=== PATIENT | female | born 1955 | race Caucasian/White ===

== ENCOUNTER 2021-03-02 18:41 | Observation (INO) | payer OTHER, BC ==
--- OUTSIDE RECORDS SUMMARY | 2021-03-02 18:43 | XMS REPORT | Continuity of Care Document ---
:1955 Author Organization [facility] t Address [address] [place] [address] Care Team Providers Name Role Phone Tim COREAS, A Primary Care Physician Mariel Allison MD Attending Clinician Juan WELLS Attending Clinician Unavailable Tim COREAS, A Attending Clinician Prakash COREAS Attending Clinician Payers Payer Name Policy Type Policy Effective Date Expiration Date Sour ce Number MEDICAREMEDICARE PART [id number] 1998 josé luis De La Garza AND 00:00:00 [facility] ZolyomsrTO64 1997[place] [place] [id number] 2017 [place] PPO/FEDERAL EMPL M 00:00:00 Methodis t [id number] 16-PresentPPO Problems Condition Condition Condition Status Onset Resolution Last Treating Co mments Source Name Details Category Date Date Treatment Clinician Date SOB SOB Disease Active Last [facility] (shortness (shortness 6-29 Assessmen Methodi of breath) of breath) 00:00: t & Plan: st 00 Formattin g of this note might be different from the original. Etiology not entirely clear. Element of underlyin g asthma may play a role. Will obtain PFT's to assess underlyin g physiolog y. Will initiate LABA/ICS. She has prn MELBA. 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 Will obtain CXR. She also has CHF, and likely her PR worsened her CHF. Her NT-proBNP was mildly elevated. Would continue diuretics . Will give samples of Breo if available . Heart Heart Disease Active Last [facility] attack attack 01-13 Assessmen Methodi 00:00: t & Plan: st 00 Formattin g of this note might be different from the original. S/P PR last December. Sleep Sleep Disease Active Last [facility] apnea, apnea, Assessmen Methodi obstructiv obstructiv t & Plan: st e e Formattin g of this note might be different from the original. She definitel y has AMISHA, and has significa nt symptoms. Will obtain PSG and, if indicated , titration study. She has benefitte d from CPAP in the past. CHF CHF Disease Active Last [facility] (congestiv (congestiv Assessmen Methodi e heart e heart t & Plan: st failure) failure) Formattin g of this note might be different from the original. Likely ischemic. Needs echocardi ogram. Will refer to Cardiolog y. Diabetes Diabetes Disease [facility] mellitus Assessmen Met hodi t & Plan: st Formattin g of this note might be different from the original. She sees Dr. Dumont . Has not been tracking her glucose. Encourage d to do so. History of History of Disease Active Last [facility] COVID-19 COVID-19 Assessmen Met hodi t & Plan: st Formattin g of this note might be different from the original. 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 Mild Mild Disease Active Last [facility] intermitte intermitte Assessmen Methodi nt asthma nt asthma t & Plan: s t without without Formattin complicati complicati g of this on on note might be different from the original. Definitel y has asthma. Will initiate LABA/ICS and assess response. She has as rescue inhaler. Allergies, Adverse Reactions, Alerts This patient has no known allergies or adverse reactions. Family History Family Member Diagnosis Comments Start Date Stop Date Source Natural father Leukemia [facility] Natural father COPD [facility] Natural father Diabetes [facility] Natural mother COPD [facility] Natural mother Heart disease [facility] Social History Social Habit Start Date Stop Date Quantity Comments Source Exposure to Not sure Reynaldo Metho dist SARS-CoV-2 (event) Tobacco use and 2021-02-10 2021-02-10 Never used Reynaldo Meyer ethodist exposure 00:00:00 00:00:00 Alcohol intake 2021-02-10 2021-02-10 Ex-drinker Reynaldo Delgadillo thodist 00:00:00 00:00:00 (finding) Alcohol Comment 2021-02-10 2021-02-10 once a year [facility] 00:00:00 00:00:00 [birth year] Reynaldo cadenaodist 00:00:00 00:00:00 Smoking Status Start Date Stop Date Source Never smoker Reynaldo Aguilaris gualberto Medications Ordered Filled Start Stop Current Ordering Indication Dosage Frequency Signature Comments Components Source Medication Medication Date Date Medication? Clinician (SIG) Name Name b complex Yes Take by [place] vitamins 02-10 mouth. Methodi tablet 13:46: st 50 promethazin Yes 25mg Take 25 mg Jacobs e 02-10 by mouth. Methodi (PHENERGAN) 13:46: st 25 MG 50 tablet ZINC ORAL Yes Take by [place] 02-10 mouth. Methodi 13:46: st 50 fluticasone Yes Mild QD Inhale 1 [place] furoate-sayra 02-10 intermitten inhalation Methodi anteroL 00:00: t asthma s once st (Breo 00 without daily. Ellipta) complicatio 200-25 n mcg/dose blister with device powder for inhalation amitriptyli Yes 50mg Take 50 mg Jacobs ne (ELAVIL) 02-02 by mouth. Met hodi 50 MG 00:00: st tablet 00 atorvastati Yes 20mg Take 20 mg Jacobs n (LIPITOR) 02-02 by mouth. Met hodi 20 mg 00:00: st tablet 00 furosemide Yes 40mg Take 40 mg [place] (LASIX) 40 02-02 by mouth. Meth lisa mg tablet 00:00: st 00 glimepiride Yes 4mg Take 4 mg [place] (AMARYL) 4 - by mouth. Meth lisa MG tablet 00:00: st 00 insulin Yes 50U Inject 50 [place] GLARGINE 6-21 Units Methodi (Toujeo 00:00: under the st SoloStar 00 skin. U-300 Insulin) 300 unit/mL (1.5 mL) insulin pen subcutaneou s pen ipratropium Yes 2{spray 2 sprays Jacobs (ATROVENT) 6-21 } into each Meth lisa 21 mcg 00:00: nostril. st (0.03 %) 00 nasal spray ipratropium Yes 1{puff} Inhale 1 Jacobs -albuteroL 6-21 puff. Methodi (Combivent 00:00: st Respimat) 00 20-100 mcg/actuati on mist inhaler levothyroxi Yes 75ug Take 75 Arnulfo ston ne 6-21 mcg by Methodi (SYNTHROID) 00:00: mouth. st 75 mcg 00 tablet montelukast Yes 10mg Take 10 mg Jacobs (SINGULAIR) 6-21 by mouth. Met hodi 10 mg 00:00: st tablet 00 omeprazole Yes 40mg Take 40 mg [place] (PriLOSEC) 6-21 by mouth. Meth lisa 40 MG 00:00: st capsule 00 losartan Yes 100mg Take 100 [place] (COZAAR) 50 4-12 mg by Methodi MG tablet 00:00: mouth. st 00 metoprolol Yes 100mg Take 100 [place] tartrate 4-12 mg by Methodi (LOPRESSOR) 00:00: mouth. st 100 mg 00 tablet doxazosin Yes 1mg Take 1 mg Arnulfo ston (CARDURA) 1 3-22 by mouth. Met hodi MG tablet 00:00: st 00 insulin Yes Check Jacobs ASPART 7-07 sugarsAC&o Methodi (NovoLOG) 00:00: rifnot st 100 unit/mL 00 feeling injection well.Ifove r 300,&>2hrs since eating,nawaf [id number],4 01-450 [id number] s,451-500 take 20units&ca ll [facility] Immunizations Ordered Immunization Filled Immunization Date Status Commen ts Source Name Name FLUZONE HIGH-DOSE PF 2019-11-10 Completed [place] 00:00:00 Christian Pneumococcal 2017-02-03 Completed [place] Polysaccharide 00:00:00 Christian Td, Unspecified 2017-01-30 Completed [facility] 00:00:00 [facility] Vital Signs Vital Name Observation Time Observation Value Comments Source Systolic blood 2021-02-10 13:44:00 122 mm[Hg] [place] [facility] pressure Diastolic blood 2021-02-10 13:44:00 76 mm[Hg] [place] [facility] pressure Heart rate 2021-02-10 13:44:00 92 /min [facility] Body temperature 2021-02-10 13:44:00 36.67 Kiara [place] [facility] Respiratory rate 2021-02-10 13:44:00 18 /min [place] [facility] Body height 2021-02-10 13:44:00 160 cm [facility] Body weight 2021-02-10 13:44:00 122.018 kg [facility] BMI 2021-02-10 13:44:00 47.65 kg/m2 [facility] Oxygen saturation in 2021-02-10 13:44:00 95 /min [facility] Arterial blood by Pulse oximetry Procedures This patient has no known procedures. Plan of Care Planned Activity Planned Date Details Comments Source Future Scheduled 2022-02-03 65+ PNEUMOCOCCAL [facility] Test 00:00:00 VACCINE (2 of 2) [code = 65+ PNEUMOCOCCAL VACCINE (2 of 2)] Future Scheduled 2021-03-15 INFLUENZA VACCINE [place] [facility] Test 00:00:00 [code = INFLUENZA VACCINE] Future Scheduled 2003 BREAST CANCER [facility] thodist Test 00:00:00 SCREENING [code = BREAST CANCER SCREENING] Future Scheduled 2003 COLONOSCOPY SCREENING [place] [facility] Test 00:00:00 [code = COLONOSCOPY SCREENING] Future Scheduled 2003 SHINGLES VACCINES (#1) [place] [facility] Test 00:00:00 [code = SHINGLES VACCINES (#1)] Future Scheduled 1971 Hepatitis C screening [place] [facility] Test 00:00:00 (procedure) [code = 405091035] Future Scheduled 1963 DIABETES: RETINAL EYE [place] [facility] Test 00:00:00 EXAM [code = DIABETES: RETINAL EYE EXAM] Future Scheduled 1963 DIABETIC FOOT EXAM [place] [facility] Test 00:00:00 [code = DIABETIC FOOT EXAM] Future Scheduled 1963 URINE MICROALBUMIN [place] [facility] Test 00:00:00 [code = URINE MICROALBUMIN] Encounters Start End Encounter Admission Attending Care Care Encounter Source Date/Time Date/Time Type Type Clinicians Facility Department ID 2021-02-11 2021-02-11 Outpatient [facility] [id number] [place] 00:00:00 00:00:[address] 2021-02-10 2021-02-10 Outpatient JOJO, [facility] [id number] [place] 00:00:00 00:00:00 [address] [facility] 2021-02-09 2021-02-09 Patient JODY Dumont [id number] 00:00:00 00:00:00 Secure Msg Kelli Granger [id number] Chancellor [id number] Professio [id number] [address] 2021-02-09 2021-02-09 Telephone Tim RUST [id number] 00:00:00 00:00:00 Kelli Granger [id number] Chancellor [id number] Professio [phone] [address] 2021-02-07 2021-02-07 Telephone JODY Randall [id number] 00:00:00 00:00:00 [facility] [id number] Specialty [id number] Care - [phone] [place] [address] Results This patient has no known results.
--- NOTE | 2021-03-02 21:23 | ER ---
Nurse's Notes [facility] Name: Diane Byrnes Age: 65 yrs Sex: Female : 1955 Arrival Date: 03/02/2021 Time: 18:45 Bed 23 Private MD: Diagnosis: Dyspnea;Systolic (congestive) heart failure;Weakness-right leg;Obesity, unspecified Presentation: 03/02 19:01 Chief complaint: Patient states: Started having SOB with exertion on Tuesday evening. ca1 Denies cough more than usual. Chest pain/tightness and pressure on neck started with the SOB. And on Tuesday, the R leg would drag and when I was walking to the bathroom it would just kind of curl up or contract and when I give it a rest it will be fine. Coronavirus screen: Client denies travel out of the [place] in the last 14 days. shortness of breath, Client presents with at least one sign or symptom that may indicate coronavirus-19. Standard/surgical mask placed on the client. Provider contacted for isolation considerations. Ebola Screen: Patient negative for fever greater than or equal to 101.5 degrees Fahrenheit, and additional compatible Ebola Virus Disease symptoms Patient denies exposure to infectious person. Patient denies travel to an Ebola-affected area in the 21 days before illness onset. No symptoms or risks identified at this time. Initial Sepsis Screen: Does the patient meet any 2 criteria? No. Patient's initial sepsis screen is negative. Does the patient have a suspected source of infection? No. Patient's initial sepsis screen is negative. Risk Assessment: Do you want to hurt yourself or someone else? Patient reports no desire to harm self or others. Onset of symptoms was March 02, 2021. 19:01 Acuity: RHODA 3 ca1 19:01 Method Of Arrival: Wheelchair ca1 Historical: - Allergies: 19:06 No Known Allergies; ca1 - PMHx: 19:06 Hypertensive disorder; Diabetes mellitus; Sleep apnea; Congestive heart failure; ca1 Hypothyroidism; Asthma; - Immunization history:: Client reports receiving the 2nd dose of the Covid vaccine, Client reports receiving the 1st dose of the Covid vaccine, Pneumococcal vaccine is up to date, Flu vaccine is up to date. - Social history:: Smoking status: Patient denies any tobacco usage or history of. - Family history:: not pertinent. Screenin:25 Abuse screen: Denies threats or abuse. Denies injuries from another. Nutritional ad5 screening: No deficits noted. Tuberculosis screening: No symptoms or risk factors identified. Fall Risk No fall in past 12 months (0 pts). Secondary diagnosis (15 points) IV access (20 points). Ambulatory Aid- None/Bed Rest/Nurse Assist (0 pts). Gait- Normal/Bed Rest/Wheelchair (0 pts) Mental Status- Oriented to own ability (0 pts). Total Harmon Fall Scale indicates Low Risk Score (25-44 pts). Fall prevention measures have been instituted. Side Rails Up X 2 Family Present and informed to notify staff if they need to leave bedside As available Patient and Family Educated on Fall Prevention Program and strategies. Assessment: 21:22 General: Appears in no apparent distress. Behavior is calm, cooperative, appropriate ad5 for age. Pain: Denies pain. Neuro: Level of Consciousness is awake, alert, obeys commands, Oriented to person, place, time, situation, Appropriate for age Script Artist are equal bilaterally Moves all extremities. Gait is steady, Speech is normal, Facial symmetry appears normal, Pupils are PERRLA, Intact. Cardiovascular: Heart tones present Capillary refill < 3 seconds Patient's skin is warm and dry. Pulses are all present. Rhythm is regular. Respiratory: Reports shortness of breath cough that is at baseline at this time d/t hx of CHF; reports worsening SOB this past Sat-Sun with exertion Airway is patent Respiratory effort is even, unlabored, Respiratory pattern is regular, symmetrical, Breath sounds are clear bilaterally. GI: No deficits noted. No signs and/or symptoms were reported involving the gastrointestinal system. : No deficits noted. No signs and/or symptoms were reported regarding the genitourinary system. Derm: Skin is intact, Skin is pink, warm \\T\\ dry. Musculoskeletal: Reports weakness in RLE denies injury; states difficulty with mvmt to affected extremity Sat-Sun this past week; sent by PCP for "MRI". 21:44 Reassessment: Patient appears in no apparent distress at this time. No changes from ad5 previously documented assessment. Patient and/or family updated on plan of care and expected duration. Pain level reassessed. 22:30 Reassessment: Pt assisted to [facility], ambulates independently with steady gait. Urine ad5 output of 380cc noted, clear/yellow. Pt moved into hospital bed, placed in room 23 for continued monitoring. Pt denies other needs or c/o at this time. VS remain stable. NAD noted, will continue to monitor. Patient denies pain at this time. Vital Signs: 19:01 BP 133 / 81; Pulse 88; Resp 20; Temp 98.4(O); Pulse Ox 96% on R/A; Weight 122.47 kg ca1 (R); Height 5 ft. 3 in. (160.02 cm) (R); 19:01 Pain 5/10; ca1 21:26 BP 159 / 84; Pulse 81; Resp 20 S; Pulse Ox 95% ; ad5 19:01 Body Mass Index 47.83 (122.47 kg, 160.02 cm) ca1 Isa Coma Score: 21:22 Eye Response: spontaneous(4). Verbal Response: oriented(5). Motor Response: obeys ad5 commands(6). Total: 15. NIH Stroke Scale Scores: 21:09 NIHSS Score: 1 carmen 21:22 NIHSS Score: 1 ad5 ED Course: 18:45 Patient arrived in ED. mr 19:05 Triage completed. ca1 19:06 Arm band placed on right wrist. ca1 20:37 Ahsan Urrutia is Primary Nurse. ad5 20:40 Patient placed in an exam room, on a stretcher, on alarm security or surveillance monitor, on pulse oximetry. ca1 20:48 Leon Nguyen MD is Attending Physician. carmen 21:18 XRAY Chest (1 view) In Process Unspecified. EDMS 21:20 Jose Elias Gomez is Hospitalizing Provider. carmen 21:22 Patient has correct armband on for positive identification. Placed in gown. Bed in low ad5 position. Call light in reach. Side rails up X2. Adult w/ patient. child monitor on. Pulse ox on. NIBP on. Door closed. Noise minimized. Head of bed elevated. 21:25 River Aguirre DO is Hospitalizing Provider. carmen 21:26 No provider procedures requiring assistance completed. Initial lab(s) drawn, by me, ad5 sent to lab. Inserted saline lock: 20 gauge in right forearm, using aseptic technique. Blood collected. 21:56 CT Head Brain wo Cont In Process Unspecified. EDMS 07 00:57 Patient admitted, IV remains in place. ad5 12:46 Urine Culture Sent. 5 Administered Medications: 07/19 21:42 Drug: foLIC Acid 1 mg Route: IVPB; Site: right forearm; ad5 22:36 Follow up: IV Status: Completed infusion ad5 21:43 Drug: Aspirin Chewable Tablet 81 mg Route: PO; ad5 22:45 Follow up: Response: No adverse reaction ad5 22:48 Drug: Lasix (furosemide) 60 mg Route: IVP; Site: right forearm; ad5 03/03 00:56 Follow up: Response: No adverse reaction ad5 03/02 22:50 Drug: Potassium Effervescent Tablet 50 mEq Route: PO; ad5 03/03 00:56 Follow up: Response: No adverse reaction ad5 00:58 Not Given (Patient Refused): NS 0.9% 1000 ml IV at 75 ml/hr continuous ad5 Outcome: 03/02 21:22 Decision to Hospitalize by Provider. carmen 03/03 00:57 Admitted to ER Hold. [facility] ad5 Condition: stable Instructed on the need for admit, Demonstrated understanding of instructions. 16:12 Patient left the ED. aa5 NIH Stroke Scale - NIH Stroke Score Date: 03/02/2021 Time: 21:09 Total Score = 1 1a. Level of Consciousness (LOC) - 0(Alert) 1b. Level of Consciousness (LOC) (Month \\T\\ Age) - 0(Both) 1c. LOC Commands (Open \\T\\ Closes Eyes/Senior Data Modeler) - 0(Both) 2. Best Gaze (Lateral Gaze Paresis) - 0(Normal) 3. Visual Field Loss - 0(No visual loss) 4. Facial Palsy - 0(Normal) 5a. Left Arm: Motor (10-second hold) - 0(No drift) 5b. Right Arm: Motor (10-second hold) - 0(No drift) 6a. Left Leg: Motor (5-second hold - always test supine) - 0(No drift) 6b. Right Leg: Motor (5-second hold - always test supine) - 1(Drift) 7. Limb Ataxia (finger/nose \\T\\ heel/salas - test with eyes open) - 0(Absent) 8. Sensory Loss (pinprick arms/legs/face) - 0(Normal) 9. Best Language: Aphasia (description/naming/reading) - 0(No aphasia) 10. Dysarthria (speech clarity - read or repeat words) - 0(Normal) 11. Extinction and Inattention (visual/tactile/auditory/spatial/personal) - 0(No abnormality) Initials: carmen NIH Stroke Scale - NIH Stroke Score Date: 03/02/2021 Time: 21:22 Total Score = 1 1a. Level of Consciousness (LOC) - 0(Alert) 1b. Level of Consciousness (LOC) (Month \\T\\ Age) - 0(Both) 1c. LOC Commands (Open \\T\\ Closes Eyes/Senior Data Modeler) - 0(Both) 2. Best Gaze (Lateral Gaze Paresis) - 0(Normal) 3. Visual Field Loss - 0(No visual loss) 4. Facial Palsy - 0(Normal) 5a. Left Arm: Motor (10-second hold) - 0(No drift) 5b. Right Arm: Motor (10-second hold) - 0(No drift) 6a. Left Leg: Motor (5-second hold - always test supine) - 0(No drift) 6b. Right Leg: Motor (5-second hold - always test supine) - 1(Drift) 7. Limb Ataxia (finger/nose \\T\\ heel/salas - test with eyes open) - 0(Absent) 8. Sensory Loss (pinprick arms/legs/face) - 0(Normal) 9. Best Language: Aphasia (description/naming/reading) - 0(No aphasia) 10. Dysarthria (speech clarity - read or repeat words) - 0(Normal) 11. Extinction and Inattention (visual/tactile/auditory/spatial/personal) - 0(No abnormality) Initials: ad5 Signatures: Dispatcher [employer] EDLeon Rai MD MD cha Rivera, Aimee sidhu McphersonMelva cueva RN RN aa5 Evita Charles Cheryl, RN RN ca1 Davidson, Andrea ad5 Corrections: (The following items were deleted from the chart) 03/02 21:25 21:22 Respiratory: Reports shortness of breath cough that is at baseline at ad5 this time d/t hx of CHF; reports worsening SOB this past Sat-Sun with exertion Airway is patent Respiratory effort is even, unlabored, Respiratory pattern is regular, symmetrical, ad5
--- NOTE | 2021-03-02 21:23 | EDPHYS ---
Physician Documentation [facility] Name: Diane Byrnes Age: 65 yrs Sex: Female : 1955 Arrival Date: 03/02/2021 Time: 18:45 Bed 23 Private MD: ED Physician Leon Nguyen HPI: 03/02 21:09 This 65 yrs old Female presents to ER via Wheelchair with complaints of carmen Breathing Difficulty. 21:09 The patient has shortness of breath at rest, with light activity. Onset: The carmen symptoms/episode began/occurred 3 day(s) ago. 21:09 Duration: The symptoms are continuous, and are unchanged since they started. The carmen patient's shortness of breath is aggravated by light activity, supine position, walking. The patient presents to the emergency department with weakness of the right lower extremity, that is moderate. Context: occurred at an unknown location. Associated signs and symptoms: Pertinent positives: weakness. Severity of symptoms: At their worst the symptoms were moderate in the emergency department the symptoms are unchanged. Associated signs and symptoms: The patient has no apparent associated signs or symptoms. Historical: - Allergies: 19:06 No Known Allergies; ca1 - PMHx: 19:06 Hypertensive disorder; Diabetes mellitus; Sleep apnea; Congestive heart failure; ca1 Hypothyroidism; Asthma; - Immunization history:: Client reports receiving the 2nd dose of the Covid vaccine, Client reports receiving the 1st dose of the Covid vaccine, Pneumococcal vaccine is up to date, Flu vaccine is up to date. - Social history:: Smoking status: Patient denies any tobacco usage or history of. - Family history:: not pertinent. ROS: 21:09 Constitutional: Negative for fever, chills, and weight loss, Eyes: Negative for injury, carmen pain, redness, and discharge, ENT: Negative for injury, pain, and discharge, Neck: Negative for injury, pain, and swelling, Cardiovascular: Negative for chest pain, palpitations, and edema, Abdomen/GI: Negative for abdominal pain, nausea, vomiting, diarrhea, and constipation, Back: Negative for injury and pain, : Negative for injury, bleeding, discharge, and swelling, Skin: Negative for injury, rash, and discoloration, Psych: Negative for depression, anxiety, suicide ideation, homicidal ideation, and hallucinations, Allergy/Immunology: Negative for hives, rash, and allergies, Endocrine: Negative for neck swelling, polydipsia, polyuria, polyphagia, and marked weight changes, Hematologic/Lymphatic: Negative for swollen nodes, abnormal bleeding, and unusual bruising. 21:09 Respiratory: Positive for cough, shortness of breath, on exertion. 21:09 MS/extremity: Positive for decreased range of motion, of the right leg. Exam: 21:09 Constitutional: This is a well developed, well nourished patient who is awake, alert, carmen and in no acute distress. Head/Face: Normocephalic, atraumatic. Eyes: Pupils equal round and reactive to light, extra-ocular motions intact. Lids and lashes normal. Conjunctiva and sclera are non-icteric and not injected. Cornea within normal limits. Periorbital areas with no swelling, redness, or edema. ENT: Nares patent. No nasal discharge, no septal abnormalities noted. Tympanic membranes are normal and external auditory canals are clear. Oropharynx with no redness, swelling, or masses, exudates, or evidence of obstruction, uvula midline. Mucous membranes moist. Neck: Trachea midline, no thyromegaly or masses palpated, and no cervical lymphadenopathy. Supple, full range of motion without nuchal rigidity, or vertebral point tenderness. No Meningismus. Chest/axilla: Normal chest wall appearance and motion. Nontender with no deformity. No lesions are appreciated. Cardiovascular: Regular rate and rhythm with a normal S1 and S2. No gallops, murmurs, or rubs. Normal PMI, no JVD. No pulse deficits. Respiratory: Lungs have equal breath sounds bilaterally, clear to auscultation and percussion. No rales, rhonchi or wheezes noted. No increased work of breathing, no retractions or nasal flaring. Abdomen/GI: Soft, non-tender, with normal bowel sounds. No distension or tympany. No guarding or rebound. No evidence of tenderness throughout. Back: No spinal tenderness. No costovertebral tenderness. Full range of motion. Female : Normal external genitalia. Skin: Warm, dry with normal turgor. Normal color with no rashes, no lesions, and no evidence of cellulitis. Neuro: Awake and alert, GCS 15, oriented to person, place, time, and situation. Cranial nerves II-XII grossly intact. Motor strength 5/5 in all extremities. Sensory grossly intact. Cerebellar exam normal. Normal gait. Psych: Awake, alert, with orientation to person, place and time. Behavior, mood, and affect are within normal limits. 21:09 Musculoskeletal/extremity: ROM: full active range of motion, full passive range of motion, Circulation is intact in all extremities. Sensation intact. Compartment Syndrome exam of affected extremity: is normal. Weight bearing: able to fully bear weight, DVT Exam: no pain, no tenderness, negative Homans' sign noted on exam, no appreciated bluish discoloration, no erythema, no increased warmth, swelling. 21:09 Neuro: Orientation: is normal, appropriate for stated age, no acute changes, Mentation: is normal, appropriate for stated age, no acute changes, Memory: is normal, appropriate for stated age, no acute changes, Cranial nerves: grossly normal, is grossly normal based on the patient's age, no acute changes, Cerebellar function: is grossly normal, is grossly normal based on the patient's age, no acute changes, Motor: moves all fours, strength is 4/5 in the right leg, Sensation: is normal, no obvious gross deficits, appropriate no acute changes, Gait: not tested. seizure activity, is not displayed by the patient. 21:13 ECG was reviewed by the Attending Physician. carmen Vital Signs: 19:01 BP 133 / 81; Pulse 88; Resp 20; Temp 98.4(O); Pulse Ox 96% on R/A; Weight 122.47 kg ca1 (R); Height 5 ft. 3 in. (160.02 cm) (R); 19:01 Pain 5/10; ca1 21:26 BP 159 / 84; Pulse 81; Resp 20 S; Pulse Ox 95% ; ad5 19:01 Body Mass Index 47.83 (122.47 kg, 160.02 cm) ca1 NIH Stroke Scale Scores: 21:09 NIHSS Score: 1 carmen 21:22 NIHSS Score: 1 ad5 [place] Coma Score: 21:22 Eye Response: spontaneous(4). Verbal Response: oriented(5). Motor Response: obeys ad5 commands(6). Total: 15. MDM: 20:48 Patient medically screened. carmen 21:12 Differential diagnosis: CHF exacerbation, pulmonary edema. Antibiotic administration: carmen Not indicated. The patient's Wells Deep Vein Thrombosis Score was calculated as follows: Total Score: 0-2 Pts- Low Risk. The patient's pulmonary embolism risk score was calculated as follows: Total Score: 0-2 points. This patient was found to be at low risk for a pulmonary embolism by using the Well's assessment criteria. Immunization status: Pneumococcal vaccine: Influenza vaccine: Data reviewed: vital signs, nurses notes, lab test result(s), EKG, radiologic studies, CT scan, plain films. Data interpreted: court recording monitor: rate is 88 beats/min, rhythm is regular, Pulse oximetry: on room air is 96 %. Test interpretation: by ED physician or midlevel provider: ECG, plain radiologic studies. Counseling: I had a detailed discussion with the patient and/or guardian regarding: the historical points, exam findings, and any diagnostic results supporting the discharge/admit diagnosis, lab results, radiology results, the need for further work-up and treatment in the hospital. 03/02 21:09 Order name: Basic Metabolic Panel; Complete Time: 22:25 [facility] 03/02 21:09 Order name: CBC with Diff; Complete Time: 22:16 [facility] 03/02 21:09 Order name: LFT's; Complete Time: 22:25 [facility] 03/02 21:09 Order name: Magnesium; Complete Time: 22:25 [facility] 03/02 21:09 Order name: NT PRO-BNP; Complete Time: 22:25 [facility] 03/02 21:09 Order name: PT-INR; Complete Time: 21:55 [facility] 03/02 21:09 Order name: Troponin (emerg Dept Use Only); Complete Time: 22:25 [facility] 03/02 21:09 Order name: Lipase; Complete Time: 22:25 [facility] 03/02 21:09 Order name: Sed Rate; Complete Time: 22:16 [facility] 03/02 21:09 Order name: CRP; Complete Time: 22:25 [facility] 03/02 21:09 Order name: Urine Culture [facility] 03/03 00:21 Order name: SARS-COV-2 RT PCR [facility] 03/03 05:17 Order name: CBC with Automated Diff [facility] 03/02 21:09 Order name: XRAY Chest (1 view); Complete Time: 21:55 [facility] 03/02 21:19 Order name: CT Head Brain wo Cont; Complete Time: 22:25 [facility] 03/02 22:47 Order name: US Extremity Venous W Compression Robin [facility] 03/03 05:38 Order name: Hemoglobin A1c [facility] 03/03 06:02 Order name: Comprehensive Metabolic Panel [facility] 03/03 06:02 Order name: Lipid Profile [facility] 03/03 06:02 Order name: T4 Free [facility] 03/03 06:02 Order name: Magnesium [facility] 03/03 06:02 Order name: Thyroid Stimulating Hormone [facility] 03/03 07:49 Order name: Glucose, Ancillary Testing [facility] 03/03 08:36 Order name: US [facility] 03/03 09:42 Order name: MRI [facility] 03/03 09:54 Order name: MRI [facility] 03/03 11:53 Order name: Glucose, Ancillary Testing [facility] 03/03 12:35 Order name: Urine Dipstick-Ancillary [facility] 03/03 15:13 Order name: Potassium [facility] 03/02 18:59 Order name: EKG; Complete Time: 18:59 [facility] 03/02 18:59 Order name: EKG - Nurse/Tech; Complete Time: 18:59 [facility] 03/02 21:09 Order name: Cardiac monitoring; Complete Time: 21:21 [facility] 03/02 21:09 Order name: IV Saline Lock; Complete Time: 21:22 [facility] 03/02 21:09 Order name: Labs collected and sent; Complete Time: 21:22 [facility] 03/02 21:09 Order name: O2 Sat Monitoring; Complete Time: 21:22 [facility] 03/02 21:09 Order name: Urine Dipstick-Ancillary (obtain specimen); Complete Time: 12:36 [facility] 03/03 09:56 Order name: [facility] 03/03 10:11 Order name: [facility] EC:13 Rate is 84 beats/min. Rhythm is regular. QRS Marshall is Normal. CO interval is normal. QRS carmen interval is normal. QT interval is normal. No Q waves. T waves are Normal. No ST changes noted. Clinical impression: NSR w/ Non-specific ST/T Changes and No evidence of ischemia. Interpreted by me. Reviewed by me. Administered Medications: 21:42 Drug: foLIC Acid 1 mg Route: IVPB; Site: right forearm; ad5 22:36 Follow up: IV Status: Completed infusion ad5 21:43 Drug: Aspirin Chewable Tablet 81 mg Route: PO; ad5 22:45 Follow up: Response: No adverse reaction ad5 22:48 Drug: Lasix (furosemide) 60 mg Route: IVP; Site: right forearm; ad5 03/03 00:56 Follow up: Response: No adverse reaction ad5 03/02 22:50 Drug: Potassium Effervescent Tablet 50 mEq Route: PO; ad5 03/03 00:56 Follow up: Response: No adverse reaction ad5 00:58 Not Given (Patient Refused): NS 0.9% 1000 ml IV at 75 ml/hr continuous ad5 Disposition Summary: 03/02/21 21:22 Hospitalization Ordered Hospitalization Status: Observation carmen Condition: Fair carmen Problem: new carmen Symptoms: have improved carmen Bed/Room Type: Standard carmen Provider: River Aguirre(03/02/21 21:26) carmen Location: [facility] ER HOLD(03/02/21 21:40) mw Room Assignment: ERHOLD-(03/02/21 21:40) mw Diagnosis - Dyspnea carmen - Systolic (congestive) heart failure carmen - Weakness - right leg carmen - Obesity, unspecified carmen Forms: - Medication Reconciliation Form carmen - SBAR form carmen NIH Stroke Scale - NIH Stroke Score Date: 03/02/2021 Time: 21:09 Total Score = 1 1a. Level of Consciousness (LOC) - 0(Alert) 1b. Level of Consciousness (LOC) (Month \T\ Age) - 0(Both) 1c. LOC Commands (Open \T\ Closes Eyes/Optical Design Engineer) - 0(Both) 2. Best Gaze (Lateral Gaze Paresis) - 0(Normal) 3. Visual Field Loss - 0(No visual loss) 4. Facial Palsy - 0(Normal) 5a. Left Arm: Motor (10-second hold) - 0(No drift) 5b. Right Arm: Motor (10-second hold) - 0(No drift) 6a. Left Leg: Motor (5-second hold - always test supine) - 0(No drift) 6b. Right Leg: Motor (5-second hold - always test supine) - 1(Drift) 7. Limb Ataxia (finger/nose \T\ heel/salas - test with eyes open) - 0(Absent) 8. Sensory Loss (pinprick arms/legs/face) - 0(Normal) 9. Best Language: Aphasia (description/naming/reading) - 0(No aphasia) 10. Dysarthria (speech clarity - read or repeat words) - 0(Normal) 11. Extinction and Inattention (visual/tactile/auditory/spatial/personal) - 0(No abnormality) Initials: carmen NIH Stroke Scale - NIH Stroke Score Date: 03/02/2021 Time: : Total Score = 1 1a. Level of Consciousness (LOC) - 0(Alert) 1b. Level of Consciousness (LOC) (Month \T\ Age) - 0(Both) 1c. LOC Commands (Open \T\ Closes Eyes/Optical Design Engineer) - 0(Both) 2. Best Gaze (Lateral Gaze Paresis) - 0(Normal) 3. Visual Field Loss - 0(No visual loss) 4. Facial Palsy - 0(Normal) 5a. Left Arm: Motor (10-second hold) - 0(No drift) 5b. Right Arm: Motor (10-second hold) - 0(No drift) 6a. Left Leg: Motor (5-second hold - always test supine) - 0(No drift) 6b. Right Leg: Motor (5-second hold - always test supine) - 1(Drift) 7. Limb Ataxia (finger/nose \T\ heel/salas - test with eyes open) - 0(Absent) 8. Sensory Loss (pinprick arms/legs/face) - 0(Normal) 9. Best Language: Aphasia (description/naming/reading) - 0(No aphasia) 10. Dysarthria (speech clarity - read or repeat words) - 0(Normal) 11. Extinction and Inattention (visual/tactile/auditory/spatial/personal) - 0(No abnormality) Initials: ad5 Signatures: Dispatcher [employer] EDCassie Anglin RN RN mw Anderson, Corey, MD MD cha Attema, Lee, PRIMARY MILL ROLLER-C PRIMARY MILL ROLLER-Cla1 Jolynn Cheng RN RN ca1 Davidson, Andrea ad5 Corrections: (The following items were deleted from the chart) 03/02 21:26 21:22 Jose Elias Gomez cha [facility] :40 21:22 Telemetry/MedSurg (observation) carmen :40 21:22 carmen mcmahan
--- NOTE | 2021-03-02 21:36 | RAD REPORT ---
EXAM DESCRIPTION: RAD - Chest Single View - 03/02/2021 9:19 pm CLINICAL HISTORY: COUGH Chest pain. COMPARISON: No comparisons FINDINGS: Portable technique limits examination quality. Mild interstitial pulmonary edema suspected. The heart is mildly enlarged size. No displaced fracture s. IMPRESSION: Mild CHF versus volume overload.
[2021-03-02 21:38] LABS: Absolute Lymphocytes (CBC) 1.9 K/uL (0.7-4.9); Basophils % 1.3 % (0-1.3); Hematocrit 35.8 % (36.0-45.0); Lymphocytes % 16.4 % (15.3-44.8); MPV 7.8 fL (7.6-11.3); RBC Red Blood Cell Count 3.71 M/uL (3.86-4.86)
[2021-03-02 21:39] LABS: Protime INR 1.15
[2021-03-02] MEDS ORDERED: ASPIRIN 81 MG CHEWABLE TABLET ONE (21:57)
[2021-03-02] MEDS ORDERED: NA CHLORIDE 0.9% 1,000 ML ONE (21:57)
[2021-03-02] MEDS ORDERED: FOLIC ACID 5 MG/ML VIAL ONE (21:58)
[2021-03-02] MEDS ORDERED: NA CHLORIDE 0.9% 50 ML ONE (21:58)
--- NOTE | 2021-03-02 22:17 | RAD REPORT ---
EXAM DESCRIPTION: CT - Head Brain Wo Cont - 03/02/2021 9:56 pm CLINICAL HISTORY: DIZZINESS Headache, drowsiness COMPARISON: No comparisons TECHNIQUE: All CT scans are performed using dose optimization technique as appropriate and may inclu de automated exposure control or mA/KV adjustment according to patient size. FINDINGS: No intracranial hemorrhage, hydrocephalus or extra-axial fluid collection.No areas of brai n edema or evidence of midline shift. The paranasal sinuses and mastoids are clear. The calvarium is intact. IMPRESSION: No acute intracranial abnormality.
[2021-03-02 22:18] LABS: ALT/SGPT 31 U/L (12-78); AST/SGOT 39 U/L (15-37); Albumin 2.9 g/dL (3.4-5.0); Alkaline Phosphatase 79 U/L (45-117); BUN Blood Urea Nitrogen 8 mg/dL (7-18); Bicarbonate 28 mmol/L (21-32); Bilirubin Direct 0.2 mg/dL (0-0.2); Bilirubin Total 0.9 mg/dL (0.2-1.0); Glucose Level 158 mg/dL (74-106); Lipase 31 U/L (73-393); NT PRO-BNP 329 pg/mL (<125); Potassium 3.3 mmol/L (3.5-5.1); Protein, Total 7.5 g/dL (6.4-8.2); Sodium Level 139 mmol/L (136-145); Troponin (Emerg Dept Use Only) < 0.02 ng/mL (0.0-0.045)
--- NOTE | 2021-03-02 23:06 | P.HP ---
Certification for Inpatient Patient admitted to: Observation With expected LOS: <2 Midnights Patient will require the following post-hospital care: None Practitioner: I am a practitioner with admitting privileges, knowledge of patient current condition, hospital course, and medical plan of care. Services: Services provided to patient in accordance with Admission requirements found in Title 42 Section 412.3 of the Code of Federal Regulations Patient History Date of Service: 03/02/21 Primary Care Provider: [place] SAM[facility] Dumont Reason for admission: CHF exacerbation, right lower extremity weakness History of Present Illness: 65-year-old female with history of diabetes mellitus type 2, hypertension, hyperlipidemia, hypothyroidism, chronic diastolic congestive heart failure, asthma/COPD presents emergency department for right lower extremity weakness and shortness of breath with exertion. Patient reports symptoms started on Tuesday. Patient reports that she walks she feels like she has to drag her right leg along. Patient evaluated in the emergency department, CT head unremarkable lab significant for white blood cell count 11.8 potassium 3.3, glucose 158 BNP 329. Patient previously had COVID last year. Was discharged on home O2 4 liters/minute but not currently using on a daily basis. ED provider wishes to admit under observation for CHF exacerbation/right lower extremity weakness. On exam patient with mild drift of the right lower extremity otherwise neurological intact. 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 moist/pink Neck: Supple, 2+ carotid pulse no bruit, No LAD Respiratory: Clear to auscultation bilaterally, Normal air movement Cardiovascular: Regular rate/rhythm, Normal S1 S2, Edema (2+ pitting edema bilat eral lower extremity) Capillary refill: <2 Seconds Gastrointestinal: Normal bowel sounds, No tenderness Musculoskeletal: Swelling Integumentary: No rashes Neurological: Normal speech, Normal tone, Sensation intact, Normal affect, Abnormal strength (4/5 strength right lower extremity otherwise 5/5) - Studies Laboratory Data (last 24 hrs) 03/02/21 21:20: PT 13.2 H, INR 1.15 03/02/21 21:20: WBC 11.80 H, Hgb 12.1, Hct 35.8 L, Plt Count 258 03/02/21 21:20: Sodium 139, Potassium 3.3 L, BUN 8, Creatinine 0.72, Glucose 158 H, Magnesium 2.0, Total Bilirubin 0.9, AST 39 H, ALT 31, Alkaline Phosphatase 79, Lipase 31 L Assessment and Plan - Plan Assessment Dyspnea secondary to acute on chronic diastolic congestive heart failure Right lower extremity weakness Diabetes mellitus type 2 Hypertension Hyperlipidemia Hypothyroidism COPD/asthma Plan Dyspnea secondary to acute on chronic diastolic congestive heart failure: Monitor on telemetry, continue medications, 1500 cc per day fluid restriction, daily weights. Increase Lasix from 40 mg p.o. b.i.d. to 60 mg IV b.i.d. monitor intake/output. DVT prophylaxis Lovenox 40 mg subcutaneous once daily. Right lower extremity weakness: Patient with some edema noted to bilateral lower extremities, ultrasound lower extremities pending, MRI stroke protocol ordered to rule out ischemic CVA. Will have patient work with physical therapy to evaluate ambulation as well. Echo/carotid ultrasound ordered. Diabetes mellitus type 2: A.c. HS Accu-Cheks, sliding scale insulin therapy. A1c with morning labs. Hypertension: Obtain and continue home meds Hyperlipidemia: Obtain and continue medications, continue with atorvastatin 40 mg po daily at this time. Hypothyroidism: Continue medications COPD/asthma: Continue medications, stable this time. No wheezing noted. Discharge Plan: Home Plan to discharge in: 24 Hours - Advance Directives Does patient have a Living Will: No Does patient have a Durable POA for Healthcare: No - Code Status/Comfort Care Code Status Assessed: Yes (Full code) Critical Care: No Time Spent Managing Pts Care (In Minutes): 55
[2021-03-02] MEDS ORDERED: FUROSEMIDE 100 MG/10 ML VIAL IV ONE (23:09)
[2021-03-02] MEDS ORDERED: POTASSIUM 25 MEQ EFFERV TAB ONE (23:09)
[2021-03-03] MEDS ORDERED: ONDANSETRON 4 MG/2 ML VIAL IV PRN (01:03)
[2021-03-03] MEDS ORDERED: ACETAMINOPHEN 500 MG TAB PO PRN (01:03)
[2021-03-03 01:47] VITALS: BMI 47.8
[2021-03-03] MEDS ORDERED: PROMETHAZINE 25 MG TABLET PO PRN (01:47)
[2021-03-03] MEDS ORDERED: GLUCAGON 1 MG/VIAL IM PRN (01:49)
[2021-03-03] MEDS ORDERED: D50W 25 GM/50 ML SYRINGE IV PRN (01:49)
[2021-03-03] MEDS ORDERED: ACETAMINOPHEN 500 MG TAB ONE (03:01)
[2021-03-03 05:14] LABS: Absolute Lymphocytes (CBC) 2.1 K/uL (0.7-4.9); Basophils % 0.9 % (0-1.3); Lymphocytes % 17.8 % (15.3-44.8); MPV 7.9 fL (7.6-11.3); RBC Red Blood Cell Count 3.37 M/uL (3.86-4.86)
[2021-03-03 05:34] LABS: ALT/SGPT 30 U/L (12-78); AST/SGOT 38 U/L (15-37); Albumin 2.8 g/dL (3.4-5.0); Alkaline Phosphatase 73 U/L (45-117); BUN Blood Urea Nitrogen 8 mg/dL (7-18); Bicarbonate 34 mmol/L (21-32); Glucose Level 88 mg/dL (74-106); HDL Cholesterol 32 mg/dL (40-60); LDL Cholesterol, Calculated 63 (<130); Potassium 3.1 mmol/L (3.5-5.1); Protein, Total 6.9 g/dL (6.4-8.2); Sodium Level 141 mmol/L (136-145)
[2021-03-03] MEDS ORDERED: LEVOTHYROXINE SOD 0.075 MG TAB PO SCH (06:00)
--- NOTE | 2021-03-03 06:20 | P.DS ---
Admission Date: 03/02/21 Discharge Date: 03/03/21 Primary Care Provider: DC SAMSON Dumont Disposition: ROUTINE DISCHARGE Discharge Condition: GOOD Reason for Admission: CHF exacerbation, right lower extremity weakness Consultations: Neurology-Dr. Hernandez Procedures: CT head: COMPARISON: No comparisons TECHNIQUE: All CT scans are performed using dose optimization technique as appropriate and may include automated exposure control or mA/KV adjustment according to patient size. FINDINGS: No intracranial hemorrhage, hydrocephalus or extra-axial fluid collection.No areas of brain edema or evidence of midline shift. The paranasal sinuses and mastoids are clear. The calvarium is intact. IMPRESSION: No acute intracranial abnormality. MRI head: COMPARISON: MRA Head Wo Cont dated 03/03/2021 TECHNIQUE: Multi-sequence, multiplanar MR imaging of the brain was performed with contrast. FINDINGS: No intracranial hemorrhage, hydrocephalus, or extra-axial fluid collection. No edema or shift of midline structures. No intracranial mass. DWI is negative for acute CVA. The midline structures are normally formed. Mastoid air cells and paranasal sinuses are clear. Post-contrast images show no abnormal enhancement to suggest tumor or infection. IMPRESSION: No acute or concerning intracranial abnormalities. No pathologic post-contrast enhancement suspected. MRA head: COMPARISON: Head Brain Wo Cont dated 03/02/2021 FINDINGS: 3D noncontrast [id number] MR angiography of the [place] was performed. No aneurysm, flow-limiting stenosis or vascular malformation is seen. Forward flow seen in codominant vertebral arteries. The visualized dural venous sinuses appear patent. IMPRESSION: No significant flow abnormality of the [place] is identified. MRA neck: COMPARISON: Carotid Artery Bilateral dated 03/03/2021 FINDINGS: Contrast enhance 2D [id number] MR angiography of the neck vessels was performed. A left aortic arch is noted with a normal great vessel origin pattern. Both common carotid arteries and subclavian arteries are patent. Mild narrowing of the right carotid bulb is noted estimated at 50% or less using NASCET criteria. No significant left-sided carotid narrowing. Antegrade flow is seen in both codominant vertebral arteries. IMPRESSION: Mild narrowing of the right carotid bulb estimated at less than 50%. ECHO: MEASUREMENTS (cm) DIASTOLIC (NORMALS) SYSTOLIC (NORMALS) IVSd 1.2 (0.6-1.2) LA Diam 3.6 (1.9-4.0) LVEF 60% LVIDd 3.2 (3.5-5.7) LVIDs 2.2 (2.0-3.5) %FS 31% LVPWd 1.4 (0.6-1.2) Ao Diam 2.4 (2.0-3.7) 2 DIMENSIONAL ASSESSMENT: RIGHT ATRIUM: NORMAL LEFT ATRIUM: NORMAL RIGHT VENTRICLE: NORMAL LEFT VENTRICLE: NORMAL TRICUSPID VALVE: NORMAL MITRAL VALVE: NORMAL PULMONIC VALVE: NORMAL AORTIC VALVE: NORMAL PERICARDIAL EFFUSION: NONE AORTIC ROOT: NORMAL LEFT VENTRICULAR WALL MOTION: NORMAL. DOPPLER/COLOR FLOW: NORMAL. COMMENTS: NORMAL 2D ECHO WITH DOPPLER. NO VEGETATION. NO THROMBUS. Carotid Doppler: COMPARISON: MRA Neck W/Wo Cont dated 03/03/2021 TECHNIQUE: Real-time sonographic evaluation of both carotid systems was performed. Doppler interrogation was performed with waveform tracing bilate rally. FINDINGS: Normal high resistance waveforms are noted in both external carotid arteries. The common carotid arteries and internal carotid arteries show normal low resistance waveforms. Mild soft plaque is present in both carotid bulbs, greater on the right. Peak systolic and end diastolic velocity values and the ICA/CCA ratios are in the non-hemodynamically significant range. Antegrade flow seen in both vertebral arteries. IMPRESSION: Mild soft plaquing in both carotid bulbs. No evidence of a hemodynamically significant stenosis. Medical problem list: Dyspnea secondary to acute on chronic diastolic congestive heart failure Right lower extremity weakness Carotid arterial disease Diabetes mellitus type 2 insulin-dependent Hypertension Hyperlipidemia Hypothyroidism COPD GERD Obesity, BMI 47.8 Brief History of Present Illness: 65-year-old female with history of diabetes mellitus type 2, hypertension, hyperlipidemia, hypothyroidism, chronic diastolic congestive heart failure, asthma/COPD presents emergency department for right lower extremity weakness and shortness of breath with exertion. Patient reports symptoms started on Tuesday. Patient reports that she walks she feels like she has to drag her right leg along. Patient evaluated in the emergency department, CT head unremarkable lab significant for white blood cell count 11.8 potassium 3.3, glucose 158 BNP 329. Was admitted for further evaluation and treatment. Hospital Course: Patient presented with shortness of breath secondary to acute on chronic diastolic CHF. Patient was admitted for further evaluation and treatment. Echocardiogram shows normal ejection fraction. Patient received IV Lasix with improvement. Patient has done well. At discharge patient will continue with the 1500 cc/day fluid restriction and low-salt diet. Recommend to monitor her weight daily. If her weight increases by more than 5 pounds further adjustment in medication may be required. At discharge will recommend to increase Lasix to 80 mg 1 pill twice daily. Patient may continue with his current regimen. If her shortness of breath and edema improve then this can be decreased to 40 mg 1 pill twice daily. Further adjustment in medication can be done by her PCP or cardiology. Patient uses home oxygen. Maintain sats above 93%. Recommend to follow-up with her PCP within 1 week to follow-up his hospitalization and to further manage her medication. Patient also reported some right lower extremity weakness. This improved with treatment. MRI stroke protocol was performed. No evidence of stroke noted. Patient worked with physical therapy. Echocardiogram unremarkable. Carotid Doppler showed mild narrowing to the carotid bulb. This can be monitored as an outpatient. Recommend to continue with aspirin 81 mg daily. Recommend follow- up carotid ultrasound in 6-12 months to monitor progress. Patient may need to see cardiology as an outpatient to further monitor. Patient with diabetes mellitus type 2. This appears stable. At discharge patient will continue with her current regimen of Toujeo 50 units subcu twice daily, Januvia 100 mg daily, and Amaryl 4 mg 1 pill twice daily. Recommend to maintain blood sugar less than 140 fasting and less than 200 after meals. Recommend to recheck A1c every 3 months to monitor progress. Recommend follow- up with your PCP to further monitor and adjust medication. Patient with hypertension. This appears stable. At discharge she will continue with Cardura 1 mg daily, losartan 100 mg daily, metoprolol 100 mg 1 pill twice daily. Recommend to maintain blood pressure less than 130/80. Further adjustment can be done by her PCP. Patient with hyperlipidemia. LDL within normal range. At discharge she will continue with Lipitor 20 mg daily. Patient with COPD. At discharge she will continue with her medications of Breo 1 puff daily and Combivent as needed for shortness of breath. Patient also takes Singulair 10 mg daily. Patient with GERD. At discharge she will continue with Prilosec 40 mg 1 pill twice daily. Patient with hypothyroidism. At discharge she will continue with Synthroid 75 mcg daily. Patient will continue with her other medications including Elavil 50 mg at bedtime and multivitamins as directed. Vital Signs/Physical Exam: Temp Pulse Resp BP Pulse Ox 88 18 157/65 H 100 03/03/21 04:00 03/03/21 04:00 03/03/21 04:00 03/03/21 04:00 General: Alert, In no apparent distress, Oriented x3, Cooperative HEENT: Atraumatic Neck: Supple Respiratory: Clear to auscultation bilaterally, Normal air movement Cardiovascular: Normal pulses, Regular rate/rhythm Gastrointestinal: Normal bowel sounds, No tenderness, No masses, No rebound, No guarding Musculoskeletal: No erythema, No tenderness, No warmth Integumentary: Other (Minimal nonpitting edema to the lower extremities) Neurological: Normal speech, Normal strength at 5/5 x4 extr, Normal tone, Normal affect Laboratory Data at Discharge: WBC 11.90 K/uL (4.3-10.9) H 03/03/21 04:50 Hgb 11.2 g/dL (12.0-15.0) L 03/03/21 04:50 Hct 32.0 % (36.0-45.0) L 03/03/21 04:50 Plt Count 264 K/uL (152-406) 03/03/21 04:50 PT 13.2 SECONDS (9.5-12.5) H 03/02/21 21:20 INR 1.15 03/02/21 21:20 Sodium 141 mmol/L (136-145) 03/03/21 04:50 Potassium 3.1 mmol/L (3.5-5.1) L 03/03/21 04:50 BUN 8 mg/dL (7-18) 03/03/21 04:50 Creatinine 0.59 mg/dL (0.55-1.3) 03/03/21 04:50 Glucose 88 mg/dL (74-106) 03/03/21 04:50 Magnesium 2.0 mg/dL (1.8-2.4) 03/03/21 04:50 Total Bilirubin 1.0 mg/dL (0.2-1.0) 03/03/21 04:50 AST 38 U/L (15-37) H 03/03/21 04:50 ALT 30 U/L (12-78) 03/03/21 04:50 Alkaline Phosphatase 73 U/L (45-117) 03/03/21 04:50 Triglycerides 120 mg/dL (<150) 03/03/21 04:50 Cholesterol 119 mg/dL (<200) 03/03/21 04:50 HDL Cholesterol 32 mg/dL (40-60) L 03/03/21 04:50 Cholesterol/HDL Ratio 3.72 03/03/21 04:50 Lipase 31 U/L (73-393) L 03/02/21 21:20 Home Medications: Amitriptyline [Elavil*] 50 mg PO BEDTIME 03/03/21 Aspirin [Aspirin EC 81 MG] 81 mg PO DAILY #90 tablet. 03/03/21 Atorvastatin Calcium 20 mg PO BEDTIME 03/03/21 Doxazosin [Cardura*] 1 mg PO DAILY 03/03/21 Fluticasone/Vilanterol [Breo Ellipta 200-25 Mcg INH] 1 dose .ROUTE DAILY 03/03/21 Furosemide 80 mg PO BID #120 03/03/21 Glimepiride 4 mg PO BIDWM 03/03/21 Insulin Glargine,Hum.rec.anlog [Toujaleel Solostkaci] 50 unit SQ BID 03/03/21 Ipratropium [Atrovent 0.03% (21MCG)/[place] Nasal*] 60 sprays NS TID 03/03/21 Ipratropium/Albuterol Sulfate [Combivent Respimat 20-100 Mcg] 1 puff IH QID 03/03/21 Ipratropium/Albuterol Sulfate [Iprat-Albut 0.5-3(2.5) mg/3 ml] 3 ml IH QID 03/03/21 Levothyroxine [Synthroid*] 75 mcg PO [id number] 03/03/21 Losartan Potassium 100 mg PO DAILY 03/03/21 Metoprolol Tartrate 100 mg PO BID 03/03/21 Montelukast [Singulair*] 10 mg PO DAILY 03/03/21 Omeprazole [Prilosec] 40 mg PO BID 03/03/21 Promethazine HCl 25 mg PO BID PRN 03/03/21 Sitagliptin Phosphate [Januvia*] 100 mg PO DAILY 03/03/21 Vitamin B Complex [B Complex] 1 each PO DAILY 03/03/21 Zinc 1 tab PO DAILY 03/03/21 New Medications: Aspirin [Aspirin EC 81 MG] 81 mg PO DAILY #90 tablet. Furosemide 80 mg PO BID #120 Physician Discharge Instructions: Patient presented with shortness of breath secondary to acute on chronic diastolic CHF. Patient was admitted for further evaluation and treatment. Echocardiogram shows normal ejection fraction. Patient received IV Lasix with improvement. Patient has done well. At discharge patient will continue with the 1500 cc/day fluid restriction and low-salt diet. Recommend to monitor her weight daily. If her weight increases by more than 5 pounds further adjustment in medication may be required. At discharge will recommend to increase Lasix to 80 mg 1 pill twice daily. Patient may continue with his current regimen. If her shortness of breath and edema improve then this can be decreased to 40 mg 1 pill twice daily. Further adjustment in medication can be done by her PCP or cardiology. Patient uses home oxygen. Maintain sats above 93%. Recommend to follow-up with her PCP within 1 week to follow-up his hospitalization and to further manage her medication. Patient also reported some right lower extremity weakness. This improved with treatment. MRI stroke protocol was performed. No evidence of stroke noted. Patient worked with physical therapy. Echocardiogram unremarkable. Carotid Doppler showed mild narrowing to the carotid bulb. This can be monitored as an outpatient. Recommend to continue with aspirin 81 mg daily. Recommend follow- up carotid ultrasound in 6-12 months to monitor progress. Patient may need to see cardiology as an outpatient to further monitor. Patient with diabetes mellitus type 2. This appears stable. At discharge patient will continue with her current regimen of Toujeo 50 units subcu twice daily, Januvia 100 mg daily, and Amaryl 4 mg 1 pill twice daily. Recommend to maintain blood sugar less than 140 fasting and less than 200 after meals. Recommend to recheck A1c every 3 months to monitor progress. Recommend follow- up with your PCP to further monitor and adjust medication. Patient with hypertension. This appears stable. At discharge she will continue with Cardura 1 mg daily, losartan 100 mg daily, metoprolol 100 mg 1 pill twice daily. Recommend to maintain blood pressure less than 130/80. Further adjustment can be done by her PCP. Patient with hyperlipidemia. LDL within normal range. At discharge she will continue with Lipitor 20 mg daily. Patient with COPD. At discharge she will continue with her medications of Breo 1 puff daily and Combivent as needed for shortness of breath. Patient also takes Singulair 10 mg daily. Patient with GERD. At discharge she will continue with Prilosec 40 mg 1 pill twice daily. Patient with hypothyroidism. At discharge she will continue with Synthroid 75 mcg daily. Patient will continue with her other medications including Elavil 50 mg at bedtime and multivitamins as directed. Diet: ADA Activity: Fall precautions Followup: AB BERGER [Primary Care Provider] - Time spent managing pt's care (in minutes): 55
[2021-03-03] MEDS: INSULIN -REGULAR HUMAN 50 UNIT/0.5 ML ML SQ SCH ×2 (07:30→12:00)
[2021-03-03] MEDS ORDERED: PANTOPRAZOLE 40MG TABLET PO SCH (07:30)
[2021-03-03] MEDS ORDERED: LORazepam 2 MG/ML VIAL IV PRN (07:40)
[2021-03-03] MEDS ORDERED: GLIMEPIRIDE 2 MG TABLET PO SCH (08:00)
[2021-03-03] MEDS ORDERED: LORazepam 2 MG/ML VIAL ONE (08:13)
--- NOTE | 2021-03-03 08:35 | RAD REPORT ---
EXAM DESCRIPTION: US - Extrem Venous W Compress Robin - 03/02/2021 11:16 pm CLINICAL HISTORY: Pain;Swelling Bilateral leg edema and swelling. COMPARISON: No comparisons TECHNIQUE: Real-time sonographic interrogation of the left and right lower extremity deep venous sys tems was performed. FINDINGS: Normal compressibility, flow augmentation, phasic flow and spontaneous flow is identified in both the left and right lower extremity deep venous systems. IMPRESSION: No sonographic evidence of left or right lower extremity deep venous thrombosis.
[2021-03-03] MEDS ORDERED: POTASSIUM CL SA 10 MEQ TAB PO ONE ×2 (09:00→10:41)
[2021-03-03] MEDS ORDERED: SITAGLIPTIN PHOS 100 MG TAB PO SCH ×2 (09:00)
[2021-03-03] MEDS ORDERED: FUROSEMIDE 40 MG/4 ML VIAL IV SCH (09:00)
[2021-03-03] MEDS ORDERED: ASPIRIN EC 81 MG TAB PO SCH (09:00)
[2021-03-03] MEDS ORDERED: ENOXAPARIN 40 MG/0.4 ML SQ SCH (09:00)
[2021-03-03] MEDS ORDERED: VITAMIN B COMPLEX 1 CAP PO SCH (09:00)
[2021-03-03] MEDS ORDERED: METOPROLOL TAR 50 MG TAB PO SCH (09:00)
[2021-03-03] MEDS ORDERED: DOXAZOSIN 2 MG TAB PO SCH (09:00)
[2021-03-03] MEDS ORDERED: FOLIC ACID 1 MG TABLET PO SCH (09:00)
[2021-03-03] MEDS ORDERED: LOSARTAN POTASSIUM 50 MG TABLET PO SCH (09:00)
[2021-03-03] MEDS ORDERED: ZINC SULFATE 220 MG CAP PO SCH (09:00)
[2021-03-03] MEDS ORDERED: INSULIN GLARGINE 100 UNITS/ML SQ SCH (09:00)
[2021-03-03] MEDS ORDERED: DOXAZOSIN 1 MG TAB PO SCH (09:00)
[2021-03-03] MEDS ORDERED: ASPIRIN EC 81 MG TAB PO ONE (09:20)
[2021-03-03] MEDS ORDERED: FOLIC ACID 1 MG TABLET ONE ×2 (09:20→10:41)
[2021-03-03] MEDS ORDERED: FUROSEMIDE 40 MG/4 ML VIAL ONE (09:20)
[2021-03-03] MEDS ORDERED: PANTOPRAZOLE 40MG TABLET PO ONE ×2 (09:20→10:42)
[2021-03-03] MEDS ORDERED: INSULIN GLARGINE 100 UNITS/ML SQ ONE (09:24)
[2021-03-03] MEDS ORDERED: METOPROLOL TAR 50 MG TAB ONE (09:24)
[2021-03-03] MEDS ORDERED: ZINC SULFATE 220 MG CAP ONE (09:24)
[2021-03-03] MEDS ORDERED: ENOXAPARIN 40 MG/0.4 ML SQ ONE (09:25)
--- NOTE | 2021-03-03 09:42 | RAD REPORT ---
EXAM DESCRIPTION: MRI - Brain W/Wo Cont - 03/03/2021 9:02 am CLINICAL HISTORY: RLE WEAKNESS Headache, drowsiness, weakness COMPARISON: MRA Head Wo Cont dated 03/03/2021 TECHNIQUE: Multi-sequence, multiplanar MR imaging of the brain was performed with contrast. FINDINGS: No intracranial hemorrhage, hydrocephalus, or extra-axial fluid collection. No edema or sh ift of midline structures. No intracranial mass. DWI is negative for acute CVA. The midline structures are normally formed. Mastoid air cells and paranasal sinuses are clear. Post-contrast images show no abnormal enhancement to suggest tumor or infection. IMPRESSION: No acute or concerning intracranial abnormalities. No pathologic post-contrast enhancement suspected.
--- NOTE | 2021-03-03 09:53 | RAD REPORT ---
EXAM DESCRIPTION: MRI - MRA Head Wo Cont - 03/03/2021 9:02 am CLINICAL HISTORY: RLE weakness CVA symptomology COMPARISON: Head Brain Wo Cont dated 03/02/2021 FINDINGS: 3D noncontrast [id number] MR angiography of the [place] was performed. No aneurysm, flow-limiting stenosis or vascular malformation is seen. Forward flow seen in codominant vertebral arteries. The visualized dural venous sinuses appear patent. IMPRESSION: No significant flow abnormality of the [place] is identified.
--- NOTE | 2021-03-03 09:55 | RAD REPORT ---
EXAM DESCRIPTION: MRI - MRA Neck W/Wo Cont - 03/03/2021 9:02 am CLINICAL HISTORY: RLE WEAKNESS CVA symptomology COMPARISON: Carotid Artery Bilateral dated 03/03/2021 FINDINGS: Contrast enhance 2D [id number] MR angiography of the neck vessels was performed. A left aortic arch is noted with a normal great vessel origin pattern. Both common carotid arteries and subclavian arteries are patent. Mild narrowing of the right carotid bulb is noted estimated at 50% or less using NASCET criteria. No significant left-sided carotid narrowing. Antegrade flow is seen in both codominant vertebral arterie s. IMPRESSION: Mild narrowing of the right carotid bulb estimated at less than 50%.
--- NOTE | 2021-03-03 10:11 | RAD REPORT ---
EXAM DESCRIPTION: US - CP - 03/03/2021 9:15 am CLINICAL HISTORY: RLE weakness Headache, drowsiness. COMPARISON: MRA Neck W/Wo Cont dated 03/03/2021 TECHNIQUE: Real-time sonographic evaluation of both carotid systems was performed. Doppler interroga tion was performed with waveform tracing bilaterally. FINDINGS: Normal high resistance waveforms are noted in both external carotid arteries. The common c arotid arteries and internal carotid arteries show normal low resistance waveforms. Mild soft plaque is present in both carotid bulbs, greater on the right. Peak systolic and end diasto lic velocity values and the ICA/CCA ratios are in the non-hemodynamically significant range. Antegrade flow seen in both vertebral arteries. IMPRESSION: Mild soft plaquing in both carotid bulbs. No evidence of a hemodynamically significant stenosis.
[2021-03-03] MEDS ORDERED: VITAMIN B COMPLEX 1 CAP ONE (10:43)
--- NOTE | 2021-03-03 11:47 | EKG ---
Test Date: 2021-03-02 Test Time: 19:00:05 Manager Marketing: TREVER MEASUREMENT RESULTS: Intervals: Rate: 84 RI: 148 QRSD: 76 QT: 400 QTc: 472 [place]: P: 80 RI: 148 QRS: 109 T: 18 INTERPRETIVE STATEMENTS: Normal sinus rhythm Rightward axis Low voltage QRS Cannot rule out Anterior infarct, age undetermined Abnormal ECG No previous ECG available for comparison Electronically Signed On 03-03-21 11:46:09 CDT by Aaron Kelly
[2021-03-03 12:35] LABS: Urine Blood Negative (Negative); Urine Glucose Negative (Negative); Urine Protein Negative (Negative); Urine Specific Gravity 1.015 (1.005-1.030)
[2021-03-03] MEDS ORDERED: INSULIN -REGULAR HUMAN 50 UNIT/0.5 ML ML ONE (12:43)
--- NOTE | 2021-03-03 13:20 | ECHO ---
HEIGHT: 5 ft 3 in WEIGHT: 270 lb 0 oz DATE OF STUDY: 03/03/[address]: Haim Rasheed NP 2-DIMENSIONAL: YES M.MODE: YES DOPPLER: YES COLOR FLOW: YES TDS: NO PORTABLE: NO DEFINITY: NO BUBBLE STUDY: NO DIAGNOSIS: RIGHT LOWER EXTREMITY WEAKNESS CARDIAC HISTORY: CATHERIZATION: NO SURGERY: NO PROSTHETIC VALVE: NO PACEMAKER: NO MEASUREMENTS (cm) DIASTOLIC (NORMALS) SYSTOLIC (NORMALS) IVSd 1.2 (0.6-1.2) LA Diam 3.6 (1.9-4.0) LVEF 60% LVIDd 3.2 (3.5-5.7) LVIDs 2.2 (2.0-3.5) %FS 31% LVPWd 1.4 (0.6-1.2) Ao Diam 2.4 (2.0-3.7) 2 DIMENSIONAL ASSESSMENT: RIGHT ATRIUM: NORMAL LEFT ATRIUM: NORMAL RIGHT VENTRICLE: NORMAL LEFT VENTRICLE: NORMAL TRICUSPID VALVE: NORMAL MITRAL VALVE: NORMAL PULMONIC VALVE: NORMAL AORTIC VALVE: NORMAL PERICARDIAL EFFUSION: NONE AORTIC ROOT: NORMAL LEFT VENTRICULAR WALL MOTION: NORMAL. DOPPLER/COLOR FLOW: NORMAL. COMMENTS: NORMAL 2D ECHO WITH DOPPLER. NO VEGETATION. NO THROMBUS. TECHNOLOGIST: RAFAEL HOFF
[2021-03-03 13:31] VITALS: BP 149/79
[2021-03-03 17:25] VITALS: O2SAT 95
[2021-03-03 17:44] VITALS: TEMP 98.4
[2021-03-03] MEDS ORDERED: MONTELUKAST 10 MG TAB PO SCH (21:00)
[2021-03-03] MEDS ORDERED: ATORVASTATIN 20 MG TAB PO SCH (21:00)
[2021-03-03] MEDS ORDERED: ATORVASTATIN 40 MG TAB PO SCH (21:00)
[2021-03-03] MEDS ORDERED: AMITRIPTYLINE 50 MG TAB PO SCH (21:00)
== END 2021-03-03 15:20 | disposition home or self-care (01) ==
LOC: ER 18:41 → ERHOLD 22:54
PROVIDERS: ADMIT Family Medicine; ATTEND Family Medicine
DX: I11.0 Hypertensive heart disease with heart failure (principal); I50.33 Acute on chronic diastolic (congestive) heart failure; R53.1 Weakness; I67.9 Cerebrovascular disease, unspecified; E11.9 Type 2 diabetes mellitus without complications; E78.5 Hyperlipidemia, unspecified; J44.9 Chronic obstructive pulmonary disease, unspecified; K21.9 Gastro-esophageal reflux disease without esophagitis; E03.9 Hypothyroidism, unspecified; G47.33 Obstructive sleep apnea (adult) (pediatric); E66.9 Obesity, unspecified; Z68.42 Body mass index [BMI] 45.0-49.9, adult; Z99.81 Dependence on supplemental oxygen; Z86.16 Personal history of COVID-19; Z20.822 Contact with and (suspected) exposure to COVID-19
CPT/HCPCS: 93005; 93306; 87088; 85025 ×2; 87086; 80048; 36415; 83735 ×2; 84132; 85610; 80061; 82947 ×2; 80076; 85652; 84443; 81003; 83036; 84484; 84439; 83690; 80053; 83880; 86140; 70450; 71045; 93880; 93970; 70553; 70544; 70549; 97161; U0003; A9577; J1940; J1650; J7030; 96365; 96375; 99285; G0378; J1815

== ENCOUNTER 2023-03-16 01:28 | Inpatient (IN) | payer BC, MEDICARE, OTHER ==
--- OUTSIDE RECORDS SUMMARY | 2023-03-16 01:35 | XMS REPORT | Continuity of Care Document ---
:1955 Author Organization [facility] t Address [address] [facility] [place] [address] Care Team Providers Name Role Phone Kelli Dumont MD Primary Care Physician [phone] Kelli Dumont MD Attending Clinician [phone] Kvng Hanna MD Attending Clinician Nena Triplett MA Attending Clinician Unavailable Lobo Allen MD Attending Clinician Genesis Holt MD Attending Clinician SOREN WEBB Attending Clinician Unavailable MARY JANE HEARD Attending Clinician Unavailable KELLI DUMONT Attending Clinician Unavailable DESEAN TRIPLETT Attending Clinician Unavailable JARON ALVARENGA Attending Clinician Unavailable JARON ALVARENGA Attending Clinician Unavailable Vaccine, [facility] Attending Clinician Unavailable 2, [facility] Attending Clinician Unavailable SHELLEY BRANTLEY Attending Clinician Unavailable SHELLEY BRANTLEY Attending Clinician Unavailable Desean Palacio Attending Clinician Doctor Unassigned, Metter Attending Clinician Unavailable Kristy Brown RN Attending Clinician Unavailable CYNTHIA WERNER Attending Clinician Unavailable Cy Martinez DO Attending Clinician Cynthia Werner MD Attending Clinician BRIAN GILL Attending Clinician Unavailable SELVIN MERCADO Attending Clinician Unavailable Nurse, [facility] Pob Immunization Attending Clinician Unavailable Selvin Mercado DO Attending Clinician GATO LAURENT Attending Clinician Unavailable Gato Laurent MD Attending Clinician MARJORIE SARABIA Attending Clinician Unavailable MARJORIE SARABIA Attending Clinician Unavailable 1, [facility] Sleep Lab Bed Attending Clinician Unavailable Marjorie Sarabia MD Attending Clinician MD LOBO ALLEN Attending Clinician Unavailable DIXIE PASTRANA Attending Clinician Unavailable Geneva Randall MD Attending Clinician Tristian Beach RN Attending Clinician Unavailable Oliverio [facility], Larisa Santo Attending Clinician Pob, [facility] Main Attending Clinician Unavailable MAGED ENCARNACION Attending Clinician Unavailable Kori Delgado Attending Clinician Unavailable ABEILNO RAMSEY Attending Clinician Unavailable JOESPH RODRÍGUEZ Attending Clinician Unavailable JOESPH RODRÍGUEZ Attending Clinician Unavailable HUGH BECK Attending Clinician Unavailable GENESIS HOLT Attending Clinician Unavailable Joesph Rodríguez DO Attending Clinician Fatmata Phillips RN Attending Clinician Unavailable Brennon WAY, Nikki Stout Attending Clinician Estefanía Reynolds MD Attending Clinician ESTEFANÍA REYNOLDS Attending Clinician Unavailable Jazz Espino MD Attending Clinician JAZZ ESPINO Attending Clinician Unavailable Gina Grewal RN Attending Clinician SUNIL JHAVERI Attending Clinician Unavailable Samantha Mckeon Attending Clinician Sunil Jhaveri MD Attending Clinician Pob1, [facility] Attending Clinician Unavailable Barb Marley Attending Clinician BARB WARREN Attending Clinician Unavailable Kellie Angelo RN Attending Clinician Unavailable KELLI DUMONT Admitting Clinician Unavailable CYNTHIA WERNER Admitting Clinician Unavailable Cynthia Werner MD Admitting Clinician GATO LAURENT Admitting Clinician Unavailable LOBO ALLEN Admitting Clinician Unavailable MD LOBO ALLEN Admitting Clinician Unavailable Estefanía Reynolds MD Admitting Clinician ESTEFANÍA REYNOLDS Admitting Clinician Unavailable SUNIL JHAVERI Admitting Clinician Unavailable Sunil Jhaveri MD Admitting Clinician Payers Payer Name Policy Type Policy Number Effective Date Expiration Date Rafael garcia MEDICARE PART B [id number] [place] * MEDIC[place] PART A [id number] 1998 \\T\\ B 00:00:00 [place] [id number] 2014 EMPLOYEE PLAN 00:00:00 Problems Condition Condition Condition Status Onset Resolution Last Treating Co mments Source Name Details Category Date Date Treatment Clinician Date Weakness Weakness Disease Active Unive rs 6-09 ity of 00:00: [place] [facility] Pulmonary Pulmonary Disease Active Uni vers hypertensi hypertensi 6-09 it y of on on 00:00: [place] [facility] Chest Chest Disease Active Univers pain, pain, 6-08 ity of unspecifie [place]spec[place] 00 [facility] [place] Chronic Chronic Disease Active 2020-08 Univers heart heart 0-16 ity of failure failure 00:00: [place] with with 00 Medical preserved preserved Bran ch ejection ejection fraction fraction Blister of Blister of Disease Active 2020-08 U nivers toe of toe of 0-16 ity of left foot left foot 00:[place] without 00 [place] infection, infection, Br anch subsequent subsequent encounter encounter Post-nasal Post-nasal Disease Active 2020-08 U nivers drip drip 0-16 ity of 00:00: [place] 00 Medical Branch Right leg Right leg Disease Active Uni vers weakness weakness 8-05 ity of 00:00: [place] 00 Medical Branch Right leg Right leg Disease Active Uni vers weakness weakness 8-05 ity of 00:00: [place] 00 Medical Branch Hypoalbumi Hypoalbumi Disease Active U nivers nemia nemia 8-05 ity of 00:00: [place] 00 Medical Branch Fluid Fluid Disease Active Univers retention retention 8-05 ity of 00:00: Medical Branch 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 Etiology not entirely clear. Element of underlyin g asthma may play a role. Will obtain PFT's to assess underlyin g physiolog y. Will initiate LABA/ICS. She has prn MELBA. 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 Will obtain CXR. She also has CHF, and likely her UT worsened her CHF. Her NT-proBNP was mildly elevated. Would continue diuretics . Will give samples of Breo if available . Morbid Morbid Disease Active Univers obesity obesity 6-02 ity of 00:00: [place] [facility] Heart Heart Disease Active Last [facility] attack attack 6-[address] 00:00: t & Plan: Hospita Formattin l g of this note might be different from the original. S/P UT last December. Dyspnea Dyspnea Disease Active Univers 3-25 ity of 00:00: Medical Branch Essential Essential Disease Active 2017-08 Uni vers hypertensi hypertensi 0-24 it y of on on 00:00: Medical Branch Postmenopa Postmenopa Disease Active U nivers usal usal 5-21 ity of bleeding bleeding 00:00: [place] [facility] Asthma Asthma Disease Active 2005-08 Overview: Univer s 2-14 Formattin ity of 00:00: g of this [place] note Medical might be Branch different from the original. ICD10 Diagnosis Term [employer] Esophageal Esophageal Disease Active 2005-08 U nivers reflux reflux 2-14 ity of 00:00: Medical Branch Hypothyroi Hypothyroi Disease Active 2005-08 Overview : Univers dism dism 2-14 Formattin ity of 00:00: g of this [place] note Medical might be Branch different from the original. ICD10 Diagnosis Term [employer] Depressive Depressive Disease Active 2005-08 Overview : Univers disorder disorder 2-14 Formattin ity of 00:00: g of this [place] 00 note Medical might be Branch different from the original. ICD10 Diagnosis Term [employer] Se[employer] Utility Type 2 Type 2 Disease Active 2005-08 Overview: Univer s diabetes diabetes 2-14 Formattin ity of mellitus mellitus 00:00: g of this [place] as without without 00 note Medical complicati complicati might be Branch on, on, different without without from the long-term long-term original. current current ICD10 use of use of Diagnosis insulin insulin Term [employer] Sleep Sleep Disease Active Last [facility] apnea, apnea, Assessmen st obstructiv obstructiv t & Plan: Hospita e e Formattin l g of this note might be different from the original. She jadiel whitley has AMISHA, and has significa nt symptoms. Will obtain PSG and, if indicated , titration study. She has benefitte d from CPAP in the past. CHF CHF Disease Active Last [facility] (congestiv (congestiv Assessmen st e heart e heart t & Plan: Hospi ta failure) failure) Formattin l g of this note might be different from the original. Likely ischemic. Needs echocardi ogram. Will refer to Cardiolog y. Diabetes Diabetes Disease Active Last Metho di mellitus mellitus Assessmen st t & Plan: Hospita Formattin l g of this note might be different from the original. She sees Dr. Dumont . Has not been tracking her glucose. Encourage d to do so. History of History of Disease Active Last M ethodi COVID-19 COVID-[address] t & Plan: Hospita Formattin l g of this note might be different from the original. 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 Mild Mild Disease Active Last [facility] intermitte intermitte Assessmen st nt asthma nt asthma t & Plan: H ospita without without Formattin l complicati complicati g of this on on note might be different from the original. Jadiel whitley has asthma. Will initiate LABA/ICS and assess response. She has as rescue inhaler. Allergies, Adverse Reactions, Alerts Allergy Allergy Status Severity Reaction(s) Onset Inactive Treating Comm ents Source Name Type Date Date Clinician Duloxeti Propensi Active Other - See [place] U nivers ne ty to comments 04-17 total ity of adverse 00:00: body [place] reaction 00 shocks Medical s Branch DULOXETI DRUG Active Other-Cmnt Univ ers NE INGREDI 04-17 ity of 00:00: [place] 00 Medical Branch Nifedipi Propensi Active Other - See Severe U nivers ne ty to comments 02-03 leg ity of adverse 00:00: swelling [place] reaction Medical s Branch NIFEDIPI DRUG Active Other-Cmnt Univ ers NE INGREDI 02-03 ity of 00:00: [place] 00 Medical Branch Risperid Propensi Active Swelling Univ ers one ty to 04-27 ity of adverse 00:00: [place] reaction Medical s Branch RISPERID DRUG Active Swelling Univer s ONE INGREDI 04-27 ity of 00:00: [place] 00 Medical Branch Family History Family Member Diagnosis Comments Start Date Stop Date Source Natural father Leukemia [facility] Natural father COPD [facility] Natural father Diabetes [facility] Natural mother COPD [facility] Natural mother Heart disease [facility] Social History Social Habit Start Date Stop Date Quantity Comments Source History SDWA [facility] o f Alcohol Frequency [place] [facility] History [facility] University o f Alcohol Std Drinks [place] [facility] History [facility] o f Alcohol Binge [place] [facility] Gender identity [facility] Sexual orientation [facility] Tobacco use and 2022-03-01 2022-03-01 Smokeless Universit y of exposure 00:00:00 00:00:00 tobacco non-user [facility] dical Branch Exposure to 2022-02-12 2022-02-22 Not sure University of SARS-CoV-2 (event) 00:00:00 13:01:00 [place] [facility] Alcohol intake 2021-09-14 2021-09-14 Ex-drinker [facility] 00:[facility] 00:00:00 (finding) Hospital History of Social 2021-09-14 2021-09-[address] function 00:00:00 00:00:00 Hospital Alcohol Comment 2021-02-10 2021-02-10 once a year Methodis t 00:00:00 00:00:00 Hospital Education 2019-11-07 2019-11-07 16 University of 00:00:00 00:00:00 [place] [facility] History [facility] 2019-11-07 2019-11-07 5 University o f Financial 00:00:00 00:00:00 [place] [facility] History [facility] Food 2019-11-07 2019-11-07 1 Univers ity of Worry 00:00:00 00:00:00 [place] [facility] History [facility] Food 2019-11-07 2019-11-07 1 Univers ity of Scarcity 00:00:00 00:00:00 [place] [facility] History [facility] 2019-11-07 2019-11-07 2 University o f Transport Med 00:00:00 00:00:00 [place] [facility] History [facility] 2019-11-07 2019-11-07 2 University o f Transport Non-Med 00:00:00 00:00:00 [facility] Sex Ass[birth year] At [birth year] [facility] 00:[facility] Smoking Status Start Date Stop Date Source Never smoked tobacco [facility] Medications Ordered Filled Start Stop Current Ordering Indication Dosage Frequency Signature Comments Components Source Medication Medication Date Date Medication? Clinician (SIG) Name Name LOSARTAN 50 Yes [id number] TAKE 2 Univers mg tablet 6-22 TABLETS ity of 00:00: DAILY [place] [facility] LOSARTAN 48 Yes [id number] TAKE 2 Univers mg tablet 6-22 TABLETS ity of 00:00: DAILY [address] spironolact Yes [id number] TAKE ONE Methodi one 4-[address] (ALDACTONE) 00:00: MOUTH Hospi ta 50 MG 00 DAILY l tablet furosemide Yes [id number] TAKE ONE Methodi (LASIX) 80 2-[address] mg tablet 00:00: MOUTH Hospita 00 TWICE A l DAY sildenafil, Yes TAKE ONE Me thodi for 2-[address] pulmonary 00:00: MOUTH Hospita hypertensio 00 THREE l n, TIMES A (REVATIO) DAY 20 mg tablet sildenafil, No 20mg [id number] Take 1 Methodi for 09-14 05-02 [id number] tablet (20 st pulmonary 00:00: 04:59 3D mg total) Ho spita hypertensio 00 :00 by mouth 3 l n, (three) (REVATIO) times a 20 mg day for 90 tablet days. ipratropium 2021-08 Yes [id number] 2{spray Use 2 Univers 21 mcg 2-28 } Sprays in ity of (0.03 %) 00:00: each [place] nasal spray 00 nostril in Me dical the Branch morning and 2 Sprays at noon and 2 Sprays in the evening. ipratropium 2021-08 Yes [id number] 2{spray Use 2 Univers 21 mcg 2-28 } Sprays in ity of (0.03 %) 00:00: each [place] nasal spray 00 nostril in Me dical the Branch morning and 2 Sprays at noon and 2 Sprays in the evening. ipratropium 2021-08 Yes [id number] 2{spray Use 2 Univers 21 mcg 2-28 } Sprays in ity of (0.03 %) 00:00: each [place] nasal spray 00 nostril in Me dical the Branch morning and 2 Sprays at noon and 2 Sprays in the evening. ipratropium 2021-08 Yes [id number] 2{spray Use 2 Univers 21 mcg 2-28 } Sprays in ity of (0.03 %) 00:00: each [place] nasal spray 00 nostril in Me dical the Branch morning and 2 Sprays at noon and 2 Sprays in the evening. ipratropium 2021-08 Yes [id number] 2{spray Use 2 Univers 21 mcg 2-28 } Sprays in ity of (0.03 %) 00:00: each [place] nasal spray 00 nostril in Me dical the Branch morning and 2 Sprays at noon and 2 Sprays in the evening. IPRATROPIUM 2021-08 Yes [id number] USE 2 U nivers 21 mcg 2-20 SPRAYS IN ity of (0.03 %) 00:00: EACH [place] nasal spray 00 NOSTRIL Medic al THREE Branch TIMES A DAY IPRATROPIUM 2021-08 [id number] USE 2 Univers 21 mcg 2-20 12-28 SPRAYS IN ity of (0.03 %) 00:00: 00:00 EACH [place] nasal spray 00 :00 NOSTRIL Medic al THREE Branch TIMES A DAY fluticasone 2021-08 Yes [id number] USE 1 Methodi furoate-sayra 2-[address] anteroL 00:00: DAILY Hospita (Breo 00 l Ellipta) 200-25 mcg/dose blister with device powder for inhalation glimepiride 2021-08 Yes [id number] 4mg Take 1 Univers 4 mg tablet 1-11 tablet by ity of 00:00: mouth in [place] 00 the Medical morning Branch and 1 tablet in the evening. glimepiride 2021-08 Yes [id number] 4mg Take 1 Univers 4 mg tablet 1-11 tablet by ity of 00:00: mouth in [place] 00 the Medical morning Branch and 1 tablet in the evening. glimepiride 2021-08 Yes [id number] 4mg Take 1 Univers 4 mg tablet 1-11 tablet by ity of 00:00: mouth in [place] 00 the Medical morning Branch and 1 tablet in the evening. glimepiride 2021-08 Yes [id number] 4mg Take 1 Univers 4 mg tablet 1-11 tablet by ity of 00:00: mouth in [place] 00 the Medical morning Branch and 1 tablet in the evening. glimepiride 2021-08 Yes [id number] 4mg Take 1 Univers 4 mg tablet 1-11 tablet by ity of 00:00: mouth in [place] 00 the Medical morning Branch and 1 tablet in the evening. glimepiride 2021-08 Yes [id number] 4mg Take 1 Univers 4 mg tablet 1-11 tablet by ity of 00:00: mouth in [place] 00 the Medical morning Branch and 1 tablet in the evening. glimepiride 2021-08 Yes [id number] 4mg Take 1 Univers 4 mg tablet 1-11 tablet by ity of 00:00: mouth in [place] 00 the Medical morning Branch and 1 tablet in the evening. metoprolol 2021-08 Yes [id number] 100mg Take 1 Univers tartrate 0-19 tablet by ity of 100 mg 00:00: mouth in [place] tablet 00 the Medical morning Branch and 1 tablet in the evening. metoprolol 2021-08 Yes [id number] 100mg Take 1 Univers tartrate 0-19 tablet by ity of 100 mg 00:00: mouth in [place] tablet 00 the Medical morning Branch and 1 tablet in the evening. metoprolol 2021-08 Yes [id number] 100mg Take 1 Univers tartrate 0-19 tablet by ity of 100 mg 00:00: mouth in [place] tablet 00 the Medical morning Branch and 1 tablet in the evening. metoprolol 2021-08 Yes [id number] 100mg Take 1 Univers tartrate 0-19 tablet by ity of 100 mg 00:00: mouth in [place] tablet 00 the Medical morning Branch and 1 tablet in the evening. metoprolol 2021-08 Yes [id number] 100mg Take 1 Univers tartrate 0-19 tablet by ity of 100 mg 00:00: mouth in [place] tablet 00 the Medical morning Branch and 1 tablet in the evening. metoprolol 2021-08 Yes [id number] 100mg Take 1 Univers tartrate 0-19 tablet by ity of 100 mg 00:00: mouth in [place] tablet 00 the Medical morning Branch and 1 tablet in the evening. metoprolol 2021-08 Yes [id number] 100mg Take 1 Univers tartrate 0-19 tablet by ity of 100 mg 00:00: mouth in [place] tablet 00 the Medical morning Branch and 1 tablet in the evening. metoprolol 2021-08 Yes [id number] 100mg Take 1 Univers tartrate 0-19 tablet by ity of 100 mg 00:00: mouth in [place] tablet 00 the Medical morning Branch and 1 tablet in the evening. metoprolol 2021-08 Yes [id number] 100mg Take 1 Univers tartrate 0-19 tablet by ity of 100 mg 00:00: mouth in [place] tablet 00 the Medical morning Branch and 1 tablet in the evening. aspirin 81 2021-08 Yes [id number] 81mg Take 1 Univers mg EC 0-12 02 tablet by ity of tablet 00:00: mouth in [place] 00 the Medical morning. Branch aspirin 81 2021-08 Yes [id number] 81mg Take 1 Univers mg EC 0-12 02 tablet by ity of tablet 00:00: mouth in [place] 00 the Medical morning. Branch aspirin 81 2021-08 Yes [id number] 81mg Take 1 Univers mg EC 0-12 02 tablet by ity of tablet 00:00: mouth in [place] 00 the Medical morning. Branch aspirin 81 2021-08 Yes [id number] 81mg Take 1 Univers mg EC 0-12 02 tablet by ity of tablet 00:00: mouth in [place] 00 the Medical morning. Branch aspirin 81 2021-08 Yes [id number] 81mg Take 1 Univers mg EC 0-12 02 tablet by ity of tablet 00:00: mouth in [place] the Medical morning. Branch aspirin 81 2021-08 Yes [id number] 81mg Take 1 Univers mg EC 0-12 02 tablet by ity of tablet 00:00: mouth in [place] the Medical morning. Branch aspirin 81 2021-08 Yes [id number] 81mg Take 1 Univers mg EC 0-12 02 tablet by ity of tablet 00:00: mouth in [place] the Medical morning. Branch aspirin 81 2021-08 Yes [id number] 81mg Take 1 Univers mg EC 0-12 02 tablet by ity of tablet 00:00: mouth in [place] the Medical morning. Branch aspirin 81 2021-08 Yes [id number] 81mg Take 1 Univers mg EC 0-12 02 tablet by ity of tablet 00:00: mouth in [place] the Medical morning. Branch aspirin 81 2021-08 Yes [id number] 81mg Take 1 Univers mg EC 0-12 02 tablet by ity of tablet 00:00: mouth in [place] the morning. Branch ipratropium 2021-08 Yes [id number] 2{spray Use 2 Univers 21 mcg 0-11 } Sprays in ity of (0.03 %) 00:00: each [place] nasal spray 00 nostril in [facility] morning and 2 Sprays at noon and 2 Sprays in the evening. ipratropium 2021-08 Yes [id number] 2{spray Use 2 Univers 21 mcg 0-11 } Sprays in ity of (0.03 %) 00:00: each [place] nasal spray 00 nostril in [facility] morning and 2 Sprays at noon and 2 Sprays in the evening. ipratropium 2021-08 Yes [id number] 2{spray Use 2 Univers 21 mcg 0-11 } Sprays in ity of (0.03 %) 00:00: each [place] nasal spray 00 nostril in [facility] morning and 2 Sprays at noon and 2 Sprays in the evening. ipratropium 2021-08 Yes [id number] 2{spray Use 2 Univers 21 mcg 0-11 } Sprays in ity of (0.03 %) 00:00: each [place] nasal spray 00 nostril in [facility] the Branch morning and 2 Sprays at noon and 2 Sprays in the evening. ipratropium 2021-08 Yes [id number] 2{spray Use 2 Univers 21 mcg 0-11 } Sprays in ity of (0.03 %) 00:00: each [place] nasal spray 00 nostril in Me dical the Branch morning and 2 Sprays at noon and 2 Sprays in the evening. ipratropium 2021-08- No [id number] 2{spray Use 2 Univers 21 mcg 0-11 12-20 } Sprays in ity of (0.03 %) 00:00: 00:00 each [place] nasal spray 00 :00 nostril in Wi dical the Branch morning and 2 Sprays at noon and 2 Sprays in the evening. acetaminoph Yes [id number] 1{tbl} Take 1 Un krishna en-codeine 7-18 tablet by ity of (TYLENOL-CO 00:00: mouth [place] DEINE #3) 00 every 6 Medical 300-30 mg (six) Branch tablet hours as needed for Pain (scale 7-10). Indication s: chronic pain acetaminoph Yes [id number] 1{tbl} Take 1 Un krishna en-codeine 7-18 tablet by ity of (TYLENOL-CO 00:00: mouth [place] DEINE #3) 00 every 6 Medical 300-30 mg (six) Branch tablet hours as needed for Pain (scale 7-10). Indication s: chronic pain acetaminoph 2021-0 Yes [id number] 1{tbl} Take 1 Un krishna en-codeine 7-18 tablet by ity of (TYLENOL-CO 00:00: mouth [place] DEINE #3) 00 every 6 Medical 300-30 mg (six) Branch tablet hours as needed for Pain (scale 7-10). Indication s: chronic pain acetaminoph 2021-0 Yes [id number] 1{tbl} Take 1 Un krishna en-codeine 7-18 tablet by ity of (TYLENOL-CO 00:00: mouth [place] DEINE #3) 00 every 6 Medical 300-30 mg (six) Branch tablet hours as needed for Pain (scale 7-10). Indication s: chronic pain acetaminoph 2021-0 Yes [id number] 1{tbl} Take 1 Un krishna en-codeine 7-18 tablet by ity of (TYLENOL-CO 00:00: mouth [place] DEINE #3) 00 every 6 Medical 300-30 mg (six) Branch tablet hours as needed for Pain (scale 7-10). Indication s: chronic pain acetaminoph 2022-0 Yes [id number] 1{tbl} Take 1 Un krishna en-codeine 7-18 tablet by ity of (TYLENOL-CO 00:00: mouth [place] DEINE #3) 00 every 6 Medical 300-30 mg (six) Branch tablet hours as needed for Pain (scale 7-10). Indication s: chronic pain acetaminoph 2022-0 Yes [id number] 1{tbl} Take 1 Un krishna en-codeine 7-18 tablet by ity of (TYLENOL-CO 00:00: mouth [place] DEINE #3) 00 every 6 Medical 300-30 mg (six) Branch tablet hours as needed for Pain (scale 7-10). Indication s: chronic pain acetaminoph 2022-0 Yes 2745 1{tbl} Take 1 Un krishna en-codeine 7-18 tablet by ity of (TYLENOL-CO 00:00: mouth [place] DEINE #3) 00 every 6 Medical 300-30 mg (six) Branch tablet hours as needed for Pain (scale 7-10). Indication s: chronic pain acetaminoph 2022-0 Yes 2745 1{tbl} Take 1 Un krishna en-codeine 7-18 tablet by ity of (TYLENOL-CO 00:00: mouth [place] DEINE #3) 00 every 6 Medical 300-30 mg (six) Branch tablet hours as needed for Pain (scale 7-10). Indication s: chronic pain acetaminoph 2022-0 Yes 2745 1{tbl} Take 1 Un krishna en-codeine 7-18 tablet by ity of (TYLENOL-CO 00:00: mouth [place] DEINE #3) 00 every 6 Medical 300-30 mg (six) Branch tablet hours as needed for Pain (scale 7-10). Indication s: chronic pain acetaminoph 2022-0 Yes [id number] 1{tbl} Take 1 Un krishna en-codeine 7-18 tablet by ity of (TYLENOL-CO 00:00: mouth [place] DEINE #3) 00 every 6 Medical 300-30 mg (six) Branch tablet hours as needed for Pain (scale 7-10). Indication s: chronic pain acetaminoph 2022-0 Yes 2745 1{tbl} Take 1 Un krishna en-codeine 7-18 tablet by ity of (TYLENOL-CO 00:00: mouth [place] DEINE #3) 00 every 6 Medical 300-30 mg (six) Branch tablet hours as needed for Pain (scale 7-10). Indication s: chronic pain acetaminoph 2022-0 Yes 2745 1{tbl} Take 1 Un krishna en-codeine 7-18 tablet by ity of (TYLENOL-CO 00:00: mouth [place] DEINE #3) 00 every 6 Medical 300-30 mg (six) Branch tablet hours as needed for Pain (scale 7-10). Indication s: chronic pain PROMETHAZIN 2022-0 Yes [id number] TAKE ONE Univers E 25 mg 7-05 TABLET BY ity of tablet 00:00: MOUTH [place] 00 EVERY 6 Medical HOURS Branch NEEDED FOR NAUSEA PROMETHAZIN 2022-0 Yes [id number] TAKE ONE Univers E 25 mg 7-05 TABLET BY ity of tablet 00:00: MOUTH [place] 00 EVERY 6 Medical HOURS Branch NEEDED FOR NAUSEA PROMETHAZIN 2022-0 Yes [id number] TAKE ONE Univers E 25 mg 7-05 TABLET BY ity of tablet 00:00: MOUTH [place] 00 EVERY 6 Medical HOURS Branch NEEDED FOR NAUSEA PROMETHAZIN 2022-0 Yes [id number] TAKE ONE Univers E 25 mg 7-05 TABLET BY ity of tablet 00:00: MOUTH [place] 00 EVERY 6 Medical HOURS Branch NEEDED FOR NAUSEA PROMETHAZIN 2022-0 Yes [id number] TAKE ONE [facility] E 25 mg 7-05 TABLET BY ity of tablet 00:00: MOUTH [place] 00 EVERY 6 Medical HOURS Branch NEEDED FOR NAUSEA PROMETHAZIN 2022-0 Yes [id number] TAKE ONE [facility] E 25 mg 7-05 TABLET BY ity of tablet 00:00: MOUTH [place] 00 EVERY 6 Medical HOURS Branch NEEDED FOR NAUSEA PROMETHAZIN 2022-0 Yes [id number] TAKE ONE [facility] E 25 mg 7-05 TABLET BY ity of tablet 00:00: MOUTH [place] 00 EVERY 6 Medical HOURS Branch NEEDED FOR NAUSEA PROMETHAZIN 2022-0 Yes [id number] TAKE ONE [facility] E 25 mg 7-05 TABLET BY ity of tablet 00:00: MOUTH [place] 00 EVERY 6 Medical HOURS Branch NEEDED FOR NAUSEA PROMETHAZIN 2021-0 Yes [id number] TAKE ONE [facility] E 25 mg 7-05 TABLET BY ity of tablet 00:00: MOUTH [place] 00 EVERY 6 Medical HOURS Branch NEEDED FOR NAUSEA PROMETHAZIN 2021-0 Yes [id number] TAKE ONE [facility] E 25 mg 7-05 TABLET BY ity of tablet 00:00: MOUTH [place] 00 EVERY 6 Medical HOURS Branch NEEDED FOR NAUSEA PROMETHAZIN 0 Yes [id number] TAKE ONE [facility] E 25 mg 7-05 TABLET BY ity of tablet 00:00: MOUTH [place] 00 EVERY 6 Medical HOURS Branch NEEDED FOR NAUSEA PROMETHAZIN 0 Yes [id number] TAKE ONE [facility] E 25 mg 7-05 TABLET BY ity of tablet 00:00: MOUTH [place] 00 EVERY 6 Medical HOURS Branch NEEDED FOR NAUSEA PROMETHAZIN 0 Yes [id number] TAKE ONE [facility] E 25 mg 7-05 TABLET BY ity of tablet 00:00: MOUTH [place] 00 EVERY 6 Medical HOURS Branch NEEDED FOR NAUSEA levoFLOXaci 0 2022- No [id number] 750mg Take 1 [facility] n 750 mg 7- 07-18 tablet by ity o f tablet 00:00: 00:00 mouth [place] 00 :00 every 24 Medical (twenty-fo Branch ur) hours. acetaminoph 2022- No 2745 1{tbl} Take 1 U nivers en-codeine 6- 07-18 tablet by ity of (TYLENOL-CO 00:00: 00:00 mouth [place] DE[place] #3) 00 :00 every 6 Medical 300-30 mg (six) Branch tablet hours as needed for Pain (scale 7-10). Indication s: chronic pain Miscellaneo Yes nasal Unive rs Medical 6-27 cannula, ity o f Supply Misc 11:04: and [place] [address] humidifier Medical . Branch Miscellaneo Yes nasal Unive rs Medical 6-27 cannula, ity o f Supply Misc 11:04: and [place] [address] humidifier Medical . Branch Miscellaneo Yes nasal Unive rs Medical 6-27 cannula, ity o f Supply Misc 11:04: and [place] 36 humidifier Medical . Branch Miscellaneo Yes nasal Unive rs us Medical 6-27 cannula, ity o f Supply Misc 11:04: and [place] 36 humidifier Medical . Branch Miscellaneo Yes nasal Unive rs [facility] Medical 6-27 cannula, ity o f Supply Misc 11:04: and [place] 36 humidifier Medical . Branch Miscellaneo Yes nasal Unive rs [facility] Medical 6-27 cannula, ity o f Supply Misc 11:04: and [place] 36 humidifier Medical . Branch Miscellaneo Yes nasal Unive rs [facility] Medical 6-27 cannula, ity o f Supply Misc 11:04: and [place] 36 humidifier Medical . Branch Miscellaneo Yes nasal Unive rs [facility] Medical 6-27 cannula, ity o f Supply Misc 11:04: and [place] 36 humidifier Medical . Branch Miscellaneo Yes nasal Unive rs [facility] Medical 6-27 cannula, ity o f Supply Misc 11:04: and [place] 36 humidifier Medical . Branch Miscellaneo Yes nasal Unive rs [facility] Medical 6-27 cannula, ity o f Supply Misc 11:04: and [place] 36 humidifier Medical . Branch Miscellaneo Yes nasal Unive rs [facility] Medical 6-27 cannula, ity o f Supply Misc 11:04: and [place] 36 humidifier Medical . Branch Miscellaneo Yes nasal Unive rs [facility] Medical 6-27 cannula, ity o f Supply Misc 11:04: and [place] 36 humidifier Medical . Branch Miscellaneo Yes nasal Unive rs [facility] Medical 6-27 cannula, ity o f Supply Misc 11:04: and [place] 36 humidifier Medical . Branch VITAMIN B Yes Take by Unive rs COMPLEX (B 6-27 mouth ity of COMPLEX 11:04: daily. [place] VITAMINS 35 Medical ORAL) Branch ZINC ORAL Yes Take by Unive rs 6-27 mouth ity of 11:04: daily. [place] [address] Medical Branch VITAMIN B Yes Take by Unive rs COMPLEX (B 6-27 mouth ity of COMPLEX 11:04: daily. [place] VITAMINS 35 Medical ORAL) Branch ZINC ORAL Yes Take by Unive rs 6-27 mouth ity of 11:04: daily. [place] [address] Medical Branch VITAMIN B Yes Take by Unive rs COMPLEX (B 6-27 mouth ity of COMPLEX 11:04: daily. [place] VITAMINS 35 Medical ORAL) Branch ZINC ORAL Yes Take by Unive rs 6-27 mouth ity of 11:04: daily. [place] [address] Medical Branch VITAMIN B Yes Take by Unive rs COMPLEX (B 6-27 mouth ity of COMPLEX 11:04: daily. [place] VITAMINS 35 Medical ORAL) Branch ZINC ORAL Yes Take by Unive rs 6-27 mouth ity of 11:04: daily. [place] [address] Medical Branch VITAMIN B Yes Take by Unive rs COMPLEX (B 6-27 mouth ity of COMPLEX 11:04: daily. [place] VITAMINS 35 Medical ORAL) Branch ZINC ORAL Yes Take by Unive rs 6-27 mouth ity of 11:04: daily. [place] [address] Medical Branch VITAMIN B Yes Take by Unive rs COMPLEX (B 6-27 mouth ity of COMPLEX 11:04: daily. [place] VITAMINS 35 Medical ORAL) Branch ZINC ORAL Yes Take by Unive rs 6-27 mouth ity of 11:04: daily. [place] [address] Medical Branch VITAMIN B Yes Take by Unive rs COMPLEX (B 6-27 mouth ity of COMPLEX 11:04: daily. [place] VITAMINS 35 Medical ORAL) Branch ZINC ORAL Yes Take by Unive rs 6-27 mouth ity of 11:04: daily. [place] [address] Medical Branch VITAMIN B Yes Take by Unive rs COMPLEX (B 6-27 mouth ity of COMPLEX 11:04: daily. [place] VITAMINS 35 Medical ORAL) Branch ZINC ORAL Yes Take by Unive rs 6-27 mouth ity of 11:04: daily. [place] [address] Medical Branch VITAMIN B Yes Take by Unive rs COMPLEX (B 6-27 mouth ity of COMPLEX 11:04: daily. [place] VITAMINS 35 Medical ORAL) Branch ZINC ORAL Yes Take by Unive rs 6-27 mouth ity of 11:04: daily. [place] [address] Medical Branch VITAMIN B Yes Take by Unive rs COMPLEX (B 6-27 mouth ity of COMPLEX 11:04: daily. [place] VITAMINS 35 Medical ORAL) Branch ZINC ORAL Yes Take by Unive rs 6-27 mouth ity of 11:04: daily. [address] Branch VITAMIN B 0 Yes Take by Unive rs COMPLEX (B 6-27 mouth ity of COMPLEX 11:04: daily. [place] VITAMINS 35 Medical ORAL) Branch ZINC ORAL Yes Take by Unive rs 6-27 mouth ity of 11:04: daily. [address] Branch VITAMIN B Yes Take by Unive rs COMPLEX (B 6-27 mouth ity of COMPLEX 11:04: daily. [place] VITAMINS 35 Medical ORAL) Branch ZINC ORAL Yes Take by Unive rs 6-27 mouth ity of 11:04: daily. [address] Branch VITAMIN B Yes Take by Unive rs COMPLEX (B 6-27 mouth ity of COMPLEX 11:04: daily. [place] VITAMINS 35 Medical ORAL) Branch ZINC ORAL Yes Take by Unive rs 6-27 mouth ity of 11:04: daily. [address] Branch metoprolol 0 Yes [id number] 100mg Take 1 [facility] tartrate 6-20 tablet by ity of 100 mg 00:00: mouth 2 [place] tablet 00 (two) Medical times Branch daily. aspirin 2021-0 Yes [id number] 81mg Take 1 U nivers (ADULT LOW 6-20 02 tablet by ity of DOSE 00:00: mouth [place] ASPIRIN) 81 00 daily. Medica l mg EC Branch tablet metoprolol 2021-0 Yes [id number] 100mg Take 1 [facility] tartrate 6-20 tablet by ity of 100 mg 00:00: mouth 2 [place] tablet 00 (two) Medical times Branch daily. aspirin 2021-0 Yes [id number] 81mg Take 1 U nivers (ADULT LOW 6-20 02 tablet by ity of DOSE 00:00: mouth [place] ASPIRIN) 81 00 daily. Medica l mg EC Branch tablet metoprolol 2021-0 Yes [id number] 100mg Take 1 [facility] tartrate 6-20 tablet by ity of 100 mg 00:00: mouth 2 [place] tablet 00 (two) Medical times Branch daily. aspirin 2021-0 Yes [id number] 81mg Take 1 U nivers (ADULT LOW 6-20 02 tablet by ity of DOSE 00:00: mouth [place] ASPIRIN) 81 00 daily. Medica l mg EC Branch tablet metoprolol Yes [id number] 100mg Take 1 [facility] tartrate 6-20 tablet by ity of 100 mg 00:00: mouth 2 [place] tablet 00 (two) Medical times Branch daily. metoprolol 2021- No [id number] 100mg Take 1 [facility] tartrate 6-20 10-18 tablet by ity o f 100 mg 00:00: 00:00 mouth 2 [place] tablet 00 :00 (two) Medical times Branch daily. aspirin 2021- No [id number] 81mg Take 1 [facility] (ADULT LOW 6-20 10-12 02 tablet by ity of DOSE 00:00: 00:00 mouth [place] ASPIRIN) 81 00 :00 daily. Medica l mg EC Branch tablet amitriptyli Yes [id number] 50mg Take 1 [facility] ne 50 mg 6-19 tablet by ity of tablet 00:00: mouth at [place] 00 bedtime. Medical Branch doxazosin 1 Yes [id number] 1mg Take 1 [facility] mg tablet 6-19 tablet by ity o f 00:00: mouth [place] 00 daily. Medical Branch glimepiride Yes [id number] 4mg Take 1 [facility] 4 mg tablet 6-19 tablet by ity of 00:00: mouth 2 00 (two) Medical times Branch daily. montelukast Yes [id number] 10mg Take 1 [facility] 10 mg 6-19 tablet by ity of tablet 00:00: mouth at [place] 00 bedtime. Medical Branch omeprazole Yes [id number] 40mg Take 1 U nivers 40 mg 6-19 capsule by ity of capsule 00:00: mouth 2 [place] 00 (two) Medical times Branch daily. losartan 50 Yes [id number] 100mg Take 2 [facility] mg tablet 6-19 tablets by ity of 00:00: mouth [place] 00 daily. Medical Branch amitriptyli Yes [id number] 50mg Take 1 [facility] ne 50 mg 6-19 tablet by ity of tablet 00:00: mouth at [place] 00 bedtime. Medical Branch doxazosin 1 Yes [id number] 1mg Take 1 [facility] mg tablet 6-19 tablet by ity o f 00:00: mouth [place] 00 daily. Medical Branch glimepiride Yes [id number] 4mg Take 1 [facility] 4 mg tablet 6-19 tablet by ity of 00:00: mouth 2 (two) Medical times Branch daily. montelukast Yes [id number] 10mg Take 1 [facility] 10 mg 6-19 tablet by ity of tablet 00:00: mouth at [place] 00 bedtime. Medical Branch omeprazole Yes [id number] 40mg Take 1 [facility] nivers 40 mg 6-19 capsule by ity of capsule 00:00: mouth 2 (two) Medical times Branch daily. losartan 50 2021-0 Yes [id number] 100mg Take 2 [facility] mg tablet 6-19 tablets by ity of 00:00: mouth 00 daily. Medical Branch amitriptyli Yes [id number] 50mg Take 1 [facility] ne 50 mg 6-19 tablet by ity of tablet 00:00: mouth at [place] 00 bedtime. Medical Branch doxazosin 1 Yes [id number] 1mg Take 1 [facility] mg tablet 6-19 tablet by ity o f 00:00: mouth 00 daily. Medical Branch glimepiride Yes [id number] 4mg Take 1 [facility] 4 mg tablet 6-19 tablet by ity of 00:00: mouth 2 (two) Medical times Branch daily. montelukast Yes [id number] 10mg Take 1 [facility] 10 mg 6-19 tablet by ity of tablet 00:00: mouth at [place] 00 bedtime. Medical Branch omeprazole 0 Yes [id number] 40mg Take 1 U nivers 40 mg 6-19 capsule by ity of capsule 00:00: mouth 2 (two) Medical times Branch daily. losartan 50 2021-0 Yes [id number] 100mg Take 2 [facility] mg tablet 6-19 tablets by ity of 00:00: mouth 00 daily. Medical Branch amitriptyli 0 Yes [id number] 50mg Take 1 [facility] ne 50 mg 6-19 tablet by ity of tablet 00:00: mouth at [place] 00 bedtime. Medical Branch doxazosin 1 2021-0 Yes [id number] 1mg Take 1 [facility] mg tablet 6-19 tablet by ity o f 00:00: mouth [place] 00 daily. Medical Branch glimepiride Yes [id number] 4mg Take 1 [facility] 4 mg tablet 6-19 tablet by ity of 00:00: mouth 2 (two) Medical times Branch daily. montelukast Yes [id number] 10mg Take 1 [facility] 10 mg 6-19 tablet by ity of tablet 00:00: mouth at [place] 00 bedtime. Medical Branch omeprazole Yes [id number] 40mg Take 1 U nivers 40 mg 6-19 capsule by ity of capsule 00:00: mouth 2 (two) Medical times Branch daily. losartan 50 2021-0 Yes [id number] 100mg Take 2 [facility] mg tablet 6-19 tablets by ity of 00:00: mouth 00 daily. Medical Branch amitriptyli Yes [id number] 50mg Take 1 [facility] ne 50 mg 6-19 tablet by ity of tablet 00:00: mouth at [place] 00 bedtime. Medical Branch doxazosin 1 Yes [id number] 1mg Take 1 [facility] mg tablet 6-19 tablet by ity o f 00:00: mouth 00 daily. Medical Branch glimepiride Yes [id number] 4mg Take 1 [facility] 4 mg tablet 6-19 tablet by ity of 00:00: mouth 2 (two) Medical times Branch daily. montelukast Yes [id number] 10mg Take 1 [facility] 10 mg 6-19 tablet by ity of tablet 00:00: mouth at [place] 00 bedtime. Medical Branch omeprazole 0 Yes [id number] 40mg Take 1 [facility] nivers 40 mg 6-19 capsule by ity of capsule 00:00: mouth 2 (two) Medical times Branch daily. losartan 50 2021-0 Yes [id number] 100mg Take 2 [facility] mg tablet 6-19 tablets by ity of 00:00: mouth 00 daily. Medical Branch amitriptyli 0 Yes [id number] 50mg Take 1 [facility] ne 50 mg 6-19 tablet by ity of tablet 00:00: mouth at [place] 00 bedtime. Medical Branch doxazosin 1 2021-0 Yes [id number] 1mg Take 1 [facility] mg tablet 6-19 tablet by ity o f 00:00: mouth [place] 00 daily. Medical Branch glimepiride 0 Yes [id number] 4mg Take 1 [facility] 4 mg tablet 6-19 tablet by ity of 00:00: mouth 2 (two) Medical times Branch daily. montelukast 0 Yes [id number] 10mg Take 1 [facility] 10 mg 6-19 tablet by ity of tablet 00:00: mouth at [place] 00 bedtime. Medical Branch omeprazole 0 Yes [id number] 40mg Take 1 [facility] nivers 40 mg 6-19 capsule by ity of capsule 00:00: mouth 2 (two) Medical times Branch daily. losartan 50 0 Yes [id number] 100mg Take 2 [facility] mg tablet 6-19 tablets by ity of 00:00: mouth 00 daily. Medical Branch amitriptyli 0 Yes [id number] 50mg Take 1 [facility] ne 50 mg 6-19 tablet by ity of tablet 00:00: mouth at [place] 00 bedtime. Medical Branch doxazosin 1 0 Yes [id number] 1mg Take 1 [facility] mg tablet 6-19 tablet by ity o f 00:00: mouth 00 daily. Medical Branch montelukast 0 Yes [id number] 10mg Take 1 [facility] 10 mg 6-19 tablet by ity of tablet 00:00: mouth at [place] 00 bedtime. Medical Branch omeprazole 0 Yes [id number] 40mg Take 1 [facility] nivers 40 mg 6-19 capsule by ity of capsule 00:00: mouth 2 (two) Medical times Branch daily. losartan 50 2021-0 Yes [id number] 100mg Take 2 [facility] mg tablet 6-19 tablets by ity of 00:00: mouth 00 daily. Medical Branch amitriptyli 0 Yes [id number] 50mg Take 1 [facility] ne 50 mg 6-19 tablet by ity of tablet 00:00: mouth at [place] 00 bedtime. Medical Branch doxazosin 1 2021-0 Yes [id number] 1mg Take 1 [facility] mg tablet 6-19 tablet by ity o f 00:00: mouth [place] 00 daily. Medical Branch montelukast 2021-0 Yes [id number] 10mg Take 1 [facility] 10 mg 6-19 tablet by ity of tablet 00:00: mouth at [place] 00 bedtime. Medical Branch omeprazole 2021-0 Yes [id number] 40mg Take 1 [facility] nivers 40 mg 6-19 capsule by ity of capsule 00:00: mouth 2 (two) Medical times Branch daily. losartan 50 2021-0 Yes [id number] 100mg Take 2 [facility] mg tablet 6-19 tablets by ity of 00:00: mouth 00 daily. Medical Branch amitriptyli 2021-0 Yes [id number] 50mg Take 1 [facility] ne 50 mg 6-19 tablet by ity of tablet 00:00: mouth at [place] 00 bedtime. Medical Branch doxazosin 1 2021-0 Yes [id number] 1mg Take 1 [facility] mg tablet 6-19 tablet by ity o f 00:00: mouth 00 daily. Medical Branch montelukast 2021-0 Yes [id number] 10mg Take 1 [facility] 10 mg 6-19 tablet by ity of tablet 00:00: mouth at [place] 00 bedtime. Medical Branch omeprazole 2021-0 Yes [id number] 40mg Take 1 U nivers 40 mg 6-19 capsule by ity of capsule 00:00: mouth (two) Medical times Branch daily. losartan 50 2021-0 Yes [id number] 100mg Take 2 [facility] mg tablet 6-19 tablets by ity of 00:00: mouth 00 daily. Medical Branch amitriptyli 2021-0 Yes [id number] 50mg Take 1 [facility] ne 50 mg 6-19 tablet by ity of tablet 00:00: mouth at [place] 00 bedtime. Medical Branch doxazosin 1 2021-0 Yes [id number] 1mg Take 1 [facility] mg tablet 6-19 tablet by ity o f 00:00: mouth [place] 00 daily. Medical Branch montelukast 2021-0 Yes [id number] 10mg Take 1 [facility] 10 mg 6-19 tablet by ity of tablet 00:00: mouth at [place] 00 bedtime. Medical Branch omeprazole 2021-0 Yes [id number] 40mg Take 1 U nivers 40 mg 6-19 capsule by ity of capsule 00:00: mouth 2 (two) Medical times Branch daily. losartan 50 2021-0 Yes [id number] 100mg Take 2 [facility] mg tablet 6-19 tablets by ity of 00:00: mouth 00 daily. Medical Branch amitriptyli 0 Yes [id number] 50mg Take 1 [facility] ne 50 mg 6-19 tablet by ity of tablet 00:00: mouth at [place] 00 bedtime. Medical Branch doxazosin 1 0 Yes [id number] 1mg Take 1 [facility] mg tablet 6-19 tablet by ity o f 00:00: mouth [place] 00 daily. Medical Branch montelukast 2021-0 Yes [id number] 10mg Take 1 [facility] 10 mg 6-19 tablet by ity of tablet 00:00: mouth at [place] 00 bedtime. Medical Branch omeprazole 0 Yes [id number] 40mg Take 1 U nivers 40 mg 6-19 capsule by ity of capsule 00:00: mouth 2 (two) Medical times Branch daily. losartan 50 2021-0 Yes [id number] 100mg Take 2 [facility] mg tablet 6-19 tablets by ity of 00:00: mouth 00 daily. Medical Branch amitriptyli 0 Yes [id number] 50mg Take 1 [facility] ne 50 mg 6-19 tablet by ity of tablet 00:00: mouth at [place] 00 bedtime. Medical Branch doxazosin 1 0 Yes [id number] 1mg Take 1 [facility] mg tablet 6-19 tablet by ity o f 00:00: mouth 00 daily. Medical Branch montelukast 2021-0 Yes [id number] 10mg Take 1 [facility] 10 mg 6-19 tablet by ity of tablet 00:00: mouth at [place] 00 bedtime. Medical Branch omeprazole 2021-0 Yes [id number] 40mg Take 1 U nivers 40 mg 6-19 capsule by ity of capsule 00:00: mouth 2 (two) Medical times Branch daily. amitriptyli 0 Yes [id number] 50mg Take 1 [facility] ne 50 mg 6-19 tablet by ity of tablet 00:00: mouth at [place] 00 bedtime. Medical Branch doxazosin 1 2021-0 Yes [id number] 1mg Take 1 [facility] mg tablet 6-19 tablet by ity o f 00:00: mouth 00 daily. Medical Branch montelukast 2021-0 Yes [id number] 10mg Take 1 [facility] 10 mg 6-19 tablet by ity of tablet 00:00: mouth at [place] 00 bedtime. Medical Branch omeprazole Yes [id number] 40mg Take 1 U nivers 40 mg 6-19 capsule by ity of capsule 00:00: mouth 2 (two) Medical times Branch daily. losartan 50 2022- No [id number] 100mg Take 2 [facility] mg tablet 01-31-22 tablets by ity of 00:00: 00:00 mouth [place] 00 :00 daily. Medical Branch glimepiride 2021- No [id number] 4mg Take 1 [facility] 4 mg tablet 01-31 11-11 tablet by it y of 00:00: 00:00 mouth 2 [place] 00 :00 (two) Medical times Branch daily. fluticasone 2021- No [id number] QD Inhale 1 [facility] furoate-sayra 01-2818 inhalation s t anteroL 00:00: [facility] ([facility] :00 daily. l Ellipta) 200-25 mcg/dose blister with device powder for inhalation furosemide Yes [id number] 80mg Take 2 [facility] 40 mg 6-07 tablets by ity of tablet 00:00: mouth [place] (two) Medical times Branch daily. Insulin Yes [id number] For Unive rs [place], 6-07 insulin ity of Disposable, 00:00: injections [place] 31 gauge x 00 twice Medical 12/28" Ndle daily. Branch insulin Yes [id number] 75U inject 75 [facility] glargine 6-07 Units ity of U-300 conc 00:00: under the [place] ([place] 00 skin 2 [facility] (two) Branch U-300 times INSULIN) daily. 300 unit/mL (1.5 mL) InPn furosemide Yes [id number] 80mg Take 2 [facility] 40 mg 6-07 tablets by ity of tablet 00:00: mouth 2 (two) Medical times Branch daily. Insulin Yes [id number] For Unive rs [place], 6-07 insulin ity of Disposable, 00:00: injections [place] 31 gauge x 00 twice Medical 516" Ndle daily. Branch insulin Yes [id number] 75U inject 75 [facility] glargine 6-07 Units ity of U-300 conc 00:00: under the [place] (U skin 2 Medical [facility] (two) Branch U-300 times INSULIN) daily. 300 unit/mL (1.5 mL) InPn furosemide 2021-0 Yes [id number] 80mg Take 2 [facility] 40 mg 6-07 tablets by ity of tablet 00:00: mouth 2 [place] (two) Medical times Branch daily. Insulin 0 Yes [id number] For [facility] [place], 6-07 insulin ity of Disposable, 00:00: injections [place] 31 gauge x 00 twice Medical 12/28" Ndle daily. Branch insulin Yes [id number] 75U inject 75 [facility] glargine 6-07 Units ity of U-300 conc 00:00: under the [place] ([place] skin 2 Medical [facility] (two) Branch U-300 times INSULIN) daily. 300 unit/mL (1.5 mL) InPn furosemide 0 Yes [id number] 80mg Take 2 [facility] 40 mg 6-07 tablets by ity of tablet 00:00: mouth 2 (two) Medical times Branch daily. Insulin Yes [id number] For [facility] [place], 6-07 insulin ity of Disposable, 00:00: injections [place] 31 gauge x 00 twice Medical 12/28" Ndle daily. Branch insulin Yes [id number] 75U inject 75 [facility] glargine 6-07 Units ity of U-300 conc 00:00: under the [place] ( skin 2 Medical [place] (two) Branch U-300 times INSULIN) daily. 300 unit/mL (1.5 mL) InPn furosemide 0 Yes [id number] 80mg Take 2 [facility] 40 mg 6-07 tablets by ity of tablet 00:00: mouth 2 (two) Medical times Branch daily. Insulin 0 Yes [id number] For [facility] [place], 6-07 insulin ity of Disposable, 00:00: injections [place] 31 gauge x 00 twice Medical 12/28" Ndle daily. Branch insulin Yes [id number] 75U inject 75 [facility] glargine 6-07 Units ity of U-300 conc 00:00: under the [place] ([place] skin 2 Medical [facility] (two) Branch U-300 times INSULIN) daily. 300 unit/mL (1.5 mL) InPn furosemide 0 Yes [id number] 80mg Take 2 [facility] 40 mg 6-07 tablets by ity of tablet 00:00: mouth 2 [place] (two) Medical times Branch daily. Insulin Yes [id number] For [facility] [place], 6-07 insulin ity of Disposable, 00:00: injections [place] 31 gauge x 00 twice Medical 12/28" Ndle daily. Branch insulin Yes [id number] 75U inject 75 [facility] glargine 6-07 Units ity of U-300 conc 00:00: under the [place] ([place] skin 2 Medical [facility] (two) Branch U-300 times INSULIN) daily. 300 unit/mL (1.5 mL) InPn furosemide 0 Yes [id number] 80mg Take 2 [facility] 40 mg 6-07 tablets by ity of tablet 00:00: mouth 2 (two) Medical times Branch daily. Insulin Yes [id number] For [facility]ive rs [place], 6-07 insulin ity of Disposable, 00:00: injections [place] 31 gauge x 00 twice Medical 12/28" Ndle daily. Branch insulin Yes [id number] 75U inject 75 [facility] glargine 6-07 Units ity of U-300 conc 00:00: under the [place] ([place] skin 2 Medical [facility] (two) Branch U-300 times INSULIN) daily. 300 unit/mL (1.5 mL) InPn furosemide 0 Yes [id number] 80mg Take 2 [facility] 40 mg 6-07 tablets by ity of tablet 00:00: mouth 2 [place] (two) Medical times Branch daily. Insulin Yes [id number] For [facility] rs [place], 6-07 insulin ity of Disposable, 00:00: injections [place] 31 gauge x 00 twice Medical 12/28" Ndle daily. Branch insulin Yes [id number] 75U inject 75 [facility] glargine 6-07 Units ity of U-300 conc 00:00: under the [place] ([place] skin 2 Medical [facility] (two) Branch U-300 times INSULIN) daily. 300 unit/mL (1.5 mL) InPn furosemide 0 Yes [id number] 80mg Take 2 [facility] 40 mg 6-07 tablets by ity of tablet 00:00: mouth 2 (two) Medical times Branch daily. Insulin Yes [id number] For [facility] [place], 6-07 insulin ity of Disposable, 00:00: injections [place] 31 gauge x 00 twice Medical 12/28" Ndle daily. Branch insulin Yes [id number] 75U inject 75 [facility] glargine 6-07 Units ity of U-300 conc 00:00: under the [place] ([place] 00 skin 2 Medical [facility] (two) Branch U-300 times INSULIN) daily. 300 unit/mL (1.5 mL) InPn furosemide 0 Yes [id number] 80mg Take 2 [facility] 40 mg 6-07 tablets by ity of tablet 00:00: mouth 2 (two) Medical times Branch daily. Insulin Yes [id number] For [facility] [place], 6-07 insulin ity of Disposable, 00:00: injections [place] 31 gauge x 00 twice Medical 12/28" Ndle daily. Branch insulin Yes [id number] 75U inject 75 [facility] glargine 6-07 Units ity of U-300 conc 00:00: under the [place] ([place] 00 skin 2 Medical [facility] (two) Branch U-300 times INSULIN) daily. 300 unit/mL (1.5 mL) InPn furosemide 0 Yes [id number] 80mg Take 2 [facility] 40 mg 6-07 tablets by ity of tablet 00:00: mouth 2 (two) Medical times Branch daily. Insulin Yes [id number] For Un[facility] [place], 6-07 insulin ity of Disposable, 00:00: injections [place] 31 gauge x 00 twice Medical 12/28" Ndle daily. Branch insulin Yes [id number] 75U inject 75 [facility] glargine 6-07 Units ity of U-300 conc 00:00: under the [place] ([place] 00 skin 2 Medical [facility] (two) Branch U-300 times INSULIN) daily. 300 unit/mL (1.5 mL) InPn furosemide Yes [id number] 80mg Take 2 [facility] 40 mg 6-07 tablets by ity of tablet 00:00: mouth 2 (two) Medical times Branch daily. Insulin Yes [id number] For Un[facility] [place], 6-07 insulin ity of Disposable, 00:00: injections [place] 31 gauge x 00 twice Medical 12/28" Ndle daily. Branch insulin Yes [id number] 75U inject 75 [facility] glargine 6-07 Units ity of U-300 conc 00:00: under the [place] ([place] 00 skin 2 Medical [place] (two) Branch U-300 times INSULIN) daily. 300 unit/mL (1.5 mL) InPn furosemide Yes [id number] 80mg Take 2 [facility] 40 mg 6-07 tablets by ity of tablet 00:00: mouth 2 (two) Medical times Branch daily. Insulin Yes [id number] For [facility] [place], 6-07 insulin ity of Disposable, 00:00: injections [place] 31 gauge x 00 twice Medical 12/28" Ndle daily. Branch insulin Yes [id number] 75U inject 75 [facility] glargine 6-07 Units ity of U-300 conc 00:00: under the [place] ([place] skin 2 Medical [facility] (two) Branch U-300 times INSULIN) daily. 300 unit/mL (1.5 mL) InPn baclofen 10 Yes [id number] 10mg Take 1 [facility] mg tablet - [id number] tablet by ity of 00:00: mouth 3 (three) Medical times Branch daily. baclofen 10 Yes [id number] 10mg Take 1 [facility] mg tablet - [id number] tablet by ity of 00:00: mouth 3 (three) Medical times Branch daily. baclofen 10 Yes [id number] 10mg Take 1 [facility] mg tablet - [id number] tablet by ity of 00:00: mouth 3 (three) Medical times Branch daily. baclofen 10 Yes [id number] 10mg Take 1 [facility] mg tablet 6- [id number] tablet by ity of 00:00: mouth 3 (three) Medical times Branch daily. baclofen 10 Yes [id number] 10mg Take 1 [facility] mg tablet 6- [id number] tablet by ity of 00:00: mouth 3 (three) Medical times Branch daily. baclofen 10 Yes [id number] 10mg Take 1 [facility] mg tablet - [id number] tablet by ity of 00:00: mouth 3 (three) Medical times Branch daily. baclofen 10 Yes [id number] 10mg Take 1 [facility] mg tablet - [id number] tablet by ity of 00:00: mouth 3 (three) Medical times Branch daily. baclofen 10 Yes [id number] 10mg Take 1 [facility] mg tablet 6- [id number] tablet by ity of 00:00: mouth 3 [place] (three) Medical times Branch daily. baclofen 10 Yes [id number] 10mg Take 1 [facility] mg tablet 01-14 [id number] tablet by ity of 00:00: mouth [place] () Medical times Branch daily. baclofen 10 Yes [id number] 10mg Take 1 [facility] mg tablet - [id number] tablet by ity of 00:00: mouth [place] (three) Medical times Branch daily. baclofen 10 Yes [id number] 10mg Take 1 [facility] mg tablet - [id number] tablet by ity of 00:00: mouth 3 [place] (three) Medical times Branch daily. baclofen 10 Yes [id number] 10mg Take 1 [facility] mg tablet - [id number] tablet by ity of 00:00: mouth 3 [place] (three) Medical times Branch daily. baclofen 10 Yes [id number] 10mg Take 1 [facility] mg tablet - [id number] tablet by ity of 00:00: mouth 3 [place] (three) Medical times Branch daily. BREO Yes Univers ELLIPTA 5-06 ity of 200-25 00:00: [place] mcg/dose 00 Medical DsDv Branch BREO Yes [facility] ELLIPTA 5-06 ity of 200-25 00:00: [place] mcg/dose 00 Medical DsDv Branch BREO Yes [facility] ELLIPTA 5-06 ity of 200-25 00:00: [place] mcg/dose 00 Medical DsDv Branch BREO 2022-0 Yes [facility] ELLIPTA 5-06 ity of 200-25 00:00: [place] mcg/dose 00 Medical DsDv Branch BREO 2-0 Yes [facility] ELLIPTA 5-06 ity of 200-25 00:00: [place] mcg/dose 00 Medical DsDv Branch BREO 2-0 Yes [facility] ELLIPTA 5-06 ity of 200-25 00:00: [place] mcg/dose 00 Medical DsDv Branch BREO 2-0 Yes [facility] ELLIPTA 5-06 ity of 200-25 00:00: [place] mcg/dose 00 Medical DsDv Branch BREO 2021-0 Yes [facility] ELLIPTA 5-06 ity of 200-25 00:00: [place] mcg/dose 00 Medical DsDv Branch BREO 2021-0 Yes [facility] ELLIPTA 5-06 ity of 200-25 00:00: [place] mcg/dose 00 Medical DsDv Branch BREO 2021-0 Yes [facility] ELLIPTA 5-06 ity of 200-25 00:00: [place] mcg/dose 00 Medical DsDv Branch BREO 2021-0 Yes [facility] ELLIPTA 5-06 ity of 200-25 00:00: [place] mcg/dose 00 Medical DsDv Branch BREO 2021-0 Yes [facility] ELLIPTA 5-06 ity of 200-25 00:00: [place] mcg/dose 00 Medical DsDv Branch BREO 2021-0 Yes [facility] ELLIPTA 5-06 ity of 200-25 00:00: [place] mcg/dose 00 Medical DsDv Branch spironolact 2021-0 Yes Take by Uni vers one 50 mg 4-14 mouth 2 ity of tablet 00:00: (two) [place] 00 times Medical daily. Branch spironolact 2021-0 Yes Take by [facility] vers one 50 mg 4-14 mouth 2 ity of tablet 00:00: (two) [place] 00 times Medical daily. Branch spironolact 2021-0 Yes Take by Uni vers one 50 mg 4-14 mouth 2 ity of tablet 00:00: (two) [place] 00 times Medical daily. Branch spironolact 2021-0 Yes Take by Uni vers one 50 mg 4-14 mouth 2 ity of tablet 00:00: (two) [place] 00 times Medical daily. Branch spironolact 2022-0 Yes Take by Uni vers one 50 mg 4-14 mouth 2 ity of tablet 00:00: (two) [place] 00 times Medical daily. Branch spironolact 2022-0 Yes Take by Uni vers one 50 mg 4-14 mouth 2 ity of tablet 00:00: (two) [place] 00 times Medical daily. Branch spironolact 2022-0 Yes Take by Uni vers one 50 mg 4-14 mouth 2 ity of tablet 00:00: (two) [place] 00 times Medical daily. Branch spironolact 2022-0 Yes Take by [facility] vers one 50 mg 4-14 mouth 2 ity of tablet 00:00: (two) [place] 00 times Medical daily. Branch spironolact 2022-0 Yes Take by [facility] vers one 50 mg 4-14 mouth 2 ity of tablet 00:00: (two) [place] 00 times Medical daily. Branch spironolact 2022-0 Yes Take by Uni vers one 50 mg 4-14 mouth 2 ity of tablet 00:00: (two) [place] 00 times Medical daily. Branch spironolact 2022-0 Yes Take by Uni vers one 50 mg 4-14 mouth 2 ity of tablet 00:00: (two) [place] 00 times Medical daily. Branch spironolact 2022-0 Yes Take by Uni vers one 50 mg 4-14 mouth 2 ity of tablet 00:00: (two) [place] 00 times Medical daily. Branch spironolact 2022-0 Yes Take by Uni vers one 50 mg 4-14 mouth 2 ity of tablet 00:00: (two) [place] 00 times Medical daily. Branch b complex 2021-0 Yes Take by [facility] di vitamins 1-[address] tablet 13:36: [facility] 25 l promethazin 2-0 Yes 25mg Take 25 mg [facility] e 1-[address] (PHENERGAN) 13:36: Hospit a 25 MG 25 l tablet ZINC ORAL 2-0 Yes Take by Metho di 1-[address] 13:36: [facility]osp[facility] 25 l spironolact 2022-0 2023- No [id number] 50mg QD Take 1 [facility] one -31 04-24 tablet (50 st (Aldactone) 00:00: 00:00 mg total) [facility]osp[facility] 50 MG 00 :00 by mouth l tablet daily. furosemide 2022-0 2023- No [id number] 80mg Q.5D Take 1 [facility] (Lasix) 80 09-14 tablet (80 st mg tablet 00:00: 17:05 mg total) [facility] 00 :32 by mouth 2 l (two) times a day. blood sugar 2020-08 Yes [id number] check [facility] diagnostic 2-09 sugars 1 ity o f strip 00:00: times a [place] 00 day. Dx Medical Code Branch E11.9. Brand per insurance. Lancets 2020-08 Yes [id number] Check Univ ers Misc 2-09 sugars 1 ity of 00:00: times a [place] 00 day. Dx Medical Code Branch E11.9. Brand per insurance. blood sugar 2020-08 Yes [id number] check [facility] diagnostic 2-09 sugars 1 ity o f strip 00:00: times a [place] 00 day. Dx Medical Code Branch E11.9. Brand per insurance. Lancets 2020-08 Yes [id number] Check Univ ers Misc 2-09 sugars 1 ity of 00:00: times a [place] 00 day. Dx Medical Code Branch E11.9. Brand per insurance. blood sugar 2020-08 Yes [id number] check [facility] diagnostic 2-09 sugars 1 ity o f strip 00:00: times a [place] 00 day. Dx Medical Code Branch E11.9. Brand per insurance. Lancets 2020-08 Yes [id number] Check Univ ers Misc 2-09 sugars 1 ity of 00:00: times a [place] 00 day. Dx Medical Code Branch E11.9. Brand per insurance. blood sugar 2020-08 Yes [id number] check [facility] diagnostic 2-09 sugars 1 ity o f strip 00:00: times a [place] 00 day. Dx Medical Code Branch E11.9. Brand per insurance. Lancets 2020-08 Yes [id number] Check Univ ers Misc 2-09 sugars 1 ity of 00:00: times a [place] 00 day. Dx Medical Code Branch E11.9. Brand per insurance. blood sugar 2020-08 Yes [id number] check [facility] diagnostic 2-09 sugars 1 ity o f strip 00:00: times a [place] 00 day. Dx Medical Code Branch E11.9. Brand per insurance. Lancets 2020-08 Yes [id number] Check Univ ers Misc 2-09 sugars 1 ity of 00:00: times a [place] 00 day. Dx Medical Code Branch E11.9. Brand per insurance. blood sugar 2020-08 Yes [id number] check [facility] diagnostic 2-09 sugars 1 ity o f strip 00:00: times a [place] 00 day. Dx Medical Code Branch E11.9. Brand per insurance. Lancets 2020-08 Yes [id number] Check Univ ers Misc 2-09 sugars 1 ity of 00:00: times a [place] 00 day. Dx Medical Code Branch E11.9. Brand per insurance. blood sugar 2020-08 Yes [id number] check [facility] diagnostic 2-09 sugars 1 ity o f strip 00:00: times a [place] 00 day. Dx Medical Code Branch E11.9. Brand per insurance. Lancets 2020-08 Yes [id number] Check Univ ers Misc 2-09 sugars 1 ity of 00:00: times a [place] 00 day. Dx Medical Code Branch E11.9. Brand per insurance. blood sugar 2020-08 Yes [id number] check [facility] diagnostic 2-09 sugars 1 ity o f strip 00:00: times a [place] 00 day. Dx Medical Code Branch E11.9. Brand per insurance. Lancets 2020-08 Yes [id number] Check Univ ers Misc 2-09 sugars 1 ity of 00:00: times a [place] 00 day. Dx Medical Code Branch E11.9. Brand per insurance. blood sugar 2020-08 Yes [id number] check [facility] diagnostic 2-09 sugars 1 ity o f strip 00:00: times a [place] 00 day. Dx Medical Code Branch E11.9. Brand per insurance. Lancets 2020-08 Yes [id number] Check Univ ers Misc 2-09 sugars 1 ity of 00:00: times a [place] 00 day. Dx Medical Code Branch E11.9. Brand per insurance. blood sugar 2020-08 Yes [id number] check [facility] diagnostic 2-09 sugars 1 ity o f strip 00:00: times a [place] 00 day. Dx Medical Code Branch E11.9. Brand per insurance. Lancets 2020-08 Yes [id number] Check Univ ers Misc 2-09 sugars 1 ity of 00:00: times a [place] 00 day. Dx Medical Code Branch E11.9. Brand per insurance. blood sugar 2020-08 Yes [id number] check Univers diagnostic 2-09 sugars 1 ity o f strip 00:00: times a [place] 00 day. Dx Medical Code Branch E11.9. Brand per insurance. Lancets 2020-08 Yes [id number] Check Univ ers Misc 2-09 sugars 1 ity of 00:00: times a [place] 00 day. Dx Medical Code Branch E11.9. Brand per insurance. blood sugar 2020-08 Yes [id number] check Univers diagnostic 2-09 sugars 1 ity o f strip 00:00: times a [place] 00 day. Dx Medical Code Branch E11.9. Brand per insurance. Lancets 2020-08 Yes [id number] Check Univ ers Misc 2-09 sugars 1 ity of 00:00: times a [place] 00 day. Dx Medical Code Branch E11.9. Brand per insurance. blood sugar 2020-08 Yes [id number] check Univers diagnostic 2-09 sugars 1 ity o f strip 00:00: times a [place] 00 day. Dx Medical Code Branch E11.9. Brand per insurance. Lancets 2020-08 Yes [id number] Check Univ ers Misc 2-09 sugars 1 ity of 00:00: times a [place] 00 day. Dx Medical Code Branch E11.9. Brand per insurance. ipratropium 2020-08 Yes [id number] 2{spray Use 2 Univers 21 mcg 1-30 } Sprays in ity of (0.03 %) 00:00: each [place] nasal spray 00 nostril 3 Med ical (three) Branch times daily. lancets-blo 2020-08 Yes [id number] 1{each} 1 Each 2 Univers od glucose 1-30 (two) ity of strips 30 00:00: times [place] gauge Cmpk 00 daily. Medical Branch ipratropium 2020-08 Yes [id number] 2{spray Use 2 [facility] 21 mcg 1-30 } Sprays in ity of (0.03 %) 00:00: each [place] nasal spray 00 nostril 3 Med ical (three) Branch times daily. lancets-blo 2020-08 Yes [id number] 1{each} 1 Each 2 Univers od glucose 1-30 (two) ity of strips 30 00:00: times [place] gauge Cmpk 00 daily. Medical Branch lancets-blo 2020-08 Yes [id number] 1{each} 1 Each 2 Univers od glucose 1-30 (two) ity of strips 30 00:00: times [place] gauge Cmpk 00 daily. [facility]-08 Yes [id number] 1{each} 1 Each 2 Univers od glucose 1-30 (two) ity of strips 30 00:00: times [place] gauge Cmpk 00 daily. [facility] 2020-08 Yes [id number] 1{each} 1 Each 2 Univers od glucose 1-30 (two) ity of strips 30 00:00: times [place] gauge Cmpk 00 daily. [facility] 2020-08 Yes [id number] 1{each} 1 Each 2 Univers od glucose 1-30 (two) ity of strips 30 00:00: times [place] gauge Cmpk 00 daily. [facility] 2020-08 Yes [id number] 1{each} 1 Each 2 Univers od glucose 1-30 (two) ity of strips 30 00:00: times [place] gauge Cmpk 00 daily. [facility] 2020-08 Yes [id number] 1{each} 1 Each 2 Univers od glucose 1-30 (two) ity of strips 30 00:00: times [place] gauge Cmpk 00 daily. [facility] 2020-08 Yes [id number] 1{each} 1 Each 2 Univers od glucose 1-30 (two) ity of strips 30 00:00: times [place] gauge Cmpk 00 daily. [facility] 2020-08 Yes [id number] 1{each} 1 Each 2 Univers od glucose 1-30 (two) ity of strips 30 00:00: times [place] gauge Cmpk 00 daily. [facility] 2020-08 Yes [id number] 1{each} 1 Each 2 Univers od glucose 1-30 (two) ity of strips 30 00:00: times [place] gauge Cmpk 00 daily. [facility] 2020-08 Yes [id number] 1{each} 1 Each 2 Univers od glucose 1-30 (two) ity of strips 30 00:00: times [place] gauge Cmpk 00 daily. [facility] 2020-08 Yes [id number] 1{each} 1 Each 2 Univers od glucose 1-30 (two) ity of strips 30 00:00: times [place] gauge Cmpk 00 daily. [facility] ipratropium 2020-08- No [id number] 2{spray Use 2 Univers 21 mcg 1-30 10-11 } Sprays in ity of (0.03 %) 00:00: 00:00 each [place] nasal spray 00 :00 nostril 3 Med ical (three) Branch times daily. sildenafil, 2020-08- No 20mg [id number] Take 1 [facility] for 0-21 09-17 [id number] tablet ( 00:00: 00:00 3D mg total) [facility] hypertensio 00 :00 by mouth 3 l n, (three) (Revatio) times a 20 mg day. tablet levothyroxi Yes [id number] 75ug Take 1 Univers ne 75 mcg 6-21 tablet by ity o f tablet 00:00: mouth [place] 00 every Medical morning. Branch atorvastati Yes [id number] 20mg Take 1 [facility] n 20 mg 6-21 tablet by ity of tablet 00:00: mouth at [place] [address] bedtime. Medical Branch levothyroxi Yes [id number] 75ug Take 1 Univers ne 75 mcg 6-21 tablet by ity o f tablet 00:00: mouth [place] 00 every Medical morning. Branch atorvastati Yes [id number] 20mg Take 1 Univers n 20 mg 6-21 tablet by ity of tablet 00:00: mouth at [place] [address] bedtime. Medical Branch levothyroxi 0 Yes [id number] 75ug Take 1 [facility] ne 75 mcg 6-21 tablet by ity o f tablet 00:00: mouth [place] 00 every Medical morning. Branch atorvastati 0 Yes [id number] 20mg Take 1 Univers n 20 mg 6-21 tablet by ity of tablet 00:00: mouth at [place] [address] bedtime. Medical Branch levothyroxi 0 Yes [id number] 75ug Take 1 [facility] ne 75 mcg 6-21 tablet by ity o f tablet 00:00: mouth [place] 00 every Medical morning. Branch atorvastati Yes [id number] 20mg Take 1 Univers n 20 mg 6-21 tablet by ity of tablet 00:00: mouth at [place] [address] bedtime. Medical Branch levothyroxi 2021-0 Yes [id number] 75ug Take 1 [facility] ne 75 mcg 6-21 tablet by ity o f tablet 00:00: mouth [place] 00 every Medical morning. Branch atorvastati 2020-0 Yes [id number] 20mg Take 1 Univers n 20 mg 6-21 tablet by ity of tablet 00:00: mouth at [place] 00 bedtime. Medical Branch levothyroxi 2020-0 Yes [id number] 75ug Take 1 [facility] ne 75 mcg 6-21 tablet by ity o f tablet 00:00: mouth [place] 00 every Medical morning. Branch atorvastati 2020-0 Yes [id number] 20mg Take 1 Univers n 20 mg 6-21 tablet by ity of tablet 00:00: mouth at [place] 00 bedtime. Medical Branch levothyroxi 2020-0 Yes [id number] 75ug Take 1 [facility] ne 75 mcg 6-21 tablet by ity o f tablet 00:00: mouth [place] 00 every Medical morning. Branch atorvastati 2020-0 Yes [id number] 20mg Take 1 [facility] n 20 mg 6-21 tablet by ity of tablet 00:00: mouth at [place] 00 bedtime. Medical Branch levothyroxi 2020-0 Yes [id number] 75ug Take 1 Univers ne 75 mcg 6-21 tablet by ity o f tablet 00:00: mouth [place] 00 every Medical morning. Branch atorvastati 2020-0 Yes [id number] 20mg Take 1 Univers n 20 mg 6-21 tablet by ity of tablet 00:00: mouth at [place] 00 bedtime. Medical Branch levothyroxi 2020-0 Yes [id number] 75ug Take 1 [facility] ne 75 mcg 6-21 tablet by ity o f tablet 00:00: mouth [place] 00 every Medical morning. Branch atorvastati 2020-0 Yes [id number] 20mg Take 1 Univers n 20 mg 6-21 tablet by ity of tablet 00:00: mouth at [place] 00 bedtime. Medical Branch levothyroxi 2020-0 Yes [id number] 75ug Take 1 [facility] ne 75 mcg 6-21 tablet by ity o f tablet 00:00: mouth [place] 00 every Medical morning. Branch atorvastati 2020-0 Yes [id number] 20mg Take 1 Univers n 20 mg 6-21 tablet by ity of tablet 00:00: mouth at [place] 00 bedtime. Medical Branch levothyroxi 2020-0 Yes [id number] 75ug Take 1 Univers ne 75 mcg 6-21 tablet by ity o f tablet 00:00: mouth [place] 00 every Medical morning. Branch atorvastati 0 Yes [id number] 20mg Take 1 Univers n 20 mg 6-21 tablet by ity of tablet 00:00: mouth at [place] [address] bedtime. Medical Branch levothyroxi 2020-0 Yes [id number] 75ug Take 1 Univers ne 75 mcg 6-21 tablet by ity o f tablet 00:00: mouth [place] 00 every Medical morning. Branch atorvastati 0 Yes [id number] 20mg Take 1 Univers n 20 mg 6-21 tablet by ity of tablet 00:00: mouth at [place] [address] bedtime. Medical Branch levothyroxi 2020-0 Yes [id number] 75ug Take 1 Univers ne 75 mcg 6-21 tablet by ity o f tablet 00:00: mouth [place] 00 every Medical morning. Branch atorvastati 2020- Yes [id number] 20mg Take 1 Univers n 20 mg 6-21 tablet by ity of tablet 00:00: mouth at [place] [address] bedtime. Medical Branch amitriptyli Yes 50mg Take 50 mg [facility]i ne (ELAVIL) 6-[address] 50 MG 00:00: Hospita tablet 00 l atorvastati Yes 20mg Take 20 mg Methodi n (LIPITOR) 6-[address] 20 mg 00:00: Hospita tablet 00 l furosemide Yes 40mg Take 40 mg M ethodi (LASIX) 40 6-[address] mg tablet 00:00: Hospita 00 l glimepiride 0 Yes 4mg Take 4 mg M ethodi (AMARYL) 4 6-[address] MG tablet 00:00: Hospita 00 l insulin 0 Yes 62U Q.5D Inject 62 Metho di GLARGINE 6-[address] ([place] 00:00: under the Hospi ta [facility] 00 skin 2 l U-300 (two) Insulin) times a 300 unit/mL day after (1.5 mL) meals. insulin pen subcutaneou s pen ipratropium 0 Yes 2{spray 2 sprays [facility]i (ATROVENT) 6-21 } into each st 21 mcg 00:00: nostril. Hospita (0.03 %) 00 l nasal spray ipratropium 0 Yes 1{puff} Inhale 1 [facility] -albuteroL 6-[address] (Combivent 00:00: Hospita Respimat) 00 l 20-100 mcg/actuati on mist inhaler levothyroxi 0 Yes 75ug Take 75 Met hodi ne 6-[address] (SYNTHROID) 00:00: mouth. Hosp dell 75 mcg 00 l tablet montelukast 0 Yes 10mg Take 10 mg [facility] (SINGULAIR) 6-[address] 10 mg 00:00: Hospita tablet 00 l omeprazole 0 Yes 40mg Take 40 mg M ethodi (PriLOSEC) 6-[address] 40 MG 00:00: Hospita capsule 00 l SITagliptin 0 Yes 100mg Take 100 M ethodi (JANUVIA) 6-[address] 100 MG 00:00: mouth. Hospita tablet 00 l ipratropium 0 Yes 3mL Inhale 3 Me thodi -albuteroL 5-[address] (DUO-NEB) 00:00: needed. Hospi ta 0.5-2.5 00 l mg/3 mL nebulizer losartan 0 Yes 50mg Q.5D Take 50 mg Met hodi (COZAAR) 50 4-[address] MG tablet 00:00: (two) Hospita 00 times a l day. metoprolol 0 Yes 100mg Q.5D Take 100 Me thodi tartrate 4-[address] (LOPRESSOR) 00:00: mouth 2 Hos nita 100 mg 00 (two) l tablet times a day. doxazosin 0 Yes 1mg Take 1 mg Met hodi (CARDURA) 1 3-[address] MG tablet 00:00: Hospita 00 l insulin 2020-0 Yes [id number] Check Univ ers aspart 7-07 sugarsAC&o ity of RAPID 00:00: rifnot [place] (NOVOLOG 00 feeling Medical U-100 well.Ifove Branch INSULIN r ASPART) 100 300,&>2hrs unit/mL since injection eating,nawaf y14lyjzp,4 01-450 fkil12mlbm s,451-500 take 20units&ca ll HomeHealth orus insulin 2020-0 Yes [id number] Check Univ ers aspart 7-07 sugarsAC&o ity of RAPID 00:00: [facility] (NOVOLOG 00 feeling Medical U-100 well.Ifove Branch INSULIN r ASPART) 100 300,&>2hrs unit/mL since injection eating,nawaf z82ymuup,4 01-450 wscn97zsna s,451-500 take 20units&ca ll HomeHealth orus insulin 2020-0 Yes [id number] Check Univ ers aspart 7-07 sugarsAC&o ity of RAPID 00:00: [facility] (NOVOLOG 00 feeling Medical U-100 well.Ifove Branch INSULIN r ASPART) 100 300,&>2hrs unit/mL since injection eating,nawaf c01xmnkc,4 01-450 bqff02ejda s,451-500 take 20units&ca ll HomeHealth orus insulin 2020-0 Yes [id number] Check Univ ers aspart 7-07 sugarsAC&o ity of RAPID 00:00: [facility] (NOVOLOG 00 feeling Medical U-100 well.Ifove Branch INSULIN r ASPART) 100 300,&>2hrs unit/mL since injection eating,nawaf m93avrhv,4 01-450 gmby18lfvv s,451-500 take 20units&ca ll HomeHealth orus insulin 2020-0 Yes [id number] Check Univ ers aspart 7-07 sugarsAC&o ity of RAPID 00:00: [facility] (NOVOLOG 00 feeling Medical U-100 well.Ifove Branch INSULIN r ASPART) 100 300,&>2hrs unit/mL since injection eating,nawaf n12mhakd,4 01-450 ptkv79duft s,451-500 take 20units&ca ll HomeHealth orus insulin 2020-0 Yes [id number] Check Univ ers aspart 7-07 sugarsAC&o ity of RAPID 00:00: [facility] (NOVOLOG 00 feeling Medical U-100 well.Ifove Branch INSULIN r ASPART) 100 300,&>2hrs unit/mL since injection eating,nawaf v85ldchx,4 01-450 ruoo99krkx s,451-500 take 20units&ca ll HomeHealth orus insulin 2020-0 Yes [id number] Check Univ ers aspart 7-07 sugarsAC&o ity of RAPID 00:00: [facility] (NOVOLOG 00 feeling Medical U-100 well.Ifove Branch INSULIN r ASPART) 100 300,&>2hrs unit/mL since injection eating,nawaf y88ybbyr,4 01-450 qufj13rslg s,451-500 take 20units&ca ll HomeHealth orus insulin 2020-0 Yes [id number] Check Univ ers aspart 7-07 sugarsAC&o ity of RAPID 00:00: [facility] (NOVOLOG 00 feeling Medical U-100 well.Ifove Branch INSULIN r ASPART) 100 300,&>2hrs unit/mL since injection eating,nawaf i54ediai,4 01-450 xwna23qwlv s,451-500 take 20units&ca ll HomeHealth orus insulin 2020-0 Yes [id number] Check Univ ers aspart 7-07 sugarsAC&o ity of RAPID 00:00: [facility] (NOVOLOG 00 feeling Medical U-100 well.Ifove Branch INSULIN r ASPART) 100 300,&>2hrs unit/mL since injection eating,nawaf z88aggrv,4 01-450 zmcv84djhs s,451-500 take 20units&ca ll HomeHealth orus insulin 2020-0 Yes [id number] Check Univ ers aspart 7-07 sugarsAC&o ity of RAPID 00:00: [facility] (NOVOLOG 00 feeling Medical U-100 well.Ifove Branch INSULIN r ASPART) 100 300,&>2hrs unit/mL since injection eating,nawaf t38jcpbi,4 01-450 wwtx66igrf s,451-500 take 20units&ca ll HomeHealth orus insulin 2020-0 Yes [id number] Check Univ ers aspart 7-07 sugarsAC&o ity of RAPID 00:00: [facility] (NOVOLOG 00 feeling Medical U-100 well.Ifove Branch INSULIN r ASPART) 100 300,&>2hrs unit/mL since injection eating,nawaf b74nuwud,4 01-450 nlst92ysew s,451-500 take 20units&ca ll HomeHealth orus insulin 2020-0 Yes [id number] Check Univ ers aspart 7-07 sugarsAC&o ity of RAPID 00:00: [facility] (NOVOLOG 00 feeling Medical U-100 well.Ifove Branch INSULIN r ASPART) 100 300,&>2hrs unit/mL since injection eating,nawaf t46tqsat,4 01-450 xcif78aeak s,451-500 take 20units&ca ll HomeHealth orus insulin 2020-0 Yes [id number] Check Univ ers aspart 7-07 sugarsAC&o ity of RAPID 00:00: rifnot [place] (NOVOLOG 00 feeling Medical U-100 well.Ifove Branch INSULIN r ASPART) 100 300,&>2hrs unit/mL since injection eating,nawaf s77vtacy,4 01-450 kvyf01wjck s,451-500 take 20units&ca ll HomeHealth orus insulin 2020-0 Yes Inject [facility] ASPART 7-[address] (NovoLOG) 00:00: skin. Hospita 100 unit/mL 00 Sliding l injection scale Immunizations Ordered Immunization Filled Immunization Date Status Commen ts Source Name Name Pneumococcal 20 2022-03-01 Completed Universit y of Conjugate, PCV20 00:00:00 [place] [facility] (Prevnar 20) Branch SARS-COV-2 COVID-19 2022-03-01 Completed Unive rsity of PFIZER ALANNAH-SUCROSE 00:00:00 [place] [facility] VACCINE (BLAKE TOP) Branch Pneumococcal 20 2022-03-01 Completed Universit y of Conjugate, PCV20 00:00:00 [place] [facility] (Prevnar 20) Branch SARS-COV-2 COVID-19 2022-03-01 Completed Unive rsity of PFIZER ALANNAH-SUCROSE 00:00:00 [place] [facility] VACCINE (BLAKE TOP) Branch Pneumococcal 20 2022-03-01 Completed Universit y of Conjugate, PCV20 00:00:00 [place] [facility] (Prevnar 20) Branch SARS-COV-2 COVID-19 2022-03-01 Completed Unive rsity of PFIZER ALANNAH-SUCROSE 00:00:00 [place] [facility] VACCINE (BLAKE TOP) Branch Pneumococcal 20 2022-03-01 Completed Universit y of Conjugate, PCV20 00:00:00 [place] [facility] (Prevnar 20) Branch SARS-COV-2 COVID-19 2022-03-01 Completed Unive rsity of PFIZER ALANNAH-SUCROSE 00:00:00 [place] [facility] VACCINE (BLAKE TOP) Branch Pneumococcal 20 2022-03-01 Completed Universit y of Conjugate, PCV20 00:00:00 [place] [facility] (Prevnar 20) Branch SARS-COV-2 COVID-19 2022-03-01 Completed Unive rsity of PFIZER ALANNAH-SUCROSE 00:00:00 [place] [facility] VACCINE (BLAKE TOP) Branch Pneumococcal 20 2022-03-01 Completed Universit y of Conjugate, PCV20 00:00:00 [place] [facility] (Prevnar 20) Branch SARS-COV-2 COVID-19 2022-03-01 Completed Unive rsity of PFIZER ALANNAH-SUCROSE 00:00:00 [place] Medical VACCINE (BLAKE TOP) Branch Pneumococcal 20 2022-03-01 Completed Universit y of Conjugate, PCV20 00:00:00 [place] Me dical (Prevnar 20) Branch SARS-COV-2 COVID-19 2022-03-01 Completed Unive rsity of PFIZER ALANNAH-SUCROSE 00:00:00 [place] Medical VACCINE (BLAKE TOP) Branch Pneumococcal 20 2022-03-01 Completed Universit y of Conjugate, PCV20 00:00:00 [place] [facility] (Prevnar 20) Branch SARS-COV-2 COVID-19 2022-03-01 Completed Unive rsity of PFIZER ALANNAH-SUCROSE 00:00:00 [place] [facility] VACCINE (BLAKE TOP) Branch Pneumococcal 20 2022-03-01 Completed Universit y of Conjugate, PCV20 00:00:00 [place] [facility] (Prevnar 20) Branch SARS-COV-2 COVID-19 2022-03-01 Completed Unive rsity of PFIZER ALANNAH-SUCROSE 00:00:00 [place] [facility] VACCINE (BLAKE TOP) Branch Pneumococcal 20 2022-03-01 Completed Universit y of Conjugate, PCV20 00:00:00 [place] [facility] (Prevnar 20) Branch SARS-COV-2 COVID-19 2022-03-01 Completed Unive rsity of PFIZER ALANNAH-SUCROSE 00:00:00 [facility] VACCINE (BLAKE TOP) Branch Pneumococcal 20 2022-03-01 Completed Universit y of Conjugate, PCV20 00:00:00 [place] [facility] (Prevnar 20) Branch SARS-COV-2 COVID-19 2022-03-01 Completed Unive rsity of PFIZER ALANNAH-SUCROSE 00:00:00 [place] [facility]INE (BLAKE TOP) Branch Pneumococcal 20 2022-03-01 Completed Universit y of Conjugate, PCV20 00:00:00 [place] [facility] (Prevnar 20) Branch SARS-COV-2 COVID-19 2022-03-01 Completed Unive rsity of PFIZER ALANNAH-SUCROSE 00:00:00 [place] [facility] VACCINE (BLAKE TOP) Branch Pneumococcal 20 2022-03-01 Completed Universit y of Conjugate, PCV20 00:00:00 [facility] dical (Prevnar 20) Branch SARS-COV-2 COVID-19 2022-03-01 Completed Unive rsity of PFIZER ALANNAH-SUCROSE 00:00:00 [facility] VACCINE (BLAKE TOP) Branch Influenza Virus 2021-08-04 Completed Universit y of Vaccine,quad 00:00:00 [place] [facility],preserve Free 65+ Bran ch SARS-COV-2 COVID-19 2021-08-04 Completed Unive rsity of PFIZER VACCINE 00:00:00 [facility] Influenza Virus 2021-08-04 Completed Universit y of Vaccine,quad 00:00:00 [place] [facility],preserve Free 65+ Bran ch SARS-COV-2 COVID-19 2021-08-04 Completed Unive rsity of PFIZER VACCINE 00:00:00 [facility] Influenza Virus 2021-08-04 Completed Universit y of Vaccine,quad 00:00:00 [place] [facility],preserve Free 65+ Bran ch SARS-COV-2 COVID-19 2021-08-04 Completed Unive rsity of PFIZER VACCINE 00:00:00 [facility] Influenza Virus 2021-08-04 Completed Universit y of Vaccine,quad 00:00:00 [place] [facility],preserve Free 65+ Bran ch SARS-COV-2 COVID-19 2021-08-04 Completed Unive rsity of PFIZER VACCINE 00:00:00 [facility] Influenza Virus 2021-08-04 Completed Universit y of Vaccine,quad 00:00:00 [place] [facility],preserve Free 65+ Bran ch SARS-COV-2 COVID-19 2021-08-04 Completed Unive rsity of PFIZER VACCINE 00:00:00 [facility] Influenza Virus 2021-08-04 Completed Universit y of Vaccine,quad 00:00:00 [place] [facility],preserve Free 65+ Bran ch SARS-COV-2 COVID-19 2021-08-04 Completed Unive rsity of PFIZER VACCINE 00:00:00 [facility] Influenza Virus 2021-08-04 Completed Universit y of Vaccine,quad 00:00:00 [place] [facility],preserve Free 65+ Bran ch SARS-COV-2 COVID-19 2021-08-04 Completed Unive rsity of PFIZER VACCINE 00:00:00 [facility] Influenza Virus 2021-08-04 Completed Universit y of Vaccine,quad 00:00:00 [place] [facility],preserve Free 65+ Bran ch SARS-COV-2 COVID-19 2021-08-04 Completed Unive rsity of PFIZER VACCINE 00:00:00 [facility] Influenza Virus 2021-08-04 Completed Universit y of Vaccine,quad 00:00:00 [place] [facility],preserve Free 65+ Bran ch SARS-COV-2 COVID-19 2021-08-04 Completed Unive rsity of PFIZER VACCINE 00:00:00 [facility] Influenza Virus 2021-08-04 Completed Universit y of Vaccine,quad 00:00:00 [place] [facility],preserve Free 65+ Bran ch SARS-COV-2 COVID-19 2021-08-04 Completed Unive rsity of PFIZER VACCINE 00:00:00 [facility] Influenza Virus 2021-08-04 Completed Universit y of Vaccine,quad 00:00:00 [place] [facility],preserve Free 65+ Bran ch SARS-COV-2 COVID-19 2021-08-04 Completed Unive rsity of PFIZER VACCINE 00:00:00 [facility] Influenza Virus 2021-08-04 Completed Universit y of Vaccine,quad 00:00:00 [place] [facility],preserve Free 65+ Bran ch SARS-COV-2 COVID-19 2021-08-04 Completed Unive rsity of PFIZER VACCINE 00:00:00 [facility] Influenza Virus 2021-08-04 Completed Universit y of Vaccine,quad 00:00:00 [place] [facility],preserve Free 65+ Bran ch SARS-COV-2 COVID-19 2021-08-04 Completed Unive rsity of PFIZER VACCINE 00:00:00 [facility] PFIZER COVID-19 MRNA 2021-08-04 Completed Meth odist VACCINATION 00:00:00 Hospital FLUZONE HIGH-DOSE PF 2021-08-04 Completed Meth odist 00:00:00 Hospital SARS-COV-2 COVID-19 2020-11-22 Completed Unive rsity of PFIZER VACCINE 00:00:00 [facility] Branch SARS-COV-2 COVID-19 2020-11-22 Completed Unive rsity of PFIZER VACCINE 00:00:00 [facility] SARS-COV-2 COVID-19 2020-11-22 Completed Unive rsity of PFIZER VACCINE 00:00:00 [facility] Branch SARS-COV-2 COVID-19 2020-11-22 Completed Unive rsity of PFIZER VACCINE 00:00:00 [facility] SARS-COV-2 COVID-19 2020-11-22 Completed Unive rsity of PFIZER VACCINE 00:00:00 [facility] Branch SARS-COV-2 COVID-19 2020-11-22 Completed Unive rsity of PFIZER VACCINE 00:00:00 [facility] Branch SARS-COV-2 COVID-19 2020-11-22 Completed Unive rsity of PFIZER VACCINE 00:00:00 [facility] Branch SARS-COV-2 COVID-19 2020-11-22 Completed Unive rsity of PFIZER VACCINE 00:00:00 [facility] Branch SARS-COV-2 COVID-19 2020-11-22 Completed Unive rsity of PFIZER VACCINE 00:00:00 [facility] Branch SARS-COV-2 COVID-19 2020-11-22 Completed Unive rsity of PFIZER VACCINE 00:00:00 [facility] Branch SARS-COV-2 COVID-19 2020-11-22 Completed Unive rsity of PFIZER VACCINE 00:00:00 [facility] Branch SARS-COV-2 COVID-19 2020-11-22 Completed Unive rsity of PFIZER VACCINE 00:00:00 [facility] Branch SARS-COV-2 COVID-19 2020-11-22 Completed Unive rsity of PFIZER VACCINE 00:00:00 [facility] Branch SARS-COV-2 COVID-19 2020-11-01 Completed Unive rsity of PFIZER VACCINE 00:00:00 [facility] Branch SARS-COV-2 COVID-19 2020-11-01 Completed Unive rsity of PFIZER VACCINE 00:00:00 [facility] Branch SARS-COV-2 COVID-19 2020-11-01 Completed Unive rsity of PFIZER VACCINE 00:00:00 [facility] Branch SARS-COV-2 COVID-19 2020-11-01 Completed Unive rsity of PFIZER VACCINE 00:00:00 [facility] SARS-COV-2 COVID-19 2020-11-01 Completed Unive rsity of PFIZER VACCINE 00:00:00 [facility] SARS-COV-2 COVID-19 2020-11-01 Completed Unive rsity of PFIZER VACCINE 00:00:00 [facility] SARS-COV-2 COVID-19 2020-11-01 Completed Unive rsity of PFIZER VACCINE 00:00:00 [facility] SARS-COV-2 COVID-19 2020-11-01 Completed Unive rsity of PFIZER VACCINE 00:00:00 [facility] SARS-COV-2 COVID-19 2020-11-01 Completed Unive rsity of PFIZER VACCINE 00:00:00 [facility] SARS-COV-2 COVID-19 2020-11-01 Completed Unive rsity of PFIZER VACCINE 00:00:00 [facility] SARS-COV-2 COVID-19 2020-11-01 Completed Unive rsity of PFIZER VACCINE 00:00:00 [facility] SARS-COV-2 COVID-19 2020-11-01 Completed Unive rsity of PFIZER VACCINE 00:00:00 [facility] SARS-COV-2 COVID-19 2020-11-01 Completed Unive rsity of PFIZER VACCINE 00:00:00 [facility] Influenza High Dose 2020-07-19 Completed Unive rsity of Quad 00:00:00 [facility] Influenza High Dose 2020-07-19 Completed Unive rsity of Quad 00:00:00 [facility] Influenza High Dose 2020-07-19 Completed Unive rsity of Quad 00:00:00 [facility] Influenza High Dose 2020-07-19 Completed Unive rsity of Quad 00:00:00 [facility] Influenza High Dose 2020-07-19 Completed Unive rsity of Quad 00:00:00 [facility] Influenza High Dose 2020-07-19 Completed Unive rsity of Quad 00:00:00 [facility] Influenza High Dose 2020-07-19 Completed Unive rsity of Quad 00:00:00 [facility] Influenza High Dose 2020-07-19 Completed Unive rsity of Quad 00:00:00 [facility] Influenza High Dose 2020-07-19 Completed Unive rsity of Quad 00:00:00 [facility] Influenza High Dose 2020-07-19 Completed Unive rsity of Quad 00:00:00 [facility] Influenza High Dose 2020-07-19 Completed Unive rsity of Quad 00:00:00 [facility] Influenza High Dose 2020-07-19 Completed Unive rsity of Quad 00:00:00 [facility] Influenza High Dose 2020-07-19 Completed Unive rsity of Quad 00:00:00 [facility] FLUZONE HIGH-DOSE PF 2020-07-19 Completed Meth odist 00:00:00 Hospital Influenza High Dose 2019-11-10 Completed Unive rsity of 00:00:00 [facility] Influenza High Dose 2019-11-10 Completed Unive rsity of 00:00:00 [facility] Influenza High Dose 2019-11-10 Completed Unive rsity of 00:00:00 [facility] Influenza High Dose 2019-11-10 Completed Unive rsity of 00:00:00 [facility] Influenza High Dose 2019-11-10 Completed Unive rsity of 00:00:00 [facility] Influenza High Dose 2019-11-10 Completed Unive rsity of 00:00:00 [facility] Influenza High Dose 2019-11-10 Completed Unive rsity of 00:00:00 [facility] Influenza High Dose 2019-11-10 Completed Unive rsity of 00:00:00 [facility] Influenza High Dose 2019-11-10 Completed Unive rsity of 00:00:00 [facility] Influenza High Dose 2019-11-10 Completed Unive rsity of 00:00:00 [facility] Influenza High Dose 2019-11-10 Completed Unive rsity of 00:00:00 [facility] Influenza High Dose 2019-11-10 Completed Unive rsity of 00:00:00 [facility] Influenza High Dose 2019-11-10 Completed Unive rsity of 00:00:00 [facility] FLUZONE HIGH-DOSE PF 2019-11-10 Completed Meth odist 00:00:00 Hospital Influenza Virus 2018-05-15 Completed Universit y of Vaccine Quad IM 00:00:00 [place] [facility] Multi-dose 6+ MO Branch Influenza Virus 2018-05-15 Completed Universit y of Vaccine Quad IM 00:00:00 [place] [facility] Multi-dose 6+ MO Branch Influenza Virus 2018-05-15 Completed Universit y of Vaccine Quad IM 00:00:00 [place] [facility] Multi-dose 6+ MO Branch Influenza Virus 2018-05-15 Completed Universit y of Vaccine Quad IM 00:00:00 [place] [facility] Multi-dose 6+ MO Branch Influenza Virus 2018-05-15 Completed Universit y of Vaccine Quad IM 00:00:00 [place] [facility] Multi-dose 6+ MO Branch Influenza Virus 2018-05-15 Completed Universit y of Vaccine Quad IM 00:00:00 [place] [facility] Multi-dose 6+ MO Branch Influenza Virus 2018-05-15 Completed Universit y of Vaccine Quad IM 00:00:00 [place] [facility] Multi-dose 6+ MO Branch Influenza Virus 2018-05-15 Completed Universit y of Vaccine Quad IM 00:00:00 [place] [facility] Multi-dose 6+ MO Branch Influenza Virus 2018-05-15 Completed Universit y of Vaccine Quad IM 00:00:00 [place] [facility] Multi-dose 6+ MO Branch Influenza Virus 2018-05-15 Completed Universit y of Vaccine Quad IM 00:00:00 [place] [facility] Multi-dose 6+ MO Branch Influenza Virus 2018-05-15 Completed Universit y of Vaccine Quad IM 00:00:00 [place] [facility] Multi-dose 6+ MO Branch Influenza Virus 2018-05-15 Completed Universit y of Vaccine Quad IM 00:00:00 [place] [facility] Multi-dose 6+ MO Branch Influenza Virus 2018-05-15 Completed Universit y of Vaccine Quad IM 00:00:00 [place] [facility] Multi-dose 6+ MO Branch FLUZONE QUAD 2018-05-15 Completed [facility] 00:00:00 [facility] Pneumococcal 2017-02-03 Completed University o f Polysaccharide, 00:00:00 [place] [facility] PPSV23 (PNEUMOVAX) Branch Pneumococcal 2017-02-03 Completed University o f Polysaccharide, 00:00:00 [place] [facility] PPSV23 (PNEUMOVAX) Branch Pneumococcal 2017-02-03 Completed University o f Polysaccharide, 00:00:00 [place] [facility] PPSV23 (PNEUMOVAX) Branch Pneumococcal 2017-02-03 Completed University o f Polysaccharide, 00:00:00 [place] [facility] PPSV23 (PNEUMOVAX) Branch Pneumococcal 2017-02-03 Completed University o f Polysaccharide, 00:00:00 [place] [facility] PPSV23 (PNEUMOVAX) Branch Pneumococcal 2017-02-03 Completed University o f Polysaccharide, 00:00:00 [place] [facility] PPSV23 (PNEUMOVAX) Branch Pneumococcal 2017-02-03 Completed University o f Polysaccharide, 00:00:00 [place] [facility] PPSV23 (PNEUMOVAX) Branch Pneumococcal 2017-02-03 Completed University o f Polysaccharide, 00:00:00 [place] [facility] PPSV23 (PNEUMOVAX) Branch Pneumococcal 2017-02-03 Completed University o f Polysaccharide, 00:00:00 [place] [facility] PPSV23 (PNEUMOVAX) Branch Pneumococcal 2017-02-03 Completed University o f Polysaccharide, 00:00:00 [place] [facility] PPSV23 (PNEUMOVAX) Branch Pneumococcal 2017-02-03 Completed University o f Polysaccharide, 00:00:00 [place] [facility] PPSV23 (PNEUMOVAX) Branch Pneumococcal 2017-02-03 Completed University o f Polysaccharide, 00:00:00 [place] [facility] PPSV23 (PNEUMOVAX) Branch Pneumococcal 2017-02-03 Completed University o f Polysaccharide, 00:00:00 [place] [facility] PPSV23 (PNEUMOVAX) Branch Pneumococcal 2017-02-03 Completed [facility] Polysaccharide 00:00:00 [facility] Td 2017-01-30 Completed University of 00:00:00 [facility] DTAP 2017-01-30 Completed University of 00:00:00 [facility] Td 2017-01-30 Completed University of 00:00:00 [facility] DTAP 2017-01-30 Completed University of 00:00:00 [facility] Td 2017-01-30 Completed University of 00:00:00 [facility] DTAP 2017-01-30 Completed University of 00:00:00 [facility] Td 2017-01-30 Completed University of 00:00:00 [facility] DTAP 2017-01-30 Completed University of 00:00:00 [facility] Td 2017-01-30 Completed University of 00:00:00 [facility] DTAP 2017-01-30 Completed University of 00:00:00 [facility] Td 2017-01-30 Completed University of 00:00:00 [facility] DTAP 2017-01-30 Completed University of 00:00:00 [facility] Td 2017-01-30 Completed University of 00:00:00 [facility] DTAP 2017-01-30 Completed University of 00:00:00 [facility] Td 2017-01-30 Completed University of 00:00:00 [facility] DTAP 2017-01-30 Completed University of 00:00:00 [facility] TD, NOS 2017-01-30 Completed University of 00:00:00 [facility] DTAP 2017-01-30 Completed University of 00:00:00 [facility] TD, NOS 2017-01-30 Completed University of 00:00:00 [facility] DTAP 2017-01-30 Completed University of 00:00:00 [facility] TD, NOS 2017-01-30 Completed University of 00:00:00 [facility] DTAP 2017-01-30 Completed University of 00:00:00 [facility] TD, NOS 2017-01-30 Completed University of 00:00:00 [facility] DTAP 2017-01-30 Completed University of 00:00:00 [facility] TD, NOS 2017-01-30 Completed University of 00:00:00 [facility] DTAP 2017-01-30 Completed University of 00:00:00 [facility] Td, Unspecified 2017-01-30 Completed [facility] 00:00:00 Hospital DTaP 2017-01-30 Completed [facility] 00:00:00 Hospital Vital Signs Vital Name Observation Time Observation Value Comments Source Systolic blood 2022-03-01 19:29:00 155 mm[Hg] Univer sity of pressure [facility] Diastolic blood 2022-03-01 19:29:00 78 mm[Hg] Unive rsity of pressure [facility] Heart rate 2022-03-01 19:29:00 74 /min [facility] Body temperature 2022-03-01 18:39:00 35.83 [facility]ara [facility] 2022-03-01 18:39:00 18 /[facility] Body height 2022-03-01 18:39:00 160 cm [facility] Body weight 2022-03-01 18:39:00 109.181 kg [facility] BMI 2022-03-01 18:39:00 42.64 kg/m2 [facility] Oxygen saturation in 2022-03-01 18:39:00 95 /min University of Arterial blood by [facility] Pulse oximetry Branch Procedures Procedure Date / Time Performing Clinician Source Performed PNEUMOCOCCAL 20 2022-03-01 20:10:13 Jaron Alvarenga [facility] CONJUGATE (PREVNAR 20) [facility] VACCINE Plan of Care Planned Activity Planned Date Details Comments Source Future Scheduled 2023-03-15 Screening for [facility] Test 11:16:49 malignant neoplasm of colon (procedure) [code = 536994897] Future Scheduled 2023-03-15 Screening for [facility] Test 11:16:49 malignant neoplasm of colon (procedure) [code = 888185834] Future Scheduled 2023-03-15 Screening for [facility] Test 11:16:49 malignant neoplasm of colon (procedure) [code = 894961561] Future Scheduled 2023-03-15 Hepatitis C screening [facility] Test 11:16:49 (procedure) [code = 397125379] Future Scheduled 2023-03-15 BREAST CANCER [facility] Test 11:16:49 SCREENING [code = BREAST CANCER SCREENING] Future Scheduled 2023-03-15 Screening for [facility] Test 11:16:49 malignant neoplasm of colon (procedure) [code = 491995641] Future Scheduled 2023-03-15 Screening for [facility] Test 11:16:49 malignant neoplasm of colon (procedure) [code = 932052408] Future Scheduled 2023-03-15 SHINGLES VACCINES (1 Met [facility] Test 11:16:49 of 2) [code = SHINGLES VACCINES (1 of 2)] Future Scheduled 2023-03-15 65+ [facility]CCAL [facility] 11:16:49 VACCINE (2 - PCV) [code = 65+ PNEUMOCOCCAL VACCINE (2 - PCV)] Future Scheduled 2023-03-15 COVID-19 VACCINE (4 - [facility] Test 11:16:49 Pfizer series) [code = COVID-19 VACCINE (4 - Pfizer series)] Future Scheduled 2023-03-15 INFLUENZA VACCINE Method [facility] Test 11:16:49 [code = INFLUENZA VACCINE] Encounters Start End Encounter Admission Attending Care Care Encounter Source Date/Time Date/Time Type Type Clinicians Facility Department ID 2021-11-13 Outpatient [facility] [id number] [place] 15:55:43 [id number] [facility] 2021-11-11 Outpatient [facility] [id number] [place] 14:13:30 [id number] [facility] 2021-06-12 Emergency [facility] [id number] Univers 05:16:43 ity of [facility] 2023-02-22 2023-02-22 [facility] 1.2.840.114 [id number] Univers 00:00:00 00:00:00 Kelli Frederic [place] [id number] [facility] [id number] [phone] [address] 2023-02-02 2023-02-02 Refill Dumont, [facility] 1.2.840.114 [id number] Univers 00:00:00 00:00:00 Kelli A [place] [id number] [id number] [place] [phone] [address] 2023-01-30 2023-01-30 Refill Dumont, [facility] 1.2.840.114 [id number] Univers 00:00:00 00:00:00 Kelli A [place] [id number] ity [facility] [id number] [place] [phone] [address] 2023-01-25 2023-01-25 [facility] 1.2.840.114 [id number] Univers 00:00:00 00:00:00 Kelli Frederic [place] [id number] ity [facility] [id number] [id number] [address] 2022-12-06 2022-12-06 Refill Estefany, 1.2.840.1 [id number] Methodi 00:00:00 00:00:00 [address] [place] [address] 3.430.2.7 Hospit a .3.647452 l .8 2022-10-07 2022-10-07 Refill Estefany, 1.2.840.1 [id number] Methodi 00:00:00 00:00:00 Kvng [place] [address] 3.430.2.7 Hospit a .3.561323 l .8 2022-09-14 2022-09-14 Refill Uziel, 1.2.840.1 [id number] Methodi 00:00:00 00:00:[address] 3.430.2.7 Hospit a .3.254630 l .8 2022-09-11 2022-09-11 Refill Tiffany, 1.2.840.1 [id number] Methodi 00:00:00 00:00:[address] 3.430.2.7 Hospit a .3.145455 l .8 2022-09-06 2022-09-06 Refill Tiffany, 1.2.840.1 [id number] Methodi 00:00:00 00:00:[address] 3.430.2.7 Hospit a .3.232495 l .8 2022-08-11 2022-08-11 Refill Jonathon, [facility] 1.2.840.114 [id number] Univers 00:00:00 00:00:00 Genesis PATT[place] [id number] i ty [facility] [id number] [phone] Wi dical NAL 044 [facility] 2022-08-03 2022-08-03 Refill Tim, [facility] 1.2.840.114 [id number] Univers 00:00:00 00:00:00 Kelli [place] [id number] ity [facility] [id number] [phone] Wi dical NAL 231 [facility] 2022-07-29 2022-07-29 Refill Estefany, 1.2.840.1 [id number] Methodi 00:00:00 00:00:00 [address] [place] [address] 3.430.2.7 Hospit a .3.653465 l .8 2022-06-25 2022-06-25 [facility] 1.2.840.114 [id number] Univers 00:00:00 00:00:00 Kelli A [place] [id number] [id number] [id number] Wi dical NAL [address] [place] [address] 2022-06-01 2022-06-01 [facility] 1.2.840.114 [id number] Univers 00:00:00 00:00:00 Kelli A [place] [id number] [id number] [phone] Wi dical NAL [address] [place] [address] 2022-06-01 2022-06-01 [facility] 1.2.840.114 [id number] Univers 00:00:00 00:00:00 Kelli A [place] [id number] [id number] [id number] [facility] [address] [place] [address] 2022-05-26 2022-05-26 [facility] 1.2.840.114 [id number] Univers 00:00:00 00:00:00 Kelli A [place] [id number] [place] [id number] [phone] Wi dical NAL [address] [place] [address] 2022-05-24 2022-05-24 [facility] 1.2.840.114 [id number] Univers 00:00:00 00:00:00 Kelli A [place] [id number] [id number] [id number] [address] 2022-04-23 2022-04-23 Outpatient R [facility] [id number] Univers 14:00:00 14:00:00 SOREN cabrales [facility] 2022-04-12 2022-04-12 Outpatient [facility] [id number] Univers 13:30:00 13:30:00 MARY JANE gutierrez [facility] 2022-04-09 2022-04-09 Outpatient [facility] [id number] Univers 16:00:00 16:00:00 MARY JANE gutierrez [facility] 2022-03-19 2022-03-19 Outpatient [facility] [id number] Univers 16:00:00 16:00:00 [facility] 2022-03-09 2022-03-09 Outpatient R [facility] [id number] Univers 15:40:00 15:40:00 KELLI cabrales [facility] 2022-03-08 2022-03-08 Outpatient R [facility] [id number] Univers 13:00:00 13:00:00 DESEAN robertsgutierrez janis estrada [facility] 2022-03-08 2022-03-08 Outpatient [facility] [id number] Univers 10:00:00 10:00:00 MARY JANE [facility] 2022-03-05 2022-03-05 Outpatient R [facility] [id number] Univers 10:30:00 10:30:00 DESEAN dorado [facility] 2022-03-05 2022-03-05 [facility]phone [facility] 1.2.840.114 [id number] Univers 00:00:00 00:00:00 Kelli P[place] [id number] Nigel [id number] Aishwarya SHERMAN [id number] Wi dic[address] 2022-03-01 2022-03-01 Outpatient R JARON ALVARENGA [facility] [id number] Univers 15:30:00 15:30:00 JARON ALVARENGA [facility]y [facility] [facility] 2022-03-01 2022-03-01 Imm/Inj Vaccine, Adc Family Medicine [facility] 1.2.840.114 [id number] Univers 15:30:00 15:30:00 Visit Jaron Alvarenga 350.1.13.1 0 ity of [place] [phone] Wi dicmargot NAL [address] [place] [address] 2022-03-01 2022-03-[address] [facility] 1.2.840.114 [id number] Univers 15:00:00 15:00:00 Visit Jaron PATTEN 350.1.13.10 ity of [place] [phone] Wi clive [address]RE[address] [place] [address] 2022-03-01 2022-03-01 Outpatient R [facility]ON [facility]GA [facility] [id number] Univers 15:00:00 14:42:12 JARON ALVARENGA ity [facility] 2022-03-01 2022-03-[address] [facility] 1.2.840.114 [id number] Univers 13:30:00 14:41:35 Visit Jaron PATTEN 350.1.13.10 ity of [place] [phone] Wi clive [address] 2022-03-01 2022-03-01 Outpatient R [facility]ON [facility] [id number] Univers 13:30:00 14:41:35 JARON ALVARENGA ity [facility] 2022-02-24 2022-02-24 Outpatient R UZIEL [facility] [id number] Univers 14:00:00 14:00:00 DESEAN dorado [facility] 2022-02-23 2022-02-23 Outpatient R JARON [facility]VARENGA [facility] [id number] Univers 11:00:00 11:00:00 JARON ALVARENGA ity [facility] 2022-02-23 2022-02-23 Outpatient R LYLE, J[facility]ON [facility] [id number] Univers 10:30:00 10:30:00 LYLE JARON ity [facility] 2022-02-21 2022-02-21 Case [facility] 1.2.840.114 [id number] Univers 00:00:00 00:00:00 Management Kelli PATTEN 350.1.13.10 it[place] of [place] [phone] [address] 2022-02-19 2022-02-19 [facility] 1.2.840.114 [id number] Univers 00:00:00 00:00:00 Kelli PATTEN 350.1.13.10 it[place] of [place] [phone] Wi dic[address] 2022-02-16 2022-02-16 Refill [facility] 1.2.840.114 [id number] Univers 00:00:00 00:00:00 Kelli PATTEN 350.1.13.10 it[place] of [place] [phone] Wi dic[address] 2022-02-12 2022-02-12 Telephone [facility] 1.2.840.114 [id number] Univers 00:00:00 00:00:00 [facility] 350.1.13.10 it y of [place] 4.2.7.2.[place] [phone] [facility] [place] [address] OFFICE BUILDING 2022-02-10 2022-02-[address] 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 1.2.840.114 [id number] Univers 15:15:00 15:30:00 Visit Jaron Alvarenga 350.1.13.1 0 ity of [place] [phone] Wi dical NAL 353 [facility] 2022-02-09 2022-02-09 Outpatient R JARON [facility] [id number] Univers 15:15:00 15:15:00 [facility]ON [facility] 2022-02-09 2022-02-[address] [facility] 1.2.840.114 [id number] Univers 14:30:00 15:02:38 Visit Jaron PATTEN 350.1.13.10 ity [facility] 4.2.7.2.[place] [phone] [facility] 044 [facility] 2022-02-09 2022-02-09 Outpatient R JARON [facility]VARENGA [facility] [id number] Univers 14:30:00 15:02:38 JARON ALVARENGA [facility] 2022-02-09 2022-02-09 Outpatient R JARON [facility]VARENGA [facility] [id number] Univers 14:30:00 14:30:00 JARON [facility]GA [facility] 2022-02-09 2022-02-[address] [facility] 1.2.840.114 [id number] Univers 00:00:00 00:00:00 Secure Msg Jaron PATTEN 350.1.13.10 ity of [facility] 4.2.7.2.[place] [phone] Wi dical NAL 044 [facility] 2022-02-08 2022-02-08 Outpatient R [facility]IDEA [facility] [id number] Univers 11:00:00 11:49:03 MARY JANE [facility] 2022-02-08 2022-02-08 Office [facility] 1.2.840.114 [id number] Univers 11:00:00 11:49:03 Visit Mary Jane PATTEN 350.1.13.10 i ty of [facility] 4.2.7.2.686 [place] [facility] [phone] Wi dical NAL [address] BUILDING 2022-02-04 2022-02-04 Outpatient R SHELLEY BRANTLEY [facility] [id number] Univers 11:00:00 16:46:52 SHELLEY BRANTLEY [facility] 2022-02-04 2022-02-04 Office [facility] 1.2.840.114 [id number] Univers 11:00:00 16:46:52 Visit [facility] 350.1.13.10 i ty of [place] 4.2.7.2.686 [place] [phone] [address] OFFICE BUILDING 2022-02-01 2022-02-01 Outpatient [facility] [id number] Univers 10:53:32 23:59:00 KELLI cabrales [facility] 2022-02-01 2022-02-01 [facility] 1.2.840.114 [id number] Univers 10:53:32 23:59:00 Encounter Kelli PATTEN 350.1.13.10 ity [facility] 4.2.7.2.[place] [phone] [place] [address] [address] 2022-02-01 2022-02-01 Outpatient R [facility] [id number] Univers 10:53:32 10:53:32 KELLI cabrales [facility] 2022-02-01 2022-02-01 Outpatient R [facility] [id number] Univers 10:53:32 10:53:32 KELLI [facility]tsJoint [facility] 2022-02-01 2022-02-01 Telephone [facility] 1.2.840.114 [id number] Univers 00:00:00 00:00:00 Kelli PATTEN 350.1.13.10 ity of [place] 4.2.7.2.[place] [phone] Wi dical NAL 231 [facility] 2022-01-27 2022-01-[address] [facility] 1.2.840.114 [id number] Univers 00:00:00 00:00:00 Secure Msg Kelli A [place] 350.1.13.10 ity of [place] 4.2.7.2.[place] [phone] Wi dical NAL 225 [facility] 2022-01-27 2022-01-27 Telephone Pauline, [facility] 1.2.840.114 [id number] Univers 00:00:00 00:00:00 Desean [place] 350.1.13.10 ity of [place].2.[place] [phone] Wi dical NAL 231 [facility] 2022-01-27 2022-01-[address] [facility] 1.2.840.114 [id number] Univers 00:00:00 00:00:00 Secure Msg Kelli A [place] 350.1.13.10 ity of [place].2.[place] [phone] Wi dical NAL 225 [facility] 2022-01-27 2022-01-[address] [facility] 1.2.840.114 [id number] Univers 00:00:00 00:00:00 Secure Msg Unassigned, [place] 350.1.13.10 ity of [place].2.7.2.[place] [phone] Wi dical NAL 044 [facility] 2022-01-27 2022-01-27 Refill Dumont, [facility] 1.2.840.114 [id number] Univers 00:00:00 00:00:00 Kelli A [place] 350.1.13.10 ity of [place] 4[place]2.[place].2.[place] [phone] Wi dical NAL 231 [facility] 2022-01-22 2022-01-22 Transition JO [place] 1.2.840.114 [id number] Univers 00:00:00 00:00:00 of Care Kristy Ron B[place]DA 350.1.13.10 it y of [place] 4.2.7.2.686 [place] [phone] [facility] [address] 2022-01-22 2022-01-22 Patient [facility] 1.2.840.114 [id number] Univers 00:00:00 00:00:00 Secure Msg Kelli PATTEN 350.1.13.10 ity of [place].7.2.[place] [phone] Wi dicwy NAL [address] [place] [address] 2022-01-20 2022-01-21 Outpatient X [facility]RE[facility] [place] [id number] Univers 11:03:00 16:28:00 CYNTHIA cabrales [facility] 2022-01-20 2022-01-21 Emergency Cy Martinez [facility] 1.2.840. 114 [id number] Univers 11:03:00 16:28:00 Cynthia Werner 350.1.13.10 it[place] 4.2.7.2.[place] C[place] [phone] [facility] [address] [place] 2022-01-20 2022-01-20 [facility] 1.2.840.114 [id number] Univers 00:00:00 00:00:00 Secure Msg Kelli PATTEN 350.1.13.10 it[place] [phone] Wi dicwy NAL [address] [place] [address] 2022-01-19 2022-01-19 Outpatient R [facility] [id number] Univers 11:00:00 13:42:31 KELLI cabrales [facility] 2022-01-19 2022-01-19 Office [facility] 1.2.840.114 [id number] Univers 11:00:00 13:42:31 Visit Kelli PATTEN 350.1.13.10 it[place] of [place] 4[place].2.[place] [phone] Wi dical NAL [address] [place] [address] 2022-01-19 2022-01-19 Outpatient R TIM [facility] [id number] Univers 11:00:00 11:00:00 KELLI ity of [facility] 2022-01-14 2022-01-[address] [facility] 1.2.840.114 [id number] Univers 00:00:00 00:00:00 Secure Msg Kelli A [place] 350.1.13.10 ity of [facility] 4.2.7.2.[place] [phone] Wi dical NAL [address] [place] [address] 2022-01-13 2022-01-[address] [facility] 1.2.840.114 [id number] Univers 00:00:00 00:00:00 Secure Msg Kelli A [place] 350.1.13.10 ity of [facility] 4.2.7.2.[place] [phone] Wi dical [address] 2022-01-06 2022-01-06 [facility] 1.2.840.114 [id number] Univers 00:00:00 00:00:00 Jaron [place] 350.1.13.10 ity of [place] 4[place]2.[place] [phone] [address] 2021-12-15 2021-12-15 Refill [facility] 1.2.840.114 [id number] Univers 00:00:00 00:00:00 Desean [place] 350.1.13.10 ity of [place] 4.2.7.2.[place] [phone] Wi dical NAL [address] [place] [address] 2021-11-26 2021-11-26 Refill [facility] 1.2.840.114 [id number] Univers 00:00:00 00:00:00 Desean [place] 350.1.13.10 ity [address] 4.2.7.2.[place] [phone] [facility] 231 [facility] 2021-10-05 2021-10-05 Outpatient R J[facility]ON [facility] [id number] Univers 11:00:00 11:00:00 JARON ALVARENGA [facility] 2021-10-05 2021-10-05 Outpatient R JRAON ALVARENGA [facility] [id number] Univers 11:00:00 11:00:00 JARON ALVARENGA [facility] 2021-09-28 2021-09-28 Outpatient R BRIDGET [facility] [id number] Univers 11:00:00 11:00:00 BRIAN [facility] 2021-09-14 2021-09-14 Outpatient ESTEFANYFORMERLY [facility] [id number] [address] [place] [address] 00:00:00 00:00:[address] 2021-08-21 2021-08-21 Trish [facility]RE[facility] 1.2.840.114 [id number] Univers 00:00:00 00:00:00 Kelli PATTEN 350.1.13.10 [place] [phone] [address] 2021-08-18 2021-08-18 Outpatient R JARON [facility]VARENGA [facility] [id number] Univers 11:00:00 11:00:00 JARON ALVARENGA [facility] 2021-08-11 2021-08-11 Telephone JonathonREHOB[facility] .2.840.114 [id number] Univers 00:00:00 00:00:00 Genesis PATTEN 350.1.13.10 orlando [place] 4[place]2.[place].2.[place] [phone] [facility] 044 [facility] 2021-08-04 2021-08-04 [facility] [id number] Univers 11:30:00 11:30:00 SELVIN [facility] 2021-08-04 2021-08-04 Imm/Inj Nurse, Adc Pob Immunization [facility] 1.2.840.114 [id number] Univers 11:30:00 11:30:00 Visit Selvin Mercaod 350.1.13 .10 ity of [place] 4.2.7.2.[place] [phone] Wi dical [facility] 421 [facility] 2021-08-04 2021-08-04 Outpatient R ROGELIO [facility] [id number] Univers 11:30:00 11:25:22 SELVIN [facility] 2021-08-04 2021-08-04 Outpatient R JARON ALVARENGA [facility] [id number] Univers 10:00:00 10:00:00 JARON ALVARENGA [facility] 2021-08-04 2021-08-04 Orders Doctor BETTY 1.2.840.114 [id number] Univers 00:00:00 00:00:00 Only Unassigned, APRIL 350.1.13.10 ity of [place] [facility] 4.2.7.2.686 [place] as [phone] [address] 2021-08-04 2021-08-04 Telephone JonathonREH[facility] 1.2.840.114 [id number] [facility] 00:00:00 00:00:00 Genesis PATTEN 350.1.13.10 i ty of [place] 4.2.7.2.[place] [phone] Wi dical NAL 044 [facility] 2021-08-03 2021-08-03 [facility] 1.2.840.114 [id number] Univers 00:00:00 00:00:00 Secure Msg Kelli PATTEN 350.1.13.10 ity of [place] 4[place] [phone] Wi dical NAL 044 [facility] 2021-08-03 2021-08-03 [facility] 1.2.840.114 [id number] Univers 00:00:00 00:00:00 Secure Msg Kelli A [place] 350.1.13.10 ity of [place] 4.2.7.2.686 [place] [phone] Wi dical NAL 044 [facility] 2021-08-03 2021-08-[address] [facility] 1.2.840.114 [id number] Univers 00:00:00 00:00:00 Secure Msg Kelli A [place] 350.1.13.10 ity of [place] 4.2.7.2.[place] [phone] Wi dical NAL Jalen [facility] 2021-08-03 2021-08-[address] [facility] 1.2.840.114 [id number] Univers 00:00:00 00:00:00 Secure Msg Kelli A [place] 350.1.13.10 ity of [place] 4.2.7.2.[place] [phone] Wi dical NAL Jalen [facility] 2021-07-29 2021-07-29 Telephone [facility]RE[facility] 1.2.840.114 [id number] Univers 00:00:00 00:00:00 Kelli A [place] 350.1.13.10 ity of [place] 4.2.7.2.686 [place] [phone] Wi dical NAL 044 [facility] 2021-07-28 2021-07-28 Patient [facility] 1.2.840.114 [id number] Univers 00:00:00 00:00:00 Secure Msg Kelli A [place] 350.1.13.10 ity of [place] 4.2.7.2.686 [place] [phone] Wi dical NAL 044 [facility] 2021-07-27 2021-07-27 Patient [facility]RE[facility] 1.2.840.114 [id number] Univers 00:00:00 00:00:00 Secure Msg Kelli A [place] 350.1.13.10 ity of [place] 4.2.7.2.[place] [phone] Wi dical NAL [address] [facility] 2021-07-26 2021-07-26 Emergency X MEHRAN, [facility] ERT [id number] Univers 07:28:00 10:16:00 GATO itgutierrez [facility] 2021-07-26 2021-07-26 Emergency Mehran, [facility] 1.2.232.199 [id number] Univers 07:28:00 10:16:00 Gato PATTEN 350.1.13.10 i ty of [facility] 4.2.7.2.686 [facility] [phone] [facility] [address] 2021-07-26 2021-07-26 Emergency X MEHRAN, [facility] ERT [id number] Univers 07:28:00 10:16:00 GATO cabrales [facility] 2021-07-26 2021-07-26 Emergency X MEHRAN, [facility] ERT [id number] Univers 07:28:00 10:16:00 GATO gutierrez [facility] 2021-07-25 2021-07-25 Outpatient R MARJORIE SARABIA [facility] [id number] Univers 19:30:00 19:30:00 TIFFANYYUAN ESTEVEZL itgutierrez [facility] 2021-07-25 2021-07-25 Outpatient R CAMILO SARABIAUTGal [facility] [id number] Univers 19:30:00 19:30:00 TIFFANYYUAN ESTEVEZL itgutierrez [facility] 2021-07-25 2021-07-25 Outpatient R CAMILO SARABIAUTGal [facility] [id number] Univers 19:30:00 19:30:00 JHONYUAN QUINONESL itgutierrez [facility] 2021-07-24 2021-07-24 Expenditure Requisition Clerk 1, [facility] Bed [facility] 1. 2.840.114 [id number] Univers 12:48:05 15:18:05 Visit Marjorie Sarabia 350.1.13. [address] [facility] 4.2.7.2.686 [facility] [phone] [facility] [address] 2021-07-23 2021-07-23 Outpatient R [facility] [id number] Univers 13:15:00 13:15:00 ity [facility] 2021-07-21 2021-07-21 Refill Dumont, [facility] 1.2.840.114 [id number] Univers 00:00:00 00:00:00 Kelli PATTEN 350.1.13.10 ity of [facility] 4.2.7.2.[place] [phone] [facility] 231 [facility] 2021-07-14 2021-07-15 Telemedici [facility] 1.2.840.114 [id number] Univers 15:00:00 10:41:17 ne Visit Kelli PATT[place] 350.1.13.10 ity of [place] 4.2.[place] [phone] [facility] 231 [facility] 2021-07-14 2021-07-15 Outpatient [facility] [id number] Univers 15:00:00 10:41:17 KELLI [facility] 2021-07-15 2021-07-15 Telephone [facility] 1.2.840.114 [id number] Univers 00:00:00 00:00:00 Kelli PATTEN 350.1.13.10 ity [facility] 4.2.7.2.[place] [phone] [facility] 044 [facility] 2021-07-14 2021-07-14 Outpatient R [facility] [id number] Univers 15:00:00 15:00:00 KELLI [facility]tsJoint [facility] 2021-07-14 2021-07-14 [facility] [id number] Univers 15:00:00 15:00:00 KELLI robertsJoint [facility] 2021-07-14 2021-07-14 Orders Doctor HERNÁNDEZ 1.2.840.114 [id number] Univers 00:00:00 00:00:00 Only Unassigned, APRIL 350.1.13.10 ity of [place] [facility] 4.2.7.2.686 [place] [phone] [address] 2021-07-06 2021-07-06 Telephone [facility] 1.2.840.114 [id number] Univers 00:00:00 00:00:00 Kelli A [place] 350.1.13.10 ity of [place] 4[place]2.7.2.[place] [phone] [address] 2021-07-06 2021-07-06 Telephone [facility] 1.2.840.114 [id number] Univers 00:00:00 00:00:00 Kelli A [place] 350.1.13.10 ity of [place] 4[place].2.[place] [phone] [address] 2021-07-03 2021-07-03 Orders Doctor BETTY 1.2.840.114 [id number] Univers 00:00:00 00:00:00 Only Unassigned, APRIL 350.1.13.10 ity of [facility] 4.2.7.2.686 [place] as [phone] [address] 2021-06-30 2021-06-30 Refaarti DumontREH[facility] 1.2.840.114 [id number] Univers 00:00:00 00:00:00 Kelli A [place] 350.1.13.10 ity of [place] 4[place] [phone] [address] 2021-06-30 2021-06-30 Refaarti DumontREHOB[facility] 1.2.840.114 [id number] Univers 00:00:00 00:00:00 Kelli A [place] 350.1.13.10 ity of [place].2.[place] [phone] [address] 2021-06-22 2021-06-22 Outpatient Prakash GILL [facility] [id number] Univers 11:30:00 11:30:00 BRIAN ity of [facility] 2021-06-19 2021-06-19 Refaarti Dumont [facility] 1.2.840.114 [id number] Univers 00:00:00 00:00:00 Kelli A [place] 350.1.13.10 ity of [place] 4.2.[place].2.[place] [phone] Wi dical NAL 231 [facility] 2021-06-19 2021-06-19 Refill Dumont, [facility] 1.2.840.114 [id number] Univers 00:00:00 00:00:00 Kelli A [place] 350.1.13.10 ity of [place] 4.2.7.2.[place] [phone] Wi dical NAL 231 [facility] 2021-06-19 2021-06-19 Refill [facility] 1.2.840.114 [id number] Univers 00:00:00 00:00:00 Kelli A [place] 350.1.13.10 ity of [place] 4.2.7.2.[place] [phone] Wi dical NAL 231 [facility] 2021-06-18 2021-06-18 Telephone [facility]RE[facility] 1.2.840.114 [id number] [facility] 00:00:00 00:00:00 Kelli A [place] 350.1.13.10 ity of [place] 4.2.7.2.[place] [phone] [facility] 044 [facility] 2021-06-04 2021-06-04 Outpatient [facility] [id number] [place] 00:00:00 00:00:00 LOBO [address] 2021-06-03 2021-06-03 Telephone [facility]RE[facility] 1.2.840.114 [id number] [facility] 00:00:00 00:00:00 Kelli A [place] 350.1.13.10 ity of [place] [phone] [facility] 044 [facility] 2021-05-29 2021-05-29 [facility] [id number] Univers 15:00:00 15:00:00 KELLI ity [facility] 2021-05-29 2021-05-29 Telemedici DumontREH[facility] 1.2.840.114 [id number] Univers 08:24:42 09:04:42 ne Visit Kelli Suá[place] 350.1.13.10 ity of [place] [phone] Wi dical nal 231 [facility] 2021-05-21 2021-05-21 Outpatient TIFFANY, [facility] [id number] [place] 00:00:00 00:00:00 LOBO 942 Method i 2021-05-19 2021-05-19 Outpatient TIFFANY, [facility] [place] 00:00:00 00:00:00 LOBO 256 [facility] 2021-05-14 2021-05-14 [facility] 1.2.840.114 [id number] Univers 00:00:00 00:00:00 Kelli Suárezton [id number] [id number] [phone] Wi dical nal 044 [facility] 2021-05-14 2021-05-14 [facility] 1.2.840.114 [id number] Univers 00:00:00 00:00:00 Kelli De La Garza [place] [id number] [id number] [phone] Wi dical nal 044 [facility] 2021-05-13 2021-05-13 Outpatient [facility] [id number] Univers 15:00:00 15:00:00 WENTCAPRI ity [facility] 2021-05-11 2021-05-11 [facility] 1.2.840.114 [id number] Univers 00:00:00 00:00:00 Secure Msg Kelli De La Garza [place] [id number] [id number] [phone] Wi dical nal 044 [facility] 2021-05-07 2021-05-07 Expenditure Requisition Clerk 2, [facility] 1.2.840.114 [id number] Univers 11:17:00 11:32:00 Visit Kelli Dumont 350.1. 13.10 [id number] [phone] Wi dical nal 353 [facility] 2021-05-07 2021-05-07 Outpatient R [facility] [id number] Univers 11:15:00 11:15:00 KELLI itgutierrez [facility] 2021-04-29 2021-04-29 Telephone [facility] 1.2.840.114 [id number] Univers 00:00:00 00:00:00 Kelli Suárezton [id number] [id number] [phone] Wi dical nal 044 [facility] 2021-04-29 2021-04-29 Telephone [facility] 1.2.840.114 [id number] [facility] 00:00:00 00:00:00 Kelli Suárezton 350.1.13.10 [id number] [phone] Wi dical nal 044 [facility] 2021-04-28 2021-04-28 Outpatient R [facility] [id number] Univers 16:00:00 16:00:00 KELLI itgutierrez [facility] 2021-04-28 2021-04-28 Telemedic [facility] 1.2.840.114 [id number] [facility] 13:22:16 14:02:16 ne Visit Kelli Suárezton [id number] [id number] [phone] Wi dical nal 231 [facility] 2021-04-28 2021-04-28 Telemedici [facility] 1.2.840.114 [id number] [facility] 13:22:16 14:02:16 ne Visit Kelli Patten [id number] [id number] [phone] Wi dical nal 231 [facility] 2021-04-24 2021-04-24 [facility] 1.2.840.114 [id number] Univers 00:00:00 00:00:00 Secure Msg Kelli Patten 350.1.13.10 it[place] [phone] Wi dical nal [address] [place] [address] 2021-04-17 2021-04-17 Outpatient [facility] [id number] [facility] 16:20:00 16:20:00 KELLI itgutierrez of [facility] 2021-04-17 2021-04-17 Office [facility] 1.2.840.114 [id number] [facility] 09:21:16 11:23:20 Visit Kelli Patten 350.1.13.10 it[place] of [place] [phone] Wi dical [address] 2021-04-17 2021-04-17 [facility] 1.2.840.114 [id number] Univers 09:21:16 11:23:20 Visit Kelli Patten 350.1.13.10 it[place] of [place] [phone] Wi dical nal [address] [place] [address] 2021-04-17 2021-04-17 Expenditure Requisition Clerk 2, Adc Lab [facility] 1.2.840.114 [id number] Univers 09:12:11 09:27:11 Visit Kelli Dumont 350.1. 13.10 [place] [phone] Wi dical nal 353 [facility] 2021-04-17 2021-04-17 Expenditure Requisition Clerk 2, Adc Lab [facility] 1.2.840.114 [id number] [facility] 09:12:11 09:27:11 Visit Kelli Dumont 350.1. 13.10 it[place] of [place] [phone] [facility] 353 [facility] 2021-04-17 2021-04-17 [facility] 1.2.840.114 [id number] [facility] 00:00:00 00:00:00 Kelli Patten 350.1.13.10 it[place] of [place] [phone] [address] 2021-04-17 2021-04-17 Orders Doctor HERNÁNDEZ 1.2.840.114 [id number] Univers 00:00:00 00:00:00 Only Unassigned, APRIL 350.1.13.10 ity of [place] [facility] 4.2.7.2.686 [place] as [phone] [address] 2021-04-17 2021-04-17 [facility] 1.2.840.114 [id number] [facility] 00:00:00 00:00:00 Kelli Patten 350.1.13.10 it[place] of [place] [phone] [address] 2021-04-17 2021-04-17 Orders Doctor HERNÁNDEZ 1.2.840.114 [id number] Univers 00:00:00 00:00:00 Only Unassigned, APRIL 350.1.13.10 ity of [place] [facility] 4.2.7.2.686 [place] as [phone] [address] 2021-04-14 2021-04-14 Outpatient TIFFANYFORMERLY [facility] [id number] [place] 00:00:00 00:00:00 LOBO [address] 2021-04-14 2021-04-14 [facility] [id number] [place] 00:00:00 00:00:00 LOBO Mora Method i 2021-04-14 2021-04-14 Out[facility] [id number] [address] [place] 00:00:00 00:00:00 KVNG Quinn3 Method i 2021-04-09 2021-04-09 Outpatient [facility] [id number] [facility] 14:20:00 14:20:00 KELLI ity of [facility] 2021-04-09 2021-04-09 TelemedicCritical access hospital 1.2.840.114 [id number] [facility] 09:33:42 10:13:42 ne Visit Kelli Suárezton 350.1.13.10 it[place] of [place] [phone] Wi dical nal [address] [place] [address] 2021-04-09 2021-04-09 Telemedici [facility] 1.2.840.114 [id number] [facility] 09:33:42 10:13:42 ne Visit Kelli Suárezton 350.1.13.10 it[place] of [place] [phone] Wi dical nal [address] [facility] 2021-04-08 2021-04-08 [facility] 1.2.840.114 [id number] [facility] 00:00:00 00:00:00 Secure Msg Kelli A [place] 350.1.13.10 it[place] [phone] Wi dical nal [address] [place] [address] 2021-04-08 2021-04-08 Patient [facility] 1.2.840.114 [id number] [facility] 00:00:00 00:00:00 Secure Msg Kelli A [place] 350.1.13.10 it[place] of [place] [phone] Wi dical nal [address] [place] [address] 2021-04-06 2021-04-06 [id number] [facility] 16:20:00 16:20:00 KELLI cabrales [facility] 2021-03-26 2021-03-26 Telemedici [facility] 1.2.840.114 [id number] [facility] 11:49:43 14:03:21 ne Visit Kelli Patten 350.1.13.10 it[place] [phone] Wi dic[address] 2021-03-26 2021-03-26 Outpatient [facility] [id number] [facility] 13:00:00 13:00:00 KELLI cabrales [facility] 2021-03-25 2021-03-25 Outpatient [facility]EF[facility], [facility] [id number] [address] [place] [address] 00:00:00 00:00:00 KVNG Meza [facility] 2021-03-23 2021-03-23 Patient [facility] 1.2.840.114 [id number] Univers 00:00:00 00:00:00 Secure Msg Kelli Patten 350.1.13.10 [place] [phone] Wi [facility] 0[address] [facility] 2021-03-17 2021-03-19 [facility] 1.2.840.114 [id number] [facility] 08:39:46 16:27:07 ne Visit Kelli Patten 350.1.13.10 it[place] of [place] [phone] Wi dical nal [address] [facility] 2021-03-19 2021-03-19 Outpatient [facility] [id number] Univers 11:30:00 11:30:00 KELLI cabrales [facility] 2021-03-19 2021-03-19 Expenditure Requisition Clerk 2, Adc Lab [facility] 1.2.840.114 [id number] Univers 09:55:07 10:10:07 Visit Kelli Dumont 350.1. 13.10 it[place] of [place] [phone] Wi [facility]. [facility] [address] [facility] 2021-03-19 2021-03-19 Orders Doctor BETTY 1.2.840.114 [id number] Univers 00:00:00 00:00:00 Only Unassigned, APRIL 350.1.13.10 ity of [place] [facility] 4.2.7.2.686 [place] as [phone] [address] 2021-03-17 2021-03-17 Outpatient [facility] [id number] [facility] 11:00:00 11:00:00 KELLI ity [facility] 2021-03-16 2021-03-16 Telephone [facility] 1.2.840.114 [id number] Univers 00:00:00 00:00:00 Kelli Patten 350.1.13.10 it[place] of [place] [phone] [facility] [address] [facility] 2021-03-05 2021-03-05 Telemedici [facility] 1.2.840.114 [id number] Univers 16:04:10 16:44:10 ne Visit Kelli Patten 350.1.13.10 it[place] of [place] [phone] Wi [facility]. [facility] [address] [facility] 2021-03-05 2021-03-05 Outpatient [facility] 1033 [id number] [facility] 15:00:00 15:00:00 KELLI ity of [facility] 2021-03-03 2021-03-03 Telephone Dumont, [facility] 1.2.840.114 [id number] Univers 00:00:00 00:00:00 Kelli Suárezton 350.1.13.10 it[place] of [place] [phone] Wi dic[address] 2021-03-02 2021-03-02 Outpatient R TIM [facility] [id number] [facility] 15:40:00 15:40:00 KELLI cabrales of [facility] 2021-03-02 2021-03-[address] [facility] 1.2.840.114 [id number] [facility] 10:52:05 11:32:05 ne Visit Kelli Frederic SuárezSouth [place] 350.1.13.10 it[place] of [place] [phone] Wi dical nal [address] [place] [address] 2021-02-11 2021-02-11 Outpatient [facility] [id number] 517 [place] 00:00:00 00:00:00 990 Method i 2021-02-10 2021-02-10 Outpatient ESTEFANY, [facility] [id number] 865 [place] 00:00:00 00:00:00 KVNG 720 Method i 2021-02-09 2021-02-09 Patient [facility] 1.2.840.114 [id number] [facility] 00:00:00 00:00:00 Secure Msg Kelli A [place] 350.1.13.10 it[place] of [place] [phone] Wi dical nal 044 [facility] 2021-02-09 2021-02-09 Telephone [facility] 1.2.840.114 [id number] [facility] 00:00:00 00:00:00 Kelli Suárezton 350.1.13.10 it[place] of [place] [phone] Wi dical nal [address] [facility] 2021-02-09 2021-02-09 Patient [facility] 1.2.840.114 [id number] 00:00:00 00:00:00 Secure Msg Kelli A [place] 350.1.13.10 [place] 4.2.7.2.686 Professio [phone] [address] 2021-02-09 2021-02-09 [facility] 1.2.840.114 8 [id number] 00:00:00 00:00:00 Kelli Patten 350.1.13.10 [place] 4.2.7.2.686 Professio [phone] [address] 2021-02-07 2021-02-07 Telephone [facility] 1.2.840.114 [id number] Univers 00:00:00 00:00:00 [facility] 350.1.13.10 it y of [place] - [phone] [facility] [address] [place] 2021-02-07 2021-02-07 Nurse BETTY [place] 1.2.840.[id number] [place] [address] 00:00:00 00:00:00 Triage Tristian CHEN 350.1.13.10 ity of [facility] 4.2.7.2.686 [place] [phone] [place] [address] [place] 2021-02-07 2021-02-07 Telephone [facility] 1.2.840.114 [id number] 00:00:00 00:00:00 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 1.2.840.114 [id number] Univers 10:10:58 10:25:58 Visit Kelli Dumont 350.1. 13.10 it[place] [phone] Wi [facility]ive [facility] [address] [facility] 2021-02-02 2021-02-[address] [facility] 1.2.840.114 [id number] [facility] 08:38:37 10:04:29 Visit Kelli Patten 350.1.13.10 it[place] [phone] Wi [facility]ive [facility] [address] [facility] 2021-02-02 2021-02-02 Outpatient R TIM [facility] [id number] Univers 09:00:00 09:00:00 KELLI ity of [facility] 2020-12-29 2020-12-29 Telephone Dumont, [facility] 1.2.840.114 [id number] Univers 00:00:00 00:00:00 Kelli Frederic Patten 350.1.13.10 it[place] of [place] [phone] [facility] 044 [facility] 2020-12-26 2020-12-26 Telephone Dumont, [facility] 1.2.840.114 8 [id number] Univers 00:00:00 00:00:00 Kelli Patten 350.1.13.10 it[place] of [place] [phone] Wi dical [facility] [address] [facility] 2020-12-24 2020-12-24 Tamiment [facility] 1.2.840.114 [id number] Univers 00:00:00 00:00:00 Kelli Patten 350.1.13.10 [place] [phone] Wi [facility] [address] [facility] 2020-12-03 2020-12-03 Orders Doctor BETTY 1.2.840.114 [id number] Univers 00:00:00 00:00:00 Only Unassigned, APRIL 350.1.13.10 ity of [place] [facility] 4.2.7.2.686 [place] as [phone] [address] 2020-11-27 2020-11-27 Refill [facility] 1.2.840.114 [id number] Univers 00:00:00 00:00:00 Kelli Frederic SuárezSouth [place] 350.1.13.10 it[place] of [place] [phone] Wi dical nal 231 [facility] 2020-11-24 2020-11-24 Patient [facility] 1.2.840.114 [id number] Univers 00:00:00 00:00:00 Secure Msg Kelli A [place] 350.1.13.10 [place] [phone] [address] 2020-11-22 2020-11-22 Outpatient [facility] [id number] Univers 15:35:00 15:35:00 ity [facility] 2020-11-22 2020-11-22 Refill Dumont, [facility] 1.2.840.114 [id number] Univers 00:00:00 00:00:00 Kelli A [place] 350.1.13.10 ity of [place] [phone] [address] 2020-11-19 2020-11-19 Refill Dumont, [facility] 1.2.840.114 [id number] Univers 00:00:00 00:00:00 Kelli A [place] 350.1.13.10 ity of [place] [phone] [address] 2020-11-01 2020-11-01 Outpatient [facility] [id number] Univers 16:35:00 16:35:00 ity [facility] 2020-10-30 2020-10-30 Refill Dumont, [facility] 1.2.840.114 [id number] Univers 00:00:00 00:00:00 Kelli A [place] 350.1.13.10 ity of [place] 4[place] [phone] [address] 2020-10-30 2020-10-30 Refill [facility] 1.2.840.114 [id number] Univers 00:00:00 00:00:00 Kelli A [place] 350.1.13.10 it[place] of [place] [phone] [address] 2020-10-13 2020-10-[address] [facility] 1.2.840.114 [id number] Univers 00:00:00 00:00:00 Outreach Selvin PRIMARY 350.1.13.10 i ty of [facility] [place]2.7.2.[place] [phone] [address] 2020-09-10 2020-09-10 Telephone [facility] 1.2.840.114 [id number] Univers 00:00:00 00:00:00 Kelli Patten 350.1.13.10 it[place] [phone] [address] 2020-05-19 2020-05-20 Telemedici [facility] 1.2.840.114 [id number] Univers 07:54:08 10:59:45 ne Visit Kelli Patten 350.1.13.10 ity of [place] [phone] [address] 2020-05-19 2020-05-19 [facility] [id number] Univers 15:40:00 15:40:00 KELLI robertsy [facility] 2020-04-29 2020-04-29 Telemedici [facility] 1.2.840.114 [id number] Univers 16:00:00 16:40:00 ne Visit Kelli Patten 350.1.13.10 it[place] [phone] [address] 2020-04-29 2020-04-29 [facility] [id number] Univers 16:00:00 16:00:00 KELLI cabrales [facility] 2020-04-29 2020-04-29 Orders Doctor HERNÁNDEZ 1.2.840.114 [id number] Univers 00:00:00 00:00:00 Only Unassigned, APRIL 350.1.13.10 ity of [facility] 4.2.7.2.686 [place] as [phone] [address] 2020-04-24 2020-04-24 Telephone [facility] 1.2.840.114 7 [id number] Univers 00:00:00 00:00:00 Kelli Patten 350.1.13.10 ity of [place] 4[place] [phone] [address] 2020-04-18 2020-04-18 Patient Oliverio, [facility] 1.2.840.114 [id number] Univers 00:00:00 00:00:00 Outreach Larisa Patten 350.1.13.10 ity of [place] [phone] [address] 2020-04-17 2020-04-17 [facility]ici [facility] 1.2.840.114 [id number] Univers 07:47:39 17:01:01 ne Visit Kelli Patten 350.1.13.10 ity of [place] 4[place].2.[place] [phone] [address] 2020-04-17 2020-04-17 Outpatient [facility] [id number] Univers 08:00:00 08:00:00 KELLI ity of [facility] 2020-04-14 2020-04-14 Case [facility] 1.2.840.114 [id number] Univers 00:00:00 00:00:00 Management Kelli Patten 350.1.13.10 it[place] [phone] [address] 2020-04-07 2020-04-07 Expenditure Requisition Clerk Maurice Adc Lab Main [facility] 1.2.8 40.114 [id number] Univers 10:08:59 10:23:59 Visit Kelli Dumont 350.1. 13.10 it[place] of [place] [phone] [facility] 353 [facility] 2020-04-07 2020-04-07 Outpatient R SHASHANK [facility] [id number] Univers 10:20:00 10:20:00 MAGED ity of [facility] 2020-04-04 2020-04-04 Orders Doctor BETTY 1.2.840.114 [id number] Univers 00:00:00 00:00:00 Only Unassigned, APRIL 350.1.13.10 ity of [place] [facility] 4.2.7.2.686 [place] as [phone] [address] 2020-04-03 2020-04-03 Telemedici [facility] 1.2.840.114 [id number] [facility] 08:00:27 14:45:42 ne Visit Kelli Patten 350.1.13.10 it[place] [phone] [facility] [address] [facility] 2020-04-03 2020-04-03 [facility] [id number] Univers 09:00:00 09:00:00 KELLI keron [facility] 2020-03-28 2020-03-28 Telephone [facility] 1.2.840.114 [id number] Univers 00:00:00 00:00:00 Kelli Patten 350.1.13.10 it[place] [phone] [facility] 044 [facility] 2020-03-25 2020-03-25 Telephone [facility] 1.2.840.114 7 [id number] Univers 00:00:00 00:00:00 Kelli Suárezton 350.1.13.10 ity of [place] 4[place] [phone] [facility] [address] [facility] 2020-03-24 2020-03-24 Outpatient [facility] 1028 [id number] Univers 16:20:00 16:20:00 KELLI robertsy [facility] 2020-03-24 2020-03-[address] [facility] 1.2.840.114 [id number] Univers 00:00:00 00:00:00 Outreach Koir Frank Bárbara 350.1.13.10 ity [place] [phone] [address] 2020-03-24 2020-03-[address] [facility] 1.2.840.114 [id number] Univers 00:00:00 00:00:00 Secure Msg Kelli Frederic Bár[place] 350.1.13.10 ity [place] [phone] [address] 2020-03-21 2020-03-21 [facility] 1.2.840.114 7 [id number] Univers 00:00:00 00:00:00 Kelli Patten 350.1.13.10 ity [place].2.[place] [phone] [address] 2020-03-20 2020-03-20 Telemedici [facility] 1.2.840.114 [id number] Univers 08:06:59 17:12:37 ne Visit Kelli Patten 350.1.13.10 ity [place] [phone] [address] 2020-03-20 2020-03-20 Outpatient Prakash [facility] [id number] Univers 09:00:00 09:00:00 KELLI cabrales [facility] 2020-03-19 2020-03-19 Outpatient Prakash RAMSEY [facility] [id number] Univers 10:00:00 10:00:00 ABELINO cabrales [facility] 2020-03-13 2020-03-13 Refill [facility] 1.2.840.114 [id number] Univers 00:00:00 00:00:00 Kelli Patten 350.1.13.10 it[place] [phone] [address] 2020-03-12 2020-03-12 Orders Doctor BETTY 1.2.840.114 [id number] Univers 00:00:00 00:00:00 Only Unassigned, APRIL 350.1.13.10 ity of [place] [facility] 4.2.7.2.686 [place] as [phone] [address] 2020-03-06 2020-03-06 Telemedici [facility] 1.2.840.114 [id number] Univers 08:21:36 15:28:45 ne Visit Kelli Patten 350.1.13.10 it[place] [phone] [address] 2020-03-06 2020-03-06 Outpatient R JOESPH RODRÍGUEZ [facility] 10 [id number] Univers 10:20:00 10:20:00 JOESPH RODRÍGUEZ i ty [facility] 2020-02-28 2020-02-28 TelemedicCritical access hospital 1.2.840.114 [id number] Univers 08:01:15 17:08:05 ne Visit Kelli Patten 350.1.13.10 it[place] of [place] [phone] [address] 2020-02-28 2020-02-28 Outpatient [facility] [id number] Univers 16:00:00 16:00:00 KELLI ity [facility] 2020-02-22 2020-02-22 Telephone [facility] 1.2.840.114 [id number] Univers 00:00:00 00:00:00 Kelli Patten 350.1.13.10 it[place] [phone] [address] 2020-02-22 2020-02-22 [facility] 1.2.840.114 7 [id number] Univers 00:00:00 00:00:00 Kelli Frederic Su[place]South [place] 350.1.13.10 ity [place].2.[place] [phone] [address] 2020-02-20 2020-02-20 Outpatient R HUMAN, [facility] [id number] Univers 16:20:00 16:20:00 HUGH ity of [facility] 2020-02-20 2020-02-20 [facility] 1.2.840.114 7 [id number] Univers 00:00:00 00:00:00 Kelli Frdeeric SuárezSouth [place] 350.1.13.10 [place] [phone] [address] 2020-02-20 2020-02-20 [facility] 1.2.840.114 7 [id number] Univers 00:00:00 00:00:00 Kelli Patten 350.1.13.10 it[place] [phone] [address] 2020-02-20 2020-02-20 [facility] 1.2.840.114 7 [id number] Univers 00:00:00 00:00:00 Kelli Patten 350.1.13.10 ity of [place] [phone] [address] 2020-02-19 2020-02-19 Emergency [facility] 1.2.258.079 [id number] Univers 13:45:34 23:14:00 Gato Patten 350.1.13.10 i ty of [place].2.[place] [phone] [address] 2020-02-19 2020-02-19 Patient [facility] 1.2.840.114 [id number] Univers 00:00:00 00:00:00 Secure Msg Kelli Suárezton 350.1.13.10 it[place] [phone] [address] 2020-02-19 2020-02-19 [facility] 1.2.840.114 7 [id number] Univers 00:00:00 00:00:00 Kelli Patten [id number] [place] [phone] [address] 2020-02-19 2020-02-19 [facility] 1.2.840.114 [id number] [employer] 00:00:00 00:00:00 Kelli Patten 350.1.13.10 [place] [phone] [address] 2020-02-19 2020-02-19 [facility] 1.2.840.114 [id number] [facility] 00:00:00 00:00:00 Kelli Patten [id number] [place] [phone] [address] 2020-02-18 2020-02-18 [facility] 1.2.840.114 [id number] [employer] 08:27:03 16:56:40 ne Visit Kelli Patten 350.1.13.10 [place] [phone] [address] 2020-02-18 2020-02-18 Outpatient R [facility] [id number] [facility] 15:00:00 15:00:00 KELLI ity of [place] [facility] 2020-02-15 2020-02-[address] [facility] 1.2.840.114 [id number] [employer] 00:00:00 00:00:00 Outreach Kori Patten 350.1.13.10 [place] [phone] [place] dic[address] 2020-02-14 2020-02-[address] [facility] 1.2.840.114 [id number] [employer] 00:00:00 00:00:00 Secure Msg Kelli Patten 350.1.13.10 [place] [phone] [address] 2020-02-14 2020-02-14 [facility] 1.2.840.114 [id number] [employer] 00:00:00 00:00:00 Kelli Patten 350.1.13.10 [place] [phone] [address] 2020-02-13 2020-02-13 [facility] [id number] [facility] 15:40:00 15:40:00 GENESIS cabrales [facility] 2020-02-13 2020-02-[address] [facility] 1.2.840.114 [id number] Univers 12:38:09 12:58:09 Visit Genesis Patten 350.1.13.10 i [place] [phone] [address] 2020-02-13 2020-02-[address] [facility] 1.2.840.114 [id number] Univers 00:00:00 00:00:00 Genesis Patten 350.1.13.10 i [place] [phone] Wi dic[address] 2020-02-13 2020-02-13 [facility] 1.2.840.114 [id number] [employer] 00:00:00 00:00:00 Outreach Kori Patten 350.1.13.10 [place] [phone] [place] dic[address] 2020-02-12 2020-02-12 Telemedici [facility] 1.2.840.114 [id number] Univers 08:29:18 14:41:03 ne Visit Kelli Patten 350.1.13.10 [place] [phone] [address] 2020-02-12 2020-02-12 [facility] [id number] Univers 12:40:00 12:40:00 KELLI ity [facility] 2020-02-12 2020-02-12 [facility] 1.2.840.114 [id number] Univers 00:00:00 00:00:00 Outreach Kori Patten 350.1.13.10 [place] [phone] [address] 2020-02-12 2020-02-12 Telephone [facility] 1.2.840.114 [id number] Univers 00:00:00 00:00:00 Kelli Patten 350.1.13.10 [place] [phone] [address] 2020-02-07 2020-02-07 Telemedici [facility] 1.2.840.114 [id number] Univers 10:13:25 10:33:25 ne Visit Joesph Patten 350.1.13.10 [place] [phone] [facility] 085 [facility] 2020-02-07 2020-02-07 Outpatient R [facility]Z [facility] 10 [id number] Univers 10:00:00 10:00:00 JOESPH RODRÍGUEZ i ty [facility] 2020-02-07 2020-02-07 Patient [facility] 1.2.840.114 [id number] Univers 00:00:00 00:00:00 Outreach Kori N [place] 350.1.13.10 [place] [phone] [address] 2020-02-05 2020-02-05 Outpatient R [facility] [id number] Univers 13:14:19 23:59:00 KELLI ity of [place] [facility] 2020-02-05 2020-02-05 [facility] 1.2.840.114 [id number] Univers 13:14:00 23:59:00 Encounter Kelli A [place] 350.1.13.10 [place] [phone] [address] 2020-02-05 2020-02-05 Patient [facility] 1.2.840.[id number] [place] [address] 00:00:00 00:00:00 Outreach Kori N [place] [id number] [place] [phone] [address] 2020-02-05 2020-02-05 Telephone [facility] 1.2.840.114 [id number] Univers 00:00:00 00:00:00 Kelli A [place] 350.1.13.10 [place] [phone] [address] 2020-02-05 2020-02-05 Telephone [facility] 1.2.840.114 [id number] Univers 00:00:00 00:00:00 Kelli A [place] 350.1.13.10 [place] [phone] [address] 2020-02-04 2020-02-04 Outpatient R [facility] [id number] Univers 14:00:00 14:00:00 KELLI ity of [place] [facility] 2020-02-04 2020-02-04 Telemedici [facility] 1.2.840.114 [id number] Univers 09:07:08 09:47:08 ne Visit Kelli A [place] 350.1.13.10 [place] [phone] [facility] 231 [facility] 2020-02-03 2020-02-[address] [facility] 1.2.840.114 [id number] Univers 00:00:00 00:00:00 Kelli A [place] 350.1.13.10 [place] [phone] [address] 2020-01-29 2020-01-29 Telephone [facility] 1.2.840.114 [id number] Univers 00:00:00 00:00:00 Kelli A [place] [id number] [place] [phone] [facility] 231 [facility] 2020-01-28 2020-01-28 Patient [facility] 1.2.840.114 [id number] Univers 00:00:00 00:00:00 Secure Msg Kelli A [place] [id number] [place] [phone] [facility] 231 [facility] 2020-01-24 2020-01-24 Patient [facility] 1.2.840.114 [id number] Univers 00:00:00 00:00:00 Secure Msg Kelli A [place] [id number] [place] [phone] [facility] 044 [facility] 2020-01-22 2020-01-22 Transition Jo Phillips 1.2.840.114 [id number] Univers 00:00:00 00:00:00 of Care Fatmata Banda 350.1.13.10 [place] [phone] [address] 2020-01-22 2020-01-22 Telephone [facility] 1.2.840.114 [id number] Univers 00:00:00 00:00:00 Kelli Patten 350.1.13.10 [place] [phone] [facility] 044 [facility] 2020-01-14 2020-01-19 [facility] Nikki Willett [facility] 1.2.840. 114 [id number] Univers 15:10:34 10:25:00 Encounter Cynthia Werner 350.1.13.10 [place] [phone] [facility] [address] [place] 2020-01-14 2020-01-19 Inpatient X HANSEL [facility] [id number] Univers 15:10:34 10:25:00 CYNTHIA itgutierrez of [facility] 2020-01-14 2020-01-14 [facility]ici [facility] 1.2.840.114 [id number] Univers 14:49:17 16:42:21 ne Visit Kelli Patten 350.1.13.10 [place] [phone] [facility] 231 [facility] 2020-01-14 2020-01-14 Outpatient R [facility] [id number] Univers 14:20:00 14:20:00 KELLI cabrales of [facility] 2020-01-12 2020-01-12 Orders Doctor HERNÁNDEZ 1.2.840.114 [id number] Univers 00:00:00 00:00:00 Only Unassigned, APRIL 350.1.13.10 ity of [place] [facility] 4.2.7.2.686 [place] as [phone] [facility] [address] 2020-01-03 2020-01-11 [facility] MartinezCy [facility] 1.2.840.1 [id number] Univers 13:58:40 10:00:00 Encounter Estefanía Reynolds 350.1.13.10 [place] [phone] [facility] [address] [place] 2020-01-03 2020-01-11 Inpatient X GAIL [facility] [place] [id number] Univers 13:58:40 10:00:00 MERCY ity of [place] [facility] 2020-01-10 2020-01-10 Telephone [facility] 1.2.840.114 [id number] Univers 00:00:00 00:00:00 Kelli Patten 350.1.13.10 [place] [facility] [phone] Wi dhara[address] 2020-01-04 2020-01-04 Telephone [facility] 1.2.840.114 [id number] Univers 00:00:00 00:00:00 Kelli Patten 350.1.13.10 [place] [facility] [phone] [address] [place] [address] 2019-12-31 2019-12-31 Telemedici [facility] 1.2.840.114 [id number] Univers 06:40:56 14:40:18 ne Visit [facility] 350.1.13.10 [place] [phone] Wi dharamargot SINGHGutierrez [address] [place] [address] 2019-12-31 2019-12-31 Outpatient R JAZZ [facility] [id number] Univers 14:00:00 14:00:00 ity [facility] 2019-12-31 2019-12-31 Telephone [facility] 1.2.840.114 [id number] Univers 00:00:00 00:00:00 [facility] 350.1.13.10 [place] [phone] Wi dharamargot BARAJAS [address] [place] [address] 2019-12-27 2019-12-27 Patient [facility] 1.2.840.114 [id number] Univers 00:00:00 00:00:00 Secure Msg Kelli De La Garza [facility] 350.1.13.10 ity of [place] 4.2.7.2.686 [place] Professio [phone] [address] One 2019-12-16 2019-12-16 [facility]ont [facility] 1.2.840.114 [id number] Univers 00:00:00 00:00:00 Kelli Patten 350.1.13.10 [place] [phone] [address] 2019-12-06 2019-12-06 [facility] Dumont [facility] 1.2.840.114 [id number] [facility] 00:00:00 00:00:00 Kelli Patten 350.1.13.10 [place] [phone] [address] 2019-12-03 2019-12-[address] [facility] 1.2.840.114 [id number] [facility] 07:47:11 08:27:11 ne Visit Kelli Patten 350.1.13.10 [place] [phone] [address] 2019-11-15 2019-12-03 Telemedici [address] Dumont [facility] 1.2.840.114 [id number] [facility] 07:16:14 08:18:44 ne Visit Genesis Holt 350.1.13.10 [place] [phone] [address] 2019-12-03 2019-12-03 Outpatient R [facility] [id number] Univers 08:00:00 08:00:00 KELLI cabrales of [facility] 2019-11-21 2019-11-[address] [facility] 1.2.840.114 [id number] [facility] 00:00:00 00:00:00 Kelli Patten 350.1.13.10 [place] [phone] Wi dicmargot nal [address] 2019-11-15 2019-11-15 Outpatient R [facility] [id number] Univers 14:20:00 14:20:00 GENESIS ity of [facility] 2019-11-15 2019-11-15 Orders Doctor BETTY 1.2.840.114 [id number] Univers 00:00:00 00:00:00 Only Unassigned, APRIL 350.1.13.10 ity of [place] [facility] 4.2.7.2.686 [place] as [phone] [facility] [address] 2019-11-12 2019-11-12 Transition Jo Grewal 1.2.840.114 [id number] Univers 00:00:00 00:00:00 of Care Gina Banda 350.1.13.10 it [place] [phone] [facility] [address] 2019-11-07 2019-11-10 Inpatient X SUNIL JHAVERI [facility] [place] [id number] Univers 11:13:05 12:55:00 ity of [place] [facility] 2019-11-07 2019-11-10 [facility] Samantha Bernstein [facility] 1.2.84 0.114 [id number] Univers 11:13:05 12:55:00 Encounter Sunil Jhaveri 350.1.13.10 it[place] of [place] [phone] [facility] [address] 2019-11-07 2019-11-07 Urgent Pob1, Acute Care Clinic [facility] 1. 2.840.114 [id number] Univers 10:08:57 11:09:13 Barb Smiley [facility] 350.1.13.10 ity of [place] 4.2.7.2.686 [place] Professio [phone] Wi clive nal [address] One 2019-11-07 2019-11-07 Outpatient R [facility] [id number] Univers 10:20:00 10:20:00 [facility] 2019-11-06 2019-11-06 Nurse Miguel HERNÁNDEZ 1.2.840.114 [id number] Univers 00:00:00 00:00:00 Triage shereenKellie APRIL 350.1.13.10 ity [facility] 4.2.7.2.686 [place] [phone] [address] Results Test Description Test Time Test Comments Results Result Comments Source SARS-CoV-2 (COVID-19) RNA [Presence] in Respiratory sp ecimen by 2021-05-20 00:19:15 ANDRESSA with probe detection Test Item Value Reference Range Interpretation Comme nts SARS-CoV-2 (COVID-19) RNA [Presence] in Respiratory Not detected No t-Detected specimen by ANDRESSA with probe detection (test code = 82575-6) 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
[2023-03-16] MEDS ORDERED: FUROSEMIDE 40 MG/4 ML VIAL ONE (02:08)
[2023-03-16 02:15] LABS: Absolute Lymphocytes (CBC) 1.7 K/uL (0.7-4.9); Hematocrit 35.1 % (36.0-45.0); Lymphocytes % 13.3 % (15.3-44.8); MCV 91.8 fL (80-100); MPV 7.8 fL (7.6-11.3); Platelets 335 thou/uL (152-406); RBC Red Blood Cell Count 3.82 M/uL (3.86-4.86)
[2023-03-16 02:16] LABS: Protime INR 1.17
[2023-03-16 02:31] LABS: SARS-CoV-2 Antigen Rapid Res Negative (Negative)
[2023-03-16 02:41] LABS: Albumin 2.8 g/dL (3.4-5.0); Bilirubin Direct 0.2 mg/dL (0-0.2); Bilirubin Indirect, Calculated 0.4 mg/dL (0.2-0.8); Bilirubin Total 0.6 mg/dL (0.2-1.0); C-Reactive Protein 17.7 mg/L (<3.00); Protein, Total 7.5 g/dL (6.4-8.2); Troponin High Sensitivity 7.2 pg/mL (<58.9)
[2023-03-16 02:57] LABS: Magnesium 2.2 mg/dL (1.6-2.4); Potassium 3.9 mEq/L (3.5-5.1)
--- NOTE | 2023-03-16 03:05 | EDPHYS ---
Physician Documentation [facility] Name: Diane Byrnes Age: 67 yrs Sex: Female : 1955 Arrival Date: 03/16/2023 Time: 01:28 Bed 5 Private MD: ED Physician Saurav Ramon HPI: 03/16 01:40 This 67 yrs old Female presents to ER via Unassigned with complaints of sp4 dypspnea, weakness. 02:56 Very pleasant 67-year-old female presents with EMS for worsening dyspnea on exertion, sp4 generalized weakness, malaise fatigue and generalized pain.. Patient has extensive past medical history of congestive heart failure, diastolic heart failure, right lower extremity weakness, carotid arterial disease, diabetes type 2 insulin-dependent, hypertension, hyperlipidemia, hypothyroidism, COPD, GERD, obesity, patient uses CPAP at home, patient is also on oxygen concentrator at home. Patient denied any chest pain. For thePatient reports for the past 4 days she has been feeling progressive dyspnea on exertion, dyspnea at rest, weakness, cough, and fatigue. 02:59 Patient's medications include, aspirin 81 mg daily, atorvastatin 20 mg bedtime, sp4 doxazosin daily, Breo Ellipta, Lasix 80 mg p.o. twice a day, glimepiride, insulin aspart, ipratropium, albuterol, levothyroxine 75 mcg daily, losartan 100 mg daily, metoprolol 100 mg p.o. twice a day, montelukast 10 mg daily, omeprazole 40 mg twice a day, promethazine 25 mg twice a day, Januvia 100 mg p.o. daily, zinc tablets daily, spironolactone 25 mg daily, baclofen 10 mg daily, sildenafil daily for pulmonary hypertension. Historical: - Allergies: 01:42 Cymbalta; vc1 01:42 Risperdal; vc1 - PMHx: 01:42 Asthma; Congestive heart failure; diabetes mellitus; Hypertensive disorder; vc1 Hypothyroidism; Sleep Apnea; - PSHx: 01:42 None; vc1 - Immunization history:: Client reports receiving the 2nd dose of the Covid vaccine. - Social history:: Smoking status: Patient denies any tobacco usage or history of. ROS: 02:58 Constitutional: Negative for fever, chills, and weight loss, positive generalized sp4 weakness and fatigue Cardiovascular: Negative for chest pain, palpitations, positive worsening edema and dyspnea on exertion Respiratory: Negative for wheezing, and pleuritic chest pain, positive for dyspnea and cough 02:58 All other systems are negative. Exam: 02:39 Constitutional: This is a well developed, well nourished patient who is awake, alert, sp4 ill-appearing female, morbidly obese, bilateral lower extremity edema. Positive generalized weakness Head/Face: Normocephalic, atraumatic. Eyes: Pupils equal round and reactive to light, extra-ocular motions intact. Lids and lashes normal. Conjunctiva and sclera are not injected. Cornea within normal limits. Periorbital areas with no swelling, redness, or edema. ENT: Nares patent. No nasal discharge, no septal abnormalities noted. Tympanic membranes are normal and external auditory canals are clear. Oropharynx with no redness, swelling, or masses, exudates, or evidence of obstruction, uvula midline. Mucous membranes moist. Neck: Trachea midline, no thyromegaly or masses palpated, and no cervical lymphadenopathy. Supple, full range of motion without nuchal rigidity, or vertebral point tenderness. Chest/axilla: Normal chest wall appearance and motion. Nontender with no deformity. No lesions are appreciated. Cardiovascular: Regular rate and rhythm with a normal S1 and S2. No gallops, murmurs, or rubs. Normal PMI, no JVD. No pulse deficits. Respiratory: Lungs have equal breath sounds bilaterally, clear to auscultation and percussion. No rales, rhonchi or wheezes noted. No increased work of breathing, no retractions or nasal flaring. Abdomen/GI: Soft, non-tender, with normal bowel sounds. No distension or tympany. No guarding or rebound. No evidence of tenderness throughout. Positive obese abdomen Back: No spinal tenderness. No costovertebral tenderness. Skin: Warm, dry with normal turgor. Generalized pallor no lesions, and no evidence of cellulitis. MS/ Extremity: Pulses equal, no cyanosis. Neurovascular intact. Full, normal range of motion. Bilateral lower extremity edema with pitting Neuro: Awake and alert, GCS 15, oriented to person, place, time, and situation. Cranial nerves II-XII grossly intact. Motor strength 5/5 in all extremities. Sensory grossly intact. Psych: Awake, alert, with orientation to person, place and time. Behavior, mood, and affect are within normal limits 02:39 ECG was reviewed by the Attending Physician. Normal sinus rhythm, EKG time 0 140, sinus rhythm with rate of 74, no ST elevation or depression, no ectopy. Low voltage QRS otherwise no abnormality Vital Signs: 01:38 BP 152 / 95; Pulse 76; Resp 23; Temp 98.7; Pulse Ox 97% ; Weight 113.4 kg; Height 5 ft. vc1 3 in. ; 02:28 BP 174 / 77; Pulse 74; Resp 24 S; Pulse Ox 97% on R/A; jw7 03:07 BP 171 / 65; Pulse 72; Resp 19 S; Pulse Ox 96% on R/A; as6 01:38 Body Mass Index 44.29 (113.40 kg, 160.02 cm) vc1 MDM: 01:42 Patient medically screened. sp4 03:19 Data reviewed: vital signs, nurses notes, EMS record, old medical records, lab test sp4 result(s), EKG, radiologic studies, plain films. 03:20 ED course: EXAM DESCRIPTION: Chest Single View 03/16/2023 3:00 AM CDT CLINICAL HISTORY: sp4 67 years, Female, CHEST PAIN COMPARISON: None FINDINGS: Single view of the chest was obtained portable. No prior films are available for comparison. External EKG leads within the field-ofview limits diagnosis. The heart is prominent. The thoracic aorta demonstrate intimal calcification. The pulmonary vasculature is normal distribution. No pleural effusions. The rest of the soft tissue and bony structures demonstrate to be unremarkable. IMPRESSION: Mild cardiomegaly. No focal areas of acute airspace disease.. 03/16 01:40 Order name: Basic Metabolic Panel; Complete Time: 03:33 sp4 03/16 01:40 Order name: CBC with Diff; Complete Time: 02:38 sp4 03/16 01:40 Order name: LFT's; Complete Time: 03:33 sp4 03/16 01:40 Order name: Magnesium; Complete Time: 03:33 sp4 03/16 01:40 Order name: NT PRO-BNP; Complete Time: 03:33 sp4 03/16 01:40 Order name: PT-INR; Complete Time: 02:38 sp4 03/16 01:40 Order name: Troponin HS; Complete Time: 03:33 sp4 03/16 01:41 Order name: CRP; Complete Time: 03:33 sp4 03/16 01:41 Order name: Lipase; Complete Time: 03:33 sp4 03/16 01:41 Order name: SARS RAPID; Complete Time: 02:38 sp4 03/16 01:41 Order name: Influenza Screen (a \T\ B); Complete Time: 02:38 sp4 03/16 02:59 Order name: ABG; Complete Time: 03:33 sp4 03/16 03:00 Order name: T4 Free; Complete Time: 03:33 EDMS 03/16 03:00 Order name: Thyroid Stimulating Hormone; Complete Time: 03:33 EDMS 03/16 01:40 Order name: XRAY Chest (1 view) sp4 03/16 01:40 Order name: EKG; Complete Time: 01:41 sp4 03/16 01:40 Order name: Cardiac monitoring; Complete Time: 01:45 sp4 03/16 01:40 Order name: EKG - Nurse/Tech; Complete Time: 01:45 sp4 03/16 01:40 Order name: IV Saline Lock; Complete Time: 01:49 sp4 03/16 01:40 Order name: Labs collected and sent; Complete Time: 01:49 sp4 03/16 01:40 Order name: O2 Per Protocol; Complete Time: 01:49 sp4 03/16 01:40 Order name: O2 Sat Monitoring; Complete Time: 01:49 sp4 EC:39 Rate is 74 beats/min. Rhythm is regular, Normal Sinus Rhythm. QRS Combs is Normal. CO sp4 interval is normal. QRS interval is normal. QT interval is normal. T waves are Normal. Clinical impression: No evidence of ischemia. Administered Medications: 02:26 Drug: Furosemide IVP 40 mg Route: IVP; Site: right forearm; as6 05:01 Follow up: Response: No adverse reaction as6 03:24 Drug: Acetaminophen-Codeine PO (300 mg-30 mg) 2 tabs Route: PO; as6 05:01 Follow up: Response: No adverse reaction as6 03:24 Drug: Promethazine PO 25 mg Route: PO; as6 05:01 Follow up: Response: No adverse reaction as6 03:24 Drug: MethylPrednisoLONE IVP 120 mg Route: IVP; Site: right forearm; as6 05:00 Follow up: Response: No adverse reaction as6 03:24 Drug: DuoNeb Nebulize (3:1) (2.5 mg - 0.5 mg) 3 ml Route: Nebulizer; as6 05:00 Follow up: Response: No adverse reaction as6 03:24 Drug: HydrALAZINE PO 50 mg Route: PO; as6 05:00 Follow up: Response: No adverse reaction as6 Disposition Summary: 03/16/23 03:22 Hospitalization Ordered Hospitalization Status: Inpatient Admission sp4 Provider: Brendan Martinez4 Location: Telemetry/MedSurg (Inpatient) sp4 Condition: Fair(03/16/23 03:22) sp4 Problem: new(03/16/23 03:22) sp4 Symptoms: have improved(03/16/23 03:22) sp4 Bed/Room Type: Standard sp4 Room Assignment: [facility](03/16/23 04:06) Diagnosis - Acute on chronic diastolic (congestive) heart failure(03/16/23 03:22) sp4 - COPD/ Chronic obstructive pulmonary disease with (acute) exacerbation sp4 - Physical deconditioning, morbid obesity, bilateral lower extremity edema, sp4 Forms: - Medication Reconciliation Form sp4 - SBAR form sp4 Signatures: Dispatcher [employer] EDMS Haim Rasheed FNP-C SED SPECIAL EDUCATION TEACHER-Cla1 Tabatha Martinez RN RN cg Jann Mendoza RN RN as6 Nisreen Decker RN RN vc1 Saurav Ramon MD MD sp4 Corrections: (The following items were deleted from the chart) 03:00 02:45 THYROID STIMULAT HORMONE+C.LAB.BRZ ordered. EDMS EDMS 03:00 02:45 T4 FREE+C.LAB.BRZ ordered. EDMS EDMS 03:21 03:04 [employer] attending sp4 sp4 03:21 03:04 [employer] [facility] sp4 sp4 03:21 03:04 Higher level of care sp4 sp4 03:21 03:04 Stable sp4 sp4 03:21 03:04 new sp4 sp4 03:21 03:04 have improved sp4 sp4 03:21 03:04 Acute on chronic diastolic (congestive) heart failure sp4 sp4 03:21 03:04 COPD with acute exacerbation, generalized weakness, bilateral lower extremity sp4 edema, generalized pain sp4 04:06 03:22 sp4 cg
--- NOTE | 2023-03-16 03:05 | ER ---
Nurse's Notes [facility] Name: Diane Byrnes Age: 67 yrs Sex: Female : 1955 Arrival Date: 03/16/2023 Time: 01:28 Bed 5 Private MD: Diagnosis: Acute on chronic diastolic (congestive) heart failure;COPD/ Chronic obstructive pulmonary disease with (acute) exacerbation;Physical deconditioning, morbid obesity, bilateral lower extremity edema, Presentation: 03/16 01:38 Chief complaint: EMS states: She's been feeling bad since Tuesday Night. Today she's vc1 really weak and has weeping edema to her legs. Coronavirus screen: Vaccine status: Patient reports receiving the 2nd dose of the covid vaccine. Plus 2 boosters; [facility] Client denies travel out of the [place] in the last 14 days. shortness of breath, Client presents with at least one sign or symptom that may indicate coronavirus-19. Ebola Screen: Patient negative for fever greater than or equal to 101.5 degrees Fahrenheit, and additional compatible Ebola Virus Disease symptoms Patient denies exposure to infectious person. Patient denies travel to an Ebola-affected area in the 21 days before illness onset. No symptoms or risks identified at this time. Initial Sepsis Screen: Does the patient meet any 2 criteria? RR > 20 per min. No. Patient's initial sepsis screen is negative. Does the patient have a suspected source of infection? Yes: Productive cough/pneumonia. Risk Assessment: Do you want to hurt yourself or someone else? Patient reports no desire to harm self or others. Onset of symptoms was March 13, 2023. Care prior to arrival: IV initiated. 20 GA, in the left antecubital area. 01:38 Method Of Arrival: EMS: [facility] vc1 01:38 Acuity: RHODA 3 vc1 Triage Assessment: 01:44 General: Appears in no apparent distress. uncomfortable, ill, obese, Behavior is vc1 cooperative, appropriate for age. Pain: Complains of pain in right leg and left leg. EENT: No deficits noted. No signs and/or symptoms were reported regarding the EENT system. Neuro: Level of Consciousness is awake, alert, obeys commands, Oriented to person, place, time, situation, Appropriate for age Reports weakness. Cardiovascular: No deficits noted. Respiratory: Airway is patent Respiratory effort is even, unlabored, Respiratory pattern is regular, symmetrical. GI: No deficits noted. No signs and/or symptoms were reported involving the gastrointestinal system. : Reports incontinence, chronic. Derm: No deficits noted. No signs and/or symptoms reported regarding the dermatologic system. Musculoskeletal: No deficits noted. No signs and/or symptoms reported regarding the musculoskeletal system. Historical: - Allergies: 01:42 Cymbalta; vc1 01:42 Risperdal; vc1 - PMHx: 01:42 Asthma; Congestive heart failure; diabetes mellitus; Hypertensive disorder; vc1 Hypothyroidism; Sleep Apnea; - PSHx: 01:42 None; vc1 - Immunization history:: Client reports receiving the 2nd dose of the Covid vaccine. - Social history:: Smoking status: Patient denies any tobacco usage or history of. Screenin:49 [facility] ED Fall Risk Assessment (Adult) Score/Fall Risk Level 0 - 2 = Low Risk. Abuse as6 screen: Denies threats or abuse. Denies injuries from another. Nutritional screening: No deficits noted. Tuberculosis screening: No symptoms or risk factors identified. Assessment: 02:28 General: Appears unkempt. Respiratory: Reports shortness of breath. as6 Vital Signs: 01:38 BP 152 / 95; Pulse 76; Resp 23; Temp 98.7; Pulse Ox 97% ; Weight 113.4 kg; Height 5 ft. vc1 3 in. ; 02:28 BP 174 / 77; Pulse 74; Resp 24 S; Pulse Ox 97% on R/A; jw7 03:07 BP 171 / 65; Pulse 72; Resp 19 S; Pulse Ox 96% on R/A; as6 01:38 Body Mass Index 44.29 (113.40 kg, 160.02 cm) vc1 ED Course: 01:31 Patient arrived in ED. rv1 01:40 Saurav Ramon MD is Attending Physician. sp4 01:42 Triage completed. vc1 01:43 Jann Mendoza, ANABELLE is Primary Nurse. as6 01:44 Arm band placed on right wrist. vc1 01:44 Patient has correct armband on for positive identification. Bed in low position. Call vc1 light in reach. Client placed on continuous cardiac and pulse oximetry monitoring. NIBP monitoring applied. 01:49 Maintain EMS IV. Dressing intact. Good blood return noted. Site clean \T\ dry. Gauge \T\ as 6 site: 20g L FA. 02:33 XRAY Chest (1 view) In Process Unspecified. EDMS 03:00 Initiated transfer with Reynaldo Laguerre. rv1 03:17 [facility] declined due to Capacity. rv1 03:21 Brendan Martinez MD is Hospitalizing Provider. sp4 05:01 No provider procedures requiring assistance completed. Patient admitted, IV remains in as6 place. 05:02 Provided Education on: need for admit. as6 Administered Medications: 02:26 Drug: Furosemide IVP 40 mg Route: IVP; Site: right forearm; as6 05:01 Follow up: Response: No adverse reaction as6 03:24 Drug: Acetaminophen-Codeine PO (300 mg-30 mg) 2 tabs Route: PO; as6 05:01 Follow up: Response: No adverse reaction as6 03:24 Drug: Promethazine PO 25 mg Route: PO; as6 05:01 Follow up: Response: No adverse reaction as6 03:24 Drug: MethylPrednisoLONE IVP 120 mg Route: IVP; Site: right forearm; as6 05:00 Follow up: Response: No adverse reaction as6 03:24 Drug: DuoNeb Nebulize (3:1) (2.5 mg - 0.5 mg) 3 ml Route: Nebulizer; as6 05:00 Follow up: Response: No adverse reaction as6 03:24 Drug: HydrALAZINE PO 50 mg Route: PO; as6 05:00 Follow up: Response: No adverse reaction as6 Medication: 01:44 VIS not applicable for this client. vc1 Output: 05:01 Urine: 900ml (Voided); Total: 900ml. as6 Outcome: 03:04 ER care complete, transfer ordered by . sp4 03:22 Decision to Hospitalize by Provider. sp4 05:01 Admitted to Tele accompanied by tech, via stretcher, room 415, with chart, Report as6 called to Risa AHN 05:01 Condition: stable 05:01 Instructed on the need for admit. 05:14 Patient left the ED. jb4 Signatures: Dispatcher [employer] EDPR Justen Lakhani RN RN jb4 Jann Mendoza RN RN as6 Nisreen Decker RN RN vc1 Susie Dueñas RN RN jw7 Tari Nunez rv1 Saurav Ramon MD MD sp4
[2023-03-16] MEDS ORDERED: CODEINE 30MG/APAP 300MG TAB ONE (03:25)
[2023-03-16] MEDS ORDERED: HYDRALAZINE HCL 25 MG TABLET ONE (03:25)
[2023-03-16] MEDS ORDERED: PROMETHAZINE 25 MG TABLET ONE (03:25)
[2023-03-16] MEDS ORDERED: METHYLPREDNISOLONE 125 MG INJ ONE (03:25)
[2023-03-16] MEDS ORDERED: IPRATROPIUM BROM 0.5MG/2.5ML ONE (03:26)
[2023-03-16] MEDS ORDERED: ALBUTEROL 2.5 MG/3 ML NEB SOL ONE (03:26)
[2023-03-16 03:29] LABS: Arterial Blood Carboxyhemoglob 1.4 % (0-1.5); Blood Gas Oxyhemoglobin 89.7 % (94-97); Blood O2 Saturation 92.2 % (92-98.5)
[2023-03-16 03:32] LABS: Thyroid Stimulating Hormone 4.63 uIU/mL (0.358-3.740)
--- NOTE | 2023-03-16 04:01 | P.HP ---
Certification for Inpatient Patient admitted to: Inpatient With expected LOS: >2 Midnights Patient will require the following post-hospital care: None Practitioner: I am a practitioner with admitting privileges, knowledge of patient current condition, hospital course, and medical plan of care. Services: Services provided to patient in accordance with Admission requirements found in Title 42 Section 412.3 of the Code of Federal Regulations <KathyaaHim Schreiber - Last Filed: 03/16/23 03:58> Patient History Date of Service: 03/16/23 Reason for admission: CHF, anasarca History of Present Illness: 67-year-old female with history of chronic diastolic congestive heart failure, insulin-dependent diabetes, hypertension, hypothyroidism, sleep apnea presents to the emergency department with chief complaint of dyspnea, swelling. She reports over the course of the last for 5 days she had noticed increased swelling of her lower extremities as well as increasing shortness of breath. She has a history of congestive heart failure she has not seen her doctor in about a year. She has anasarca with Pitting edema of the extremities. She denies any recent changes in her medications although she has been out of doxazosin recently, she takes Lasix 40 mg twice daily at home. She was evaluated in the emergency department her labs are significant for white blood cell count 12.9 hemoglobin 9.3 hematocrit 35.1 creatinine 1.22 GFR 48 glucose 231 BNP 1641 chest x-ray was negative for acute findings. She was given IV Lasix in the ED, ED provider wishes to admit for further evaluation and management of acute on chronic diastolic congestive heart failure, anasarca. 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 - Family History Family History: Reviewed- Non-Contributory - Social History Smoking Status: Never smoker Alcohol use: Yes CD- Drugs: No Caffeine use: Yes Place of Residence: Home <Haim Rasheed - Last Filed: 03/16/23 03:58> Date of Service: 03/16/23 <Brendan Martinez - Last Filed: 03/16/23 17:37> Allergies No Known Allergies Allergy (Verified 03/03/21 01:30) Home Medications: Aspirin [Aspirin EC 81 MG] 81 mg PO DAILY #90 tablet.dr 03/03/21 Atorvastatin Calcium 20 mg PO BEDTIME 03/03/21 Doxazosin [Cardura*] 1 mg PO DAILY 03/03/21 Fluticasone/Vilanterol [Breo Ellipta 200-25 Mcg INH] 1 dose .ROUTE DAILY 03/03/21 Furosemide 80 mg PO BID #120 03/03/21 Furosemide 80 mg PO BID #120 tablet 03/03/21 Glimepiride 4 mg PO BIDWM 03/03/21 Insulin Glargine,Hum.rec.anlog [Toujeo Solostar] 75 unit SQ BID 03/03/21 Ipratropium [Atrovent 0.03% (21MCG)/Max Nasal*] 60 sprays NS TID 03/03/21 Ipratropium/Albuterol Sulfate [Combivent Respimat 20-100 Mcg] 1 puff IH QID 03/03/21 Ipratropium/Albuterol Sulfate [Iprat-Albut 0.5-3(2.5) mg/3 ml] 3 ml IH QID 03/03/21 Levothyroxine [Synthroid*] 75 mcg PO [id number] 03/03/21 Losartan Potassium 100 mg PO DAILY 03/03/21 Metoprolol Tartrate 100 mg PO BID 03/03/21 Montelukast [Singulair*] 10 mg PO DAILY 03/03/21 Omeprazole [Prilosec] 40 mg PO BID 03/03/21 Promethazine HCl 25 mg PO BID PRN 03/03/21 Sitagliptin Phosphate [Januvia*] 100 mg PO DAILY 03/03/21 Vitamin B Complex [B Complex] 1 each PO DAILY 03/03/21 Zinc 1 tab PO DAILY 03/03/21 Review of Systems 10-point ROS is otherwise unremarkable Respiratory: Shortness of Breath Cardiovascular: Edema <Haim Rasheed Abdoul - Last Filed: 03/16/23 03:58> Physical Examination - Physical Exam General: Alert, In no apparent distress, Oriented x3, Obese HEENT: Atraumatic, PERRLA, Mucous membr. moist/pink, EOMI, Sclerae nonicteric Neck: Supple, 2+ carotid pulse no bruit, No LAD, Without JVD or thyroid abnormality Respiratory: Clear to auscultation bilaterally, Normal air movement Cardiovascular: Regular rate/rhythm, Normal S1 S2, Edema (3+ pitting edema) Capillary refill: <2 Seconds Gastrointestinal: Normal bowel sounds, No tenderness Musculoskeletal: No tenderness Integumentary: No rashes Neurological: Normal speech, Normal strength at 5/5 x4 extr, Normal tone, Normal affect - Studies Laboratory Data (last 24 hrs) 03/16/23 03/16/23 03/16/23 01:45 01:45 01:45 WBC 12.90 H Hgb 11.3 L Hct 35.1 L Plt Count 335 PT 12.9 H INR 1.17 Sodium 137 Potassium 3.9 BUN 15 Creatinine 1.22 H Glucose 231 H Magnesium 2.2 Total Bilirubin 0.6 AST 19 ALT 16 Alkaline Phosphatase 76 Lipase 17 Microbiology Data (last 24 hrs): 03/16/23 01:45 Nasopharnyx Influenza Type A Antigen Screen - Final 03/16/23 01:45 Nasopharnyx Influenza Type B Antigen Screen - Final <Haim Rasheed - Last Filed: 03/16/23 03:58> - Studies Laboratory Data (last 24 hrs) 03/16/23 03/16/23 03/16/23 01:45 01:45 01:45 WBC 12.90 H Hgb 11.3 L Hct 35.1 L Plt Count 335 PT 12.9 H INR 1.17 Sodium 137 Potassium 3.9 BUN 15 Creatinine 1.22 H Glucose 231 H Magnesium 2.2 Total Bilirubin 0.6 AST 19 ALT 16 Alkaline Phosphatase 76 Lipase 17 Microbiology Data (last 24 hrs): 03/16/23 01:45 Nasopharnyx Influenza Type A Antigen Screen - Final 03/16/23 01:45 Nasopharnyx Influenza Type B Antigen Screen - Final <Brendan Martinez - Last Filed: 03/16/23 17:37> Assessment and Plan - Plan Assessment: Anasarca, acute on chronic diastolic congestive heart failure Hypertensive urgency Diabetes mellitus type 2insulin-dependent with hyperglycemia Hypothyroidism Plan: Anasarca, acute on chronic diastolic congestive heart failure Last echocardiogram 2020 shows normal ejection fraction. Continue diuresis, she takes Lasix 40 mg twice daily at home, will diurese with 40 mg IV 3 times daily. Cardiology consult in place, other home medications including metoprolol, losartan continued. Appreciate further input from cardiology, await echo. Hypertensive urgency She has been out of her doxazosin for the past 4 days, home medications including metoprolol, losartan, doxazosin continued. Diabetes mellitus type 2insulin-dependent with hyperglycemia ACHS Accu-Chek, sliding scale insulin, continue reduced long-acting insulin once dose confirmed. Hypothyroidism Continue home medication, thyroid panel ordered. DVT PPX: Lovenox Code status: Full Discharge Plan: Home Plan to discharge in: Greater than 2 days - Advance Directives Does patient have a Living Will: No Does patient have a Durable POA for Healthcare: No - Code Status/Comfort Care Code Status Assessed: Yes (Full code) Critical Care: No Time Spent Managing Pts Care (In Minutes): 55 <Haim Rasheed - Last Filed: 03/16/23 03:58> - Plan Patient seen and examined on rounds this morning. Reports slight improvement still with +anasarca on exam cardiology consulted continue IV lasix monitor renal function <Brendan Martinez - Last Filed: 03/16/23 17:37>
[2023-03-16] MEDS ORDERED: ACETAMINOPHEN 500 MG TAB PO PRN (06:03)
[2023-03-16] MEDS: INSULIN -REGULAR HUMAN 50 UNIT/0.5 ML ML SQ SCH ×4 (07:30→23:48)
--- NOTE | 2023-03-16 07:38 | P.PN ---
Date of Service: 03/17/23 Subjective: feeling slightly better today Breathing slowly improving, +SOB on exertion swelling in legs improving Lower left flank pain, +increased urge to urinate ROS: 10 point ROS as noted above, otherwise negative Physical Exam: GEN: Alert, oriented, NAD, fatigued apperaing HEENT: Normal conjunctiva, sclera anicteric CV: Regular rate and rhythm, 2+ BLE edema up to knees Pulm: Nonlabored respirations on 2L NC at rest, diminished at bases b/l ABD: Soft, nontender, nondistended Neuro: Normal speech, normal affect vitals reviewed Problem List: Anasarca Acute on chronic diastolic CHF Suspected UTI NOHEMY Hypertensive urgency IDDM2 with hyperglycemia Hypothyroidism Anasarca Acute on chronic diastolic CHF Mild Cardiomegaly CXR (03/16): Mild cardiomegaly. No focal areas of acute airspace disease Last echo (2020) with normal EF. She takes Lasix 40 mg BID at home Continue IV Lasix 40 mg TID. Cardiology consulted continue home medications including metoprolol, losartan 03/17 - Would like to initiate transfer to [facility] her usual Biofuels Technology Manager/Regional Facilities Specialist are located there. Suspected UTI reports Lower left flank pain, +increased urge to urinate UA: 500 LE, +WBC, +bacteria >50, 1+ protein Urine culture: ordered Started empiric Rocephin (03/17-) Afebrile, +leukocytosis slightly worse (03/17) NOHEMY Nephrology consulted cont lasix Monitor renal function - slightly worse 03/17 Hypertensive urgency reports being out of her doxazosin for the past ~4 days Continue home medications IDDM2 with hyperglycemia ACHS Accu-Chek, SSI continue reduced long-acting insulin once dose confirmed. Hypothyroidism Continue home medication TSH: 4.63 Free T4: 1.14 VTE: Lovenox Code: Full Dispo: ?SNF vs rehab ~2+ days ss/cm consulted 03/17 - Would like to initiate transfer to [facility] her usual Biofuels Technology Manager/Regional Facilities Specialist are located there.
[2023-03-16 08:24] VITALS: BMI 44.2
[2023-03-16] MEDS: METOPROLOL TAR 50 MG TAB PO SCH ×2 (08:40→21:53)
[2023-03-16] MEDS: LOSARTAN POTASSIUM 50 MG TABLET PO SCH ×2 (08:41→21:53)
[2023-03-16] MEDS: FUROSEMIDE 40 MG/4 ML VIAL IV SCH ×2 (08:42→17:56)
[2023-03-16] MEDS: ENOXAPARIN 40 MG/0.4 ML SQ SCH (08:42)
[2023-03-16] MEDS: ASPIRIN EC 81 MG TAB PO SCH (08:53)
[2023-03-16] MEDS ORDERED: DOXAZOSIN 2 MG TAB PO SCH (09:00)
[2023-03-16] MEDS: CODEINE 30MG/APAP 300MG TAB PO PRN (13:33)
--- NOTE | 2023-03-16 16:21 | RAD REPORT ---
EXAM DESCRIPTION: RAD - Chest Single View - 03/16/2023 2:31 am CLINICAL HISTORY: 67 years, Female, CHEST PAIN COMPARISON: None FINDINGS: Single view of the chest was obtained portable. No prior films are available for compariso n. External EKG leads within the shzin-dl-[id number] limits diagnosis. The heart is prominent. The thoracic aorta demonstrate intimal calcification. The pulmonary vasculature is normal distribution. No pleura l effusions. The rest of the soft tissue and bony structures demonstrate to be unremarkable. IMPRESSION: Mild cardiomegaly. No focal areas of acute airspace disease. Electronically signed by: Jarod Brooks MD 03/16/2023 3:01 AM CDT Due to temporary technical issues with the PACS/Fluency reporting system, reports are being signed by the in house radiologists without review as a courtesy to insure prompt reporting. The interpreting radiologist is fully responsible for the content of the report.
--- NOTE | 2023-03-16 17:32 | EKG ---
Test Date: 2023-03-16 Test Time: 01:40:58 Reclamation Worker: NADER MEASUREMENT RESULTS: Intervals: Rate: 74 GA: 140 QRSD: 78 QT: 422 QTc: 468 [place]: P: 67 GA: 140 QRS: 61 T: 16 INTERPRETIVE STATEMENTS: Normal sinus rhythm Low voltage QRS Cannot rule out Anterior infarct, age undetermined Abnormal ECG Compared to ECG 03/02/2021 19:00:05 Right-axis deviation no longer present Myocardial infarct finding still present Electronically Signed On 03-16-23 17:30:48 CDT by Lei Ortiz
[2023-03-16] MEDS: JUVEN PACKET PO SCH (21:00)
[2023-03-16] MEDS: INSULIN GLARGINE 100 UNIT/ML SQ SCH (21:53)
[2023-03-16] MEDS: SILDENAFIL CITRATE 20 MG TABLET PO SCH (22:31)
[2023-03-16] MEDS ORDERED: DOXAZOSIN 1 MG TAB PO SCH (22:32)
[2023-03-16] MEDS ORDERED: DIPHENHYDRAMINE 25 MG TAB/CAP PO ONE (22:45)
[2023-03-16] MEDS: ALBUTEROL 2.5 MG/3 ML NEB SOL NEB PRN (23:55)
[2023-03-17] MEDS: FUROSEMIDE 40 MG/4 ML VIAL IV SCH ×3 (03:46→16:14)
[2023-03-17 06:07] LABS: Absolute Lymphocytes (CBC) 1.1 K/uL (0.7-4.9); Hematocrit 33.8 % (36.0-45.0); Lymphocytes % 7.5 % (15.3-44.8); MCV 91.8 fL (80-100); MPV 7.7 fL (7.6-11.3); Platelets 350 thou/uL (152-406); RBC Red Blood Cell Count 3.68 M/uL (3.86-4.86)
[2023-03-17 06:22] LABS: Magnesium 1.9 mg/dL (1.6-2.4); Potassium 4.1 mEq/L (3.5-5.1)
[2023-03-17 07:50] LABS: Specific Gravity 1.015 (1.005-1.030); Urine Bacteria >50 /HPF (<20); Urine Bilirubin NEGATIVE (Negative); Urine Blood Trace (Negative); Urine Clarity Extremely Turbid (Clear); Urine Color Light-Orange (Yellow); Urine Glucose TRACE (Negative); Urine Protein 1+ (Negative); Urine RBC <5 /HPF (None Seen); Urine Urobilinogen Normal (Normal)
[2023-03-17] MEDS: ASPIRIN EC 81 MG TAB PO SCH (08:55)
[2023-03-17] MEDS: LOSARTAN POTASSIUM 50 MG TABLET PO SCH (08:56)
[2023-03-17] MEDS: MONTELUKAST 10 MG TAB PO SCH (08:56)
[2023-03-17] MEDS: METOPROLOL TAR 50 MG TAB PO SCH ×2 (08:57→20:20)
[2023-03-17] MEDS: INSULIN -REGULAR HUMAN 50 UNIT/0.5 ML ML SQ SCH ×4 (08:57→20:20)
[2023-03-17] MEDS: JUVEN PACKET PO SCH ×2 (08:58→20:19)
[2023-03-17] MEDS: ENOXAPARIN 40 MG/0.4 ML SQ SCH (08:58)
[2023-03-17] MEDS: INSULIN GLARGINE 100 UNIT/ML SQ SCH ×2 (08:58→20:21)
[2023-03-17] MEDS: SILDENAFIL CITRATE 20 MG TABLET PO SCH ×3 (08:59→20:20)
[2023-03-17] MEDS: CODEINE 30MG/APAP 300MG TAB PO PRN ×2 (09:24→23:51)
[2023-03-17] MEDS ORDERED: INSULIN GLARGINE 100 UNIT/ML SQ ONE (12:00)
[2023-03-17] MEDS: CEFTRIAXONE 1,000 MG in NA CHLORIDE 0.9% 50 ML IVPB SCH (12:01)
[2023-03-17] MEDS: DIPHENHYDRAMINE 25 MG TAB/CAP PO PRN ×2 (13:49→23:51)
[2023-03-17] MEDS: PANTOPRAZOLE 40MG TABLET PO SCH (16:14)
--- NOTE | 2023-03-17 17:05 | CON ---
Date of Consultation: 03/17/2023 Reason For Consultation: Elevated BUN and creatinine, anasarca, fluid management. History Of Present Illness: This is a pleasant 67-year-old female with significant past medical hist ory of diabetes, positive for neuropathy, no retinopathy, CAD with preserved ejection fraction with d iastolic dysfunction, as echocardiogram ejection fraction of 56, hypertension, hyperlipidemia, hypoth yroidism, obstructive sleep apnea, COPD, obesity, the patient came to the hospital because of [facility] leg swelling and orthopnea, went to her primary care and increased her Lasix to 80 mg, but the swe lling did not improve. The patient upon arrival to the hospital found to have elevation in BUN and c reatinine, creatinine 1.2, GFR of 48. For that reason, we have been consulted. The patient was star adrian on diuresis. Kidney function got worse. Past Medical History: Includes; 1.Congestive heart failure, diastolic dysfunction, ejection fraction of 56%. 2.Diabetes complicated with neuropathy. 3.Hypertension. 4.Hyperlipidemia. 5.Hypothyroidism. 6.COPD. 7.Obstructive sleep apnea. Family History: Positive for hypertension. Social History: Denied smoking, denied drinking, denied drugs abuse. Allergies: NO KNOWN DRUGS ALLERGIES. Home Medications: Include doxazosin, atorvastatin, aspirin, Lasix, levothyroxine, losartan 100 mg, m etoprolol, Singulair, promethazine, B12, zinc sulfate. Review of Systems: Head and Neck: No red eye. No ear pain. GI: No nausea. No vomiting. : No polyuria. No dysuria. No hematuria. Scrubbing Machine Operator: No vaginal discharge. Respiratory: Has shortness of breath. Cardiovascular: Has leg swelling. Endocrine: No polydipsia. Skin: No rash. Physical Examination: General: When I saw the patient, the patient lying in bed in sitting position, shortness of breath. VITAL SIGNS: Blood pressure 170/80, pulse of 71, afebrile. Chest: Crackles bilateral base. Heart: S1, S2. Systolic murmur. Abdomen: Soft, nontender. Extremities: +1 edema. Neuro: Alert. No focality. Laboratory Data: WBC 14.8, H and H 10.9/33.8. Sodium 135, potassium 4.1, bicarb 27, BUN 30, creatin ine 1.5, GFR of 37, glucose 330, calcium 8.3, magnesium 1.9. Upon admission to the hospital, creatin ine 1.2. Assessment And Plan: 1.Acute kidney injury secondary to cardiorenal, over volume with respiratory symptoms. I agree with increasing the Lasix. We will monitor the patient. I am going to go ahead and send for full workup and we will continue to monitor the patient. Discontinue losartan given the acute kidney injury. 2.Hypertension. We will utilize blood pressure for more diuresis with the presence of acute kidney injury. Discontinue ARB. Increase Lasix 40 mg t.i.d. I am going to add nitroglycerin. 3.Anasarca secondary to cardiorenal. Hypothyroidism was ruled out. I am going to send for PC ratio and we will increase Lasix. 4.Diabetes as by primary. Time spent examining the patient [id number], reviewing data, lab and radiology, placing order, disc ussing the case with the patient, discussing the case with the lift team technician including hospitalist and nursing staff more than 75 minutes . [facility] Voice ID: [id number] Report ID: [id number]
[2023-03-17 17:47] LABS: UR PROTEIN 13.1 mg/dL (<11.9); Urine Protein/Creatinine Ratio 0.34 ratio (<0.15)
--- NOTE | 2023-03-17 19:39 | RAD REPORT ---
EXAM DESCRIPTION: US - Renal Ultrasound-Complete - 03/17/2023 7:24 pm CLINICAL HISTORY: NOHEMY Flank pain COMPARISON: No comparisons FINDINGS: Both kidneys are normal in size, shape and echotexture. The right kidney measures 10.4 x 4.8 x 3.8 cm. No hydronephrosis, focal mass or perinephric fluid. 3. 6 x 3.3 x 2.7 cm benign cyst. The left kidney measures 11.3 x 5.0 x 4.2 cm. No hydronephrosis, focal mass or perinephric fluid. The urinary bladder is incompletely distended without gross abnormality seen. IMPRESSION: 3.6 cm benign right renal cyst. Otherwise, unremarkable study.
[2023-03-17] MEDS: DOXAZOSIN 2 MG TAB PO SCH (20:18)
[2023-03-17] MEDS: ATORVASTATIN 20 MG TAB PO SCH (20:19)
[2023-03-18] MEDS: FUROSEMIDE 40 MG/4 ML VIAL IV SCH ×3 (00:02→17:11)
[2023-03-18] MEDS: ONDANSETRON 4 MG/2 ML VIAL IV PRN (03:16)
[2023-03-18 05:06] LABS: Absolute Lymphocytes (CBC) 2.8 K/uL (0.7-4.9); Lymphocytes % 20.4 % (15.3-44.8); MCV 92.2 fL (80-100); MPV 7.6 fL (7.6-11.3); Platelets 343 thou/uL (152-406); RBC Red Blood Cell Count 3.79 M/uL (3.86-4.86)
[2023-03-18 05:24] LABS: Phosphorus 3.8 mg/dL (2.5-4.9); Potassium 3.6 mEq/L (3.5-5.1); Uric Acid 8.1 mg/dL (2.6-6.0)
[2023-03-18] MEDS: LEVOTHYROXINE SOD 0.075 MG TAB PO SCH (05:45)
--- NOTE | 2023-03-18 06:58 | ECHO ---
HEIGHT: 5 ft 3 in WEIGHT: 259 lb 1.6 oz DATE OF STUDY: 03/17/[address]: Haim Rasheed NP 2-DIMENSIONAL: YES M.MODE: YES DOPPLER: YES COLOR FLOW: YES TDS: PORTABLE: YES DEFINITY: BUBBLE STUDY: DIAGNOSIS: CONGESTIVE HEART FAILURE CARDIAC HISTORY: CATHERIZATION: SURGERY: PROSTHETIC VALVE: PACEMAKER: MEASUREMENTS (cm) DIASTOLIC (NORMALS) SYSTOLIC (NORMALS) IVSd 1.1 (0.6-1.2) LA Diam 4.2 (1.9-4.0) LVEF 73% LVIDd 4.3 (3.5-5.7) LVIDs 2.5 (2.0-3.5) %FS 42% LVPWd 1.2 (0.6-1.2) Ao Diam 2.5 (2.0-3.7) 2 DIMENSIONAL ASSESSMENT: RIGHT ATRIUM: NORMAL LEFT ATRIUM: ENLARGED RIGHT VENTRICLE: NORMAL LEFT VENTRICLE: NORMAL TRICUSPID VALVE: MILD TRICUSPID REGURGITATION MITRAL VALVE: MILD MITRAL REGURGITATION PULMONIC VALVE: NORMAL AORTIC VALVE: NORMAL PERICARDIAL EFFUSION: NONE AORTIC ROOT: NORMAL LEFT VENTRICULAR WALL MOTION: NORMAL DOPPLER/COLOR FLOW: SEE BELOW COMMENTS: 1. NORMAL LEFT VENTRICULAR EJECTION FRACTION 60-65% WITH NORMAL WALL MOTION 2. SEVERE DIASTOLIC DYSFUNCTION 3. SEVERE PULMONARY HYPERTENSION WITH RIGHT VENTRICULAR SYSTOLIC PRESSURE GREATER THAN 60 mmHg 4. MILD MITRAL REGURGITATION 5. MILD TRICUSPID REGURGITATION 6. LEFT ATRIAL ENLARGEMENT TECHNOLOGIST: REED DIXON
--- NOTE | 2023-03-18 06:58 | P.PN ---
Date of Service: 03/18/23 Subjective: Breathing more comfortably today Trouble sleeping overnight due to left flank pain (unchanged from yesterday) +Chronic lumbar back pain +Right shoulder pain for ~1 week, slightly worse after working with PT yesterday Feels increased urge to urinate / possible retention ROS: 10 point ROS as noted above, otherwise negative Physical Exam: GEN: Alert, oriented, NAD, fatigued appearing HEENT: Normal conjunctiva, sclera anicteric CV: Regular rate and rhythm, 1-2+ BLE edema up to knees Pulm: Nonlabored respirations on 2L NC at rest, diminished at bases b/l ABD: Soft, nontender, nondistended Neuro: Normal speech, normal affect vitals reviewed Problem List: Anasarca Acute on chronic diastolic CHF Suspected UTI NOHEMY Hypertensive urgency IDDM2 with hyperglycemia Hypothyroidism Chronic back pain Anasarca Acute on chronic diastolic CHF Mild Cardiomegaly CXR (03/16): Mild cardiomegaly. No focal areas of acute airspace disease Last echo (2020) with normal EF. She takes Lasix 40 mg BID at home Continue IV Lasix 40 mg TID. Cardiology consulted Echo (03/17): 73% EF, severe diastolic dysfunction, severe pulmonary hypertension, mild MR, mild TR continue home medications including metoprolol, losartan Suspected UTI UA: +LE, +WBC, +bacteria >50 reports Lower left flank pain, +increased urge to urinate ?retention check PVR, if high, insert lucas Urine culture: pending Started empiric Rocephin (03/17-) Afebrile, +leukocytosis improving NOHEMY renal u/s (03/17): 3.6 cm benign right renal cyst. Nephrology consulted cont lasix Monitor renal function Hypertensive urgency reports being out of her doxazosin for the past ~4 days Continue home medications - restarted sildenfail, pt with severe pulm hypertension IDDM2 with hyperglycemia ACHS Accu-Chek, SSI continue reduced long-acting insulin once dose confirmed. Hypothyroidism Continue home medication TSH: 4.63 Free T4: 1.14 VTE: Lovenox Code: Full Dispo: ?SNF vs rehab ~2+ days ss/cm consulted 03/17 - Would like to initiate transfer to [facility] d/t her usual Coordinator Of Genetic Services/Debt Recovery Officer are located there. Denied transfer due to no beds
[2023-03-18] MEDS: INSULIN -REGULAR HUMAN 50 UNIT/0.5 ML ML SQ SCH ×4 (07:30→20:11)
[2023-03-18] MEDS: CEFTRIAXONE 1,000 MG in NA CHLORIDE 0.9% 50 ML IVPB SCH (08:43)
[2023-03-18] MEDS: PANTOPRAZOLE 40MG TABLET PO SCH ×2 (08:44→17:11)
[2023-03-18] MEDS: ASPIRIN EC 81 MG TAB PO SCH (08:44)
[2023-03-18] MEDS: METOPROLOL TAR 50 MG TAB PO SCH ×2 (08:44→20:11)
[2023-03-18] MEDS: ENOXAPARIN 40 MG/0.4 ML SQ SCH (08:44)
[2023-03-18] MEDS: INSULIN GLARGINE 100 UNIT/ML SQ SCH ×2 (08:45→20:12)
[2023-03-18] MEDS: JUVEN PACKET PO SCH ×2 (08:45→20:11)
[2023-03-18] MEDS: SILDENAFIL CITRATE 20 MG TABLET PO SCH ×3 (08:55→20:12)
[2023-03-18] MEDS: DIPHENHYDRAMINE 25 MG TAB/CAP PO PRN (08:55)
[2023-03-18] MEDS: MONTELUKAST 10 MG TAB PO SCH (08:56)
[2023-03-18] MEDS ORDERED: POTASSIUM CL SA 10 MEQ TAB PO ONE (09:00)
[2023-03-18 09:50] LABS: Rheumatoid Factor NEG (NEG)
--- NOTE | 2023-03-18 10:32 | P.PN ---
Subjective Date of Service: 03/18/23 Chief Complaint: CHF, anasarca Subjective: Other (she reports having less leg edema) Physical Examination - Vital Signs Temperature: 98.1 F Blood Pressure: 176/81 Pulse: 81 Respirations: 20 Pulse Ox (%): 91 - Physical Exam General: Other (appears as her stated age) HEENT: Atraumatic, Normocephalic Neck: Supple Respiratory: Other (symmetric chest expansion) Cardiovascular: No rubs, No murmurs Gastrointestinal: Soft and benign, No guarding Musculoskeletal: No clubbing Integumentary: No warmth Neurological: Normal tone Urinary: Other (no bladder distention) External genitalia: Deferred Rectal: Deferred Assessment And Plan - Plan 1. Acute kidney injury secondary to cardiorenal, over volume with respiratory symptoms. continue Lasix IV q8h. liberal by mouth fluid intake. Cont lucas. 2. Acute on chronic diastolic heart failure. Continue Lasix 40 mg IV every 8 hours. Strict low-sodium diet less than 2 g per day. Do not limit by mouth fluid intake, unless she develops hyponatremia < 130 mEq/L, to avoid further NOHEMY with diuretics. 3. Hypertension. Cont current med regimen. 4. ? UTI. ON abx. F/u UCx. 5. DM2. Mngt per primary team.
[2023-03-18] MEDS: CODEINE 30MG/APAP 300MG TAB PO PRN (11:28)
[2023-03-18] MEDS: DOXAZOSIN 2 MG TAB PO SCH (20:10)
[2023-03-18] MEDS: ATORVASTATIN 20 MG TAB PO SCH (20:11)
[2023-03-19] MEDS: CODEINE 30MG/APAP 300MG TAB PO PRN ×2 (00:21→22:08)
[2023-03-19] MEDS: FUROSEMIDE 40 MG/4 ML VIAL IV SCH ×3 (00:21→17:40)
[2023-03-19] MEDS: DIPHENHYDRAMINE 25 MG TAB/CAP PO PRN ×3 (00:21→22:08)
[2023-03-19 02:57] LABS: Absolute Lymphocytes (CBC) 2.4 K/uL (0.7-4.9); Lymphocytes % 19.3 % (15.3-44.8); MCV 91.3 fL (80-100); MPV 7.7 fL (7.6-11.3); Platelets 307 thou/uL (152-406); RBC Red Blood Cell Count 3.73 M/uL (3.86-4.86)
[2023-03-19 03:10] LABS: Albumin 2.8 g/dL (3.4-5.0); Magnesium 2.1 mg/dL (1.6-2.4); Phosphorus 3.8 mg/dL (2.5-4.9); Potassium 3.9 mEq/L (3.5-5.1)
[2023-03-19] MEDS: LEVOTHYROXINE SOD 0.075 MG TAB PO SCH (05:51)
--- NOTE | 2023-03-19 07:04 | P.PN ---
Date of Service: 03/19/23 Subjective: feels some improvement each day Didn't want to work with PT yesterday, agreeable today swelling in legs improving left flank pain ~unchanged, +afebrile lucas placed yesterday for urinary retention ROS: 10 point ROS as noted above, otherwise negative Physical Exam: GEN: Alert, oriented, NAD, Lucas in place HEENT: Normal conjunctiva, sclera anicteric CV: Regular rate and rhythm, 1+ BLE edema up to knees Pulm: Nonlabored respirations on room air at rest, diminished at bases b/l ABD: Soft, nontender, nondistended Neuro: Normal speech, normal affect Lucas in place vitals reviewed Problem List: Anasarca Acute on chronic diastolic CHF UTI Urinary retention NOHEMY Hypertensive urgency IDDM2 with hyperglycemia Hypothyroidism Chronic back pain Anasarca Acute on chronic diastolic CHF Mild Cardiomegaly CXR (03/16): Mild cardiomegaly. No focal areas of acute airspace disease Last echo (2020) with normal EF. She takes Lasix 40 mg BID at home Cardiology consulted Echo (03/17): 73% EF, severe diastolic dysfunction, severe pulmonary hypertension, mild MR, mild TR change metoprolol to coreg for better BP control decrease IV lasix from TID to BID 03/19 PT/OT consult improving UTI UA: +LE, +WBC, +bacteria >50 reports Lower left flank pain, +increased urge to urinate Lucas placed 03/18 d/t possible retention Urine culture: 4+GNR cont empiric Rocephin (03/17-) Afebrile, +leukocytosis improving Urinary retention pt reported symptoms, and PVR noted to be >200 on 03/18, lucas placed NOHEMY renal u/s (03/17): 3.6 cm benign right renal cyst. Nephrology consulted cont lasix Monitor renal function Hypertensive urgency reports being out of her doxazosin for the past ~4 days Continue home medications - restarted sildenfail, pt with severe pulm hypertension IDDM2 with hyperglycemia ACHS Accu-Chek, SSI continue reduced long-acting insulin once dose confirmed. Hypothyroidism Continue home medication TSH: 4.63 Free T4: 1.14 VTE: Lovenox Code: Full Dispo: ? rehab ~2+ days ss/cm consulted
[2023-03-19] MEDS: INSULIN -REGULAR HUMAN 50 UNIT/0.5 ML ML SQ SCH ×4 (07:30→22:00)
[2023-03-19] MEDS ORDERED: POTASSIUM CL SA 10 MEQ TAB PO ONE (09:00)
[2023-03-19] MEDS: PANTOPRAZOLE 40MG TABLET PO SCH ×2 (09:11→17:40)
[2023-03-19] MEDS: ASPIRIN EC 81 MG TAB PO SCH (09:12)
[2023-03-19] MEDS: METOPROLOL TAR 50 MG TAB PO SCH (09:13)
[2023-03-19] MEDS: ENOXAPARIN 40 MG/0.4 ML SQ SCH (09:14)
[2023-03-19] MEDS: SILDENAFIL CITRATE 20 MG TABLET PO SCH ×2 (09:14→13:58)
[2023-03-19] MEDS: INSULIN GLARGINE 100 UNIT/ML SQ SCH ×2 (09:15→22:01)
[2023-03-19] MEDS: CEFTRIAXONE 1,000 MG in NA CHLORIDE 0.9% 50 ML IVPB SCH (09:15)
[2023-03-19] MEDS: MONTELUKAST 10 MG TAB PO SCH (09:16)
[2023-03-19] MEDS: JUVEN PACKET PO SCH ×2 (09:17→21:00)
[2023-03-19] MEDS: HYDROCODONE/APAP 5/325 MG TAB PO PRN (11:46)
[2023-03-19] MEDS: HYDRALAZINE HCL 25 MG TABLET PO SCH ×2 (13:59→22:00)
--- NOTE | 2023-03-19 17:27 | PN ---
Date of Progress Note: 03/19/2023 Subjective: Patient was admitted to the hospital with acute kidney injury, anasarca secondary to cardiorenal. Patient was started on diuresis, responding very well. Edema starting to subside. The blood pressure is still elevated. Objective: Vital Signs: Blood pressure 176/81, pulse of 81. Chest: Decreased entry on bilateral base. Heart: S1, S2. Systolic murmur. Abdomen: Soft, nontender. Extremity: +1 edema. Neuro: Alert. No focality. Patient had good urine output of 3 L, negative of 1100. Patient lost 2 pounds from yesterday. Current Medications: The patient on, it includes: 1. Ceftriaxone. 2. Aspirin. 3. Lovenox. 4. Metoprolol. 5. Cardura. 6. Lasix 40 t.i.d. 7. Pantoprazole. 8. Levothyroxine. 9. Codeine. 10. KCl. Laboratory Data: Hemoglobin 11, sodium 139, potassium 3.9, bicarb 31, BUN 39, creatinine down to 1.4, calcium 8.1, phosphorus 3.8, magnesium 2.1. Assessment And Plan: 1. Acute kidney injury secondary to cardiorenal, recovering. I am going to continue current diuresis and we will monitor. 2. Hypertension, not controlled. Continue metoprolol. I am going to go ahead and add hydralazine for the patient's regimen and we will follow up the patient. Continue to utilize blood pressure for more diuresis. 3. Anasarca secondary to cardiorenal. We will continue to optimize fluid status for the patient. Hypothyroidism has been ruled out and there is no significant proteinuria. 4. Congestive heart failure with exacerbation as above. We will optimize the fluid status for the patient. 5. Diabetes as by primary. Time spent examining the patient [id number], reviewing data, lab and radiology, placing order, discussing the case with the team facilitator including hospitalist and nursing staff more than 35 minutes. [facility] Voice ID: [id number] Report ID: [id number] IVANA
--- NOTE | 2023-03-19 17:28 | CON ---
Date of Consultation: 03/16/2023 Reason For Consultation: Congestive heart failure. History Of Present Illness: A 67-year-old obese female, history of diastolic heart failure, diabetes , hypertension, severe sleep apnea, presented with significant shortness of breath and lower extremit y edema and chest tightness. Evaluated by bedside. She is severely fluid overloaded and having diff iculty to finish sentences talking. Past Medical History: As outlined above in the HPI. Medications: Refer reconciliation sheet for detailed list. Allergies: NO KNOWN DRUG ALLERGIES. Family History: No premature coronary artery disease or cancer. Social History: She does not smoke or drink. Does not use any drugs. Review of Systems: All systems reviewed and they were negative except as mentioned in the HPI. Physical Examination: Vital Signs: Reviewed. Head and Neck: Pupils are equal, reactive to light. Intact eye movements. No cervical lymphadenopa thy. Neck is supple. Thyroid is not enlarged. Lungs: Crackles in both lung bases. No accessory muscle use or muscle retraction. Heart: Regular rate and rhythm with S3 gallop. Abdomen: Soft, nontender. Bowel sounds positive. No organomegaly. No masses or hernia. No rigidi ty or rebound. Extremities: 4+ edema bilaterally. No clubbing, cyanosis. Intact pulses. Skin: No rashes. Neurologic: Alert, awake, oriented x3. No acute focal deficits appreciated. Investigations: BUN 15, creatinine 1.22. NT-proBNP is 1641. Troponin is negative. Assessment/recommendation: 1.Acute on chronic diastolic heart failure exacerbation, severely fluid overloaded. Recommend aggre ssive diuresis with IV Lasix 40 mg q.8 hours. Monitor BUN, creatinine, electrolytes. 2.Dyslipidemia. Continue statin. 3.Hypertension. Blood pressure is elevated. Should improve with further diuresis and please obtain echocardiogram and I will follow the patient with you. SR/MODL Voice ID: [id number] Report ID: [id number]
[2023-03-19] MEDS: carvediloL 12.5 MG TAB PO SCH (17:41)
--- NOTE | 2023-03-19 18:45 | PN ---
Date of Progress Note: 03/19/2023 Subjective: Seen by bedside. Doing clinically better. Does not have any significant shortness of b reath. She was lying flat today. Review of Systems: No chest pain. No shortness of breath, orthopnea, or cough. Her lower extremity edema has improved. No other complaints. All other systems were reviewed, they were negative. Objective: Vital Signs: Reviewed. Head and Neck: Pupils are equal, reactive to light. Intact eye movements. No cervical lymphadenopa thy. Neck is supple. Thyroid is not enlarged. Lungs: Clear to auscultation bilaterally. No rhonchi, wheezing, or crackles. No accessory muscle u se. Heart: Irregular. No extra sounds. Abdomen: Soft, nontender. Bowel sounds positive. No organomegaly. No masses or hernia. No rigidi ty or rebound. Extremities: 1 to 2+ pitting edema. No clubbing or cyanosis. Intact pulses. Skin: No rashes. No nodules. Neurologic: Alert, awake, oriented x3. No acute focal deficits appreciated. Investigations: BUN 39, creatinine 1.43. Assessment And Recommendations: 1.Acute on chronic diastolic heart failure exacerbation, continues to improve. I will cut down on L asix to twice a day at this moment and preparations to transition her to oral Lasix to avoid kidney f ailure. 2.Acute kidney failure due to fluid retention, improved some and now creatinine is going up slowly, to cut down the Lasix as above. 3.Hypertension. Blood pressure is not well controlled. I will discontinue metoprolol and replace t hat with Coreg 25 mg twice a day and it should have much better effect on her blood pressure. Low-sa lt diet encouraged and the patient needs to do serious changes of her lifestyle to improve her overall prognosis for the future. SR/MODL Voice ID: [id number] Report ID: [id number]
--- NOTE | 2023-03-19 19:16 | PN ---
Date of Progress Note: 03/17/2023 Subjective: Seen by bedside. She is improving slightly. Still has significant edema. Review of Systems: No chest pain or shortness of breath. No nausea, vomiting, or diarrhea. All other systems were revi ewed and they were negative. Objective: Vital Signs: Reviewed. Head and Neck: Pupils are equal, reactive to light. Intact eye movements. No JVD. No cervical lym phadenopathy. Neck is supple. Thyroid is not enlarged. Lungs: Clear to auscultation bilaterally. No rhonchi, wheezing, or crackles. No accessory muscle u se. Heart: Regular rate and rhythm. No extra sounds. Abdomen: Soft, nontender. Bowel sounds positive. No organomegaly. No masses or hernia. No rigidit y or rebound. Extremities: Edema bilaterally with improvement. Neurologic: Alert, awake, oriented x3. No acute focal deficits appreciated. Investigations: BUN is 30, creatinine 1.52. Assessment And Recommendations: 1.Acute on chronic diastolic heart failure exacerbation. Diuresing very well and slowly. She has s evere diastolic dysfunction on echo, but normal ejection fraction. She has severe pulmonary hyperten dar. Continue aggressive diuresis with carefully monitoring BUN, creatinine, electrolytes. Low-sod ium diet, and daily body weight. 2.Hypertension. Continue to monitor. After proper diuresis, patient's medication needs to be adjus adrian for better blood pressure control. 3.Dyslipidemia. Continue statin. SR/MODL Voice ID: [id number] Report ID: [id number]
--- NOTE | 2023-03-19 20:12 | PN ---
Date of Progress Note: 03/18/2023 Subjective: Seen by bedside. Continues to diurese very well, improving gradually. Review of Systems: No chest pain. Has shortness of breath with movement. No nausea, vomiting, diarrhea. All other sys tems reviewed are negative. Objective: Vital Signs: Reviewed. Head and Neck: Pupils are equal, reactive to light. Intact eye movements. No cervical lymphadenopa thy. Neck is supple. Thyroid is not enlarged. Lungs: Decreased breathing sounds. No accessory muscle use or muscle retraction. Heart: Irregular. No extra sounds. Abdomen: Soft, nontender. Bowel sounds positive. No organomegaly. No masses or hernia. No rigidi ty or rebound. Extremities: 2+ edema bilaterally. No clubbing, cyanosis. Intact pulses. Skin: No rashes. Neurologic: Alert, awake. No acute focal deficits appreciated. Investigations: BUN is 41, creatinine 1.34. Assessment/recommendation: 1.Acute on chronic diastolic heart failure exacerbation, improving. Continue IV diuresis. Monitor BUN, creatinine, electrolytes. 2.Hypertension. Blood pressure is improving. Continue to monitor. 3.Acute renal failure due to elevated central venous pressure, improving with diuresis, however. Monitor BUN and creatinine on daily basis while on IV diuretics. SR/MODL Voice ID: [id number] Report ID: [id number]
[2023-03-19] MEDS: ATORVASTATIN 20 MG TAB PO SCH (22:00)
[2023-03-19] MEDS: DOXAZOSIN 2 MG TAB PO SCH (22:00)
[2023-03-20] MEDS: SILDENAFIL CITRATE 20 MG TABLET PO SCH ×4 (04:04→22:38)
[2023-03-20] MEDS: LEVOTHYROXINE SOD 0.075 MG TAB PO SCH (06:21)
[2023-03-20] MEDS: carvediloL 12.5 MG TAB PO SCH ×2 (06:21→17:45)
--- NOTE | 2023-03-20 07:01 | P.PN ---
Date of Service: 03/20/23 Subjective: Breathing more comfortably on room air chronic back pain ~unchanged, +felt some chest pressure yesterday swelling in legs continues to improve; breathing more comfortably afebrile ROS: 10 point ROS as noted above, otherwise negative Physical Exam: GEN: Alert, oriented, NAD, Lucas in place HEENT: Normal conjunctiva, sclera anicteric CV: Regular rate and rhythm, 1+ BLE edema up to knees Pulm: Nonlabored respirations on room air at rest, diminished at bases b/l ABD: Soft, nontender, nondistended MSK: mild tenderness on left flank, +muscle spasm Neuro: Normal speech, normal affect Lucas in place vitals reviewed Problem List: Anasarca Acute on chronic diastolic CHF UTI, Klebsiella Pneumoniae Urinary retention secondary to UTI NOHEMY Hypertensive urgency IDDM2 with hyperglycemia Hypothyroidism Chronic back pain Anasarca Acute on chronic diastolic CHF Mild Cardiomegaly CXR (03/16): Mild cardiomegaly. No focal areas of acute airspace disease Last echo (2020) with normal EF. She takes Lasix 40 mg BID at home Cardiology consulted Echo (03/17): 73% EF, severe diastolic dysfunction, severe pulmonary hypertension, mild MR, mild TR 03/19 changed metoprolol to coreg for better BP control decreased IV lasix from TID to BID (03/19) Reports chest pressure yesterday afternoon (03/19) - repeat troponins negative PT/OT consult improving UTI, Klebsiella Pneumoniae Urinary retention reports Lower left flank pain, +increased urge to urinate pt reported symptoms, and PVR noted to be >200 on (03/18), lucas placed 03/18 Urine culture: Klebsiella Pneumoniae, 4+GNR cont Rocephin (03/17-) Afebrile, +leukocytosis improving ~3L UOP in last 24hrs NOHEMY renal u/s (03/17): 3.6 cm benign right renal cyst. Nephrology consulted cont lasix Monitor renal function Hypertensive urgency reports being out of her doxazosin for the past ~4 days Continue home medications - restarted sildenfail, pt with severe pulm hypertension BP improving IDDM2 with hyperglycemia ACHS Accu-Chek, SSI continue reduced long-acting insulin once dose confirmed. Hypothyroidism Continue home synthroid TSH: 4.63 Free T4: 1.14 VTE: Lovenox Code: Full Dispo: Rehab pending auth, ~2 days ss/cm consulted - pending approval
[2023-03-20 07:06] LABS: Absolute Lymphocytes (CBC) 2.2 K/uL (0.7-4.9); Hematocrit 34.3 % (36.0-45.0); Lymphocytes % 20.6 % (15.3-44.8); MCV 91.2 fL (80-100); MPV 7.9 fL (7.6-11.3); Platelets 308 thou/uL (152-406); RBC Red Blood Cell Count 3.76 M/uL (3.86-4.86)
[2023-03-20 07:23] LABS: Magnesium 2.1 mg/dL (1.6-2.4)
[2023-03-20 08:43] LABS: Blood Morphology Comment NOT SEEN (NOT SEEN); Platelet Estimate ADEQ
[2023-03-20] MEDS: JUVEN PACKET PO SCH ×2 (09:00→21:00)
[2023-03-20] MEDS: ENOXAPARIN 40 MG/0.4 ML SQ SCH (09:11)
[2023-03-20] MEDS: CODEINE 30MG/APAP 300MG TAB PO PRN ×2 (09:11→22:39)
[2023-03-20] MEDS: INSULIN GLARGINE 100 UNIT/ML SQ SCH ×2 (09:11→22:40)
[2023-03-20] MEDS: PANTOPRAZOLE 40MG TABLET PO SCH ×2 (09:13→16:30)
[2023-03-20] MEDS: LIDOCAINE 4% PATCH TOP SCH (09:13)
[2023-03-20] MEDS: FUROSEMIDE 40 MG/4 ML VIAL IV SCH ×2 (09:13→16:30)
[2023-03-20] MEDS: ASPIRIN EC 81 MG TAB PO SCH (09:13)
[2023-03-20] MEDS: HYDRALAZINE HCL 25 MG TABLET PO SCH ×3 (09:13→22:38)
[2023-03-20] MEDS: INSULIN -REGULAR HUMAN 50 UNIT/0.5 ML ML SQ SCH ×4 (09:14→22:40)
[2023-03-20] MEDS: MONTELUKAST 10 MG TAB PO SCH (09:15)
[2023-03-20] MEDS: CEFTRIAXONE 1,000 MG in NA CHLORIDE 0.9% 50 ML IVPB SCH (09:15)
[2023-03-20] MEDS: DIPHENHYDRAMINE 25 MG TAB/CAP PO PRN ×2 (09:27→22:39)
[2023-03-20] MEDS ORDERED: FUROSEMIDE 40 MG/4 ML VIAL IV ONE (11:00)
--- NOTE | 2023-03-20 11:48 | PN ---
Date of Progress Note: 03/20/2023 Subjective: The patient was admitted to the hospital with acute kidney injury, anasarca. The patient was started on diuresis, responding very well. Physical Examination: Vital Signs: Blood pressure 155/64, pulse of 72, afebrile. The patient had good urine output of 3100. The patient negative of 1100. As weight littlejohn, the patient lost 2 pounds from yesterday. Chest: Decreased entry bilateral base. Heart: S1, S2. Regular. Abdomen: Morbidly obese. Could not appreciate any organomegaly. Extremities: +1 edema. Neurologic: Alert. No focality. Laboratory Data: Hemoglobin 11.1. Sodium 136, potassium 4, bicarb 33, BUN 36, creatinine is 1.3 and continued to improve, GFR 43, calcium 8.4, phosphorus 3, magnesium 2.1, albumin 3, corrected calcium 9.2. Current Medications: The patient on include; 1. Ceftriaxone. 2. Aspirin. 3. Lovenox. 4. Carvedilol 12.5. 5. Cardura. 6. Lasix 40 b.i.d. 7. Pantoprazole. 8. Levothyroxine. Assessment And Plan: 1. Acute kidney injury secondary to cardiorenal syndrome. We will continue the patient on diuresis and we will monitor. 2. Hypertension, not controlled. Yesterday, we added hydralazine, blood pressure slightly better. We will continue to utilize blood pressure for more diuresis. 3. Anasarca secondary to cardiorenal, hypothyroidism and proteinuria was ruled out. I am going to go ahead and give extra dose of Lasix today and we will follow up the patient. 4- hyepr K resolved keep hold the lokelam for now , if need will use veltassa 5-CHF with Ex as above Time spent examining the patient [id number], reviewing data, lab and radiology, placing order, discussing the case with the food service team member including hospitalist and nursing staff more than 35 minutes. [facility] Voice ID: [id number] Report ID: [id number] [facility]
[2023-03-20] MEDS: DOXAZOSIN 2 MG TAB PO SCH (22:38)
[2023-03-20] MEDS: ATORVASTATIN 20 MG TAB PO SCH (22:39)
[2023-03-21] MEDS: HYDROCODONE/APAP 5/325 MG TAB PO PRN ×2 (03:05→13:52)
[2023-03-21] MEDS: DIPHENHYDRAMINE 25 MG TAB/CAP PO PRN ×4 (03:09→22:47)
[2023-03-21 03:53] LABS: Albumin 2.8 g/dL (3.4-5.0); Phosphorus 2.9 mg/dL (2.5-4.9)
[2023-03-21] MEDS: carvediloL 12.5 MG TAB PO SCH ×2 (07:17→17:44)
[2023-03-21] MEDS: LEVOTHYROXINE SOD 0.075 MG TAB PO SCH (07:18)
--- NOTE | 2023-03-21 07:27 | P.PN ---
Date of Service: 03/21/23 Subjective: left flank pain improving breathing improving slowly each day afebrile ROS: 10 point ROS as noted above, otherwise negative Physical Exam: GEN: Alert, oriented, NAD, Lucas in place HEENT: Normal conjunctiva, sclera anicteric CV: Regular rate and rhythm, 1+ BLE edema up to knees Pulm: Nonlabored respirations on room air at rest, diminished at bases b/l ABD: Soft, nontender, nondistended MSK: mild tenderness on left flank Neuro: Normal speech, normal affect Lucas in place vitals reviewed Problem List: Anasarca Acute on chronic diastolic CHF UTI, Klebsiella Pneumoniae Urinary retention secondary to UTI NOHEMY Hypertensive urgency IDDM2 with hyperglycemia Hypothyroidism Chronic back pain Anasarca Acute on chronic diastolic CHF Mild Cardiomegaly CXR (03/16): Mild cardiomegaly. No focal areas of acute airspace disease Last echo (2020) with normal EF. She takes Lasix 40 mg BID at home Cardiology consulted Echo (03/17): 73% EF, severe diastolic dysfunction, severe pulmonary hypertension, mild MR, mild TR 03/19 changed metoprolol to coreg for better BP control decreased IV lasix from TID to BID (03/19) PT/OT consult improving UTI, Klebsiella Pneumoniae Urinary retention, suspect secondary to UTI reports Lower left flank pain, +increased urge to urinate pt reported symptoms, and PVR noted to be >200 on (03/18), lucas placed 03/18; dc in next few days for voiding trial Urine culture: Klebsiella Pneumoniae, 4+GNR cont Rocephin (03/17-) Afebrile, +leukocytosis improving NOHEMY, cardiorenal syndrome renal u/s (03/17): 3.6 cm benign right renal cyst. Nephrology consulted cont lasix Monitor renal function stable / improving Hypertensive urgency reports being out of her doxazosin for the past ~4 days Continue home medications - restarted sildenfail, pt with severe pulm hypertension BP improving IDDM2 with hyperglycemia ACHS Accu-Chek, SSI continue reduced long-acting insulin once dose confirmed. Hypothyroidism Continue home synthroid TSH: 4.63 Free T4: 1.14 VTE: Lovenox Code: Full Dispo: Rehab, pending auth ss/cm consulted - pending approval
[2023-03-21] MEDS: JUVEN PACKET PO SCH ×2 (08:11→21:00)
[2023-03-21] MEDS: CEFTRIAXONE 1,000 MG in NA CHLORIDE 0.9% 50 ML IVPB SCH (08:11)
[2023-03-21] MEDS: LIDOCAINE 4% PATCH TOP SCH (08:11)
[2023-03-21] MEDS: ENOXAPARIN 40 MG/0.4 ML SQ SCH (08:11)
[2023-03-21] MEDS: HYDRALAZINE HCL 25 MG TABLET PO SCH ×3 (08:12→21:42)
[2023-03-21] MEDS: PANTOPRAZOLE 40MG TABLET PO SCH ×2 (08:12→15:53)
[2023-03-21] MEDS: INSULIN -REGULAR HUMAN 50 UNIT/0.5 ML ML SQ SCH ×4 (08:12→22:47)
[2023-03-21] MEDS: ASPIRIN EC 81 MG TAB PO SCH (08:12)
[2023-03-21] MEDS: FUROSEMIDE 40 MG/4 ML VIAL IV SCH ×2 (08:12→15:53)
[2023-03-21] MEDS: INSULIN GLARGINE 100 UNIT/ML SQ SCH ×2 (08:13→22:48)
[2023-03-21] MEDS: SILDENAFIL CITRATE 20 MG TABLET PO SCH ×3 (08:15→21:41)
[2023-03-21] MEDS: MONTELUKAST 10 MG TAB PO SCH (08:15)
[2023-03-21] MEDS: DOXAZOSIN 2 MG TAB PO SCH (21:41)
[2023-03-21] MEDS: CODEINE 30MG/APAP 300MG TAB PO PRN (21:42)
[2023-03-21] MEDS: CEFDINIR 300 MG CAP PO SCH (21:42)
[2023-03-21] MEDS: ATORVASTATIN 20 MG TAB PO SCH (21:42)
--- NOTE | 2023-03-22 03:21 | PN ---
Date of Progress Note: 03/21/2023 Chief Complaint: Acute kidney injury associated with cardiorenal syndrome, anasarca fluid overload. The patient was started on diuretics. Urine output improved. Review of Systems: Denies chest pain, palpitation. Physical Examination: Lungs: Clear to auscultation bilaterally. Heart: S1, S2. Abdomen: Morbidly obese. Extremities: 1+ edema. Neurological: No focal symptoms. Patient alert and oriented x3. Laboratory Data: Hemoglobin 11.1, WBC 10.6, platelet count 308,000. Sodium 156, potassium 4.0, chlo ride 100, CO2 of 32, BUN 34, creatinine 1.31, estimated GFR 44, glucose 271, calcium 8.2, phosphorus 2.9. Impression: 1.Cardiorenal syndrome, acute on chronic kidney injury. Renal function is plateauing. Continue luis fernando atment for volume control. Patient has fluid overload and cardiorenal syndrome. The patient respond ed to diuretic. Continue low-sodium diet and adequate hydration. 2.Hypoalbuminemia. 3.Anasarca. The patient will need workup for proteinuria. This can be done outpatient. 4.Hypothyroidism per primary team. 5.Proteinuria. Recommend to check a screen for monoclonal gammopathy of unknown significance. EB/MODL Voice ID: [id number] Report ID: [id number]
[2023-03-22 06:37] LABS: Albumin 2.8 g/dL (3.4-5.0); Phosphorus 2.8 mg/dL (2.5-4.9); Potassium 4.3 mEq/L (3.5-5.1)
[2023-03-22] MEDS: carvediloL 12.5 MG TAB PO SCH ×2 (06:40→17:40)
[2023-03-22] MEDS: LEVOTHYROXINE SOD 0.075 MG TAB PO SCH (06:41)
[2023-03-22] MEDS: JUVEN PACKET PO SCH ×2 (08:24→21:00)
[2023-03-22] MEDS: INSULIN -REGULAR HUMAN 50 UNIT/0.5 ML ML SQ SCH ×4 (08:24→21:24)
[2023-03-22] MEDS: INSULIN GLARGINE 100 UNIT/ML SQ SCH ×2 (08:24→21:24)
[2023-03-22] MEDS: HYDRALAZINE HCL 25 MG TABLET PO SCH ×3 (08:25→21:23)
[2023-03-22] MEDS: MONTELUKAST 10 MG TAB PO SCH (08:25)
[2023-03-22] MEDS: PANTOPRAZOLE 40MG TABLET PO SCH ×2 (08:25→16:08)
[2023-03-22] MEDS: CEFDINIR 300 MG CAP PO SCH ×2 (08:25→21:23)
[2023-03-22] MEDS: FUROSEMIDE 40 MG/4 ML VIAL IV SCH ×2 (08:25→16:08)
[2023-03-22] MEDS: SILDENAFIL CITRATE 20 MG TABLET PO SCH ×3 (08:25→21:23)
[2023-03-22] MEDS: ENOXAPARIN 40 MG/0.4 ML SQ SCH (08:25)
[2023-03-22] MEDS: ASPIRIN EC 81 MG TAB PO SCH (08:25)
[2023-03-22] MEDS: LIDOCAINE 4% PATCH TOP SCH (08:26)
[2023-03-22] MEDS ORDERED: ATROPINE SULF 1 MG/10 ML SYR IV ONE (09:23)
[2023-03-22] MEDS: ALBUTEROL 2.5 MG/3 ML NEB SOL NEB PRN (10:20)
[2023-03-22] MEDS ORDERED: FUROSEMIDE 40 MG/4 ML VIAL IV ONE (11:13)
--- NOTE | 2023-03-22 12:09 | PN ---
Date of Progress Note: 03/22/2023 Subjective: The patient was admitted to the hospital with acute kidney injury, over volume, and anas arca. The patient has been diuresed very well. Physical Examination: Vital Signs: Blood pressure 164/68, pulse of 88, afebrile. The patient had good urine output of 420 0, negative balance of 700. As weight littlejohn, no change. Chest: Decreased entry bilateral base. Heart: S1, S2. Regular. Abdomen: Soft, nontender. Morbidly obese. Could not appreciate any organomegaly. Extremities: +1 edema. Neurologic: Alert. No focality. Laboratory Data: Hemoglobin 11.1. Sodium 136, potassium 4.3, bicarb 34, BUN 35, creatinine 1.3, GFR 45, calcium 8.3, phosphorus 2.8, albumin 2.8. Current Medications: The patient on include cefdinir, aspirin, atorvastatin, Cardura, hydralazine 25 t.i.d., sildenafil, Lasix 40 b.i.d., levothyroxine. Assessment And Plan: 1.Acute kidney injury secondary to cardiorenal. The patient continued to recover. Still on the ove r volume side. I am going to continue diuresis. We will go ahead and get chest x-ray for better naina luation of her fluid status. I am going to go ahead and give her extra dose of Lasix today. 2.Hypertension, not controlled. We will give extra dose of the Lasix. We will monitor the patient. I am going to go ahead and increase her hydralazine to 50 mg. 3.Anasarca secondary to cardiorenal. Hypothyroidism and proteinuria were ruled out. We will contin ue diuresis. We will try to optimize fluid status for the patient. We will get repeated chest x-ray for better evaluation of her fluid status. Continue compression socks. 4.Pulmonary hypertension. I am going to start the patient on spironolactone and we will follow up. Time spent examining the patient [id number], reviewing data, lab and radiology, placing order, disc ussing the case with the patient, discussing the case with the cafeteria team leader including nursing staff an d hospitalist more than 35 minutes. [facility] Voice ID: [id number] Report ID: [id number]
--- NOTE | 2023-03-22 12:22 | RAD REPORT ---
EXAM DESCRIPTION: RAD - Chest Single View - 03/22/2023 12:16 pm CLINICAL HISTORY: COPD Chest pain. COMPARISON: Chest Single View dated 03/16/2023; Chest Single View dated 03/02/2021 FINDINGS: Portable technique limits examination quality. Mild bilateral pulmonary opacities are present likely interstitial pulmonary edema. The heart is mode rately enlarged in size. No displaced fractures. IMPRESSION: Mild CHF versus volume overload.
[2023-03-22] MEDS: DIPHENHYDRAMINE 25 MG TAB/CAP PO PRN (13:22)
[2023-03-22] MEDS: HYDROCODONE/APAP 5/325 MG TAB PO PRN (13:22)
[2023-03-22] MEDS: ONDANSETRON 4 MG/2 ML VIAL IV PRN (16:08)
--- NOTE | 2023-03-22 20:19 | P.PN ---
Subjective Date of Service: 03/22/23 Chief Complaint: CHF, anasarca Patient has no new complaint. She denies any shortness of breath. Physical Examination - Vital Signs Temperature: 96.9 F Blood Pressure: 164/64 Pulse: 77 Respirations: 20 Pulse Ox (%): 98 Assessment And Plan - Plan Physical Exam: GEN: Alert, oriented, NAD, Mann in place CV: Regular rate and rhythm, 1+ BLE edema up to knees Pulm: Clear to auscultation bilaterally. ABD: Soft, nontender, nondistended Neuro: Normal speech, normal affect Mann in place vitals reviewed Problem List: Anasarca Acute on chronic diastolic CHF UTI, Klebsiella Pneumoniae Urinary retention secondary to UTI NOHEMY Hypertensive urgency IDDM2 with hyperglycemia Hypothyroidism Chronic back pain Anasarca Acute on chronic diastolic CHF Mild Cardiomegaly CXR (03/16): Mild cardiomegaly. No focal areas of acute airspace disease Last echo (2020) with normal EF. She takes Lasix 40 mg BID at home Cardiology consulted Echo (03/17): 73% EF, severe diastolic dysfunction, severe pulmonary hypertension, mild MR, mild TR 03/19 changed metoprolol to coreg for better BP control Nephrology is following and managing diuresis. PT/OT Clinically improving UTI, Klebsiella Pneumoniae Urinary retention, suspect secondary to UTI reports Lower left flank pain, +increased urge to urinate Urine culture: Klebsiella Pneumoniae, 4+GNR cont Rocephin (03/17-) Afebrile, +leukocytosis resolved. Antibiotics transition to oral Omnicef. NOHEMY, cardiorenal syndrome renal u/s (03/17): 3.6 cm benign right renal cyst. Nephrology Dr. Fox is following and managing On Lasix Monitor renal function stable / improving Hypertensive urgency reports being out of her doxazosin for 4 days Continue home medications - sildenfail, pt with severe pulm hypertension Nephrology to assist with BP management IDDM2 with hyperglycemia ACHS Accu-Chek, SSI Lantus insulin Hypothyroidism Continue home synthroid TSH: 4.63 Free T4: 1.14 VTE: Lovenox Code: Full Dispo: Rehab, pending auth ss/cm are following.
[2023-03-22] MEDS: DOXAZOSIN 2 MG TAB PO SCH (21:23)
[2023-03-22] MEDS: ATORVASTATIN 20 MG TAB PO SCH (21:23)
[2023-03-23] MEDS: HYDROCODONE/APAP 5/325 MG TAB PO PRN ×3 (00:23→14:16)
[2023-03-23] MEDS: DIPHENHYDRAMINE 25 MG TAB/CAP PO PRN ×3 (00:23→14:17)
[2023-03-23] MEDS: carvediloL 12.5 MG TAB PO SCH ×2 (06:10→17:29)
[2023-03-23] MEDS: LEVOTHYROXINE SOD 0.075 MG TAB PO SCH (06:10)
[2023-03-23 06:30] LABS: Potassium 3.9 mEq/L (3.5-5.1)
[2023-03-23] MEDS: ASPIRIN EC 81 MG TAB PO SCH (09:05)
[2023-03-23] MEDS: PANTOPRAZOLE 40MG TABLET PO SCH ×2 (09:06→17:27)
[2023-03-23] MEDS: HYDRALAZINE HCL 25 MG TABLET PO SCH ×3 (09:06→21:13)
[2023-03-23] MEDS: SILDENAFIL CITRATE 20 MG TABLET PO SCH ×3 (09:07→21:13)
[2023-03-23] MEDS: LIDOCAINE 4% PATCH TOP SCH (09:07)
[2023-03-23] MEDS: CEFDINIR 300 MG CAP PO SCH ×2 (09:07→21:13)
[2023-03-23] MEDS: MONTELUKAST 10 MG TAB PO SCH (09:07)
[2023-03-23] MEDS: FUROSEMIDE 40 MG/4 ML VIAL IV SCH ×2 (09:07→17:28)
[2023-03-23] MEDS: ENOXAPARIN 40 MG/0.4 ML SQ SCH (09:08)
[2023-03-23] MEDS: JUVEN PACKET PO SCH ×2 (09:08→21:00)
[2023-03-23] MEDS: SPIRONOLACTONE 25 MG TABLET PO SCH (09:08)
[2023-03-23] MEDS: INSULIN -REGULAR HUMAN 50 UNIT/0.5 ML ML SQ SCH ×4 (09:09→21:14)
[2023-03-23] MEDS: INSULIN GLARGINE 100 UNIT/ML SQ SCH ×2 (09:09→21:15)
--- NOTE | 2023-03-23 15:12 | PN ---
Date of Progress Note: 03/23/2023 Subjective: Patient was admitted to the hospital with acute kidney injury, anasarca. Patient was found to have pulmonary hypertension and congestive heart failure. Physical Examination: Vital Signs: When I saw the patient, blood pressure 151/71, pulse of 84, afebrile. Patient had good urine output of 2800, -1400. Chest: Decreased entry bilateral base. Heart: S1, S2. Regular. Abdomen: Soft, nontender. Extremities: Erythema, +1 edema. Neurologic: No focality. Laboratory Data: Hemoglobin 11.1. Sodium 136, potassium 3.9, bicarb 32, BUN 37, creatinine 1.2. GFR of 45. Calcium 8.7. Current Medications: The patient on include: 1. Aspirin. 2. Cefdinir. 3. Lovenox. 4. Atorvastatin. 5. Carvedilol 12.5. 6. Cardura 1 mg daily. 7. Hydralazine 50 t.i.d. 8. Spironolactone 25. 9. Lasix 40 b.i.d. 10. Pantoprazole. 11. Levothyroxine. Assessment And Plan: 1. Acute kidney injury secondary to cardiorenal. Continue to recover. Patient is still on the wet side. Yesterday, received extra dose of Lasix. Increased and adding spironolactone, patient responded very well. I am going to go ahead and increase her Lasix to 60 mg b.i.d. and we will continue to monitor. Continue spironolactone. 2. Hypertension, better controlled. We just increase hydralazine and spironolactone. We will follow up. 3. Anasarca secondary to cardiorenal/pulmonary hypertension. We will continue optimize the fluid status as above. 4. Pulmonary hypertension, started on spironolactone. We will follow up. We will try to avoid calcium channel roberto to avoid worsening her peripheral edema. Time spent examining the patient [id number], reviewing data, lab and radiology, placing order, discussing the case with the nursing and hospitalist more than 35 minutes. [facility] Voice ID: [id number] Report ID: [id number] [facility]
--- NOTE | 2023-03-23 16:38 | P.PN ---
Subjective Date of Service: 03/23/23 Chief Complaint: CHF, anasarca Patient has no new complaint. She denies any shortness of breath. She is currently maintained on 2 L oxygen by nasal cannula. Physical Examination - Vital Signs Temperature: 97.2 F Blood Pressure: 151/71 Pulse: 84 Respirations: 18 Pulse Ox (%): 98 Assessment And Plan - Plan Physical Exam: GEN: Alert, oriented, NAD, Mann in place CV: Regular rate and rhythm, 1+ BLE edema up to knees Pulm: Clear to auscultation bilaterally. ABD: Soft, nontender, nondistended Neuro: Normal speech, normal affect Mann in place vitals reviewed Problem List: Anasarca Acute on chronic diastolic CHF UTI, Klebsiella Pneumoniae Urinary retention secondary to UTI NOHEMY Hypertensive urgency IDDM2 with hyperglycemia Hypothyroidism Chronic back pain Anasarca Acute on chronic diastolic CHF Last echo (2020) with normal EF. She takes Lasix 40 mg BID at home Seen by cardiology Echo (03/17): 73% EF, severe diastolic dysfunction, severe pulmonary hypertension, mild MR, mild TR Metoprolol changed to coreg for better BP control Nephrology is following and managing diuresis. PT/OT Clinically improving Continue Lasix. UTI, Klebsiella Pneumoniae Urinary retention, suspect secondary to UTI Urine culture: Klebsiella Pneumoniae, 4+GNR Patient treated with Rocephin and transitioned to oral Omnicef. Patient is slated for 14 days of treatment. Afebrile, leukocytosis resolved. NOHEMY, cardiorenal syndrome renal u/s (03/17): 3.6 cm benign right renal cyst. Nephrology Dr. Fox is following and managing On Lasix Monitor renal function stable / improving Hypertensive urgency reports being out of her doxazosin for 4 days BP management with doxazosin, Coreg, sildenafil. Nephrology is assisting with BP management IDDM2 with hyperglycemia ACHS Accu-Chek, SSI Lantus insulin Hypothyroidism Continue home synthroid TSH: 4.63 Free T4: 1.14 VTE: Lovenox Code: Full Dispo: Rehab, pending auth ss/cm are following.
[2023-03-23] MEDS: DOXAZOSIN 2 MG TAB PO SCH (21:13)
[2023-03-23] MEDS: ATORVASTATIN 20 MG TAB PO SCH (21:14)
--- NOTE | 2023-03-23 23:05 | PN ---
Date of Progress Note: 03/23/2023 Subjective: Seen by bedside. Continues to diurese very well, BUN and creatinine have improved. Review of Systems: No chest pain. Has lower extremity edema and shortness of breath. No nausea, vomiting, diarrhea. N o abdominal pain. No dysuria, polyuria, or urinary urgency. No skin rash or headache. All other sy stems reviewed are negative. Physical Examination: Vital signs: Reviewed. Head and Neck: Pupils are equal, reactive to light. Intact eye movements. No cervical lymphadenopa thy. Neck: Supple. Thyroid is not enlarged. Lungs: Decreased breathing sounds bilaterally. No accessory muscle use or muscle retraction. Heart: Regular rate and rhythm. No extra sounds. Abdomen: Soft, nontender. Bowel sounds positive. No organomegaly. No masses or hernia. No rigidi ty or rebound. Extremities: No clubbing, cyanosis. Positive edema with improvement. Neurologic: Alert, awake. No acute focal deficits appreciated. Investigations: BUN 37, creatinine 1.29, and hemoglobin 11.1. Assessment And Recommendation: 1.Acute on chronic diastolic heart failure exacerbation. Continues to improve. Continue IV diuresi s and carefully monitor BUN, creatinine, and electrolytes. 2.Acute renal failure due to urinary retention, improved after Mann catheter was placed. 3.Hypertension. Blood pressure is controlled. Continue current therapy. 4.Dyslipidemia. Continue statin. SR/MODL Voice ID: [id number] Report ID: [id number]
[2023-03-24] MEDS: HYDROCODONE/APAP 5/325 MG TAB PO PRN ×4 (01:30→20:44)
[2023-03-24] MEDS: DIPHENHYDRAMINE 25 MG TAB/CAP PO PRN ×4 (01:30→20:44)
[2023-03-24] MEDS: carvediloL 12.5 MG TAB PO SCH ×2 (06:17→16:59)
[2023-03-24] MEDS: LEVOTHYROXINE SOD 0.075 MG TAB PO SCH (06:18)
[2023-03-24 06:42] LABS: Absolute Lymphocytes (CBC) 2.3 K/uL (0.7-4.9); Hematocrit 31.1 % (36.0-45.0); MCV 91.1 fL (80-100); MPV 8.4 fL (7.6-11.3); Platelets 273 thou/uL (152-406); RBC Red Blood Cell Count 3.41 M/uL (3.86-4.86)
[2023-03-24 07:04] LABS: Potassium 3.8 mEq/L (3.5-5.1)
[2023-03-24] MEDS: INSULIN -REGULAR HUMAN 50 UNIT/0.5 ML ML SQ SCH ×4 (08:31→20:46)
[2023-03-24] MEDS: INSULIN GLARGINE 100 UNIT/ML SQ SCH ×2 (08:31→20:46)
[2023-03-24] MEDS: SPIRONOLACTONE 25 MG TABLET PO SCH (08:32)
[2023-03-24] MEDS: PANTOPRAZOLE 40MG TABLET PO SCH ×2 (08:32→16:58)
[2023-03-24] MEDS: HYDRALAZINE HCL 25 MG TABLET PO SCH ×3 (08:33→20:45)
[2023-03-24] MEDS: ASPIRIN EC 81 MG TAB PO SCH (08:34)
[2023-03-24] MEDS: FUROSEMIDE 40 MG/4 ML VIAL IV SCH ×2 (08:34→16:58)
[2023-03-24] MEDS: LIDOCAINE 4% PATCH TOP SCH (08:35)
[2023-03-24] MEDS: SILDENAFIL CITRATE 20 MG TABLET PO SCH ×3 (08:35→20:45)
[2023-03-24] MEDS: CEFDINIR 300 MG CAP PO SCH ×2 (08:35→20:45)
[2023-03-24] MEDS: MONTELUKAST 10 MG TAB PO SCH (08:36)
[2023-03-24] MEDS: JUVEN PACKET PO SCH ×2 (08:36→20:46)
[2023-03-24] MEDS: ENOXAPARIN 40 MG/0.4 ML SQ SCH (08:47)
[2023-03-24] MEDS ORDERED: POTASSIUM CL SA 10 MEQ TAB PO ONE (09:00)
--- NOTE | 2023-03-24 17:43 | P.PN ---
Subjective Date of Service: 03/24/23 Chief Complaint: CHF, anasarca Patient has no new complaint. She denies any shortness of breath. Physical Examination - Vital Signs Temperature: 98.0 F Blood Pressure: 174/79 Pulse: 115 Respirations: 18 Pulse Ox (%): 97 Assessment And Plan - Plan Physical Exam: GEN: Alert, oriented, NAD, Mann in place CV: Regular rate and rhythm, 1+ BLE edema up to knees Pulm: Clear to auscultation bilaterally. ABD: Soft, nontender, nondistended Neuro: Normal speech, normal affect Mann in place vitals reviewed Diagnosis Anasarca Acute on chronic diastolic CHF UTI, Klebsiella Pneumoniae Urinary retention secondary to UTI NOHEMY Hypertensive urgency IDDM2 with hyperglycemia Hypothyroidism Chronic back pain Anasarca Acute on chronic diastolic CHF Last echo (2020) with normal EF. She takes Lasix 40 mg BID at home Seen by cardiology Echo (03/17): 73% EF, severe diastolic dysfunction, severe pulmonary hypertension, mild MR, mild TR Metoprolol changed to coreg for better BP control Nephrology is following and managing diuresis. PT/OT Clinically improving She is on Lasix. UTI, Klebsiella Pneumoniae Urinary retention, suspect secondary to UTI Urine culture: Klebsiella Pneumoniae, 4+GNR Patient treated with Rocephin and transitioned to oral Omnicef. Patient is slated for 14 days of treatment. Afebrile, leukocytosis resolved. NOHEMY, cardiorenal syndrome renal u/s (03/17): 3.6 cm benign right renal cyst. Nephrology Dr. Fox is following and managing On Lasix Monitor renal function stable. Hypertensive urgency reports being out of her doxazosin for 4 days BP management with doxazosin, Coreg, sildenafil. Nephrology is assisting with BP management IDDM2 with hyperglycemia ACHS Accu-Chek, SSI Lantus insulin Hypothyroidism Continue home synthroid TSH: 4.63 Free T4: 1.14 VTE: Lovenox Code: Full Dispo: Rehab, pending auth ss/cm are following.
--- NOTE | 2023-03-24 20:06 | PN ---
Date of Progress Note: 03/24/2023 Subjective: Patient was admitted with acute kidney injury secondary to cardiorenal. Patient was diu resed. Patient had anasarca. Patient had pulmonary hypertension. Patient's fluid status has been o ptimized on a daily basis. Physical Examination: Vital Signs: When I saw the patient, blood pressure of 113/62, pulse of 88. Chest: Clear to auscultation. Heart: S1, S2. Systolic murmur. Abdomen: Morbidly obese. Extremities: +1 edema. Neurologic: Alert. No focality. Laboratory Data: Hemoglobin 10.3. Sodium 135, potassium 3.8, bicarb 33, BUN 36, creatinine 1.3, denise cium 8.4. Current Medications: The patient on, include: Cefdinir, aspirin, diphenhydramine, albuterol, Loveno x, spironolactone 25 daily, doxazosin, Cardura 12.5, Tylenol, Lasix 60 b.i.d., pantoprazole, levothyr oxine. Assessment And Plan: 1.Acute kidney injury secondary to cardiorenal syndrome on the recovery phase, still on the over vol ume side, we increased the Lasix yesterday. We will continue to monitor the patient. 2.Hypertension, controlled, optimal. Currently on current regimen. We will continue diuresis given that the blood pressure starts to be on the lower side. I am going to go ahead and backup on the Ca rdura. We will hold it and we will follow up the patient. 3.Anasarca, responding very well. Continue diuresis. 4.Pulmonary hypertension. Continue diuresis. We will add spironolactone. We will follow up. [facility] Voice ID: [id number] Report ID: [id number]
[2023-03-24] MEDS: ATORVASTATIN 20 MG TAB PO SCH (20:45)
[2023-03-25] MEDS: HYDROCODONE/APAP 5/325 MG TAB PO PRN ×3 (04:29→22:12)
[2023-03-25] MEDS: carvediloL 12.5 MG TAB PO SCH ×2 (06:07→17:31)
[2023-03-25] MEDS: LEVOTHYROXINE SOD 0.075 MG TAB PO SCH (06:07)
[2023-03-25] MEDS: DIPHENHYDRAMINE 25 MG TAB/CAP PO PRN ×3 (06:07→22:18)
[2023-03-25] MEDS: PANTOPRAZOLE 40MG TABLET PO SCH ×2 (07:30→17:31)
[2023-03-25] MEDS: INSULIN -REGULAR HUMAN 50 UNIT/0.5 ML ML SQ SCH ×4 (07:30→22:12)
[2023-03-25] MEDS: JUVEN PACKET PO SCH ×2 (09:00→21:00)
[2023-03-25] MEDS: INSULIN GLARGINE 100 UNIT/ML SQ SCH ×2 (09:00→22:12)
[2023-03-25] MEDS: SILDENAFIL CITRATE 20 MG TABLET PO SCH ×3 (09:06→22:13)
[2023-03-25] MEDS: MONTELUKAST 10 MG TAB PO SCH (09:06)
[2023-03-25] MEDS: SPIRONOLACTONE 25 MG TABLET PO SCH (09:06)
[2023-03-25] MEDS: CEFDINIR 300 MG CAP PO SCH ×2 (09:06→22:13)
[2023-03-25] MEDS: LIDOCAINE 4% PATCH TOP SCH (09:06)
[2023-03-25] MEDS: HYDRALAZINE HCL 25 MG TABLET PO SCH ×3 (09:07→22:13)
[2023-03-25] MEDS: ASPIRIN EC 81 MG TAB PO SCH (09:07)
[2023-03-25] MEDS: ENOXAPARIN 40 MG/0.4 ML SQ SCH (09:07)
[2023-03-25] MEDS: FUROSEMIDE 40 MG/4 ML VIAL IV SCH ×2 (09:07→17:31)
[2023-03-25] MEDS: ONDANSETRON 4 MG/2 ML VIAL IV PRN (14:02)
--- NOTE | 2023-03-25 14:58 | P.PN ---
Subjective Date of Service: 03/25/23 Chief Complaint: CHF, anasarca Subjective: No new changes Physical Examination - Vital Signs Temperature: 97.3 F Blood Pressure: 172/74 Pulse: 91 Respirations: 18 Pulse Ox (%): 94 - Physical Exam General: Other (chronically ill-appearing) HEENT: Atraumatic, Normocephalic Neck: Supple Respiratory: Other (symmetric chest expansion) Cardiovascular: No rubs, No murmurs Gastrointestinal: Soft and benign, No guarding Musculoskeletal: No clubbing Integumentary: No warmth Neurological: Normal tone Urinary: Other (no bladder distention) External genitalia: Deferred Rectal: Deferred Assessment And Plan - Plan 1. Acute kidney injury secondary to cardiorenal, over volume with respiratory symptoms. continue Lasix 60 mg IV bid. [place] by mouth fluid intake. 2. Acute on chronic diastolic heart failure. Continue Lasix 40 mg IV as above. Strict low-sodium diet less than 2 g per day. Do not limit by mouth fluid intake, unless she develops hyponatremia < 130 mEq/L, to avoid further NOHEMY with diuretics. 3. Hypertension. Cont current med regimen. 4. Klebsiella UTI. Received abx. 5. DM2. Mngt per primary team.
--- NOTE | 2023-03-25 17:06 | P.PN ---
Subjective Date of Service: 03/25/23 Chief Complaint: CHF, anasarca Patient has no new complaint. She denies any shortness of breath. She is stable on room air. Physical Examination - Vital Signs Temperature: 97.3 F Blood Pressure: 172/74 Pulse: 91 Respirations: 18 Pulse Ox (%): 94 Assessment And Plan - Plan Physical Exam: GEN: Alert, oriented, NAD, Mann in place CV: Regular rate and rhythm, 1+ BLE edema up to knees Pulm: Clear to auscultation bilaterally. ABD: Soft, nontender, nondistended Neuro: Normal speech, normal affect Mann in place vitals reviewed Diagnosis Anasarca Acute on chronic diastolic CHF UTI, Klebsiella Pneumoniae Urinary retention secondary to UTI NOHEMY Hypertensive urgency IDDM2 with hyperglycemia Hypothyroidism Chronic back pain Anasarca Acute on chronic diastolic CHF Last echo (2020) with normal EF. She takes Lasix 40 mg BID at home Seen by cardiology Echo (03/17): 73% EF, severe diastolic dysfunction, severe pulmonary hypertension, mild MR, mild TR Metoprolol changed to coreg for better BP control Nephrology is following and managing diuresis. PT/OT Clinically improving She is on Lasix. UTI, Klebsiella Pneumoniae Urinary retention, suspect secondary to UTI Urine culture: Klebsiella Pneumoniae, 4+GNR Patient treated with Rocephin and transitioned to oral Omnicef. Patient is slated for 14 days of treatment. Afebrile, leukocytosis resolved. NOHEMY, cardiorenal syndrome renal u/s (03/17): 3.6 cm benign right renal cyst. Nephrology Dr. Fox is following and managing On Lasix Monitor renal function stable. Hypertensive urgency reports being out of her doxazosin for 4 days BP management with doxazosin, Coreg, sildenafil. Nephrology is assisting with BP management IDDM2 with hyperglycemia ACHS Accu-Chek, SSI Lantus insulin Hypothyroidism Continue home synthroid. TSH: 4.63 Free T4: 1.14 VTE: Lovenox Code: Full Dispo: Rehab, pending auth ss/cm are following.
[2023-03-25] MEDS: ATORVASTATIN 20 MG TAB PO SCH (22:13)
[2023-03-26] MEDS: ONDANSETRON 4 MG/2 ML VIAL IV PRN (02:20)
[2023-03-26] MEDS: ONDANSETRON 4 MG (ODT) TAB PO PRN (03:34)
[2023-03-26] MEDS: LEVOTHYROXINE SOD 0.075 MG TAB PO SCH (05:26)
[2023-03-26] MEDS: carvediloL 12.5 MG TAB PO SCH ×2 (05:26→17:37)
[2023-03-26] MEDS: DIPHENHYDRAMINE 25 MG TAB/CAP PO PRN ×3 (05:54→20:06)
[2023-03-26] MEDS: HYDROCODONE/APAP 5/325 MG TAB PO PRN ×3 (05:54→20:06)
[2023-03-26] MEDS: INSULIN -REGULAR HUMAN 50 UNIT/0.5 ML ML SQ SCH ×4 (07:30→20:06)
[2023-03-26] MEDS: INSULIN GLARGINE 100 UNIT/ML SQ SCH ×2 (09:00→20:07)
[2023-03-26] MEDS ORDERED: FUROSEMIDE 40 MG TABLET PO SCH (09:00)
[2023-03-26] MEDS: JUVEN PACKET PO SCH ×2 (09:00→20:05)
[2023-03-26] MEDS ORDERED: FUROSEMIDE 40 MG/4 ML VIAL IV SCH (09:30)
[2023-03-26] MEDS: SPIRONOLACTONE 25 MG TABLET PO SCH (09:58)
[2023-03-26] MEDS: PANTOPRAZOLE 40MG TABLET PO SCH ×2 (09:58→17:37)
[2023-03-26] MEDS: CEFDINIR 300 MG CAP PO SCH ×2 (09:58→20:05)
[2023-03-26] MEDS: MONTELUKAST 10 MG TAB PO SCH (09:58)
[2023-03-26] MEDS: SILDENAFIL CITRATE 20 MG TABLET PO SCH ×3 (09:58→20:06)
[2023-03-26] MEDS: HYDRALAZINE HCL 25 MG TABLET PO SCH ×3 (09:58→20:05)
[2023-03-26] MEDS: ASPIRIN EC 81 MG TAB PO SCH (09:58)
[2023-03-26] MEDS: LIDOCAINE 4% PATCH TOP SCH (09:59)
[2023-03-26] MEDS: ENOXAPARIN 40 MG/0.4 ML SQ SCH (09:59)
--- NOTE | 2023-03-26 13:29 | P.PN ---
Subjective Date of Service: 03/26/23 Chief Complaint: CHF, anasarca Patient has no new complaint. She denies any shortness of breath. She is tolerating oral diet Physical Examination - Vital Signs Temperature: 97.6 F Blood Pressure: 134/69 Pulse: 100 Respirations: 18 Pulse Ox (%): 96 Assessment And Plan - Plan Physical Exam: GEN: Alert, oriented, NAD, Mann in place CV: Regular rate and rhythm, 1+ BLE edema up to knees Pulm: Clear to auscultation bilaterally. ABD: Soft, nontender, nondistended Neuro: Normal speech, normal affect Mann in place vitals reviewed Diagnosis Anasarca Acute on chronic diastolic CHF UTI, Klebsiella Pneumoniae Urinary retention secondary to UTI NOHEMY Hypertensive urgency IDDM2 with hyperglycemia Hypothyroidism Chronic back pain Anasarca Acute on chronic diastolic CHF Last echo (2020) with normal EF. She takes Lasix 40 mg BID at home Seen by cardiology Echo (03/17): 73% EF, severe diastolic dysfunction, severe pulmonary hypertension, mild MR, mild TR Metoprolol changed to coreg for better BP control Nephrology is following and managing diuresis. PT/OT Clinically improving Change IV Lasix to oral. UTI, Klebsiella Pneumoniae Urinary retention, suspect secondary to UTI Urine culture: Klebsiella Pneumoniae, 4+GNR Patient treated with Rocephin and transitioned to oral Omnicef. Patient is slated for 14 days of treatment. Afebrile, leukocytosis resolved. NOHEMY, cardiorenal syndrome renal u/s (03/17): 3.6 cm benign right renal cyst. Nephrology Dr. Fox is following and managing Lasix by nephrology. Monitor renal function stable. Hypertensive urgency reports being out of her doxazosin for 4 days BP management with doxazosin, Coreg, sildenafil. She is currently normotensive. Nephrology is assisting with BP management IDDM2 with hyperglycemia ACHS Accu-Chek, SSI Lantus insulin Hypothyroidism Continue home synthroid. TSH: 4.63 Free T4: 1.14 VTE: Lovenox Code: Full Dispo: Inpatient rehab pending auth ss/cm are following.
--- NOTE | 2023-03-26 16:01 | P.PN ---
Subjective Date of Service: 03/26/23 Chief Complaint: CHF, anasarca Pt admitted with SOB and edema , C 1.2-1.4 Physical exam General: Awake, NAD HEENT: Atraumatic, Normocephalic Neck: Supple, no elevated JVD Respiratory: CTAB Cardiovascular: No rubs, No murmurs Gastrointestinal: Soft and benign, Non-distended Ext : edema A/P # Acute kidney injury secondary to cardiorenal, over volume with respiratory symptoms. continue Lasix 60 mg IV bid. [place] by mouth fluid intake. # Acute on chronic diastolic heart failure. Continue Lasix 40 mg IV as above. Strict low-sodium diet less than 2 g per day. Do not limit by mouth fluid intake, #pseduohyponatremia BS control #Hypertension. Cont current med regimen. # Klebsiella UTI. Received abx. # DM2. Mngt per primary team. Physical Examination - Vital Signs Temperature: 97.6 F Blood Pressure: 134/69 Pulse: 100 Respirations: 18 Pulse Ox (%): 96
[2023-03-26] MEDS: FUROSEMIDE 40 MG TABLET PO SCH (17:37)
[2023-03-26] MEDS: ATORVASTATIN 20 MG TAB PO SCH (20:06)
[2023-03-26] MEDS ORDERED: HOME MED 1 EA UNK (Furosemide [Furosemide] 80 MG Tablet) PO SCH (21:00)
[2023-03-27 04:21] LABS: Absolute Lymphocytes (CBC) 1.6 K/uL (0.7-4.9); Hematocrit 33.5 % (36.0-45.0); Lymphocytes % 15.6 % (15.3-44.8); MCV 91.2 fL (80-100); Platelets 260 thou/uL (152-406); RBC Red Blood Cell Count 3.67 M/uL (3.86-4.86)
[2023-03-27 04:35] LABS: Potassium 4.2 mEq/L (3.5-5.1)
[2023-03-27] MEDS: HYDROCODONE/APAP 5/325 MG TAB PO PRN ×2 (05:03→12:05)
[2023-03-27] MEDS: carvediloL 12.5 MG TAB PO SCH ×2 (05:03→16:52)
[2023-03-27] MEDS: LEVOTHYROXINE SOD 0.075 MG TAB PO SCH (05:04)
[2023-03-27] MEDS: ENOXAPARIN 40 MG/0.4 ML SQ SCH (08:28)
[2023-03-27] MEDS: CEFDINIR 300 MG CAP PO SCH ×2 (08:28→20:33)
[2023-03-27] MEDS: INSULIN -REGULAR HUMAN 50 UNIT/0.5 ML ML SQ SCH ×4 (08:28→20:33)
[2023-03-27] MEDS: SILDENAFIL CITRATE 20 MG TABLET PO SCH ×3 (08:29→20:30)
[2023-03-27] MEDS: HYDRALAZINE HCL 25 MG TABLET PO SCH ×3 (08:29→20:30)
[2023-03-27] MEDS: PANTOPRAZOLE 40MG TABLET PO SCH ×2 (08:29→16:25)
[2023-03-27] MEDS: SPIRONOLACTONE 25 MG TABLET PO SCH (08:30)
[2023-03-27] MEDS: INSULIN GLARGINE 100 UNIT/ML SQ SCH ×2 (08:31→20:33)
[2023-03-27] MEDS: ASPIRIN EC 81 MG TAB PO SCH (08:31)
[2023-03-27] MEDS: MONTELUKAST 10 MG TAB PO SCH (08:31)
[2023-03-27] MEDS: FUROSEMIDE 40 MG TABLET PO SCH ×2 (08:55→16:25)
[2023-03-27] MEDS: JUVEN PACKET PO SCH ×2 (08:59→20:31)
[2023-03-27] MEDS: LIDOCAINE 4% PATCH TOP SCH (09:00)
[2023-03-27] MEDS: DIPHENHYDRAMINE 25 MG TAB/CAP PO PRN (12:05)
--- NOTE | 2023-03-27 14:51 | P.PN ---
Subjective Date of Service: 03/27/23 Chief Complaint: CHF, anasarca Pt admitted with SOB and edema , C 1.2-1.4 TODAY NO OVERNIGHT EVENTS stable VS cont lasix Cr stable pending Rehab placement Physical exam General: Awake, NAD HEENT: Atraumatic, Normocephalic Neck: Supple, no elevated JVD Respiratory: CTAB Cardiovascular: No rubs, No murmurs Gastrointestinal: Soft and benign, Non-distended Ext : edema A/P # Acute kidney injury secondary to cardiorenal, over volume with respiratory symptoms. continue Lasix 60 mg IV bid. [place] by mouth fluid intake. # Acute on chronic diastolic heart failure. Continue Lasix 40 mg IV as above. Strict low-sodium diet less than 2 g per day. Do not limit by mouth fluid intake, #pseduohyponatremia BS control #Hypertension. Cont current med regimen. # Klebsiella UTI. Received abx. # DM2. Mngt per primary team. Physical Examination - Vital Signs Temperature: 97.8 F Blood Pressure: 154/55 Pulse: 105 Respirations: 18 Pulse Ox (%): 96
--- NOTE | 2023-03-27 15:33 | P.PN ---
Subjective Date of Service: 03/27/23 Chief Complaint: CHF, anasarca Patient has no new complaint. She denies any shortness of breath. Physical Examination - Vital Signs Temperature: 97.8 F Blood Pressure: 154/55 Pulse: 105 Respirations: 18 Pulse Ox (%): 96 Assessment And Plan - Plan Physical Exam: GEN: Alert, oriented, NAD, Mann in place CV: Regular rate and rhythm, 1+ BLE edema up to knees Pulm: Clear to auscultation bilaterally. ABD: Soft, nontender, nondistended Neuro: Normal speech, normal affect Mann in place vitals reviewed Diagnosis Anasarca Acute on chronic diastolic CHF UTI, Klebsiella Pneumoniae Urinary retention secondary to UTI NOHEMY Hypertensive urgency IDDM2 with hyperglycemia Hypothyroidism Chronic back pain Anasarca Acute on chronic diastolic CHF Last echo (2020) with normal EF. She takes Lasix 40 mg BID at home Seen by cardiology Echo (03/17): 73% EF, severe diastolic dysfunction, severe pulmonary hypertension, mild MR, mild TR Metoprolol changed to coreg for better BP control Nephrology is following and managing diuresis. PT/OT Clinically improving IV Lasix changed to oral. Serum creatinine trended up slightly from yesterday. Lasix dose adjustment per nephrology UTI, Klebsiella Pneumoniae Urinary retention, suspect secondary to UTI Urine culture: Klebsiella Pneumoniae, 4+GNR Patient treated with Rocephin and transitioned to oral Omnicef. Patient is slated for 14 days of treatment. Afebrile, leukocytosis resolved. NOHEMY, cardiorenal syndrome renal u/s (03/17): 3.6 cm benign right renal cyst. Nephrology Dr. Fox is following and managing Lasix by nephrology. Monitor renal function stable. Hypertensive urgency reports being out of her doxazosin for 4 days BP management with doxazosin, Coreg, sildenafil. BP readings improved. Nephrology is assisting with BP management IDDM2 with hyperglycemia ACHS Accu-Chek, SSI Lantus insulin Hypothyroidism Continue home synthroid. TSH: 4.63 Free T4: 1.14 VTE: Lovenox Code: Full Dispo: Inpatient rehab pending auth ss/cm are following.
[2023-03-27] MEDS: ATORVASTATIN 20 MG TAB PO SCH (20:30)
[2023-03-27] MEDS: ONDANSETRON 4 MG (ODT) TAB PO PRN (23:02)
[2023-03-28] MEDS: HYDROCODONE/APAP 5/325 MG TAB PO PRN ×4 (02:46→20:25)
[2023-03-28] MEDS: DIPHENHYDRAMINE 25 MG TAB/CAP PO PRN ×3 (02:46→20:23)
[2023-03-28] MEDS: LEVOTHYROXINE SOD 0.075 MG TAB PO SCH (05:50)
[2023-03-28] MEDS: carvediloL 12.5 MG TAB PO SCH ×2 (05:50→17:32)
[2023-03-28 06:40] LABS: Magnesium 2.2 mg/dL (1.6-2.4); Potassium 4.2 mEq/L (3.5-5.1)
[2023-03-28] MEDS: INSULIN GLARGINE 100 UNIT/ML SQ SCH ×2 (08:48→23:23)
[2023-03-28] MEDS: LIDOCAINE 4% PATCH TOP SCH (08:48)
[2023-03-28] MEDS: INSULIN -REGULAR HUMAN 50 UNIT/0.5 ML ML SQ SCH ×4 (08:48→22:54)
[2023-03-28] MEDS: SILDENAFIL CITRATE 20 MG TABLET PO SCH ×3 (08:49→21:41)
[2023-03-28] MEDS: SPIRONOLACTONE 25 MG TABLET PO SCH (08:49)
[2023-03-28] MEDS: FUROSEMIDE 40 MG TABLET PO SCH ×2 (08:49→16:18)
[2023-03-28] MEDS: ASPIRIN EC 81 MG TAB PO SCH (08:49)
[2023-03-28] MEDS: HYDRALAZINE HCL 25 MG TABLET PO SCH ×3 (08:49→21:41)
[2023-03-28] MEDS: ENOXAPARIN 40 MG/0.4 ML SQ SCH (08:49)
[2023-03-28] MEDS: JUVEN PACKET PO SCH ×2 (08:50→21:00)
[2023-03-28] MEDS: PANTOPRAZOLE 40MG TABLET PO SCH ×2 (08:50→16:18)
[2023-03-28] MEDS: CEFDINIR 300 MG CAP PO SCH ×2 (08:50→21:42)
[2023-03-28] MEDS: MONTELUKAST 10 MG TAB PO SCH (08:53)
--- NOTE | 2023-03-28 15:16 | P.PN ---
Subjective Date of Service: 03/28/23 Chief Complaint: CHF, anasarca Patient has no new complaint. She denies any shortness of breath. Her functional status is improving slowly. Physical Examination - Vital Signs Temperature: 97.0 F Blood Pressure: 137/55 Pulse: 92 Respirations: 18 Pulse Ox (%): 98 Assessment And Plan - Plan Physical Exam: GEN: Alert, oriented, NAD, Mann in place CV: Regular rate and rhythm, 1+ BLE edema up to knees Pulm: Clear to auscultation bilaterally. ABD: Soft, nontender, nondistended Neuro: Normal speech, normal affect Mann in place vitals reviewed Diagnosis Anasarca Acute on chronic diastolic CHF UTI, Klebsiella Pneumoniae Urinary retention secondary to UTI NOHEMY Hypertensive urgency IDDM2 with hyperglycemia Hypothyroidism Chronic back pain Anasarca Acute on chronic diastolic CHF Last echo (2020) with normal EF. She takes Lasix 40 mg BID at home Seen by cardiology Echo (03/17): 73% EF, severe diastolic dysfunction, severe pulmonary hypertension, mild MR, mild TR Metoprolol changed to coreg for better BP control Nephrology is following and managing diuresis. PT/OT Clinically improving IV Lasix changed to oral. Nephrology is following and decreasing oral Lasix. Currently on 80 mg twice daily. Serum creatinine is stable on the current dose. Lasix dose adjustment per nephrology UTI, Klebsiella Pneumoniae Urinary retention, suspect secondary to UTI Urine culture: Klebsiella Pneumoniae, 4+GNR Patient treated with Rocephin and transitioned to oral Omnicef. Patient is slated for 14 days of treatment. Afebrile, leukocytosis resolved. NOHEMY, cardiorenal syndrome renal u/s (03/17): 3.6 cm benign right renal cyst. Nephrology Dr. Fox is following and managing Lasix by nephrology. Monitor renal function stable. Hypertensive urgency reports being out of her doxazosin for 4 days BP management with hydralazine Coreg, sildenafil. BP readings improved. Nephrology is assisting with BP management IDDM2 with hyperglycemia ACHS Accu-Chek, SSI Lantus insulin Hypothyroidism Continue home synthroid. TSH: 4.63 Free T4: 1.14 VTE: Lovenox Code: Full Dispo: Insurance denied inpatient rehab. ss/cm are following.
[2023-03-28] MEDS: ATORVASTATIN 20 MG TAB PO SCH (21:41)
--- NOTE | 2023-03-29 02:45 | PN ---
Date of Progress Note: 03/28/2023 Chief Complaint: Congestive heart failure exacerbation, cardiorenal syndrome, anasarca fluid overloa d. The patient was admitted to the hospital because of severe dyspnea, fluid overload, anasarca. Th e patient was started on diuretic and serum creatinine was up to 1.4. Review of Systems: Denies chest pain, palpitation. Physical Examination: Lungs: Clear to auscultation bilaterally. Heart: S1, S2. Abdomen: Soft, benign, obese. Extremities: Edema in both legs. Impression And Plan: 1.Acute kidney injury secondary to cardiorenal syndrome, volume overload with respiratory symptoms a nd dyspnea on exertion. Continue Lasix 60 mg IV twice a day. Continue p.o. fluid intake. 2.Acute on chronic diastolic congestive heart failure. Continue Lasix and sodium diet. Monitor blo od pressure closely. 3.Pseudohyponatremia. Monitor blood glucose and continue insulin for management of diabetes. 4.Hypertension on medication. Continue current med regimen. Urinary tract infection on antibiotic for Klebsiella urinary tract infection. 5.Diabetes mellitus. Avoid metformin. Continue insulin. EB/MODL Voice ID: [id number] Report ID: [id number]
[2023-03-29] MEDS: carvediloL 12.5 MG TAB PO SCH ×2 (05:47→17:31)
[2023-03-29] MEDS: LEVOTHYROXINE SOD 0.075 MG TAB PO SCH (05:48)
[2023-03-29] MEDS: DIPHENHYDRAMINE 25 MG TAB/CAP PO PRN ×3 (05:48→21:21)
[2023-03-29] MEDS: HYDROCODONE/APAP 5/325 MG TAB PO PRN ×3 (05:48→21:21)
[2023-03-29 06:59] LABS: Magnesium 2.3 mg/dL (1.6-2.4); Potassium 4.2 mEq/L (3.5-5.1)
--- NOTE | 2023-03-29 07:29 | P.PN ---
Date of Service: 03/29/23 Subjective: Feeling better today no new / worsening problems Breathing okay, +slowly improving with PT ROS: 10 point ROS as noted above, otherwise negative Physical Exam: GEN: Alert, oriented, NAD HEENT: Normal conjunctiva, sclera anicteric CV: Regular rate and rhythm, trace to 1+ BLE edema up to knees Pulm: Nonlabored respirations on room air at rest, diminished at bases b/l ABD: Soft, nontender, nondistended Neuro: Normal speech, normal affect vitals reviewed Problem List: Anasarca Acute on chronic diastolic CHF UTI, Klebsiella Pneumoniae Urinary retention secondary to UTI NOHEMY Hypertensive urgency IDDM2 with hyperglycemia Hypothyroidism Chronic back pain Anasarca Acute on chronic diastolic CHF Mild Cardiomegaly CXR (03/16): Mild cardiomegaly. No focal areas of acute airspace disease Last echo (2020) with normal EF. She takes Lasix 40 mg BID at home Cardiology consulted Echo (03/17): 73% EF, severe diastolic dysfunction, severe pulmonary hyperten dar, mild MR, mild TR 03/19 changed metoprolol to coreg for better BP control Cont PO lasix 80 bid PT/OT consult improving UTI, Klebsiella Pneumoniae Urinary retention, suspect secondary to UTI reports Lower left flank pain, +increased urge to urinate pt reported symptoms, and PVR noted to be >200 on (03/18), Urine culture: Klebsiella Pneumoniae, 4+GNR Rocephin (03/17-03/21) transitioned to oral cefdinir (03/21-03/29) x2 weeks total antibiotics Afebrile, +leukocytosis improving Mann DCd; urinating without issue NOHEMY, cardiorenal syndrome renal u/s (03/17): 3.6 cm benign right renal cyst. Nephrology consulted cont lasix Monitor renal function stable / improving Hypertensive urgency reports being out of her doxazosin for the past ~4 days Continue home medications - restarted sildenfail, pt with severe pulm hypertension BP improving IDDM2 with hyperglycemia ACHS Accu-Chek, SSI. Increased semglee 03/29 Hypothyroidism Continue home synthroid TSH: 4.63 Free T4: 1.14 VTE: Lovenox Code: Full Dispo: Rehab, pending auth ss/cm consulted - pending approval
[2023-03-29] MEDS ORDERED: INSULIN GLARGINE 100 UNIT/ML SQ SCH (09:00)
[2023-03-29] MEDS: SPIRONOLACTONE 25 MG TABLET PO SCH (09:00)
[2023-03-29] MEDS: INSULIN -REGULAR HUMAN 50 UNIT/0.5 ML ML SQ SCH ×4 (09:23→21:22)
[2023-03-29] MEDS: ASPIRIN EC 81 MG TAB PO SCH (09:24)
[2023-03-29] MEDS: MONTELUKAST 10 MG TAB PO SCH (09:24)
[2023-03-29] MEDS: FUROSEMIDE 40 MG TABLET PO SCH ×2 (09:24→16:50)
[2023-03-29] MEDS: PANTOPRAZOLE 40MG TABLET PO SCH ×2 (09:24→16:50)
[2023-03-29] MEDS: HYDRALAZINE HCL 25 MG TABLET PO SCH ×3 (09:24→21:20)
[2023-03-29] MEDS: LIDOCAINE 4% PATCH TOP SCH (09:24)
[2023-03-29] MEDS: ENOXAPARIN 40 MG/0.4 ML SQ SCH (09:24)
[2023-03-29] MEDS: CEFDINIR 300 MG CAP PO SCH (09:24)
[2023-03-29] MEDS: SILDENAFIL CITRATE 20 MG TABLET PO SCH ×3 (09:24→21:20)
[2023-03-29] MEDS: JUVEN PACKET PO SCH ×2 (09:25→21:00)
--- NOTE | 2023-03-29 14:32 | PN ---
Date of Progress Note: 03/29/2023 Subjective: The patient was admitted to the hospital with anasarca, congestive heart failure with ex acerbation with pulmonary hypertension. The patient's kidney function has been improved. The patien t was challenged with spironolactone. Kidney function started being worsening since then. Physical Examination: Vital Signs: When I saw the patient; blood pressure 142/59, pulse of 99, afebrile. The patient had good urine output of 2500, negative of 1200. As weight littlejohn, the patient stayed the same. Chest: Decreased entry bilateral base. Heart: S1, S2. Regular. Abdomen: Soft, morbidly obese. Could not appreciate any organomegaly. Extremities: Trace edema. Neurologic: Alert. No focality. Laboratory Data: Hemoglobin 11.1. Sodium 131, potassium 4.2, bicarb 31, BUN 55, creatinine __, GFR of 30, calcium 8.9, magnesium 2.3. Current Medications: The patient on include; 1.Aspirin. 2.Lovenox. 3.Atorvastatin. 4.Carvedilol 12.5. 5.Sildenafil. 6.Hydralazine 50 t.i.d. 7.Lasix 80 b.i.d. 8.Pantoprazole. 9.Levothyroxine. Assessment And Plan: 1.Acute kidney injury secondary to cardiorenal, continued to recover. Maintaining good urine output on current Lasix dose. We will continue to monitor. 2.Hypertension, controlled, optimal. Continue current treatment. 3.Pulmonary hypertension, worsening kidney function. I am going to hold the spironolactone for the time being. 4.Anasarca secondary to pulmonary hypertension, responded to current dose of Lasix. Continue Lasix. Discontinue spironolactone. RUSSELL/HUSSAIN Voice ID: [id number] Report ID: [id number]
[2023-03-29] MEDS: ATORVASTATIN 20 MG TAB PO SCH (21:22)
[2023-03-29] MEDS: INSULIN GLARGINE 100 UNIT/ML SQ SCH (21:22)
[2023-03-30] MEDS: HYDROCODONE/APAP 5/325 MG TAB PO PRN ×3 (04:39→20:26)
[2023-03-30] MEDS: DIPHENHYDRAMINE 25 MG TAB/CAP PO PRN ×3 (04:40→20:27)
[2023-03-30] MEDS: LEVOTHYROXINE SOD 0.075 MG TAB PO SCH (06:45)
[2023-03-30] MEDS: carvediloL 12.5 MG TAB PO SCH ×2 (06:45→17:35)
[2023-03-30 06:59] LABS: Magnesium 2.3 mg/dL (1.6-2.4)
--- NOTE | 2023-03-30 07:54 | P.PN ---
Date of Service: 03/30/23 Subjective: doing okay Woke up today with cough, +slightly more difficulty breathing no acute events overnight ROS: 10 point ROS as noted above, otherwise negative Physical Exam: GEN: Alert, oriented, NAD HEENT: Normal conjunctiva, sclera anicteric CV: Regular rate and rhythm, trace to 1+ BLE edema up to knees Pulm: Nonlabored respirations on room air at rest, diminished at bases b/l, +cough ABD: Soft, nontender, nondistended Neuro: Normal speech, normal affect vitals reviewed Problem List: Anasarca Acute on chronic diastolic CHF UTI, Klebsiella Pneumoniae Urinary retention secondary to UTI NOHEMY Hypertensive urgency IDDM2 with hyperglycemia Hypothyroidism Chronic back pain Anasarca Acute on chronic diastolic CHF Mild Cardiomegaly CXR (03/16): Mild cardiomegaly. No focal areas of acute airspace disease Last echo (2020) with normal EF. She takes Lasix 40 mg BID at home Cardiology consulted Echo (03/17): 73% EF, severe diastolic dysfunction, severe pulmonary hypertension, mild MR, mild TR 03/19 changed metoprolol to coreg for better BP control Cont PO lasix 80 bid PT/OT consult improving UTI, Klebsiella Pneumoniae Urinary retention, suspect secondary to UTI reports Lower left flank pain, +increased urge to urinate pt reported symptoms, and PVR noted to be >200 on (03/18), Urine culture: Klebsiella Pneumoniae, 4+GNR Rocephin (03/17-03/21) transitioned to oral cefdinir (03/21-03/29) x2 weeks total antibiotics Afebrile, +leukocytosis improving Mann DCd; urinating without issue NOHEMY, cardiorenal syndrome renal u/s (03/17): 3.6 cm benign right renal cyst. Nephrology consulted cont lasix Monitor renal function stable / improving Hypertensive urgency reports being out of her doxazosin for the past ~4 days Continue home medications - restarted sildenfail, pt with severe pulm hypertension BP improving IDDM2 with hyperglycemia ACHS Accu-Chek, SSI. Increased semglee 03/29 Hypothyroidism Continue home synthroid TSH: 4.63 Free T4: 1.14 VTE: Lovenox Code: Full Dispo: Rehab, pending auth ss/cm consulted - pending approval
[2023-03-30] MEDS: ENOXAPARIN 40 MG/0.4 ML SQ SCH (09:17)
[2023-03-30] MEDS: HYDRALAZINE HCL 25 MG TABLET PO SCH ×3 (09:17→20:27)
[2023-03-30] MEDS: FUROSEMIDE 40 MG TABLET PO SCH ×2 (09:17→16:30)
[2023-03-30] MEDS: MONTELUKAST 10 MG TAB PO SCH (09:17)
[2023-03-30] MEDS: JUVEN PACKET PO SCH ×2 (09:18→20:28)
[2023-03-30] MEDS: ASPIRIN EC 81 MG TAB PO SCH (09:18)
[2023-03-30] MEDS: PANTOPRAZOLE 40MG TABLET PO SCH ×2 (09:18→16:30)
[2023-03-30] MEDS: SILDENAFIL CITRATE 20 MG TABLET PO SCH ×3 (09:18→20:34)
[2023-03-30] MEDS: LIDOCAINE 4% PATCH TOP SCH (09:18)
[2023-03-30] MEDS: INSULIN -REGULAR HUMAN 50 UNIT/0.5 ML ML SQ SCH ×4 (09:19→20:28)
[2023-03-30] MEDS: INSULIN GLARGINE 100 UNIT/ML SQ SCH ×2 (09:19→20:29)
--- NOTE | 2023-03-30 20:26 | PN ---
Date of Progress Note: 03/30/2023 Subjective: The patient was admitted with the acute kidney injury secondary to cardiorenal. Patient had anasarca. Patient has severe pulmonary hypertension. Patient was started on diuresis, started being improving. Weight has been decreased. Physical Examination: Vital Signs: Blood pressure 124/56, pulse of 94, afebrile. Chest: Clear to auscultation. Heart: S1, S2. Regular. Abdomen: Soft, nontender. Morbidly obese. Could not appreciate any organomegaly. Extremities: Trace edema. Neurologic: Alert. No focality. Laboratory Data: Hemoglobin 11.1, sodium 133, potassium 4, bicarb 33, BUN 55, creatinine 1.6, blood sugar above 300, calcium 8.9, magnesium 2.3. Current Medications: The patient on, includes: 1.Atorvastatin. 2.Carvedilol 12.5 b.i.d. 3.Hydralazine. 4.Lasix 80 b.i.d. 5.Zofran. 6.Pantoprazole. 7.Levothyroxine. Assessment And Plan: 1.Acute kidney injury secondary to cardiorenal syndrome. Continue to recover. Patient close to be normal volume. I am going to continue current diuresis. 2.Hypertension, controlled, optimal. Continue to utilize the blood pressure for more diuresis. 3.Pulmonary hypertension. Unfortunately, patient could not tolerate spironolactone. We will keep h olding it. We will continue diuresis. 4.Anasarca secondary to pulmonary hypertension, responded to current diuresis. We will keep holding spironolactone. 5.Hyponatremia, dilutional. We will optimize fluid status. RUSSELL/HUSSAIN Voice ID: [id number] Report ID: [id number]
[2023-03-30] MEDS: ATORVASTATIN 20 MG TAB PO SCH (20:27)
[2023-03-31] MEDS: DIPHENHYDRAMINE 25 MG TAB/CAP PO PRN ×3 (04:36→17:25)
[2023-03-31] MEDS: HYDROCODONE/APAP 5/325 MG TAB PO PRN ×3 (04:36→17:31)
[2023-03-31 05:15] LABS: Magnesium 2.3 mg/dL (1.6-2.4); Potassium 4.2 mEq/L (3.5-5.1)
[2023-03-31] MEDS: carvediloL 12.5 MG TAB PO SCH ×2 (06:00→17:31)
[2023-03-31] MEDS: LEVOTHYROXINE SOD 0.075 MG TAB PO SCH (06:00)
--- NOTE | 2023-03-31 10:13 | P.PN ---
Date of Service: 03/31/23 Subjective: Doing okay no BM for several days, +flatus no acute events overnight afebrile ROS: 10 point ROS as noted above, otherwise negative Physical Exam: GEN: Alert, oriented, NAD HEENT: Normal conjunctiva, sclera anicteric CV: Regular rate and rhythm, trace to 1+ BLE edema up to knees Pulm: Nonlabored respirations on room air at rest, diminished at bases b/l, +cough ABD: Soft, nontender, nondistended Neuro: Normal speech, normal affect vitals reviewed Problem List: Anasarca Acute on chronic diastolic CHF UTI, Klebsiella Pneumoniae Urinary retention secondary to UTI NOHEMY Hypertensive urgency IDDM2 with hyperglycemia Hypothyroidism Chronic back pain Constipation Anasarca Acute on chronic diastolic CHF Mild Cardiomegaly CXR (03/16): Mild cardiomegaly. No focal areas of acute airspace disease Last echo (2020) with normal EF. She takes Lasix 40 mg BID at home Cardiology consulted Echo (03/17): 73% EF, severe diastolic dysfunction, severe pulmonary hypertension, mild MR, mild TR 03/19 changed metoprolol to coreg for better BP control Cont PO lasix 80 bid PT/OT consult improving UTI, Klebsiella Pneumoniae Urinary retention, suspect secondary to UTI reports Lower left flank pain, +increased urge to urinate pt reported symptoms, and PVR noted to be >200 on (03/18), Urine culture: Klebsiella Pneumoniae, 4+GNR Rocephin (03/17-03/21) transitioned to oral cefdinir (03/21-03/29) x2 weeks total antibiotics Afebrile, +leukocytosis improved Mann DCd; urinating without issue NOHEMY, cardiorenal syndrome renal u/s (03/17): 3.6 cm benign right renal cyst. Nephrology consulted cont lasix Monitor renal function stable / improving Hypertensive urgency reports being out of her doxazosin for the past ~4 days Continue home medications - restarted sildenfail, pt with severe pulm hypertension BP improving IDDM2 with hyperglycemia ACHS Accu-Chek, SSI. Increased semglee 03/29 Hypothyroidism Continue home synthroid TSH: 4.63 Free T4: 1.14 Constipation PRN stool softener VTE: Lovenox Code: Full Dispo: Rehab, pending auth ss/cm consulted - pending approval
[2023-03-31] MEDS: FUROSEMIDE 40 MG TABLET PO SCH ×2 (10:39→17:31)
[2023-03-31] MEDS: INSULIN GLARGINE 100 UNIT/ML SQ SCH ×2 (10:39→20:52)
[2023-03-31] MEDS: PANTOPRAZOLE 40MG TABLET PO SCH ×2 (10:40→17:32)
[2023-03-31] MEDS: HYDRALAZINE HCL 25 MG TABLET PO SCH ×3 (10:40→20:51)
[2023-03-31] MEDS: ASPIRIN EC 81 MG TAB PO SCH (10:40)
[2023-03-31] MEDS: MONTELUKAST 10 MG TAB PO SCH (10:40)
[2023-03-31] MEDS: SILDENAFIL CITRATE 20 MG TABLET PO SCH ×3 (10:40→20:55)
[2023-03-31] MEDS: JUVEN PACKET PO SCH ×2 (10:41→20:52)
[2023-03-31] MEDS: INSULIN -REGULAR HUMAN 50 UNIT/0.5 ML ML SQ SCH ×4 (10:46→20:55)
[2023-03-31] MEDS: ENOXAPARIN 40 MG/0.4 ML SQ SCH (10:50)
[2023-03-31] MEDS: LIDOCAINE 4% PATCH TOP SCH (10:50)
[2023-03-31] MEDS ORDERED: FUROSEMIDE 40 MG/4 ML VIAL IV ONE (12:28)
--- NOTE | 2023-03-31 13:39 | PN ---
Date of Progress Note: 03/31/2023 Subjective: Patient was admitted with anasarca, CHF exacerbation, pulmonary hypertension. Patient w as diuresed very well. We tried to add spironolactone and the kidney function worsened. For that re ason, we discontinued it. Physical Examination: Vital Signs: Blood pressure 104/44, pulse of 86, afebrile. Patient had good urine output of 1700. Chest: Clear to auscultation. Heart: S1, S2. Regular. Abdomen: Soft, nontender. Extremities: Trace edema. Neurologic: Alert. No focality. Laboratory Data: Hemoglobin 11.1. Sodium 131, potassium 4.2, bicarb 34, BUN 64, creatinine 1.6. GF R of 32. Calcium 8.9. Magnesium 2.3. Current Medications: The patient is on include: 1.Aspirin. 2.Lovenox. 3.Atorvastatin 20 mg. 4.Carvedilol 12.5 b.i.d. 5.Hydralazine 50 t.i.d. 6.Sildenafil. 7.Lasix 80 b.i.d. 8.Pantoprazole. 9.Levothyroxine. 10.Insulin. Assessment And Plan: 1.Anasarca secondary to cardiorenal. We will continue optimizing fluid with diuresis. I am going t o give the patient extra dose of Lasix today and we will follow up the patient. 2.Hypertension, controlled. We will utilize blood pressure for more diuresis. 3.Acute kidney injury secondary to cardiorenal. We will to continue to optimize the fluid status fo r the patient. Patient is back to baseline. 4.Pulmonary hypertension. Continue current treatment. Follow up with Cardiology. 5.Hyponatremia secondary to dilutional. We will continue diuresis. 6.Deconditioning. Continue physical therapy, occupational therapy. RUSSELL/HUSSAIN Voice ID: [id number] Report ID: [id number]
[2023-03-31] MEDS ORDERED: FUROSEMIDE 40 MG TABLET PO ONE (14:17)
[2023-03-31] MEDS: ONDANSETRON 4 MG (ODT) TAB PO PRN (17:25)
[2023-03-31] MEDS: ATORVASTATIN 20 MG TAB PO SCH (20:51)
[2023-03-31] MEDS: DOCUSATE NA 100 MG CAP PO SCH (20:52)
[2023-04-01] MEDS: HYDROCODONE/APAP 5/325 MG TAB PO PRN ×3 (01:03→22:09)
[2023-04-01] MEDS: DIPHENHYDRAMINE 25 MG TAB/CAP PO PRN ×3 (01:04→17:16)
[2023-04-01 05:14] LABS: Magnesium 2.3 mg/dL (1.6-2.4); Potassium 4.5 mEq/L (3.5-5.1)
[2023-04-01] MEDS: LEVOTHYROXINE SOD 0.075 MG TAB PO SCH (06:02)
[2023-04-01] MEDS: carvediloL 12.5 MG TAB PO SCH ×2 (06:02→16:26)
--- NOTE | 2023-04-01 07:14 | P.PN ---
Date of Service: 04/01/23 Subjective: not feeling great today d/t constipation no BM, +flatus +bilateral lower chest discomfort - worsened with inhalation afebrile ROS: 10 point ROS as noted above, otherwise negative Physical Exam: GEN: Alert, oriented, NAD HEENT: Normal conjunctiva, sclera anicteric CV: Regular rate and rhythm, trace to 1+ BLE edema up to knees Pulm: Nonlabored respirations on room air at rest, diminished at bases b/l, +cough ABD: Soft, nontender, nondistended Neuro: Normal speech, normal affect vitals reviewed Problem List: Anasarca Acute on chronic diastolic CHF UTI, Klebsiella Pneumoniae Urinary retention secondary to UTI NOHEMY Hypertensive urgency IDDM2 with hyperglycemia Hypothyroidism Chronic back pain Constipation Anasarca Acute on chronic diastolic CHF Mild Cardiomegaly CXR (03/16): Mild cardiomegaly. No focal areas of acute airspace disease Repeat CXR (04/01): ordered d/t b/l lower chest discomfort Last echo (2020) with normal EF. She takes Lasix 40 mg BID at home Cardiology consulted Echo (03/17): 73% EF, severe diastolic dysfunction, severe pulmonary hypertension, mild MR, mild TR 03/19 changed metoprolol to coreg for better BP control Cont PO lasix 80 bid PT/OT consult improving UTI, Klebsiella Pneumoniae Urinary retention, suspect secondary to UTI reports Lower left flank pain, +increased urge to urinate pt reported symptoms, and PVR noted to be >200 on (03/18), Urine culture: Klebsiella Pneumoniae, 4+GNR Rocephin (03/17-03/21) transitioned to oral cefdinir (03/21-03/29) x2 weeks total antibiotics Afebrile, +leukocytosis improved Mann DCd; urinating without issue NOHEMY, cardiorenal syndrome renal u/s (03/17): 3.6 cm benign right renal cyst. Nephrology consulted cont lasix Monitor renal function stable / improving Hypertensive urgency reports being out of her doxazosin for the past ~4 days Continue home medications - restarted sildenfail, pt with severe pulm hypertension BP improving IDDM2 with hyperglycemia ACHS Accu-Chek, SSI. Increased semglee Restart glimepiride 04/01 Hypothyroidism Continue home synthroid TSH: 4.63 Free T4: 1.14 Constipation PRN stool softener laxative added 04/01 VTE: Lovenox Code: Full Dispo: SNF ss/cm consulted - rehab denied
[2023-04-01] MEDS: ENOXAPARIN 40 MG/0.4 ML SQ SCH (08:14)
[2023-04-01] MEDS: INSULIN -REGULAR HUMAN 50 UNIT/0.5 ML ML SQ SCH ×4 (08:15→21:00)
[2023-04-01] MEDS: MONTELUKAST 10 MG TAB PO SCH (08:15)
[2023-04-01] MEDS: INSULIN GLARGINE 100 UNIT/ML SQ SCH ×2 (08:15→22:14)
[2023-04-01] MEDS: LIDOCAINE 4% PATCH TOP SCH (08:16)
[2023-04-01] MEDS: JUVEN PACKET PO SCH ×2 (08:17→21:00)
[2023-04-01] MEDS: FUROSEMIDE 40 MG TABLET PO SCH ×2 (08:18→16:26)
[2023-04-01] MEDS: ASPIRIN EC 81 MG TAB PO SCH (08:19)
[2023-04-01] MEDS: DOCUSATE NA 100 MG CAP PO SCH ×2 (08:19→22:09)
[2023-04-01] MEDS: PANTOPRAZOLE 40MG TABLET PO SCH ×2 (08:19→16:31)
[2023-04-01] MEDS: HYDRALAZINE HCL 25 MG TABLET PO SCH ×3 (08:26→22:10)
[2023-04-01] MEDS: SILDENAFIL CITRATE 20 MG TABLET PO SCH ×3 (08:26→22:10)
[2023-04-01] MEDS ORDERED: POLYETHYL GLY 3350 17 GM/DOSE PO PRN (11:42)
--- NOTE | 2023-04-01 15:22 | P.PN ---
Subjective Date of Service: 04/01/23 Chief Complaint: CHF, anasarca Subjective: No new changes, Other (reports having constipation.) Physical Examination - Vital Signs Temperature: 97 F Blood Pressure: 134/61 Pulse: 87 Respirations: 16 Pulse Ox (%): 97 - Physical Exam General: Other (chronically ill appearing) HEENT: Atraumatic, Normocephalic Neck: Supple Respiratory: Other (symmetric chest expansion) Cardiovascular: No rubs, No murmurs Gastrointestinal: Soft and benign, No guarding Musculoskeletal: No clubbing Integumentary: No warmth Neurological: Normal speech, Normal tone Urinary: Other (no bladder distention) External genitalia: Deferred Rectal: Deferred Assessment And Plan - Plan 1. Acute kidney injury secondary to cardiorenal, over volume with respiratory symptoms. continue Lasix 80 mg po bid. [place] by mouth fluid intake. 2. Acute on chronic diastolic heart failure. Continue Lasix as above. Strict low-sodium diet less than 2 g per day. Do not limit by mouth fluid intake, unless she develops hyponatremia < 130 mEq/L, to avoid further NOHEMY with diuretics. 3. Hypertension. Cont current med regimen. 4. Klebsiella UTI. Received abx. 5. DM2. Mngt per primary team. 6. HypoNa. Corrected serum Na 135. [place] po fluid intake. PO solid food intake as able. 7. Deconditioning. Continue physical therapy, occupational therapy.
--- NOTE | 2023-04-01 15:47 | RAD REPORT ---
EXAM DESCRIPTION: RADChest Single View04/01/2023 2:30 pm CLINICAL HISTORY: b/l lower chest discomfort COMPARISON: Chest Single View dated 03/22/2023; Chest Single View dated 03/16/2023; Chest Single View da adrian 03/02/2021 TECHNIQUE: Portable AP view of the chest. FINDINGS: Central interstitial prominence, may reflect mild central congestion, stable. Decreased in spiratory effort is stable. Stable cardiac opacification and blunting of the left costophrenic angle, may in part relate to prominence of epicardial fat. No pneumothorax or effusion. The cardiomediastin al contours are unremarkable. IMPRESSION: Stable findings, as above.
[2023-04-01] MEDS ORDERED: BISACODYL 10 MG RECTAL SUPP PR STA (16:11)
[2023-04-01] MEDS: GLIMEPIRIDE 2 MG TABLET PO SCH (17:16)
[2023-04-01] MEDS: ATORVASTATIN 20 MG TAB PO SCH (22:10)
[2023-04-02 04:33] LABS: Albumin 3.2 g/dL (3.4-5.0); Potassium 4.3 mEq/L (3.5-5.1)
[2023-04-02] MEDS: DIPHENHYDRAMINE 25 MG TAB/CAP PO PRN ×2 (05:44→16:53)
[2023-04-02] MEDS: carvediloL 12.5 MG TAB PO SCH ×2 (05:44→17:27)
[2023-04-02] MEDS: HYDROCODONE/APAP 5/325 MG TAB PO PRN ×2 (05:44→16:52)
[2023-04-02] MEDS: LEVOTHYROXINE SOD 0.075 MG TAB PO SCH (05:44)
--- NOTE | 2023-04-02 07:12 | P.PN ---
Date of Service: 04/02/23 Subjective: Not feeling well today large BM overnight - was painful to pass; felt like tuyet sensation stuck lower abdominal pain overnight burning sensation when urinating started overnight afebrile ROS: 10 point ROS as noted above, otherwise negative Physical Exam: GEN: Alert, oriented, NAD HEENT: Normal conjunctiva, sclera anicteric CV: Regular rate and rhythm, trace to trace BLE edema up to knees Pulm: Nonlabored respirations on 2L NC, diminished at bases b/l, +cough ABD: Soft, mild suprapubic tenderness Neuro: Normal speech, normal affect vitals reviewed Problem List: Anasarca Acute on chronic diastolic CHF UTI, Klebsiella Pneumoniae Urinary retention, suspect secondary to UTI NOHEMY, cardiorenal syndrome Hypertensive urgency IDDM2 with hyperglycemia Hypothyroidism Chronic back pain Constipation Anasarca Acute on chronic diastolic CHF Mild Cardiomegaly CXR (03/16): Mild cardiomegaly. No focal areas of acute airspace disease CXR (04/01): mild central congestion, stable Last echo (2020) with normal EF. She takes Lasix 40 mg BID at home Cardiology consulted Echo (03/17): 73% EF, severe diastolic dysfunction, severe pulmonary hypertension, mild MR, mild TR 03/19 changed metoprolol to coreg for better BP control Cont PO lasix 80 bid PT/OT consult improving UTI, Klebsiella Pneumoniae Urinary retention, suspect secondary to UTI reports Lower left flank pain, +increased urge to urinate on admission; PVR noted to be >200 on (03/18), Urine culture: Klebsiella Pneumoniae, 4+GNR Rocephin (03/17-03/21) transitioned to oral cefdinir (03/21-03/29) x2 weeks total antibiotics Afebrile, +leukocytosis improved Mann DCd; urinating without issue 04/02 - Patient reports lower abdominal pain, +burning sensation when urinating Repeat UA, urine cx ordered NOHEMY, cardiorenal syndrome renal u/s (03/17): 3.6 cm benign right renal cyst. Nephrology consulted cont lasix Monitor renal function stable / improving Hypertensive urgency reports being out of her doxazosin for the past ~4 days Continue home medications - restarted sildenfail, pt with severe pulm hypertension BP improving IDDM2 with hyperglycemia ACHS Accu-Chek, SSI. adjusted semglee Restarted glimepiride 04/01 Hypothyroidism Continue home synthroid TSH: 4.63 Free T4: 1.14 Constipation PRN stool softener laxative PRN Very large BM overnight enema x1 ordered 04/02 VTE: Lovenox Code: Full Dispo: SNF - [facility] - Pending approval ss/cm consulted - rehab denied
[2023-04-02] MEDS: GLIMEPIRIDE 2 MG TABLET PO SCH ×2 (08:00→17:00)
[2023-04-02] MEDS: INSULIN -REGULAR HUMAN 50 UNIT/0.5 ML ML SQ SCH ×4 (08:34→21:00)
[2023-04-02] MEDS: INSULIN GLARGINE 100 UNIT/ML SQ SCH ×2 (08:34→21:59)
[2023-04-02] MEDS: ENOXAPARIN 40 MG/0.4 ML SQ SCH (08:35)
[2023-04-02] MEDS: LIDOCAINE 4% PATCH TOP SCH (08:35)
[2023-04-02] MEDS: PANTOPRAZOLE 40MG TABLET PO SCH ×2 (08:36→16:53)
[2023-04-02] MEDS: ASPIRIN EC 81 MG TAB PO SCH (08:36)
[2023-04-02] MEDS: DOCUSATE NA 100 MG CAP PO SCH ×2 (08:37→21:58)
[2023-04-02] MEDS: SILDENAFIL CITRATE 20 MG TABLET PO SCH ×3 (09:00→21:58)
[2023-04-02] MEDS: FUROSEMIDE 40 MG TABLET PO SCH ×2 (09:00→17:00)
[2023-04-02] MEDS: HYDRALAZINE HCL 25 MG TABLET PO SCH ×3 (09:00→21:58)
[2023-04-02] MEDS: JUVEN PACKET PO SCH ×2 (09:00→21:00)
[2023-04-02] MEDS: MONTELUKAST 10 MG TAB PO SCH (09:00)
[2023-04-02 10:59] LABS: Calcium Oxalate Crystals- Ur Few /HPF (None Seen); Specific Gravity 1.014 (1.005-1.030); Urine Bacteria >50 /HPF (<20); Urine Bilirubin NEGATIVE (Negative); Urine Blood Negative (Negative); Urine Clarity Extremely Turbid (Clear); Urine Color Light-Orange (Yellow); Urine Glucose NEGATIVE (Negative); Urine Mucus Slight /HPF (None Seen); Urine Protein 2+ (Negative); Urine RBC 21-50 /HPF (None Seen); Urine Urobilinogen Normal (Normal); Urine pH 8.5 (5.0-7.0)
[2023-04-02] MEDS: CEFTRIAXONE 1,000 MG in NA CHLORIDE 0.9% 50 ML IVPB SCH (16:58)
--- NOTE | 2023-04-02 19:17 | PN ---
Date of Progress Note: 04/02/2023 Chief Complaint: Anasarca, congestive heart failure exacerbation, cardiorenal syndrome. Subjective: The patient is feeling better today. She denies chest pain, palpitation. Review of Systems: General: Denies fever, chills. Eyes: Denies vision changes. Ears, Nose, Mouth, and Throat: Denies sore throat, earache. Respiratory: She has dyspnea on exertion. Denies wheezing. Cardiovascular: Denies chest pain, syncope. Physical Examination: Lungs: Diminished breath sounds at bases. Heart: S1, S2. Abdomen: Soft. Extremities: Edema in both ankles. Impression And Plan: 1.Acute on chronic kidney injury. The patient has cardiorenal syndrome with volume overload, respir atory symptoms, dyspnea on exertion, and dyspnea at rest. The patient was treated with Lasix 80 mg t wice a day. Continue by mouth hydration as needed. 2.Acute on chronic diastolic congestive heart failure. Adjust diuretic as needed. Increase p.o. fl uid intake to prevent prerenal azotemia. 3.Hypertension. Continue current regimen. 4.Klebsiella urinary tract infection. The patient received antibiotics. 5.Diabetes mellitus. Avoid metformin. Continue insulin. 6.Hyponatremia. Monitor electrolytes closely. Continue low-sodium diet. The patient has hyponatremia secondary to cardiorenal syndrome and congestive heart failure. PORTILLO/HUSSAIN Voice ID: [id number] Report ID: [id number]
[2023-04-02] MEDS: ATORVASTATIN 20 MG TAB PO SCH (21:58)
[2023-04-03 03:57] LABS: Absolute Lymphocytes (CBC) 1.8 K/uL (0.7-4.9); Hematocrit 34.5 % (36.0-45.0); MPV 8.3 fL (7.6-11.3); Platelets 283 thou/uL (152-406); RBC Red Blood Cell Count 3.79 M/uL (3.86-4.86)
[2023-04-03 04:25] LABS: Albumin 2.9 g/dL (3.4-5.0); Bilirubin Total 0.4 mg/dL (0.2-1.0); Magnesium 2.6 mg/dL (1.6-2.4); Potassium 3.7 mEq/L (3.5-5.1); Protein, Total 7.4 g/dL (6.4-8.2)
[2023-04-03] MEDS: carvediloL 12.5 MG TAB PO SCH ×2 (06:46→17:20)
[2023-04-03] MEDS: LEVOTHYROXINE SOD 0.075 MG TAB PO SCH (06:46)
[2023-04-03] MEDS: INSULIN -REGULAR HUMAN 50 UNIT/0.5 ML ML SQ SCH ×4 (07:30→21:16)
--- NOTE | 2023-04-03 07:41 | P.PN ---
Date of Service: 04/03/23 Subjective: Overall feeling better today Rectal pain improving, continues to have soft BM Burning when urinating continues afebrile ROS: 10 point ROS as noted above, otherwise negative Physical Exam: GEN: Alert, oriented, NAD HEENT: Normal conjunctiva, sclera anicteric CV: Regular rate and rhythm, trace to trace BLE edema up to knees Pulm: Nonlabored respirations on 2L NC, diminished at bases b/l, +cough ABD: Soft, mild suprapubic tenderness Neuro: Normal speech, normal affect vitals reviewed Problem List: Anasarca Acute on chronic diastolic CHF UTI, Klebsiella Pneumoniae Urinary retention, suspect secondary to UTI NOHEMY, cardiorenal syndrome Hypertensive urgency IDDM2 with hyperglycemia Hypothyroidism Chronic back pain Constipation Anasarca Acute on chronic diastolic CHF Mild Cardiomegaly CXR (03/16): Mild cardiomegaly. No focal areas of acute airspace disease CXR (04/01): mild central congestion, stable Last echo (2020) with normal EF. She takes Lasix 40 mg BID at home Cardiology consulted Echo (03/17): 73% EF, severe diastolic dysfunction, severe pulmonary hypertension, mild MR, mild TR 03/19 changed metoprolol to coreg for better BP control Cont PO lasix 80 bid PT/OT consult improving UTI, Klebsiella Pneumoniae Urinary retention, suspect secondary to UTI reports Lower left flank pain, +increased urge to urinate on admission; PVR noted to be >200 on (03/18), Urine culture: Klebsiella Pneumoniae, 4+GNR Rocephin (03/17-03/21) transitioned to oral cefdinir (03/21-03/29) x2 weeks total antibiotics Mann DCd; urinating without issue 04/02 - Patient reports lower abdominal pain, +burning sensation when urinating Repeat UA: +LE, +RBC, +WBC, +Bacteria >50 urine cx: 4+ GNR cont empiric rocephin (04/02-) afebrile,+leukocytosis NOHEMY, cardiorenal syndrome renal u/s (03/17): 3.6 cm benign right renal cyst. Nephrology consulted cont lasix Monitor renal function stable / improving Hypertensive urgency reports being out of her doxazosin for the past ~4 days Continue home medications - restarted sildenfail, pt with severe pulm hypertension BP improving IDDM2 with hyperglycemia ACHS Accu-Chek, SSI. adjusted semglee Restarted glimepiride 04/01 Hypothyroidism Continue home synthroid TSH: 4.63 Free T4: 1.14 Constipation PRN stool softener laxative PRN Very large BM overnight enema x1 ordered 04/02 VTE: Lovenox Code: Full Dispo: SNF - [facility] - Pending approval ss/cm consulted - rehab denied
[2023-04-03] MEDS ORDERED: POTASSIUM CL SA 10 MEQ TAB PO ONE (09:00)
[2023-04-03] MEDS: JUVEN PACKET PO SCH ×2 (09:00→21:00)
[2023-04-03] MEDS: HYDRALAZINE HCL 25 MG TABLET PO SCH ×3 (09:00→21:15)
[2023-04-03] MEDS: HYDROCODONE/APAP 5/325 MG TAB PO PRN ×3 (09:55→23:36)
[2023-04-03] MEDS: FUROSEMIDE 40 MG TABLET PO SCH ×2 (09:56→17:20)
[2023-04-03] MEDS: ASPIRIN EC 81 MG TAB PO SCH (09:56)
[2023-04-03] MEDS: GLIMEPIRIDE 2 MG TABLET PO SCH ×2 (09:56→17:20)
[2023-04-03] MEDS: DOCUSATE NA 100 MG CAP PO SCH ×2 (09:56→21:15)
[2023-04-03] MEDS: MONTELUKAST 10 MG TAB PO SCH (09:57)
[2023-04-03] MEDS: PANTOPRAZOLE 40MG TABLET PO SCH ×2 (09:57→17:21)
[2023-04-03] MEDS: ENOXAPARIN 40 MG/0.4 ML SQ SCH (09:58)
[2023-04-03] MEDS: LIDOCAINE 4% PATCH TOP SCH ×2 (09:58→09:59)
[2023-04-03] MEDS: SILDENAFIL CITRATE 20 MG TABLET PO SCH ×3 (09:58→21:15)
[2023-04-03] MEDS: CEFTRIAXONE 1,000 MG in NA CHLORIDE 0.9% 50 ML IVPB SCH (09:59)
[2023-04-03] MEDS: INSULIN GLARGINE 100 UNIT/ML SQ SCH ×2 (10:04→21:17)
[2023-04-03] MEDS: DIPHENHYDRAMINE 25 MG TAB/CAP PO PRN ×2 (17:20→23:36)
--- NOTE | 2023-04-03 20:15 | PN ---
Date of Progress Note: 04/03/2023 Chief Complaint: Congestive heart failure exacerbation, cardiorenal syndrome, anasarca. Subjective: Patient is feeling better today. Patient denies chest pain, palpitation. Physical Examination: Lungs: Diminished breath sounds at bases. Heart: S1, S2. Abdomen: Soft. Extremities: Edema present in both legs. Impression And Plan: 1.Acute on chronic kidney injury. Patient has cardiorenal syndrome, complicated by volume overload, respiratory symptoms, dyspnea on exertion, and dyspnea at rest. The patient was treated with Lasix 80 mg twice a day. Continue by mouth hydration as needed. 2.Acute on chronic diastolic congestive heart failure. Continue low-sodium diet. Patient has prere nal azotemia. Continue hydration by mouth. 3.Hypertension. Continue current medication. 4.Klebsiella urinary tract infection. Patient received antibiotics. 5.Diabetes mellitus. Avoid metformin. Continue insulin. 6.Hyponatremia. Monitor electrolytes closely. Continue low-sodium diet and management for congesti ve heart failure. Patient has hyponatremia secondary to cardiorenal syndrome and congestive heart fa ilure. NATH/TAMMYL Voice ID: [id number] Report ID: [id number]
[2023-04-03] MEDS: ATORVASTATIN 20 MG TAB PO SCH (21:16)
[2023-04-04] MEDS: LEVOTHYROXINE SOD 0.075 MG TAB PO SCH (05:54)
[2023-04-04] MEDS: carvediloL 12.5 MG TAB PO SCH ×2 (05:54→17:52)
[2023-04-04] MEDS: HYDROCODONE/APAP 5/325 MG TAB PO PRN ×3 (05:55→17:52)
[2023-04-04] MEDS: DIPHENHYDRAMINE 25 MG TAB/CAP PO PRN ×3 (05:55→17:53)
[2023-04-04 06:12] LABS: Absolute Lymphocytes (CBC) 1.8 K/uL (0.7-4.9); Lymphocytes % 14.1 % (15.3-44.8); MCV 91.2 fL (80-100); MPV 8.8 fL (7.6-11.3); Platelets 317 thou/uL (152-406); RBC Red Blood Cell Count 3.84 M/uL (3.86-4.86)
[2023-04-04 06:29] LABS: Potassium 3.7 mEq/L (3.5-5.1)
[2023-04-04] MEDS ORDERED: POTASSIUM CL SA 10 MEQ TAB PO ONE (06:34)
--- NOTE | 2023-04-04 07:28 | P.PN ---
Date of Service: 04/04/23 Subjective: Difficulty to start urinate, +straining otherwise feels like shes overall improving no acute events overnight afebrile ROS: 10 point ROS as noted above, otherwise negative Physical Exam: GEN: Alert, oriented, NAD HEENT: Normal conjunctiva, sclera anicteric CV: Regular rate and rhythm, trace to trace BLE edema up to knees Pulm: Nonlabored respirations on 2L NC, diminished at bases b/l, +cough ABD: Soft, mild suprapubic tenderness Neuro: Normal speech, normal affect vitals reviewed Problem List: Anasarca Acute on chronic diastolic CHF UTI, Klebsiella Pneumoniae, MDR Proteus Mirabilis Urinary retention, suspect secondary to UTI NOHEMY, cardiorenal syndrome Hypertensive urgency IDDM2 with hyperglycemia Hypothyroidism Chronic back pain Constipation Anasarca Acute on chronic diastolic CHF Mild Cardiomegaly CXR (03/16): Mild cardiomegaly. No focal areas of acute airspace disease CXR (04/01): mild central congestion, stable Last echo (2020) with normal EF. She takes Lasix 40 mg BID at home Cardiology consulted Echo (03/17): 73% EF, severe diastolic dysfunction, severe pulmonary hypertension, mild MR, mild TR 03/19 changed metoprolol to coreg for better BP control Cont PO lasix 80 bid PT/OT consult improving UTI, Klebsiella Pneumoniae, MDR Proteus Mirabilis Urinary retention, suspect secondary to UTI reports Lower left flank pain, +increased urge to urinate on admission; PVR noted to be >200 on (03/18), Urine culture: Klebsiella Pneumoniae, 4+GNR Rocephin (03/17-03/21) transitioned to oral cefdinir (03/21-03/29) x2 weeks total antibiotics Mann DCd; urinating without issue until 04/04 recheck PVR 04/02 - Patient reports lower abdominal pain, +burning sensation when urinating ID consulted urine cx: MDR Proteus Mirabilis rocephin (04/02-04/04) switched to IV merrem (04/04-) afebrile,+leukocytosis NOHEMY, cardiorenal syndrome renal u/s (03/17): 3.6 cm benign right renal cyst. Nephrology consulted cont lasix Monitor renal function stable / improving Hypertensive urgency reports being out of her doxazosin for the past ~4 days Continue home medications - restarted sildenfail, pt with severe pulm hypertension BP improving IDDM2 with hyperglycemia ACHS Accu-Chek, SSI. adjusted semglee Restarted glimepiride 04/01 Hypothyroidism Continue home synthroid TSH: 4.63 Free T4: 1.14 Constipation PRN stool softener laxative PRN Very large BM overnight enema x1 ordered 04/02 VTE: Lovenox Code: Full Dispo: SNF - [facility] - Pending approval ss/cm consulted - rehab denied
[2023-04-04] MEDS: DOCUSATE NA 100 MG CAP PO SCH ×2 (09:00→21:00)
--- NOTE | 2023-04-04 09:39 | P.CNS ---
Date of Consult: 04/04/23 Reason for Consult: UTI, MDR Chief Complaint: CHF, anasarca History of Present Illness: Patient is a 67 yo female with a past medical history of chronic diastolic CHF, diabetes, hypothyroidism and sleep apnea who presented to the ED with complaints of shortness of breath and bilateral lower extremity swelling. She was admitted for acute on chronic CHF and anasarca on 03/16. During hospital course, patient was found to have urinary tract infection with urine cultures growing Klebsiella pneumoniae on 03/17 for which she was treated with Rocephin from 03/17-03/21 then transitioned to oral Cefdinir 03/21-03/29. Patient is now complaining of recurrent dysuria and urinary retention. Urine culture 04/02 with proteus mirabilis ESBL. Infectious disease was consulted 04/04. Allergies No Known Allergies Allergy (Verified 03/03/21 01:30) Home medications list reviewed: Yes Home Medications: Aspirin [Aspirin EC 81 MG] 81 mg PO DAILY #90 tablet. 03/03/21 Atorvastatin Calcium 20 mg PO BEDTIME 03/03/21 Doxazosin [Cardura*] 1 mg PO BEDTIME 03/03/21 Fluticasone/Vilanterol [Breo Ellipta 200-25 Mcg INH] 1 dose .ROUTE DAILY 03/03/21 Furosemide 80 mg PO BID #120 03/03/21 Furosemide 80 mg PO BID #120 tablet 03/03/21 Glimepiride 4 mg PO BIDWM 03/03/21 Insulin Glargine,Hum.rec.anlog [Yary Downing] 75 unit SQ BID 03/03/21 Ipratropium [Atrovent 0.03% (21MCG)/Fischer Nasal*] 60 sprays NS TID 03/03/21 Ipratropium/Albuterol Sulfate [Combivent Respimat 20-100 Mcg] 1 puff IH QID 03/03/21 Ipratropium/Albuterol Sulfate [Iprat-Albut 0.5-3(2.5) mg/3 ml] 3 ml IH QID 03/03/21 Levothyroxine [Synthroid*] 75 mcg PO [id number] 03/03/21 Losartan Potassium 100 mg PO DAILY 03/03/21 Metoprolol Tartrate 100 mg PO BID 03/03/21 Montelukast [Singulair*] 10 mg PO DAILY 03/03/21 Omeprazole [Prilosec] 40 mg PO BID 03/03/21 Promethazine HCl 25 mg PO BID PRN 03/03/21 Sitagliptin Phosphate [Januvia*] 100 mg PO DAILY 03/03/21 Vitamin B Complex [B Complex] 1 each PO DAILY 03/03/21 Zinc 1 tab PO DAILY 03/03/21 Doxazosin [Cardura*] 1 mg PO BEDTIME 03/16/23 Sildenafil Citrate [Revatio*] 20 mg PO TID 03/16/23 Diphenhydramine [Benadryl Tab/Cap] 25 mg PO Q6HP PRN 03/17/23 - Past Medical/Surgical History Diabetic: Yes -: Chronic diastolic congestive heart failure -: Diabetes mellitus type 2insulin-dependent -: Hypertension -: Hyperlipidemia -: Hypothyroidism -: Obstructive sleep apnea -: COPD/asthma -: Obesity 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, 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 - Social History Alcohol use: Yes CD- Drugs: No Caffeine use: Yes Place of Residence: Home Review of Systems 10-point ROS is otherwise unremarkable Gastrointestinal: Diarrhea Genitourinary: Dysuria, Retention Physical Examination Temp Pulse Resp BP Pulse Ox 97.3 F 89 18 137/60 96 04/04/23 08:00 04/04/23 08:00 04/04/23 08:00 04/04/23 08:00 04/04/23 08:00 General: Alert, In no apparent distress, Oriented x3, Obese HEENT: Atraumatic, Normocephalic Neck: Supple, JVD not distended Respiratory: Normal air movement (on room air), Diminished Cardiovascular: Regular rate/rhythm Gastrointestinal: Normal bowel sounds, No tenderness Integumentary: No rashes Neurological: Normal speech, Normal tone, Normal affect Laboratory Data - Reviewed Microbiology Data - Reviewed Imagings Data: - Reviewed Conclusions/Impression: Problem List Urinary Tract Infection Urinary Retention Acute on Chronic Diastolic CHF Diabetes Mellitus Type II Hypertension Hypothyroidism Diarrhea Urinary Tract Infection - Urine culture 03/17: Klebsiella pneumoniae - Treated with Rocephin from 03/17-03/21 then transitioned to oral Cefdinir 03/21-03/29 - Patient reporting dysuria and urinary retention on 04/02, white count increase to 12.7 on 04/03. - Urine culture 04/02: Proteus mirabilis ESBL - On Meropenem (started 04/04) - Leukocytosis (WBC 13). Afebrile. Recommendations UTI: Continue Meropenem IV for 7 days (04/04-04/11) Diarrhea: Start on probiotic Pending SNF approval. Case discussed with Figueroa Collier
[2023-04-04] MEDS: LIDOCAINE 4% PATCH TOP SCH (10:19)
[2023-04-04] MEDS: ASPIRIN EC 81 MG TAB PO SCH (10:20)
[2023-04-04] MEDS: HYDRALAZINE HCL 25 MG TABLET PO SCH ×3 (10:20→21:34)
[2023-04-04] MEDS: GLIMEPIRIDE 2 MG TABLET PO SCH ×2 (10:20→17:53)
[2023-04-04] MEDS: PANTOPRAZOLE 40MG TABLET PO SCH ×2 (10:20→17:54)
[2023-04-04] MEDS: FUROSEMIDE 40 MG TABLET PO SCH ×2 (10:21→17:53)
[2023-04-04] MEDS: MONTELUKAST 10 MG TAB PO SCH (10:21)
[2023-04-04] MEDS: Meropenem 1,000 MG in NA CHLORIDE 0.9% 100 ML IV SCH ×2 (10:21→21:37)
[2023-04-04] MEDS: INSULIN -REGULAR HUMAN 50 UNIT/0.5 ML ML SQ SCH ×4 (10:22→21:35)
[2023-04-04] MEDS: ENOXAPARIN 40 MG/0.4 ML SQ SCH (10:23)
[2023-04-04] MEDS: INSULIN GLARGINE 100 UNIT/ML SQ SCH ×2 (10:23→21:34)
[2023-04-04] MEDS: SILDENAFIL CITRATE 20 MG TABLET PO SCH ×3 (10:24→21:34)
[2023-04-04] MEDS: JUVEN PACKET PO SCH ×2 (10:24→21:00)
[2023-04-04] MEDS: ATORVASTATIN 20 MG TAB PO SCH (21:36)
[2023-04-05] MEDS: DIPHENHYDRAMINE 25 MG TAB/CAP PO PRN ×4 (00:05→20:37)
[2023-04-05] MEDS: HYDROCODONE/APAP 5/325 MG TAB PO PRN ×4 (00:05→20:37)
[2023-04-05] MEDS: ONDANSETRON 4 MG (ODT) TAB PO PRN (02:08)
--- NOTE | 2023-04-05 02:23 | PN ---
Date of Progress Note: 04/04/2023 Chief Complaint: Congestive heart failure exacerbation, cardiorenal syndrome, anasarca. The patient is not feeling better today. The patient denies chest pain, palpitation, although she has urinary s ymptoms. Denies hematuria. Denies kidney colic. Physical Examination: Lungs: Diminished breath sounds at bases. Heart: S1, S2. Abdomen: Soft, obese. Extremities: Edema present in both legs. Impression And Plan: 1.Acute on chronic kidney injury. The patient has cardiorenal syndrome complicated by volume overlo ad, respiratory symptoms with dyspnea on exertion and dyspnea at rest. The patient was treated with Lasix 80 mg twice a day. Continue by mouth hydration as needed. 2.Continue to monitor renal function and electrolytes. Continue low-sodium diet to prevent fluid ov erload. The patient has mild prerenal azotemia secondary to current treatment as well as cardiorenal syndrome. Continue hydration by mouth. 3.Klebsiella urinary tract infection. The patient received antibiotics. 4.Diabetes mellitus. Hold metformin. 5.Hyponatremia. Monitor electrolytes closely. Continue low-sodium diet and management for congesti ve heart failure. The patient has hyponatremia secondary to cardiorenal syndrome and congestive hear t failure. Continue p.o. fluid restriction and low sodium diet. EB/MODL Voice ID: [id number] Report ID: [id number]
[2023-04-05] MEDS: LEVOTHYROXINE SOD 0.075 MG TAB PO SCH (06:12)
[2023-04-05] MEDS: carvediloL 12.5 MG TAB PO SCH ×2 (06:12→17:52)
[2023-04-05 06:42] LABS: Absolute Lymphocytes (CBC) 1.6 K/uL (0.7-4.9); Hematocrit 34.7 % (36.0-45.0); MCV 91.4 fL (80-100); MPV 8.5 fL (7.6-11.3); Platelets 305 thou/uL (152-406)
[2023-04-05 06:45] LABS: Magnesium 2.8 mg/dL (1.6-2.4); Potassium 4.1 mEq/L (3.5-5.1)
[2023-04-05] MEDS: INSULIN -REGULAR HUMAN 50 UNIT/0.5 ML ML SQ SCH ×4 (07:30→20:41)
--- NOTE | 2023-04-05 09:07 | P.PN ---
Date of Service: 04/05/23 Chief Complaint: CHF, anasarca Subjective: Patient seen and examined at bedside. Sitting up on side of bed. Reports dysuria and retention, slightly improving. No acute events reported overnight. Pending SNF placement. Physical Examination Temp Pulse Resp BP Pulse Ox 97.1 F 79 18 135/51 L 98 04/05/23 08:00 04/05/23 08:00 04/05/23 08:00 04/05/23 08:00 04/05/23 08:00 General: Alert, In no apparent distress, Oriented x3, Obese HEENT: Atraumatic, Normocephalic Neck: Supple, JVD not distended Respiratory: Diminished. Normal air movement. ON 2L nasal cannula. Cardiovascular: Regular rate/rhythm Gastrointestinal: Normal bowel sounds, No tenderness Integumentary: No rashes Neurological: Normal speech, Normal tone, Normal affect Laboratory Data - Reviewed Microbiology Data - Reviewed Imagings Data: - Reviewed Medications List: Reviewed Assessment and Plan Problem List Urinary Tract Infection Urinary Retention Acute on Chronic Diastolic CHF Diabetes Mellitus Type II Hypertension Hypothyroidism Diarrhea Urinary Tract Infection - Urine culture 03/17: Klebsiella pneumoniae - Treated with Rocephin from 03/17-03/21 then transitioned to oral Cefdinir 03/21-03/29 - Patient reporting dysuria and urinary retention on 04/02, white count increase to 12.7 on 04/03. - Urine culture 04/02: Proteus mirabilis ESBL - On Meropenem (started 04/04) - Leukocytosis improving (WBC 13 -> 11.4). Afebrile. Recommendations UTI: Continue Meropenem IV for 7 days (04/04-04/11) Diarrhea: On probiotic Pending SNF approval/placement Case discussed with Figueroa Collier
[2023-04-05] MEDS: Meropenem 1,000 MG in NA CHLORIDE 0.9% 100 ML IV SCH ×2 (09:35→17:52)
[2023-04-05] MEDS: ENOXAPARIN 40 MG/0.4 ML SQ SCH (09:35)
[2023-04-05] MEDS: INSULIN GLARGINE 100 UNIT/ML SQ SCH ×2 (09:36→20:42)
[2023-04-05] MEDS: LIDOCAINE 4% PATCH TOP SCH (09:36)
[2023-04-05] MEDS: DOCUSATE NA 100 MG CAP PO SCH ×2 (09:37→20:51)
[2023-04-05] MEDS: HYDRALAZINE HCL 25 MG TABLET PO SCH ×3 (09:37→20:37)
[2023-04-05] MEDS: PANTOPRAZOLE 40MG TABLET PO SCH ×2 (09:37→16:40)
[2023-04-05] MEDS: LACTOBACILLUS/ACIDOPHILUS TAB PO SCH (09:37)
[2023-04-05] MEDS: MONTELUKAST 10 MG TAB PO SCH (09:37)
[2023-04-05] MEDS: ASPIRIN EC 81 MG TAB PO SCH (09:37)
[2023-04-05] MEDS: FUROSEMIDE 40 MG TABLET PO SCH ×2 (09:37→16:41)
[2023-04-05] MEDS: SILDENAFIL CITRATE 20 MG TABLET PO SCH ×3 (09:37→20:36)
[2023-04-05] MEDS: JUVEN PACKET PO SCH ×2 (09:38→20:49)
[2023-04-05] MEDS: GLIMEPIRIDE 2 MG TABLET PO SCH ×2 (09:38→16:41)
--- NOTE | 2023-04-05 17:42 | P.PN ---
Subjective Date of Service: 04/05/23 Chief Complaint: CHF, anasarca No new complaint. Patient seen sitting at the edge of the bed. Physical Examination - Vital Signs Temperature: 97.6 F Blood Pressure: 109/41 Pulse: 99 Respirations: 18 Pulse Ox (%): 96 Assessment And Plan - Plan Physical Exam: GEN: Alert, oriented, NAD CV: Regular rate and rhythm, trace to trace BLE edema up to knees Pulm: Nonlabored respirations on 2L NC, diminished at bases b/l, +cough ABD: Soft, mild suprapubic tenderness Neuro: Normal speech, normal affect vitals reviewed Problem List: Anasarca Acute on chronic diastolic CHF UTI, Klebsiella Pneumoniae, MDR Proteus Mirabilis Urinary retention, suspect secondary to UTI NOHEMY, cardiorenal syndrome Hypertensive urgency IDDM2 with hyperglycemia Hypothyroidism Chronic back pain Constipation Anasarca Acute on chronic diastolic CHF Mild Cardiomegaly CXR (03/16): Mild cardiomegaly. No focal areas of acute airspace disease CXR (04/01): mild central congestion, stable Last echo (2020) with normal EF. She takes Lasix 40 mg BID at home Cardiology consulted Echo (03/17): 73% EF, severe diastolic dysfunction, severe pulmonary hypertension, mild MR, mild TR metoprolol to coreg for better BP control Cont PO lasix 80 bid PT/OT consult improving UTI, Klebsiella Pneumoniae, MDR Proteus Mirabilis Urinary retention, suspect secondary to UTI reports Lower left flank pain, +increased urge to urinate on admission; PVR noted to be >200 on (03/18), Urine culture: Klebsiella Pneumoniae, 4+GNR Rocephin (03/17-03/21) transitioned to oral cefdinir (03/21-03/29) x2 weeks total antibiotics Mann DCd 04/02 - Patient reports lower abdominal pain, +burning sensation when urinating ID following. urine cx: MDR Proteus Mirabilis rocephin (04/02-04/04) switched to IV merrem (04/04-) afebrile,+leukocytosis 7 days of IV meropenem recommended by ID. NOHEMY, cardiorenal syndrome renal u/s (03/17): 3.6 cm benign right renal cyst. Nephrology consulted cont lasix Renal function peaked at 1.7 and now trending Hypertensive urgency reports being out of her doxazosin for the past ~4 days Continue home medications - restarted sildenfail, pt with severe pulm hypertension BP improving. Patient is normotensive today IDDM2 with hyperglycemia ACHS Accu-Chek, SSI. adjusted semglee Glimepiride restarted on 04/01 Hypothyroidism Continue home synthroid TSH: 4.63 Free T4: 1.14 Constipation PRN stool softener laxative PRN Very large BM overnight enema x1 ordered 04/02 VTE: Lovenox Code: Full Dispo: [facility] - [place] -pending IV access.
[2023-04-05] MEDS: ATORVASTATIN 20 MG TAB PO SCH (20:36)
[2023-04-06] MEDS: HYDROCODONE/APAP 5/325 MG TAB PO PRN ×3 (02:18→15:24)
[2023-04-06] MEDS: DIPHENHYDRAMINE 25 MG TAB/CAP PO PRN ×3 (02:18→15:26)
[2023-04-06] MEDS: Meropenem 1,000 MG in NA CHLORIDE 0.9% 100 ML IV SCH ×2 (06:16→18:23)
[2023-04-06] MEDS: carvediloL 12.5 MG TAB PO SCH ×2 (06:17→18:23)
[2023-04-06] MEDS: LEVOTHYROXINE SOD 0.075 MG TAB PO SCH (06:17)
[2023-04-06] MEDS ORDERED: NA CHLORIDE 0.9% 250 ML ONE (06:24)
[2023-04-06 06:51] LABS: Potassium 3.9 mEq/L (3.5-5.1)
[2023-04-06] MEDS: INSULIN -REGULAR HUMAN 50 UNIT/0.5 ML ML SQ SCH ×3 (07:30→16:30)
[2023-04-06] MEDS: PANTOPRAZOLE 40MG TABLET PO SCH ×2 (07:30→16:30)
[2023-04-06] MEDS: LACTOBACILLUS/ACIDOPHILUS TAB PO SCH (08:00)
[2023-04-06] MEDS: JUVEN PACKET PO SCH (09:00)
[2023-04-06] MEDS: DOCUSATE NA 100 MG CAP PO SCH (09:00)
[2023-04-06] MEDS: ENOXAPARIN 40 MG/0.4 ML SQ SCH (09:27)
[2023-04-06] MEDS: GLIMEPIRIDE 2 MG TABLET PO SCH ×2 (09:27→18:22)
[2023-04-06] MEDS: ASPIRIN EC 81 MG TAB PO SCH (09:27)
[2023-04-06] MEDS: HYDRALAZINE HCL 25 MG TABLET PO SCH ×2 (09:27→14:44)
[2023-04-06] MEDS: FUROSEMIDE 40 MG TABLET PO SCH ×2 (09:27→18:23)
[2023-04-06] MEDS: LIDOCAINE 4% PATCH TOP SCH (09:28)
[2023-04-06] MEDS: INSULIN GLARGINE 100 UNIT/ML SQ SCH (09:28)
[2023-04-06] MEDS: MONTELUKAST 10 MG TAB PO SCH (09:36)
--- NOTE | 2023-04-06 10:01 | P.PN ---
Date of Service: 04/06/23 Chief Complaint: CHF, anasarca Subjective: Patient in bed. In no apparent distress. Reports mild dysuria, however it has been improving. Otherwise no new or worsening complaints at this time. Physical Examination Temp Pulse Resp BP Pulse Ox 98.5 F 104 H 18 101/73 99 04/06/23 12:00 04/06/23 12:00 04/06/23 12:00 04/06/23 12:00 04/06/23 12:00 General: Alert, In no apparent distress, Oriented x3, Obese HEENT: Atraumatic, Normocephalic Neck: Supple, JVD not distended Respiratory: Diminished. Normal air movement. On 2L nasal cannula. Cardiovascular: Regular rate/rhythm Gastrointestinal: Normal bowel sounds, No tenderness Integumentary: No rashes Neurological: Normal speech, Normal tone, Normal affect Laboratory Data - Reviewed Microbiology Data - Reviewed Imagings Data: - Reviewed Medications List: Acetaminophen (Acetaminophen 500 Mg Tab) 500 mg PO Q4HP PRN PRN Reason: Pain scale 2-4 (Mild) Last Admin: 03/18/23 05:45 Dose: 500 mg Hydrocodone Bitart/Acetaminophen (Hydrocodone/Apap 5/325 Mg Tab) 1 tab PO Q6H PRN PRN Reason: Pain scale 5-7 (Moderate) Last Admin: 04/06/23 09:26 Dose: 1 tab Albuterol Sulfate (Albuterol 2.5 Mg/3 Ml Neb Wanda) 2.5 mg NEB Q6HP PRN PRN Reason: WHEEZING Aspirin (Aspirin Ec 81 Mg Tab) 81 mg PO DAILY [facility] Last Admin: 04/06/23 09:27 Dose: 81 mg Atorvastatin Calcium (Atorvastatin 20 Mg Tab) 20 mg PO BEDTIME [facility] Last Admin: 04/05/23 20:36 Dose: 20 mg Carvedilol (Carvedilol 12.5 Mg Tab) 12.5 mg PO BID 6AM 6PM [facility] Last Admin: 04/06/23 06:17 Dose: 12.5 mg Diphenhydramine HCl (Diphenhydramine 25 Mg Tab/Cap) 25 mg PO Q6HP PRN PRN Reason: ITCHING Last Admin: 04/06/23 09:26 Dose: 25 mg Docusate Sodium (Docusate Na 100 Mg Cap) 100 mg PO BID [facility] Last Admin: 04/06/23 09:00 Dose: Not Given Enoxaparin Sodium (Enoxaparin 40 Mg/0.4 Ml) 40 mg SQ DAILY [facility] Last Admin: 04/06/23 09:27 Dose: 40 mg Furosemide (Furosemide 40 Mg Tablet) 80 mg PO BIDL [facility] Last Admin: 04/06/23 09:27 Dose: 80 mg Glimepiride (Glimepiride 2 Mg Tablet) 4 mg PO BIDWM [facility] Last Admin: 04/06/23 09:27 Dose: 4 mg Hydralazine HCl (Hydralazine Hcl 25 Mg Tablet) 50 mg PO TID [facility] Last Admin: 04/06/23 14:44 Dose: 50 mg Meropenem 1,000 mg/ Sodium (Chloride) 100 mls @ 200 mls/hr IV Q12H [facility] Last Admin: 04/06/23 06:16 Dose: 100 mls Insulin Glargine (Insulin Glargine 100 Unit/Ml) 85 unit SQ BID [facility] Last Admin: 04/06/23 09:28 Dose: 85 unit Insulin Human Regular (Insulin -Regular Human 50 Unit/0.5 Ml Ml) 0 unit SQ ACHS [facility]; Protocol Last Admin: 04/06/23 12:09 Dose: 7 unit L-Arginine/L-Glutamine/HMB (Hbuert Packet) 1 pkt PO BID [facility] Last Admin: 04/06/23 09:00 Dose: 1 pkt Lactobacillus Acidoph/Bulgaricus (Lactobacillus/Acidophilus Tab) 1 tab PO DAILY WITH BREAKFAST [facility] Last Admin: 04/06/23 08:00 Dose: 1 tab Levothyroxine Sodium (Levothyroxine Sod 0.075 Mg Tab) 0.075 mg PO [id number] [facility] Last Admin: 04/06/23 06:17 Dose: 0.075 mg Lidocaine (Lidocaine 4% Patch) 1 patch TOP DAILY [facility] Last Admin: 04/06/23 09:28 Dose: 1 patch Montelukast Sodium (Montelukast 10 Mg Tab) 10 mg PO DAILY [facility] Last Admin: 04/06/23 09:36 Dose: 10 mg Ondansetron HCl (Ondansetron 4 Mg (Odt) Tab) 4 mg PO Q6H PRN PRN Reason: NAUSEA / VOMITING Last Admin: 04/05/23 02:08 Dose: 4 mg Pantoprazole Sodium (Pantoprazole 40mg Tablet) 40 mg PO BIDAC [facility]; Protocol Last Admin: 04/06/23 07:30 Dose: 40 mg Polyethylene Glycol (Polyethyl Gly 3350 17 Gm/Dose) 17 gm PO DAILY PRN PRN Reason: CONSTIPATION Last Admin: 04/01/23 11:51 Dose: 17 gm Sildenafil Citrate (Sildenafil Citrate 20 Mg Tablet) 20 mg PO TID [facility] Last Admin: 04/06/23 14:44 Dose: 20 mg Assessment and Plan Problem List Urinary Tract Infection Urinary Retention Acute on Chronic Diastolic CHF Diabetes Mellitus Type II Hypertension Hypothyroidism Diarrhea Urinary Tract Infection - Urine culture 03/17: Klebsiella pneumoniae - Treated with Rocephin from 03/17-03/21 then transitioned to oral Cefdinir 03/21-03/29 - Patient reporting dysuria and urinary retention on 04/02, white count increase to 12.7 on 04/03. - Urine culture 04/02: Proteus mirabilis ESBL - On Meropenem (started 04/04) - Leukocytosis improving. Afebrile. Recommendations - UTI: Continue Meropenem IV for 7 days (04/04-04/11) - Supportive care and nutritional supplementation as needed Pending SNF approval/placement Case discussed with Figueroa Collier
[2023-04-06 10:36] VITALS: O2SAT 95
--- NOTE | 2023-04-06 11:05 | P.DS ---
Admission Date: 03/16/23 Discharge Date: 04/06/23 Disposition: TRANSFER TO [facility] Discharge Condition: FAIR Reason for Admission: CHF, anasarca Brief History of Present Illness: 67-year-old female with history of chronic diastolic congestive heart failure, insulin-dependent diabetes, hypertension, hypothyroidism, sleep apnea presents to the emergency department with chief complaint of dyspnea, swelling. She reported over the course of 5 days she noticed increased swelling of her lower extremities as well as increasing shortness of breath. She has a history of congestive heart failure she has not seen her doctor in about a year. She had anasarca with Pitting edema of the extremities. She denied any recent changes in her medications although she has been out of doxazosin and was taking Lasix 40 mg twice daily at home. She was evaluated in the emergency department her labs are significant for white blood cell count 12.9 hemoglobin 9.3 hematocrit 35.1 creatinine 1.22 GFR 48 glucose 231 BNP 1641 chest x-ray was negative for acute findings. She was given IV Lasix in the ED and patient admitted for further management. Hospital Course: Problem List: Anasarca Acute on chronic diastolic CHF UTI, Klebsiella Pneumoniae, MDR Proteus Mirabilis Urinary retention, suspect secondary to UTI NOHEMY, cardiorenal syndrome Hypertensive urgency IDDM2 with hyperglycemia Hypothyroidism Chronic back pain Constipation Anasarca Acute on chronic diastolic CHF Mild Cardiomegaly CXR (03/16): Mild cardiomegaly. No focal areas of acute airspace disease CXR (04/01): mild central congestion, stable Last echo (2020) with normal EF. She takes Lasix 40 mg BID at home Cardiology consulted Echo (03/17): 73% EF, severe diastolic dysfunction, severe pulmonary hypertension, mild MR, mild TR metoprolol to coreg for better BP control Cont PO lasix 80 bid PT/OT consult improved UTI, Klebsiella Pneumoniae, MDR Proteus Mirabilis Urinary retention, suspect secondary to UTI reports Lower left flank pain, +increased urge to urinate on admission; PVR noted to be >200 on (03/18), Urine culture: Klebsiella Pneumoniae, 4+GNR Rocephin (03/17-03/21) transitioned to oral cefdinir (03/21-03/29) x2 weeks total antibiotics Mann DCd 04/02 - Patient reports lower abdominal pain, +burning sensation when urinating ID following. urine cx: MDR Proteus Mirabilis rocephin (04/02-04/04) switched to IV merrem (04/04-) afebrile,+leukocytosis 7 days of IV meropenem recommended by ID. NOHEMY, cardiorenal syndrome renal u/s (03/17): 3.6 cm benign right renal cyst. Nephrology consulted cont josé miguel Renal function peaked at 1.7 and trended down Hypertensive urgency reports being out of her doxazosin for the past ~4 days Continue home medications - restarted sildenfail, pt with severe pulm hypertension BP improved Patient became normotensive. IDDM2 with hyperglycemia ACHS Accu-Chek, SSI. adjusted semglee Glimepiride restarted on 04/01 Hypothyroidism Continued home synthroid TSH: 4.63 Free T4: 1.14 Constipation PRN stool softener laxative PRN Vital Signs/Physical Exam: Temp Pulse Resp BP Pulse Ox 97.6 F 75 16 137/62 96 04/06/23 08:00 04/06/23 09:27 04/06/23 09:26 04/06/23 08:00 04/06/23 09:26 General: Alert, In no apparent distress, Oriented x3, Obese HEENT: Mucous membr. moist/pink Neck: JVD not distended Respiratory: Clear to auscultation bilaterally, Normal air movement Cardiovascular: No edema, Regular rate/rhythm, Normal S1 S2 Gastrointestinal: Soft and benign, Non-distended Laboratory Data at Discharge: WBC 11.40 thou/uL (4.3-10.9) H 04/05/23 05:55 Hgb 11.5 g/dL (12.0-15.0) L 04/05/23 05:55 Hct 34.7 % (36.0-45.0) L 04/05/23 05:55 Plt Count 305 thou/uL (152-406) 04/05/23 05:55 PT 12.9 SECONDS (9.5-12.5) H 03/16/23 01:45 INR 1.17 03/16/23 01:45 Sodium 135 mEq/L (136-145) L 04/06/23 05:52 Potassium 3.9 mEq/L (3.5-5.1) 04/06/23 05:52 BUN 71 mg/dL (7-18) H 04/06/23 05:52 Creatinine 1.54 mg/dL (0.55-1.02) H 04/06/23 05:52 Glucose 178 mg/dL (74-106) H 04/06/23 05:52 Uric Acid 8.1 mg/dL (2.6-6.0) H 03/18/23 04:57 Phosphorus 4.0 mg/dL (2.5-4.9) 04/02/23 03:55 Magnesium 2.8 mg/dL (1.6-2.4) H 04/05/23 05:55 Total Bilirubin 0.4 mg/dL (0.2-1.0) 04/03/23 03:25 AST 15 U/L (15-37) 04/03/23 03:25 ALT 18 U/L (13-56) 04/03/23 03:25 Alkaline Phosphatase 70 U/L (45-117) 04/03/23 03:25 Triglycerides 137 mg/dL (<150) 03/17/23 05:51 Cholesterol 129 mg/dL (<200) 03/17/23 05:51 HDL Cholesterol 34 mg/dL (40-60) L 03/17/23 05:51 Cholesterol/HDL Ratio 3.79 03/17/23 05:51 Lipase 17 U/L (13-75) 03/16/23 01:45 Home Medications: Aspirin [Aspirin EC 81 MG] 81 mg PO DAILY #90 tablet. 03/03/21 Atorvastatin Calcium 20 mg PO BEDTIME 03/03/21 Fluticasone/Vilanterol [Breo Ellipta 200-25 Mcg INH] 1 dose .ROUTE DAILY 03/03/21 Furosemide 80 mg PO BID #120 tablet 03/03/21 Glimepiride 4 mg PO BIDWM 03/03/21 Ipratropium [Atrovent 0.03% (21MCG)/[place] Nasal*] 60 sprays NS TID 03/03/21 Ipratropium/Albuterol Sulfate [Combivent Respimat 20-100 Mcg] 1 puff IH QID 03/03/21 Ipratropium/Albuterol Sulfate [Iprat-Albut 0.5-3(2.5) mg/3 ml] 3 ml IH QID 03/03/21 Levothyroxine [Synthroid*] 75 mcg PO [id number] 03/03/21 Montelukast [Singulair*] 10 mg PO DAILY 03/03/21 Vitamin B Complex [B Complex] 1 each PO DAILY 03/03/21 Zinc 1 tab PO DAILY 03/03/21 Sildenafil Citrate [Revatio*] 20 mg PO TID 03/16/23 Diphenhydramine [Benadryl*] 25 mg PO Q6HP PRN 03/17/23 Albuterol Neb [Proventil 0.083% Neb Soln] 2.5 mg NEB [id number] PRN amp 04/06/23 Docusate [Colace Cap*] 100 mg PO BID cap 04/06/23 Hydralazine [Apresoline*] 50 mg PO TID tab 04/06/23 Insulin -Regular Human [Novolin -R*] See Protocol SQ ACHS ml 04/06/23 Insulin Glargine,Hum.rec.anlog [Semglee] 85 unit SQ BID ml 04/06/23 Hubert [Hubert*] 1 pkt PO BID 04/06/23 Lidocaine 4% Patch [Lidoderm 5% Patch*] 1 patch TOP DAILY pat 04/06/23 Meropenem-0.9% Sodium Chloride [Meropenem-0.9% NaCl 1 Gram/50] 1 gm IV Q12H #1000 ml 04/06/23 Pantoprazole [Protonix Tab*] 40 mg PO BIDAC tab 04/06/23 Polyethyl Gly 3350 [Glycolax*] 17 gm PO DAILY PRN udbot 04/06/23 carvediloL [Coreg*] 12.5 mg PO BID 6AM 6PM tab 04/06/23 New Medications: Meropenem-0.9% Sodium Chloride [Meropenem-0.9% NaCl 1 Gram/50] 1 gm IV Q12H #1000 ml Diet: ADA Activity: Fall precautions Followup: Unknown,U [Primary Care Provider] - Time spent managing pt's care (in minutes): 36
[2023-04-06] MEDS: SILDENAFIL CITRATE 20 MG TABLET PO SCH ×2 (11:32→14:44)
[2023-04-06] MEDS ORDERED: ALBUTEROL 2.5 MG/3 ML NEB SOL NEB PRN (11:35)
--- NOTE | 2023-04-06 15:18 | PN ---
Date of Progress Note: 04/06/2023 Subjective: Patient was admitted with anasarca, acute kidney injury. Patient was diuresed very well , responding very well. Objective: Vital Signs: Blood pressure 137/62, pulse of 82, afebrile. Patient had good urine outpu t. Patient's weight has been responding very well. Chest: Clear to auscultation. Heart: S1, S2, regular. Abdomen: Soft, nontender. Extremity: No edema. Venous stasis changes. Neurologic: Alert. No focality. Laboratory Data: Hemoglobin 11.5, sodium 135, potassium 3.9, bicarb 32, BUN 71, creatinine 1.5, calc ium 8.5. Current Medications: The patient on, it includes: 1.Meropenem. 2.Aspirin. 3.Lovenox. 4.Atorvastatin. 5.Carvedilol 12.5. 6.Hydralazine 50 t.i.d. 7.Tylenol. 8.Lasix 80 b.i.d. 9.Pantoprazole. 10.Levothyroxine. Assessment And Plan: 1.Acute kidney injury secondary to cardiorenal. Patient continue to recover, plateaued, currently o n her baseline. We will continue current dose of Lasix. 2.Hypertension, controlled, optimal. Continue current treatment. 3.Anasarca secondary to cardiorenal and pulmonary hypertension. Continue current diuresis dose. 4.Hyponatremia, dilutional, resolved. 5.Deconditioning. Continue PT, OT. 6.Pulmonary hypertension. Follow up with Cardiology. Could not tolerate Aldactone. RUSSELL/TAMMYL Voice ID: [id number] Report ID: [id number]
[2023-04-06 16:56] VITALS: BP 129/59; TEMP 97.5
== END 2023-04-06 20:05 | DRG 291 ==
LOC: ER 01:28 → ERHOLD 03:52 → 4TH 05:01
PROVIDERS: ADMIT Hospitalist; ATTEND Internal Medicine
PROC: 4A0D7LZ Measurement of Urinary Volume, Via Natural or Artificial Opening (ICD-10-PCS; principal; 2023-03-16)
DX: I11.0 Hypertensive heart disease with heart failure (principal); I50.33 Acute on chronic diastolic (congestive) heart failure; Z68.42 Body mass index [BMI] 45.0-49.9, adult; N17.9 Acute kidney failure, unspecified; E87.1 Hypo-osmolality and hyponatremia; Z16.12 Extended spectrum beta lactamase (ESBL) resistance; N39.0 Urinary tract infection, site not specified; L89.152 Pressure ulcer of sacral region, stage 2; E66.01 Morbid (severe) obesity due to excess calories; E11.65 Type 2 diabetes mellitus with hyperglycemia; E11.40 Type 2 diabetes mellitus with diabetic neuropathy, unspecified; E78.5 Hyperlipidemia, unspecified; G47.33 Obstructive sleep apnea (adult) (pediatric); I16.0 Hypertensive urgency; I27.20 Pulmonary hypertension, unspecified; N28.1 Cyst of kidney, acquired; E87.5 Hyperkalemia; K21.9 Gastro-esophageal reflux disease without esophagitis; E88.09 Other disorders of plasma-protein metabolism, not elsewhere classified; I08.1 Rheumatic disorders of both mitral and tricuspid valves; G89.29 Other chronic pain; M54.9 Dorsalgia, unspecified; K59.00 Constipation, unspecified; J44.9 Chronic obstructive pulmonary disease, unspecified; I25.10 Atherosclerotic heart disease of native coronary artery without angina pectoris; B96.4 Proteus (mirabilis) (morganii) as the cause of diseases classified elsewhere; B96.1 Klebsiella pneumoniae [K. pneumoniae] as the cause of diseases classified elsewhere; R80.9 Proteinuria, unspecified; R33.9 Retention of urine, unspecified; Z79.4 Long term (current) use of insulin; Z88.8 Allergy status to other drugs, medicaments and biological substances; Z99.89 Dependence on other enabling machines and devices; Z99.81 Dependence on supplemental oxygen; Z79.82 Long term (current) use of aspirin; Z79.84 Long term (current) use of oral hypoglycemic drugs; Z79.890 Hormone replacement therapy; Z79.899 Other long term (current) drug therapy
CPT/HCPCS: 36415; 71045; 76770; 80048; 80053; 80061; 80069; 80076; 81001; 82570; 82805; 82947; 83036; 83690; 83735; 83880; 83935; 83970; 84132; 84156; 84300; 84439; 84443; 84484; 84550; 85025; 85610; 86021; 86038; 86140; 86160; 86225; 86430; 87077; 87086; 87088; 87186; 87804; 87811; 93005; 93306; 94640; 96374; 96375; 97110; 97116; 97161; 97165; 97530; 99285; J0461; J0696; J1650; J1815; J1940; J2001; J2185; J2405; J2930; J7050; J7613; J7644; Q0162; Q0169

== ENCOUNTER 2023-04-06 22:45 | Observation (INO) | payer MEDICARE ==
--- OUTSIDE RECORDS SUMMARY | 2023-04-06 22:53 | XMS REPORT | Continuity of Care Document ---
:1955 Author Organization [facility] t Address [address] [facility] [place] [address] Care Team Providers Name Role Phone Kelli Dumont MD Primary Care Physician [phone] Kelli Dumont MD Attending Clinician [phone] Kvng Hanna MD Attending Clinician Nena Triplett [...] Unavailable Desean Palacio Attending Clinician Doctor Unassigned, [place] Attending Clinician Unavailable Kristy Brown RN Attending Clinician Unavailable CYNTHIA WERNER Attending Clinician Unavailable Cy Martinez DO Attending Clinician Cynthia Werner MD Attending Clinician BRIAN GILL Attending Clinician Unavailable SELVIN MERCADO Attending Clinician Unavailable Nurse, Adc Pob Immunization Attending Clinician Unavailable Selvin Mercado DO Attending Clinician GATO LAURENT Attending Clinician Unavailable Gato Laurent MD Attending Clinician MARJORIE SARABIA Attending Clinician Unavailable MARJORIE SARABIA Attending Clinician Unavailable 1, [facility] Sleep Lab Bed Attending Clinician Unavailable Marjorie Sarabia MD Attending Clinician MD LOBO ALLEN Attending Clinician Unavailable DIXIE PASTRANA Attending Clinician Unavailable Geneva Randall MD Attending Clinician Tristian Beach RN Attending Clinician Unavailable Oliverio [facility], Larisa Santo Attending Clinician Pob, [facility] Lab Main Attending Clinician Unavailable MAGED ENCARNACION Attending Clinician Unavailable Kori Delgado Attending Clinician Unavailable ABELINO RAMSEY Attending Clinician Unavailable JOESPH RODRÍGUEZ Attending Clinician Unavailable JOESPH RODRÍGUEZ Attending Clinician Unavailable HUGH BECK Attending Clinician Unavailable GENESIS HOLT Attending Clinician Unavailable Joesph Rodríguez DO Attending Clinician Fatmata Phillips RN Attending Clinician Unavailable Brennon AWY, Nikki Stout Attending Clinician Estefanía Reynolds MD Attending Clinician ESTEFANÍA REYNOLDS Attending Clinician Unavailable Jazz Espino MD Attending Clinician JAZZ ESPINO Attending Clinician Unavailable Gina Grewal RN Attending Clinician SUNIL JHAVERI Attending Clinician Unavailable Samantha Mckeon Attending Clinician Sunil Jhaveri MD Attending Clinician Pob1, [facility] Attending Clinician Unavailable Barb Marley Attending Clinician BARB QUEEN Attending Clinician Unavailable Kellie Angelo RN Attending [...] Expiration Date Rafael garcia MEDICARE PART B [id number] [place] * MEDICARE PART A [id number] 1998 \\T\\ B 00:00:00 [employer] [place] [id number] 2014 EMPLOYEE PLAN 00:00:00 Problems Condition Condition Condition Status Onset Resolution Last Treating Co mments Source Name Details Category Date Date Treatment Clinician Date Weakness Weakness Disease Active Unive rs 6-09 ity of 00:00: [place] [facility] Pulmonary Pulmonary Disease Active Uni vers hypertensi hypertensi 6-09 it y of on on 00:00: [place] [facility] Chest Chest Disease Active Univers pain, pain, 6-08 ity of unspecifie [place]spec[place] d [place] 00 Medical [place] Chronic Chronic Disease Active 2020-08 Univers heart heart 0-16 ity of failure failure 00:00: [place] with with 00 Medical preserved preserved Bran ch ejection ejection fraction fraction Blister of Blister of Disease Active 2020-08 U nivers toe of toe of 0-16 ity of left foot left foot 00:[place] without 00 Medical infection, infection, Br anch subsequent subsequent encounter encounter Post-nasal Post-nasal Disease Active 2020-08 U nivers drip drip 0-16 ity of 00:00: [place] 00 Medical Branch Right leg Right leg Disease Active Uni vers weakness weakness 8-05 ity of 00:00: [place] [facility] Right leg Right leg Disease Active Uni vers weakness weakness 8-05 ity of 00:00: [place] 00 Medical Branch Hypoalbumi Hypoalbumi Disease Active U nivers nemia nemia 8-05 ity of 00:00: [place] 00 Medical Branch Fluid Fluid Disease Active Univers retention retention 8-05 ity of 00:00: Medical Branch 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 Her NT-proBNP was mildly elevated. Would continue diuretics . Will give samples of Breo if available . Morbid Morbid Disease Active Univers obesity obesity 6-02 ity of 00:00: [place] [facility] Heart Heart Disease Active Last Methodi attack attack 6-[address] 00:00: t & Plan: Hospita Formattin l g of this note might be different from the original. S/P MO last December. Dyspnea Dyspnea Disease Active Univers 3-25 ity of 00:00: Medical Branch Essential Essential Disease Active 2017-08 Uni vers hypertensi hypertensi 0-24 it y of on on 00:00: Medical Branch Postmenopa Postmenopa Disease Active U nivers usal usal 5-21 ity of bleeding bleeding 00:00: Medical Branch Asthma Asthma Disease Active 2005-08 Overview: Univer s 2-14 Formattin ity of 00:00: g of this [place] note Medical might be Branch different from the original. ICD10 Diagnosis Term Clinic Director Utility Esophageal Esophageal Disease Active 2005-08 U nivers reflux reflux 2-14 ity of 00:00: Medical Branch Hypothyroi Hypothyroi Disease Active 2005-08 Overview : Univers dism dism 2-14 Formattin ity of 00:00: g of this [place] note Medical might be Branch different from the original. ICD10 Diagnosis Term Clinic Director Utility Depressive Depressive Disease Active 2005-08 Overview : Univers disorder disorder 2-14 Formattin ity of 00:00: g of this [place] 00 note Medical might be Branch different from the original. 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 current current ICD10 use of use of Diagnosis insulin insulin Term Clinic Director Utility Sleep Sleep Disease Active Last Methodi [...] Clinician Duloxeti Propensi Active Other - See [place] U nivers ne ty to comments 04-17 total ity of adverse 00:00: body [place] reaction 00 shocks Medical s Branch DULOXETI DRUG Active Other-Cmnt Univ ers NE INGREDI 04-17 ity of 00:00: [place] 00 Medical Branch Nifedipi Propensi Active Other - See [place] U nivers ne ty to comments 02-03 leg ity of adverse 00:00: swelling [place] reaction 00 Medical s Branch NIFEDIPI DRUG Active Other-Cmnt [...] Date Stop Date Source Natural father Leukemia [facility] Natural father COPD [facility] Natural father Diabetes [facility] Natural mother COPD [facility] Natural mother Heart disease Methodi [facility] Social History Social Habit Start Date Stop Date Quantity Comments Source History SDOH University o f Alcohol Frequency [place] [facility] History [facility] University o f Alcohol Std Drinks [place] [facility] History [facility] o f Alcohol Binge [place] [facility] Gender identity [facility] Sexual orientation [facility] Tobacco use and 2022-03-01 2022-03-01 Smokeless Universit y of exposure 00:00:00 00:00:00 tobacco non-user [facility] dical Branch Exposure to 2022-02-12 2022-02-22 Not sure University of SARS-CoV-2 (event) 00:00:00 13:01:00 [facility] Alcohol intake 2021-09-14 2021-09-14 Ex-drinker [facility] 00:00:00 00:00:00 (finding) Hospital History of Social 2021-09-14 2021-09-[address] function 00:00:00 00:00:00 Hospital Alcohol Comment 2021-02-10 2021-02-10 once a year Methodis t 00:00:00 00:00:00 Hospital Education 2019-11-07 2019-11-07 16 University of 00:00:00 00:00:00 [facility] History SDOH 2019-11-07 2019-11-07 5 University o f Financial 00:00:00 00:00:00 [place] [facility] History [facility] Food 2019-11-07 2019-11-07 1 Univers ity of Worry 00:00:00 00:00:00 [place] [facility] History [facility] Food 2019-11-07 2019-11-07 1 Univers ity of Scarcity 00:00:00 00:00:00 [place] [facility] History [facility] 2019-11-07 2019-11-07 2 University o f Transport Med 00:00:00 00:00:00 [place] [facility] History [facility] 2019-11-07 2019-11-07 2 University o f Transport Non[facility]Med 00:00[facility]00 [facility] At [birth year] [facility] 00:00:00 00:00:00 Hospital Smoking Status Start Date Stop Date Source Never smoked tobacco [facility] Medications Ordered Filled Start Stop Current Ordering Indication Dosage Frequency Signature Comments Components Source Medication Medication Date Date Medication? Clinician (SIG) Name Name LOSARTAN 50 0 Yes [id number] TAKE 2 Univers mg tablet 6-22 TABLETS ity of 00:00: DAILY [place] [facility] LOSARTAN 50 0 Yes [id number] TAKE 2 Univers mg tablet 6-22 TABLETS ity of 00:00: DAILY [address] Branch spironolact 2022-0 Yes [id number] TAKE ONE Methodi one 4-[address] (ALDACTONE) 00:00: MOUTH Hospi ta 50 MG 00 DAILY l tablet spironolact 0 Yes [id number] TAKE ONE Methodi one 4-[address] (ALDACTONE) 00:00: MOUTH Hospi ta 50 MG 00 DAILY l tablet furosemide 2022-0 Yes [id number] TAKE ONE Methodi (LASIX) 80 2-[address] mg tablet 00:00: MOUTH Hospita 00 TWICE A l DAY furosemide 2022-0 Yes [id number] TAKE ONE Methodi (LASIX) 80 2-[address] mg tablet 00:00: MOUTH Hospita 00 TWICE A l DAY sildenafil, Yes TAKE ONE Me thodi for 2-[address] pulmonary 00:00: MOUTH Hospita hypertensio 00 THREE l n, TIMES A (REVATIO) DAY 20 mg tablet sildenafil, Yes TAKE ONE Me thodi for 2-[address] pulmonary 00:00: MOUTH Hospita hypertensio 00 THREE l n, TIMES A (REVATIO) DAY 20 mg tablet sildenafil, 2022- No 20mg [id number] Take 1 Methodi for 09-14- [id number] tablet (20 st pulmonary 00:00: 04:59 3D mg total) Ho spita hypertensio 00 :00 by mouth 3 l n, (three) (REVATIO) times a 20 mg day for 90 tablet days. sildenafil, 2022- No 20mg Q.[id number] Take 1 Methodi for 09-14 [id number] tablet (20 st pulmonary 00:00: 04:59 3D mg total) Ho spita hypertensio 00 :00 by mouth 3 l n, (three) (REVATIO) times a 20 mg day for 90 tablet days. ipratropium 2021-08 Yes [id number] 2{spray Use 2 Univers 21 mcg 2-28 } Sprays in ity of (0.03 %) 00:00: each [place] nasal spray 00 nostril in Me dical the Branch morning and 2 Sprays at noon and 2 Sprays in the evening. ipratropium 2021-08 Yes [id number] 2{spray Use 2 Univers 21 mcg 2-28 } Sprays in ity of (0.03 %) 00:00: each [place] nasal spray 00 nostril in Me dical the Branch morning and 2 Sprays at noon and 2 Sprays in the evening. ipratropium 2021-08 Yes [id number] 2{spray Use 2 Univers 21 mcg 2-28 } Sprays in ity of (0.03 %) 00:00: each [place] nasal spray 00 nostril in Me dical the Branch morning and 2 Sprays at noon and 2 Sprays in the evening. ipratropium 2021-08 Yes [id number] 2{spray Use 2 Univers 21 mcg 2-28 } Sprays in ity of (0.03 %) 00:00: each [place] nasal spray 00 nostril in Me dical the Branch morning and 2 Sprays at noon and 2 Sprays in the evening. ipratropium 2021-08 Yes [id number] 2{spray Use 2 Univers 21 mcg 2-28 } Sprays in ity of (0.03 %) 00:00: each [place] nasal spray 00 nostril in [facility] the Branch morning and 2 Sprays at noon and 2 Sprays in the evening. IPRATROPIUM 2021-08 Yes [id number] USE 2 U nivers 21 mcg 2-20 SPRAYS IN ity of (0.03 %) 00:00: EACH [place] nasal spray 00 NOSTRIL Medic al THREE Branch TIMES A DAY IPRATROPIUM 2021-08- No [id number] USE 2 Univers 21 mcg 2-20 12-28 SPRAYS IN ity of (0.03 %) 00:00: 00:00 EACH [place] nasal spray 00 :00 NOSTRIL Medic al THREE Branch TIMES A DAY fluticasone 2021-08 Yes [id number] USE 1 Methodi furoate-sayra 2-[address] anteroL 00:00: DAILY Hospita (Breo 00 l Ellipta) 200-25 mcg/dose blister with device powder for inhalation fluticasone 2021-08 Yes [id number] USE 1 Methodi furoate-sayra 2-[address] anteroL 00:00: DAILY Hospita (Breo 00 l Ellipta) 200-25 mcg/dose blister with device powder for inhalation glimepiride 2021-08 Yes [id number] 4mg Take 1 Univers 4 mg tablet 1-11 tablet by ity of 00:00: mouth in [address] and 1 tablet in the evening. glimepiride 2021-08 Yes [id number] 4mg Take 1 Univers 4 mg tablet 1-11 tablet by ity of 00:00: mouth in [address] and 1 tablet in the evening. glimepiride 2021-08 Yes [id number] 4mg Take 1 Univers 4 mg tablet 1-11 tablet by ity of 00:00: mouth in [address] and 1 tablet in the evening. glimepiride 2021-08 Yes [id number] 4mg Take 1 Univers 4 mg tablet 1-11 tablet by ity of 00:00: mouth in [address] and 1 tablet in the evening. glimepiride 2021-08 Yes [id number] 4mg Take 1 Univers 4 mg tablet 1-11 tablet by ity of 00:00: mouth in [place] 00 the Medical morning Branch and 1 tablet in the evening. glimepiride 2021-08 Yes [id number] 4mg Take 1 Univers 4 mg tablet 1-11 tablet by ity of 00:00: mouth in [place] 00 the Medical morning Branch and 1 tablet in the evening. glimepiride 2021-08 Yes [id number] 4mg Take 1 Univers 4 mg tablet 1-11 tablet by ity of 00:00: mouth in [place] 00 the Medical morning Branch and 1 tablet in the evening. metoprolol 2021-08 Yes [id number] 100mg Take 1 Univers tartrate 0-19 tablet by ity of 100 mg 00:00: mouth in [place] tablet 00 the Medical morning Branch and 1 tablet in the evening. metoprolol 2021-08 Yes [id number] 100mg Take 1 Univers tartrate 0-19 tablet by ity of 100 mg 00:00: mouth in [place] tablet 00 the Medical morning Branch and 1 tablet in the evening. metoprolol 2021-08 Yes [id number] 100mg Take 1 Univers tartrate 0-19 tablet by ity of 100 mg 00:00: mouth in [place] tablet 00 the Medical morning Branch and 1 tablet in the evening. metoprolol 2021-08 Yes [id number] 100mg Take 1 Univers tartrate 0-19 tablet by ity of 100 mg 00:00: mouth in [place] tablet 00 the Medical morning Branch and 1 tablet in the evening. metoprolol 2021-08 Yes [id number] 100mg Take 1 Univers tartrate 0-19 tablet by ity of 100 mg 00:00: mouth in [place] tablet 00 the Medical morning Branch and 1 tablet in the evening. metoprolol 2021-08 Yes [id number] 100mg Take 1 Univers tartrate 0-19 tablet by ity of 100 mg 00:00: mouth in [place] tablet 00 the Medical morning Branch and 1 tablet in the evening. metoprolol 2021-08 Yes [id number] 100mg Take 1 Univers tartrate 0-19 tablet by ity of 100 mg 00:00: mouth in [place] tablet 00 the Medical morning Branch and 1 tablet in the evening. metoprolol 2021-08 Yes [id number] 100mg Take 1 Univers tartrate 0-19 tablet by ity of 100 mg 00:00: mouth in [place] tablet 00 the Medical morning Branch and 1 tablet in the evening. metoprolol 2021-08 Yes [id number] 100mg Take 1 Univers tartrate 0-19 tablet by ity of 100 mg 00:00: mouth in [place] tablet 00 the Medical morning Branch and 1 tablet in the evening. aspirin 81 2021-08 Yes [id number] 81mg Take 1 Univers mg EC 0-12 02 tablet by ity of tablet 00:00: mouth in [place] 00 the Medical morning. Branch aspirin 81 2021-08 Yes [id number] 81mg Take 1 Univers mg EC 0-12 02 tablet by ity of tablet 00:00: mouth in [place] 00 the Medical morning. Branch aspirin 81 2021-08 Yes [id number] 81mg Take 1 Univers mg EC 0-12 02 tablet by ity of tablet 00:00: mouth in [place] the Medical morning. [place] aspirin 81 2021-08 Yes [id number] 81mg Take 1 Univers mg EC 0-12 02 tablet by ity of tablet 00:00: mouth in [place] the Medical morning. [place] aspirin 81 2021-08 Yes [id number] 81mg Take 1 Univers mg EC 0-12 02 tablet by ity of tablet 00:00: mouth in [place] the Medical morning. [place] aspirin 81 2021-08 Yes [id number] 81mg Take 1 Univers mg EC 0-12 02 tablet by ity of tablet 00:00: mouth in [place] the Medical morning. [place] aspirin 81 2021-08 Yes [id number] 81mg Take 1 Univers mg EC 0-12 02 tablet by ity of tablet 00:00: mouth in [place] the Medical morning. [place] aspirin 81 2021-08 Yes [id number] 81mg Take 1 Univers mg EC 0-12 02 tablet by ity of tablet 00:00: mouth in [place] 00 the Medical morning. Branch aspirin 81 2021-08 Yes [id number] 81mg Take 1 Univers mg EC 0-12 02 tablet by ity of tablet 00:00: mouth in [place] 00 the Medical morning. [place] aspirin 81 2021-08 Yes [id number] 81mg Take 1 Univers mg EC 0-12 02 tablet by ity of tablet 00:00: mouth in [place] 00 the Medical morning. [place] ipratropium 2021-08 Yes [id number] 2{spray Use 2 Univers 21 mcg 0-11 } Sprays in ity of (0.03 %) 00:00: each [place] nasal spray 00 nostril in Me dical the Branch morning and 2 Sprays at noon and 2 Sprays in the evening. ipratropium 2021-08 Yes [id number] 2{spray Use 2 Univers 21 mcg 0-11 } Sprays in ity of (0.03 %) 00:00: each [place] nasal spray 00 nostril in Me dical the Branch morning and 2 Sprays at noon and 2 Sprays in the evening. ipratropium 2021-08 Yes [id number] 2{spray Use 2 Univers 21 mcg 0-11 } Sprays in ity of (0.03 %) 00:00: each [place] nasal spray 00 nostril in Me dical the Branch morning and 2 Sprays at noon and 2 Sprays in the evening. ipratropium 2021-08 Yes [id number] 2{spray Use 2 Univers 21 mcg 0-11 } Sprays in ity of (0.03 %) 00:00: each [place] nasal spray 00 nostril in Me dical the Branch morning and 2 Sprays at noon and 2 Sprays in the evening. ipratropium 2021-08 Yes [id number] 2{spray Use 2 Univers 21 mcg 0-11 } Sprays in ity of (0.03 %) 00:00: each [place] nasal spray 00 nostril in Me dical the Branch morning and 2 Sprays at noon and 2 Sprays in the evening. ipratropium 2021-08 [id number] 2{spray Use 2 Univers 21 mcg 0-11 12-20 } Sprays in ity of (0.03 %) 00:00: 00:00 each [place] nasal spray 00 :00 nostril in Me dical the Branch morning [...] Indication s: chronic pain PROMETHAZIN 2022-0 Yes [id number] TAKE ONE Univers E 25 mg 7-05 TABLET BY ity of tablet 00:00: MOUTH [place] 00 EVERY 6 Medical HOURS Branch NEEDED FOR NAUSEA PROMETHAZIN 2022-0 Yes [id number] TAKE ONE Univers E 25 mg 7-05 TABLET BY ity of tablet 00:00: MOUTH [place] 00 EVERY 6 Medical HOURS Branch NEEDED FOR NAUSEA PROMETHAZIN 2022-0 Yes [id number] TAKE ONE Univers E 25 mg 7-05 TABLET BY ity of tablet 00:00: MOUTH [place] 00 EVERY 6 Medical HOURS Branch NEEDED FOR NAUSEA PROMETHAZIN 2-0 Yes [id number] TAKE ONE Univers E 25 mg 7-05 TABLET BY ity of tablet 00:00: MOUTH [place] 00 EVERY 6 Medical HOURS Branch NEEDED FOR NAUSEA PROMETHAZIN 2022-0 Yes [id number] TAKE ONE Univers E 25 mg 7-05 TABLET BY ity of tablet 00:00: MOUTH [place] 00 EVERY 6 Medical HOURS Branch NEEDED FOR NAUSEA PROMETHAZIN 2-0 Yes [id number] TAKE ONE Univers E 25 mg 7-05 TABLET BY ity of tablet 00:00: MOUTH [place] 00 EVERY 6 Medical HOURS Branch NEEDED FOR NAUSEA PROMETHAZIN 2-0 Yes [id number] TAKE ONE Univers E 25 mg 7-05 TABLET BY ity of tablet 00:00: MOUTH [place] 00 EVERY 6 Medical HOURS Branch NEEDED FOR NAUSEA PROMETHAZIN 2022-0 Yes [id number] TAKE ONE Univers E 25 mg 7-05 TABLET BY ity of tablet 00:00: MOUTH [place] 00 EVERY 6 Medical HOURS Branch NEEDED FOR NAUSEA PROMETHAZIN 2022-0 Yes [id number] TAKE ONE Univers E 25 mg 7-05 TABLET BY ity of tablet 00:00: MOUTH [place] 00 EVERY 6 Medical HOURS Branch NEEDED FOR NAUSEA PROMETHAZIN 2-0 Yes [id number] TAKE ONE Univers E 25 mg 7-05 TABLET BY ity of tablet 00:00: MOUTH [place] 00 EVERY 6 Medical HOURS Branch NEEDED FOR NAUSEA PROMETHAZIN 2022-0 Yes [id number] TAKE ONE Univers E 25 mg 7-05 TABLET BY ity of tablet 00:00: MOUTH [place] 00 EVERY 6 Medical HOURS Branch NEEDED FOR NAUSEA PROMETHAZIN 2022-0 Yes [id number] TAKE ONE Univers E 25 mg 7-05 TABLET BY ity of tablet 00:00: MOUTH [place] 00 EVERY 6 Medical HOURS Branch NEEDED FOR NAUSEA PROMETHAZIN 2-0 Yes [id number] TAKE ONE Univers E 25 mg 7-05 TABLET BY ity of tablet 00:00: MOUTH [place] 00 EVERY 6 Medical HOURS Branch NEEDED FOR NAUSEA levoFLOXaci 2021- No [id number] 750mg Take 1 Univers n 750 mg 02-12 tablet by ity o f tablet 00:00: 00:00 mouth [place] 00 :00 every 24 Medical (twenty-fo Branch ur) hours. acetaminoph 2021- No [id number] 1{tbl} Take 1 U nivers en-codeine 02-0918 tablet by ity of (TYLENOL-CO 00:00: 00:00 mouth [place] DEINE #3) 00 :00 every 6 Medical 300-30 mg (six) Branch tablet hours as needed for Pain (scale 7-10). Indication s: chronic pain Miscellaneo Yes nasal Unive rs us Medical [...] ity o f Supply Misc 11:04: and [place] 36 humidifier Medical . Branch Miscellaneo Yes nasal Unive rs us Medical 6-27 cannula, ity o f Supply Misc 11:04: and [place] 36 humidifier Medical . Branch Miscellaneo Yes nasal Unive rs us Medical 6-27 cannula, ity o f Supply Misc 11:04: and [place] 36 humidifier Medical . Branch Miscellaneo Yes nasal Unive rs us Medical 6-27 cannula, ity o f Supply Misc 11:04: and [place] 36 humidifier Medical . Branch VITAMIN B Yes Take by Unive rs COMPLEX (B 6-27 mouth ity of COMPLEX 11:04: daily. [place] VITAMINS 35 Medical ORAL) Branch ZINC ORAL Yes Take by Unive rs 6-27 mouth ity of 11:04: daily. [place] [address] Medical Branch VITAMIN B Yes Take by Unive rs COMPLEX (B 6-27 mouth ity of COMPLEX 11:04: daily. [place] VITAMINS 35 Medical ORAL) Branch ZINC ORAL Yes Take by Unive rs 6-27 mouth ity of 11:04: daily. [place] [address] Medical Branch VITAMIN B Yes Take by Unive rs COMPLEX (B 6-27 mouth ity of COMPLEX 11:04: daily. [place] VITAMINS 35 Medical ORAL) Branch ZINC ORAL Yes Take by Unive rs 6-27 mouth ity of 11:04: daily. [place] [address] Medical Branch VITAMIN B Yes Take by Unive rs COMPLEX (B 6-27 mouth ity of COMPLEX 11:04: daily. [place] VITAMINS 35 Medical ORAL) Branch ZINC ORAL Yes Take by Unive rs 6-27 mouth ity of 11:04: daily. [place] [address] Medical Branch VITAMIN B Yes Take by Unive rs COMPLEX (B 6-27 mouth ity of COMPLEX 11:04: daily. [place] VITAMINS 35 Medical ORAL) Branch ZINC ORAL Yes Take by Unive rs 6-27 mouth ity of 11:04: daily. [place] [address] Medical Branch VITAMIN B Yes Take by Unive rs COMPLEX (B 6-27 mouth ity of COMPLEX 11:04: daily. [place] VITAMINS 35 Medical ORAL) Branch ZINC ORAL 0 Yes Take by Unive rs 6-27 mouth ity of 11:04: daily. [place] [address] Medical Branch VITAMIN B 0 Yes Take by Unive rs COMPLEX (B 6-27 mouth ity of COMPLEX 11:04: daily. [place] VITAMINS 35 Medical ORAL) Branch ZINC ORAL 0 Yes Take by Unive rs 6-27 mouth ity of 11:04: daily. [place] [address] Medical Branch VITAMIN B Yes Take by Unive rs COMPLEX (B 6-27 mouth ity of COMPLEX 11:04: daily. [place] VITAMINS 35 Medical ORAL) Branch ZINC ORAL Yes Take by Unive rs 6-27 mouth ity of 11:04: daily. [place] [address] Medical Branch VITAMIN B Yes Take by Unive rs COMPLEX (B 6-27 mouth ity of COMPLEX 11:04: daily. [place] VITAMINS 35 Medical ORAL) Branch ZINC ORAL Yes Take by Unive rs 6-27 mouth ity of 11:04: daily. [place] [address] Medical Branch VITAMIN B Yes Take by Unive rs COMPLEX (B 6-27 mouth ity of COMPLEX 11:04: daily. [place] VITAMINS 35 Medical ORAL) Branch ZINC ORAL Yes Take by Unive rs 6-27 mouth ity of 11:04: daily. [place] [address] Medical Branch VITAMIN B 0 Yes Take by Unive rs COMPLEX (B 6-27 mouth ity of COMPLEX 11:04: daily. [place] VITAMINS 35 Medical ORAL) Branch ZINC ORAL 0 Yes Take by Unive rs 6-27 mouth ity of 11:04: daily. [place] [address] Medical Branch VITAMIN B 0 Yes Take by Unive rs COMPLEX (B 6-27 mouth ity of COMPLEX 11:04: daily. [place] VITAMINS 35 Medical ORAL) Branch ZINC ORAL 0 Yes Take by Unive rs 6-27 mouth ity of 11:04: daily. [place] [address] Medical Branch VITAMIN B 0 Yes Take by Unive rs COMPLEX (B 6-27 mouth ity of COMPLEX 11:04: daily. [place] VITAMINS 35 Medical ORAL) Branch ZINC ORAL 2021-0 Yes Take by Unive rs 6-27 mouth ity of 11:04: daily. [place] [address] Medical Branch metoprolol Yes [id number] 100mg Take 1 Univers tartrate 6-20 tablet by ity of 100 mg 00:00: mouth 2 [place] tablet 00 (two) Medical times Branch daily. aspirin Yes [id number] 81mg Take 1 U nivers (ADULT LOW 6-20 02 tablet by ity of DOSE 00:00: mouth [place] ASPIRIN) 81 00 daily. Medica l mg EC Branch tablet metoprolol Yes [id number] 100mg Take 1 Univers tartrate 6-20 tablet by ity of 100 mg 00:00: mouth 2 [place] tablet 00 (two) Medical times Branch daily. aspirin Yes [id number] 81mg Take 1 U nivers (ADULT LOW 6-20 02 tablet by ity of DOSE 00:00: mouth [place] ASPIRIN) 81 00 daily. Medica l mg EC Branch tablet metoprolol Yes [id number] 100mg Take 1 Univers tartrate 6-20 tablet by [facility] of 100 mg 00:00: mouth 2 [place] tablet 00 (two) Medical times Branch daily. aspirin Yes [id number] 81mg Take 1 [facility] (ADULT LOW 6-20 02 tablet by ity of DOSE 00:00: mouth [place] ASPIRIN) 81 00 daily. Medica l mg EC Branch tablet metoprolol Yes [id number] 100mg Take 1 [facility] tartrate 6-20 tablet by [facility] of 100 mg 00:00: mouth 2 [place] tablet 00 (two) Medical times Branch daily. metoprolol 2021- No [id number] 100mg Take 1 [facility] tartrate 6-20 10-18 tablet by ity o f 100 mg 00:00: 00:00 mouth 2 [place] tablet 00 :00 (two) Medical times Branch daily. aspirin 2021- No [id number] 81mg Take 1 [facility] (ADULT LOW 6-20 10-12 02 tablet by ity of DOSE 00:00: 00:00 mouth [place] ASPIRIN) 81 00 :00 daily. Medica l mg EC Branch tablet amitriptyli Yes [id number] 50mg Take 1 [facility] ne 50 mg 6-19 tablet by [facility]y of tablet 00:00: mouth at [place] 00 bedtime. Medical Branch doxazosin 1 Yes [id number] 1mg Take 1 [facility] mg tablet 6-19 tablet by ity o f 00:00: mouth [place] 00 daily. Medical Branch glimepiride 0 Yes [id number] 4mg Take 1 [facility] 4 mg tablet 6-19 tablet by ity of 00:00: mouth 2 (two) Medical times Branch daily. montelukast 0 Yes [id number] 10mg Take 1 [facility] 10 mg 6-19 tablet by [facility] of tablet 00:00: mouth at [place] 00 bedtime. Medical Branch omeprazole 2021-0 Yes [id number] 40mg Take 1 [facility] 40 mg 6-19 capsule by [facility] of capsule 00:00: mouth 2 (two) Medical times Branch daily. losartan 50 2021-0 Yes [id number] 100mg Take 2 [facility] mg tablet 6-19 tablets by [facility] of 00:00: mouth 00 daily. Medical Branch amitriptyli Yes [id number] 50mg Take 1 [facility] ne 50 mg 6-19 tablet by [facility]y of tablet 00:00: mouth at [place] 00 bedtime. Medical Branch doxazosin 1 Yes [id number] 1mg Take 1 [facility] mg tablet 6-19 tablet by ity o f 00:00: mouth 00 daily. Medical Branch glimepiride Yes [id number] 4mg Take 1 [facility] 4 mg tablet 6-19 tablet by ity of 00:00: mouth 2 (two) Medical times Branch daily. montelukast Yes [id number] 10mg Take 1 [facility] 10 mg 6-19 tablet by [facility] of tablet 00:00: mouth at [place] 00 bedtime. Medical Branch omeprazole 0 Yes [id number] 40mg Take 1 [facility] 40 mg 6-19 capsule by [facility] of capsule 00:00: mouth 2 (two) Medical times Branch daily. losartan 50 2021-0 Yes [id number] 100mg Take 2 [facility] mg tablet 6-19 tablets by [facility] of 00:00: mouth 00 daily. Medical Branch amitriptyli 2021-0 Yes [id number] 50mg Take 1 [facility] ne 50 mg 6-19 tablet by [facility] of tablet 00:00: mouth at [place] 00 bedtime. Medical Branch doxazosin 1 2022-0 Yes [id number] 1mg Take 1 [facility] mg tablet 6-19 tablet by ity o f 00:00: mouth [place] 00 daily. Medical Branch glimepiride 0 Yes [id number] 4mg Take 1 [facility] 4 mg tablet 6-19 tablet by [facility] of 00:00: mouth 2 (two) Medical times Branch daily. montelukast 0 Yes [id number] 10mg Take 1 [facility] 10 mg 6-19 tablet by [facility] of tablet 00:00: mouth at [place] 00 bedtime. Medical Branch omeprazole 2021-0 Yes [id number] 40mg Take 1 [facility] 40 mg 6-19 capsule by [facility] of capsule 00:00: mouth 2 (two) Medical times Branch daily. losartan 50 2021-0 Yes [id number] 100mg Take 2 [facility] mg tablet 6-19 tablets by [facility] of 00:00: mouth 00 daily. Medical Branch amitriptyli Yes [id number] 50mg Take 1 [facility] ne 50 mg 6-19 tablet by [facility] of tablet 00:00: mouth at [place] 00 bedtime. Medical Branch doxazosin 1 Yes [id number] 1mg Take 1 [facility] mg tablet 6-19 tablet by ity o f 00:00: mouth 00 daily. Medical Branch glimepiride Yes [id number] 4mg Take 1 [facility] 4 mg tablet 6-19 tablet by [facility]y of 00:00: mouth 2 (two) Medical times Branch daily. montelukast Yes [id number] 10mg Take 1 [facility] 10 mg 6-19 tablet by [facility] of tablet 00:00: mouth at [place] 00 bedtime. Medical Branch omeprazole 0 Yes [id number] 40mg Take 1 [facility] 40 mg 6-19 capsule by [facility] of capsule 00:00: mouth 2 (two) Medical times Branch daily. losartan 50 2021-0 Yes [id number] 100mg Take 2 [facility] mg tablet 6-19 tablets by [facility] of 00:00: mouth 00 daily. Medical Branch amitriptyli 2021-0 Yes [id number] 50mg Take 1 [facility] ne 50 mg 6-19 tablet by [facility] of tablet 00:00: mouth at [place] 00 bedtime. Medical Branch doxazosin 1 2022-0 Yes [id number] 1mg Take 1 [facility] mg tablet 6-19 tablet by ity o f 00:00: mouth [place] 00 daily. Medical Branch glimepiride 0 Yes [id number] 4mg Take 1 [facility] 4 mg tablet 6-19 tablet by [facility]y of 00:00: mouth 2 (two) Medical times Branch daily. montelukast 0 Yes [id number] 10mg Take 1 [facility] 10 mg 6-19 tablet by [facility] of tablet 00:00: mouth at [place] 00 bedtime. Medical Branch omeprazole 2021-0 Yes [id number] 40mg Take 1 [facility] 40 mg 6-19 capsule by [facility] of capsule 00:00: mouth 2 (two) Medical times Branch daily. losartan 50 2021-0 Yes [id number] 100mg Take 2 [facility] mg tablet 6-19 tablets by [facility] of 00:00: mouth 00 daily. Medical Branch amitriptyli Yes [id number] 50mg Take 1 [facility] ne 50 mg 6-19 tablet by [facility] of tablet 00:00: mouth at [place] 00 bedtime. Medical Branch doxazosin 1 Yes [id number] 1mg Take 1 [facility] mg tablet 6-19 tablet by ity o f 00:00: mouth 00 daily. Medical Branch glimepiride Yes [id number] 4mg Take 1 [facility] 4 mg tablet 6-19 tablet by [facility] of 00:00: mouth 2 (two) Medical times Branch daily. montelukast Yes [id number] 10mg Take 1 [facility] 10 mg 6-19 tablet by [facility] of tablet 00:00: mouth at [place] 00 bedtime. Medical Branch omeprazole 0 Yes [id number] 40mg Take 1 [facility] 40 mg 6-19 capsule by [facility] of capsule 00:00: mouth 2 (two) Medical times Branch daily. losartan 50 2021-0 Yes [id number] 100mg Take 2 [facility] mg tablet 6-19 tablets by [facility] of 00:00: mouth 00 daily. Medical Branch amitriptyli 2021-0 Yes [id number] 50mg Take 1 [facility] ne 50 mg 6-19 tablet by [facility] of tablet 00:00: mouth at [place] 00 bedtime. Medical Branch doxazosin 1 2021-0 Yes [id number] 1mg Take 1 [facility] mg tablet 6-19 tablet by ity o f 00:00: mouth [place] 00 daily. Medical Branch montelukast 2021-0 Yes [id number] 10mg Take 1 [facility] 10 mg 6-19 tablet by [facility] of tablet 00:00: mouth at [place] 00 bedtime. Medical Branch omeprazole 2021-0 Yes [id number] 40mg Take 1 [facility] 40 mg 6-19 capsule by [facility] of capsule 00:00: mouth 2 (two) Medical times Branch daily. losartan 50 2021-0 Yes [id number] 100mg Take 2 [facility] mg tablet 6-19 tablets by [facility] of 00:00: mouth [place] 00 daily. Medical Branch amitriptyli 0 Yes [id number] 50mg Take 1 [facility] ne 50 mg 6-19 tablet by [facility] of tablet 00:00: mouth at [place] 00 bedtime. Medical Branch doxazosin 1 2021-0 Yes [id number] 1mg Take 1 [facility] mg tablet 6-19 tablet by ity o f 00:00: mouth [place] 00 daily. Medical Branch montelukast 2021-0 Yes [id number] 10mg Take 1 [facility] 10 mg 6-19 tablet by [facility] of tablet 00:00: mouth at [place] 00 bedtime. Medical Branch omeprazole 2021-0 Yes [id number] 40mg Take 1 [facility] 40 mg 6-19 capsule by [facility] of capsule 00:00: mouth 2 (two) Medical times Branch daily. losartan 50 2021-0 Yes [id number] 100mg Take 2 [facility] mg tablet 6-19 tablets by [facility] of 00:00: mouth [place] 00 daily. Medical Branch amitriptyli 2021-0 Yes [id number] 50mg Take 1 [facility] ne 50 mg 6-19 tablet by [facility] of tablet 00:00: mouth at [place] 00 bedtime. Medical Branch doxazosin 1 2021-0 Yes [id number] 1mg Take 1 [facility] mg tablet 6-19 tablet by ity o f 00:00: mouth [place] 00 daily. Medical Branch montelukast 2021-0 Yes [id number] 10mg Take 1 [facility] 10 mg 6-19 tablet by [facility] of tablet 00:00: mouth at [place] 00 bedtime. Medical Branch omeprazole 2021-0 Yes [id number] 40mg Take 1 [facility] 40 mg 6-19 capsule by [facility] of capsule 00:00: mouth 2 (two) Medical times Branch daily. losartan 50 0 Yes [id number] 100mg Take 2 [facility] mg tablet 6-19 tablets by [facility] of 00:00: mouth [place] 00 daily. Medical Branch amitriptyli 0 Yes [id number] 50mg Take 1 [facility] ne 50 mg 6-19 tablet by [facility] of tablet 00:00: mouth at [place] 00 bedtime. Medical Branch doxazosin 1 0 Yes [id number] 1mg Take 1 [facility] mg tablet 6-19 tablet by ity o f 00:00: mouth [place] 00 daily. Medical Branch montelukast 0 Yes [id number] 10mg Take 1 [facility] 10 mg 6-19 tablet by [facility] of tablet 00:00: mouth at [place] 00 bedtime. Medical Branch omeprazole 0 Yes [id number] 40mg Take 1 [facility] 40 mg 6-19 capsule by [facility] of capsule 00:00: mouth [place] (two) Medical times Branch daily. losartan 50 0 Yes [id number] 100mg Take 2 [facility] mg tablet 6-19 tablets by [facility] of 00:00: mouth 00 daily. Medical Branch amitriptyli 0 Yes [id number] 50mg Take 1 [facility] ne 50 mg 6-19 tablet by ity of tablet 00:00: mouth at [place] [address] bedtime. Medical Branch doxazosin 1 0 Yes [id number] 1mg Take 1 [facility] mg tablet 6-19 tablet by ity o f 00:00: mouth 00 daily. Medical Branch montelukast 0 Yes [id number] 10mg Take 1 [facility] 10 mg 6-19 tablet by [facility] of tablet 00:00: mouth at [place] 00 bedtime. Medical Branch omeprazole 2021-0 Yes [id number] 40mg Take 1 [facility] 40 mg 6-19 capsule by [facility] of capsule 00:00: mouth [place] (two) Medical times Branch daily. losartan 50 2021-0 Yes [id number] 100mg Take 2 [facility] mg tablet 6-19 tablets by ity of 00:00: mouth [place] 00 daily. Medical Branch amitriptyli 0 Yes [id number] 50mg Take 1 [facility] ne 50 mg 6-19 tablet by [facility] of tablet 00:00: mouth at [place] [address] bedtime. Medical Branch doxazosin 1 Yes [id number] 1mg Take 1 [facility] mg tablet 6-19 tablet by ity o f 00:00: mouth [place] 00 daily. Medical Branch montelukast Yes [id number] 10mg Take 1 [facility] 10 mg 6-19 tablet by [facility] of tablet 00:00: mouth at [place] [address] bedtime. Medical Branch omeprazole 0 Yes [id number] 40mg Take 1 [facility] 40 mg 6-19 capsule by [facility] of capsule 00:00: mouth 2 [place] 00 (two) Medical times Branch daily. amitriptyli Yes [id number] 50mg Take 1 [facility] ne 50 mg 6-19 tablet by [facility]y of tablet 00:00: mouth at [place] [address] bedtime. Medical Branch doxazosin 1 Yes [id number] 1mg Take 1 [facility] mg tablet 6-19 tablet by ity o f 00:00: mouth [place] 00 daily. Medical Branch montelukast Yes [id number] 10mg Take 1 [facility] 10 mg 6-19 tablet by [facility] of tablet 00:00: mouth at [place] [address] bedtime. Medical Branch omeprazole Yes [id number] 40mg Take 1 [facility] 40 mg 6-19 capsule by [facility] of capsule 00:00: mouth 2 [place] (two) Medical times Branch daily. losartan 50 2022- No [id number] 100mg Take 2 [facility] mg tablet 6-19 06-22 tablets by ity of 00:00: 00:00 mouth [place] 00 :00 daily. Medical Branch glimepiride 2021- No [id number] 4mg Take 1 [facility] 4 mg tablet 6-19 11-11 tablet by it y of 00:00: 00:00 mouth 2 [place] 00 :00 (two) Medical times Branch daily. fluticasone 2021- No [id number] QD Inhale 1 [facility] furoate-sayra 6-16 12-18 inhalation s t anteroL 00:00: [facility] (Breo 00 :00 daily. l Ellipta) 200-25 mcg/dose blister with device powder for inhalation fluticasone 2021- No [id number] QD Inhale 1 [facility] furoate-sayra 16 12-18 inhalation s t anteroL 00:00: 00:00 [facility] (Breo 00 :00 daily. l Ellipta) 200-25 mcg/dose blister with device powder for inhalation furosemide 0 Yes [id number] 80mg Take 2 [facility] 40 mg 6-07 tablets by [facility] of tablet 00:00: mouth 2 (two) Medical times Branch daily. Insulin Yes [id number] For [facility] rs [place], 6-07 insulin ity of Disposable, 00:00: injections [place] 31 gauge x 00 twice Medical 12/28" Ndle daily. Branch insulin Yes [id number] 75U inject 75 [facility] glargine 6-07 Units ity of U-300 conc 00:00: under the [place] (TOU skin 2 Medical SOLOSTAR (two) Branch U-300 times INSULIN) daily. 300 unit/mL (1.5 mL) InPn furosemide Yes [id number] 80mg Take 2 [facility] 40 mg 6-07 tablets by ity of tablet 00:00: mouth 2 [place] (two) Medical times [place] daily. Insulin Yes [id number] For [facility] rs [place], 6-07 insulin ity of Disposable, 00:00: injections [place] 31 gauge x 00 twice Medical 12/28" Ndle daily. Branch insulin Yes [id number] 75U inject 75 [facility] glargine 6-07 Units ity of U-300 conc 00:00: under the [place] ( skin 2 Medical SOLOSTAR (two) Branch U-300 times INSULIN) daily. 300 unit/mL (1.5 mL) InPn furosemide 0 Yes [id number] 80mg Take 2 [facility] 40 mg 6-07 tablets by ity of tablet 00:00: mouth 2 (two) Medical times Branch daily. Insulin Yes [id number] For [facility] rs [place], 6-07 insulin ity of Disposable, 00:00: injections [place] 31 gauge x 00 twice Medical 12/28" Ndle daily. Branch insulin Yes [id number] 75U inject 75 [facility] glargine 6-07 Units ity of U-300 conc 00:00: under the [place] (TOUJEO skin 2 Medical SOLOSTAR (two) Branch U-300 times INSULIN) daily. 300 unit/mL (1.5 mL) InPn furosemide 0 Yes [id number] 80mg Take 2 [facility] 40 mg 6-07 tablets by ity of tablet 00:00: mouth 2 [place] (two) Medical times Branch daily. Insulin Yes [id number] For [facility] rs [place], 6-07 insulin ity of Disposable, 00:00: injections [place] 31 gauge x 00 twice Medical 12/28" Ndle daily. Branch insulin Yes [id number] 75U inject 75 [facility] glargine 6-07 Units ity of U-300 conc 00:00: under the [place] (UO skin 2 Medical SOLOSTAR (two) Branch U-300 times INSULIN) daily. 300 unit/mL (1.5 mL) InPn furosemide 0 Yes [id number] 80mg Take 2 [facility] 40 mg 6-07 tablets by ity of tablet 00:00: mouth 2 (two) Medical times Branch daily. Insulin Yes [id number] For [facility] rs [place], 6-07 insulin ity of Disposable, 00:00: injections [place] 31 gauge x 00 twice Medical 12/28" Ndle daily. Branch insulin Yes [id number] 75U inject 75 [facility] glargine 6-07 Units ity of U-300 conc 00:00: under the [place] (O skin 2 Medical SOLOSTAR (two) Branch U-300 times INSULIN) daily. 300 unit/mL (1.5 mL) InPn furosemide 0 Yes [id number] 80mg Take 2 [facility] 40 mg 6-07 tablets by ity of tablet 00:00: mouth 2 00 (two) Medical times Branch daily. Insulin 0 Yes [id number] For [facility] rs [place], 6-07 insulin ity of Disposable, 00:00: injections [place] 31 gauge x 00 twice Medical 516" Ndle daily. Branch insulin Yes [id number] 75U inject 75 [facility] glargine 6-07 Units ity of U-300 conc 00:00: under the [place] (TOUJEO skin 2 Medical SOLOSTAR (two) Branch U-300 times INSULIN) daily. 300 unit/mL (1.5 mL) InPn furosemide 2021-0 Yes [id number] 80mg Take 2 [facility] 40 mg 6-07 tablets by ity of tablet 00:00: mouth 2 [place] (two) Medical times Branch daily. Insulin Yes [id number] For [facility] rs [place], 6-07 insulin ity of Disposable, 00:00: injections [place] 31 gauge x 00 twice Medical 12/28" Ndle daily. Branch insulin Yes [id number] 75U inject 75 [facility] glargine 6-07 Units ity of U-300 conc 00:00: under the [place] (UO skin 2 Medical SOLOSTAR (two) Branch U-300 times INSULIN) daily. 300 unit/mL (1.5 mL) InPn furosemide 0 Yes [id number] 80mg Take 2 [facility] 40 mg 6-07 tablets by ity of tablet 00:00: mouth 2 (two) Medical times Branch daily. Insulin Yes [id number] For [facility] rs [place], 6-07 insulin ity of Disposable, 00:00: injections [place] 31 gauge x 00 twice Medical 12/28" Ndle daily. Branch insulin Yes [id number] 75U inject 75 [facility] glargine 6-07 Units ity of U-300 conc 00:00: under the [place] (UJEO skin 2 Medical SOLOSTAR (two) Branch U-300 times INSULIN) daily. 300 unit/mL (1.5 mL) InPn furosemide 0 Yes [id number] 80mg Take 2 [facility] 40 mg 6-07 tablets by ity of tablet 00:00: mouth 2 (two) Medical times Branch daily. Insulin Yes [id number] For [facility] [place], 6-07 insulin ity of Disposable, 00:00: injections [place] 31 gauge x 00 twice Medical 12/28" Ndle daily. Branch insulin Yes [id number] 75U inject 75 [facility] glargine 6-07 Units ity of U-300 conc 00:00: under the [place] (TOUJEO skin 2 Medical SOLOSTAR (two) Branch U-300 times INSULIN) daily. 300 unit/mL (1.5 mL) InPn furosemide 0 Yes [id number] 80mg Take 2 [facility] 40 mg 6-07 tablets by ity of tablet 00:00: mouth 2 (two) Medical times Branch daily. Insulin Yes [id number] For [facility] rs [place], 6-07 insulin ity of Disposable, 00:00: injections [place] 31 gauge x 00 twice Medical 12/28" Ndle daily. Branch insulin Yes [id number] 75U inject 75 [facility] glargine 6-07 Units ity of U-300 conc 00:00: under the [place] (TOUJEO 00 skin 2 Medical SOLOSTAR (two) Branch U-300 times INSULIN) daily. 300 unit/mL (1.5 mL) InPn furosemide Yes [id number] 80mg Take 2 [facility] 40 mg 6-07 tablets by ity of tablet 00:00: mouth 2 (two) Medical times Branch daily. Insulin Yes [id number] For [facility] [place], 6-07 insulin ity of Disposable, 00:00: injections [place] 31 gauge x 00 twice Medical 12/28" Ndle daily. Branch insulin Yes [id number] 75U inject 75 [facility] glargine 6-07 Units ity of U-300 conc 00:00: under the [place] (TOUJEO 00 skin 2 Medical SOLOSTAR (two) Branch U-300 times INSULIN) daily. 300 unit/mL (1.5 mL) InPn furosemide 0 Yes [id number] 80mg Take 2 [facility] 40 mg 6-07 tablets by ity of tablet 00:00: mouth 2 (two) Medical times Branch daily. Insulin Yes [id number] For [facility] [place], 6-07 insulin ity of Disposable, 00:00: injections [place] 31 gauge x 00 twice Medical 12/28" Ndle daily. Branch insulin Yes [id number] 75U inject 75 [facility] glargine 6-07 Units ity of U-300 conc 00:00: under the [place] (TOUJEO 00 skin 2 Medical SOLOSTAR (two) Branch U-300 times INSULIN) daily. 300 unit/mL (1.5 mL) InPn furosemide Yes [id number] 80mg Take 2 [facility] 40 mg 6-07 tablets by ity of tablet 00:00: mouth 2 00 (two) Medical times Branch daily. Insulin Yes [id number] For [facility] [place], 6-07 insulin ity of Disposable, 00:00: injections [place] 31 gauge x 00 twice Medical 12/28" Ndle daily. Branch insulin Yes [id number] 75U inject 75 [facility] glargine 6-07 Units ity of U-300 conc 00:00: under the [place] (TOUJEO 00 skin 2 Medical SOLOSTAR (two) Branch U-300 times INSULIN) daily. 300 unit/mL (1.5 mL) InPn baclofen 10 Yes [id number] 10mg Take 1 [facility] mg tablet 6- [id number] tablet by ity of 00:00: mouth 3 [place] (three) Medical times Branch daily. baclofen 10 Yes [id number] 10mg Take 1 [facility] mg tablet 6- [id number] tablet by ity of 00:00: mouth 3 [place] (three) Medical times Branch daily. baclofen 10 Yes [id number] 10mg Take 1 [facility] mg tablet 6- [id number] tablet by ity of 00:00: mouth 3 (three) Medical times Branch daily. baclofen 10 Yes [id number] 10mg Take 1 [facility] mg tablet 6- [id number] tablet by ity of 00:00: mouth 3 [place] (three) Medical times Branch daily. baclofen 10 Yes [id number] 10mg Take 1 [facility] mg tablet 6- [id number] tablet by ity of 00:00: mouth 3 [place] (three) Medical times Branch daily. baclofen 10 Yes [id number] 10mg Take 1 [facility] mg tablet 6- [id number] tablet by ity of 00:00: mouth 3 [place] (three) Medical times Branch daily. baclofen 10 Yes [id number] 10mg Take 1 [facility] mg tablet 6- [id number] tablet by ity of 00:00: mouth 3 [place] (three) Medical times Branch daily. baclofen 10 Yes [id number] 10mg Take 1 [facility] mg tablet 6- [id number] tablet by ity of 00:00: mouth 3 [place] 00 (three) Medical times Branch daily. baclofen 10 Yes [id number] 10mg Take 1 [facility] mg tablet 6- [id number] tablet by ity of 00:00: mouth 3 [place] 00 (three) Medical times Branch daily. baclofen 10 Yes [id number] 10mg Take 1 [facility] mg tablet 6- [id number] tablet by ity of 00:00: mouth 3 [place] 00 (three) Medical times Branch daily. baclofen 10 Yes [id number] 10mg Take 1 [facility] mg tablet 6- [id number] tablet by ity of 00:00: mouth 3 [place] 00 (three) Medical times Branch daily. baclofen 10 Yes [id number] 10mg Take 1 [facility] mg tablet 6- [id number] tablet by ity of 00:00: mouth 3 [place] 00 (three) Medical times Branch daily. baclofen 10 Yes [id number] 10mg Take 1 [facility] mg tablet - [id number] tablet by ity of 00:00: mouth 3 [place] 00 (three) Medical times Branch daily. BREO 0 Yes [facility] ELLIPTA 5-06 ity of 200-25 [...] [place] mcg/dose 00 Medical DsDv Branch spironolact 2022-0 Yes Take by Uni [...] mouth 2 ity of tablet 00:00: (two) [place] 00 times Medical daily. Branch spironolact 2-0 Yes Take by [facility] vers one 50 mg 4-14 mouth 2 ity of tablet 00:00: (two) [place] 00 times Medical daily. Branch spironolact 2-0 Yes Take by [facility] vers one 50 mg 4-14 mouth 2 ity of tablet 00:00: (two) [place] 00 times Medical daily. Branch spironolact 2-0 Yes Take by [facility] vers one 50 mg 4-14 mouth 2 ity of tablet 00:00: (two) [place] 00 times Medical daily. Branch spironolact 2-0 Yes Take by [facility] vers one 50 mg 4-14 mouth 2 ity of tablet 00:00: (two) [place] 00 times Medical daily. Branch b complex 2021-0 Yes Take by [facility] 1-[address] tablet 13:36: [facility] 25 l promethazin 2-0 Yes 25mg Take 25 mg [facility] 1-[address] (PHENERGAN) 13:36: Hospit a 25 MG 25 l tablet ZINC ORAL 2021-0 Yes Take by [facility] 1-[address] 13:36: [facility] 25 l b complex 2021-0 Yes Take by [facility] vitamins 1-[address] tablet 13:36: [facility] 25 l promethazin 2-0 Yes 25mg Take 25 mg [facility] 1-[address] (PHENERGAN) 13:36: Hospit a 25 MG 25 l tablet ZINC ORAL 2021-0 Yes Take by [facility] 1-[address] 13:36: [facility] 25 l spironolact 2021-0 3- No [id number] 50mg QD Take 1 [facility] one 09-14 04-24 tablet (50 st (Aldactone) 00:00: 00:00 mg total) [facility]osp[facility] 50 MG 00 :00 by mouth l tablet daily. spironolact 2021-0 3- No [id number] 50mg QD Take 1 [facility] one 09-14 04-24 tablet (50 st (Aldactone) 00:00: 00:00 mg total) [facility]osp[facility] 50 MG 00 :00 by mouth l tablet daily. furosemide 2021-0 3- No [id number] 80mg Q.5D Take 1 [facility] (Lasix) 80 09-14-23 tablet (80 st mg tablet 00:00: 17:05 mg total) [facility] 00 :32 by mouth 2 l (two) times a day. furosemide 2023- No [id number] 80mg Q.5D Take 1 [facility] (Lasix) 80 09-14-23 tablet (80 st mg tablet 00:00: 17:05 mg total) [facility] 00 :32 by mouth 2 l (two) times a day. blood sugar 2020-08 Yes [id number] check [facility] diagnostic 2-09 sugars 1 ity o f strip 00:00: times a [place] 00 day. Dx Medical Code Branch E11.9. Brand per insurance. Lancets 2020-08 Yes [id number] Check [facility] ers Misc 2-09 sugars 1 ity of 00:00: times a [place] 00 day. Dx Medical Code Branch E11.9. Brand per insurance. blood sugar 2020-08 Yes [id number] check [facility] diagnostic 2-09 sugars 1 ity o f strip 00:00: times a [place] 00 day. Dx Medical Code Branch E11.9. Brand per insurance. Lancets 2020-08 Yes [id number] Check [facility] ers Misc 2-09 sugars 1 ity of 00:00: times a [place] 00 day. Dx Medical Code Branch E11.9. Brand per insurance. blood sugar 2020-08 Yes [id number] check [facility] diagnostic 2-09 sugars 1 ity o f strip 00:00: times a [place] 00 day. Dx Medical Code Branch E11.9. Brand per insurance. Lancets 2020-08 Yes [id number] Check [facility] ers Misc 2-09 sugars 1 ity of 00:00: times a [place] 00 day. Dx Medical Code Branch E11.9. Brand per insurance. blood sugar 2020-08 Yes [id number] check [facility] diagnostic 2-09 sugars 1 ity o f strip 00:00: times a [place] 00 day. Dx Medical Code Branch E11.9. Brand per insurance. Lancets 2020-08 Yes [id number] Check [facility] ers Misc 2-09 sugars 1 ity of 00:00: times a [place] 00 day. Dx Medical Code Branch E11.9. Brand per insurance. blood sugar 2020-08 Yes [id number] check [facility] diagnostic 2-09 sugars 1 ity o f strip 00:00: times a [place] 00 day. Dx Medical Code Branch E11.9. Brand per insurance. Lancets 2020-08 Yes [id number] Check [facility] ers Misc 2-09 sugars 1 ity of 00:00: times a [place] 00 day. Dx Medical Code Branch E11.9. Brand per insurance. blood sugar 2020-08 Yes [id number] check [facility] diagnostic 2-09 sugars 1 ity o f strip 00:00: times a [place] 00 day. Dx Medical Code Branch E11.9. Brand per insurance. Lancets 2020-08 Yes [id number] Check [facility] ers Misc 2-09 sugars 1 ity of 00:00: times a [place] 00 day. Dx Medical Code Branch E11.9. Brand per insurance. blood sugar 2020-08 Yes [id number] check [facility] diagnostic 2-09 sugars 1 ity o f strip 00:00: times a [place] 00 day. Dx Medical Code Branch E11.9. Brand per insurance. Lancets 2020-08 Yes [id number] Check [facility] ers Misc 2-09 sugars 1 ity of 00:00: times a [place] 00 day. Dx Medical Code Branch E11.9. Brand per insurance. blood sugar 2020-08 Yes [id number] check [facility] diagnostic 2-09 sugars 1 ity o f strip 00:00: times a [place] 00 day. Dx Medical Code Branch E11.9. Brand per insurance. Lancets 2020-08 Yes [id number] Check [facility] ers Misc 2-09 sugars 1 ity of 00:00: times a [place] 00 day. Dx Medical Code Branch E11.9. Brand per insurance. blood sugar 2020-08 Yes [id number] check [facility] diagnostic 2-09 sugars 1 ity o f strip 00:00: times a [place] 00 day. Dx Medical Code Branch E11.9. Brand per insurance. Lancets 2020-08 Yes [id number] Check [facility] ers Misc 2-09 sugars 1 ity of 00:00: times a [place] 00 day. Dx Medical Code Branch E11.9. Brand per insurance. blood sugar 2020-08 Yes [id number] check [facility] diagnostic 2-09 sugars 1 ity o f strip 00:00: times a [place] 00 day. Dx Medical Code Branch E11.9. Brand per insurance. Lancets 2020-08 Yes [id number] Check [facility] [place] [facility] ers Misc 2-09 sugars 1 ity of 00:00: times a [place] 00 day. Dx Medical Code Branch E11.9. Brand per insurance. blood sugar 2020-08 Yes [id number] check [facility] diagnostic 2-09 sugars 1 ity o f strip 00:00: times a [place] 00 day. Dx Medical Code Branch E11.9. Brand per insurance. Lancets 2020-08 Yes [id number] Check [facility] [place] [facility] ers Misc 2-09 sugars 1 ity of 00:00: times a [place] 00 day. Dx Medical Code Branch E11.9. Brand per insurance. blood sugar 2020-08 Yes [id number] check [facility] diagnostic 2-09 sugars 1 ity o f strip 00:00: times a [place] 00 day. Dx Medical Code Branch E11.9. Brand per insurance. Lancets 2020-08 Yes [id number] Check [facility] [place] [facility] ers Misc 2-09 sugars 1 ity of 00:00: times a [place] 00 day. Dx Medical Code Branch E11.9. Brand per insurance. blood sugar 2020-08 Yes [id number] check [facility] diagnostic 2-09 sugars 1 ity o f strip 00:00: times a [place] 00 day. Dx Medical Code Branch E11.9. Brand per insurance. Lancets 2020-08 Yes [id number] Check [facility] Misc 2-09 sugars 1 ity of 00:00: times a [place] 00 day. Dx Medical Code Branch E11.9. Brand per insurance. ipratropium 2020-08 Yes [id number] 2{spray Use 2 Univers 21 mcg 1-30 } Sprays in ity of (0.03 %) 00:00: each [place] nasal spray 00 nostril 3 Med ical (three) Branch times daily. lancets-blo 2020-08 Yes [id number] 1{each} 1 Each 2 Univers od glucose 1-30 (two) ity of strips 30 00:00: times [place] gauge Cmpk 00 daily. Medical Branch ipratropium 2020-08 Yes [id number] 2{spray Use 2 Univers 21 mcg 1-30 } Sprays in ity of (0.03 %) 00:00: each [place] nasal spray 00 nostril 3 Med ical (three) Branch times daily. lancets-blo 2020-08 Yes [id number] 1{each} 1 Each 2 Univers od glucose 1-30 (two) ity of strips 30 00:00: times [place] gauge Cmpk 00 daily. [facility] 2020-08 Yes [id number] 1{each} 1 Each 2 Univers od glucose 1-30 (two) ity of strips 30 00:00: times [place] gauge Cmpk 00 daily. [facility] 2020-08 Yes [id number] 1{each} 1 Each 2 Univers od glucose 1-30 (two) ity of strips 30 00:00: times [place] gauge Cmpk 00 daily. [facility]-08 Yes [id number] 1{each} 1 Each 2 Univers od glucose 1-30 (two) ity of strips 30 00:00: times [place] gauge Cmpk 00 daily. [facility] 2020-08 Yes [id number] 1{each} 1 Each 2 Univers od glucose 1-30 (two) ity of strips 30 00:00: times [place] gauge Cmpk 00 daily. [facility] 2020-08 Yes [id number] 1{each} 1 Each 2 Univers od glucose 1-30 (two) ity of strips 30 00:00: times [place] gauge Cmpk 00 daily. [facility] 2020-08 Yes [id number] 1{each} 1 Each 2 Univers od glucose 1-30 (two) ity of strips 30 00:00: times [place] gauge Cmpk 00 daily. [facility] 2020-08 Yes [id number] 1{each} 1 Each 2 Univers od glucose 1-30 (two) ity of strips 30 00:00: times [place] gauge Cmpk 00 daily. [facility] 2020-08 Yes [id number] 1{each} 1 Each 2 Univers od glucose 1-30 (two) ity of strips 30 00:00: times [place] gauge Cmpk 00 daily. [facility] 2020-08 Yes [id number] 1{each} 1 Each 2 Univers od glucose 1-30 (two) ity of strips 30 00:00: times [place] gauge Cmpk 00 daily. [facility] 2020-08 Yes [id number] 1{each} 1 Each 2 Univers od glucose 1-30 (two) ity of strips 30 00:00: times [place] gauge Cmpk 00 daily. Medical Branch lancets-blo 2020-08 Yes [id number] 1{each} 1 Each 2 Univers od glucose 1-30 (two) ity of strips 30 00:00: times [place] gauge Cmpk 00 daily. Medical Branch ipratropium 2020-08- No [id number] 2{spray Use 2 Univers 21 mcg 1-30 10-11 } Sprays in ity of (0.03 %) 00:00: 00:00 each [place] nasal spray 00 :00 nostril 3 Med ical (three) Branch times daily. sildenafil, 2020-08- No 20mg [id number] Take 1 [facility] for 0-21 02-03 [id number] tablet (20 st pulmonary 00:00: 00:00 3D mg total) [facility] hypertensio 00 :00 by mouth 3 l n, (three) (Revatio) times a 20 mg day. tablet sildenafil, 2020-08- No 20mg Q.[id number] Take 1 [facility] for 0-21 -03 [id number] tablet (20 st pulmonary 00:00: 00:00 3D mg total) [facility] hypertensio 00 :00 by mouth 3 l n, (three) (Revatio) times a 20 mg day. tablet levothyroxi Yes [id number] 75ug Take 1 Univers ne 75 mcg 6-21 tablet by ity o f tablet 00:00: mouth [place] 00 every Medical morning. Branch atorvastati Yes [id number] 20mg Take 1 Univers n 20 mg 6-21 tablet by ity of tablet 00:00: mouth at [place] [address] bedtime. Medical Branch levothyroxi Yes [id number] 75ug Take 1 Univers ne 75 mcg 6-21 tablet by ity o f tablet 00:00: mouth [place] 00 every Medical morning. Branch atorvastati Yes [id number] 20mg Take 1 Univers n 20 mg 6-21 tablet by ity of tablet 00:00: mouth at [place] [address] bedtime. Medical Branch levothyroxi Yes [id number] 75ug Take 1 Univers ne 75 mcg 6-21 tablet by ity o f tablet 00:00: mouth [place] 00 every Medical morning. Branch atorvastati 2020-0 Yes [id number] 20mg Take 1 Univers n 20 mg 6-21 tablet by ity of tablet 00:00: mouth at [place] 00 bedtime. Medical Branch levothyroxi 0 Yes [id number] 75ug Take 1 Univers ne 75 mcg 6-21 tablet by ity o f tablet 00:00: mouth [place] 00 every Medical morning. Branch atorvastati 2020-0 Yes [id number] 20mg Take 1 Univers n 20 mg 6-21 tablet by ity of tablet 00:00: mouth at [place] 00 bedtime. Medical Branch levothyroxi 2020-0 Yes [id number] 75ug Take 1 Univers ne 75 mcg 6-21 tablet by ity o f tablet 00:00: mouth [place] 00 every Medical morning. Branch atorvastati 2020-0 Yes [id number] 20mg Take 1 Univers n 20 mg 6-21 tablet by ity of tablet 00:00: mouth at [place] 00 bedtime. Medical Branch levothyroxi 2020-0 Yes [id number] 75ug Take 1 Univers ne 75 mcg 6-21 tablet by ity o f tablet 00:00: mouth [place] 00 every Medical morning. Branch atorvastati 2020-0 Yes [id number] 20mg Take 1 Univers n 20 mg 6-21 tablet by ity of tablet 00:00: mouth at [place] 00 bedtime. Medical Branch levothyroxi 2020-0 Yes [id number] 75ug Take 1 Univers ne 75 mcg 6-21 tablet by ity o f tablet 00:00: mouth [place] 00 every Medical morning. Branch atorvastati 2020-0 Yes [id number] 20mg Take 1 Univers n 20 mg 6-21 tablet by ity of tablet 00:00: mouth at [place] 00 bedtime. Medical Branch levothyroxi 2020-0 Yes [id number] 75ug Take 1 Univers ne 75 mcg 6-21 tablet by ity o f tablet 00:00: mouth [place] 00 every Medical morning. Branch atorvastati 2020-0 Yes [id number] 20mg Take 1 Univers n 20 mg 6-21 tablet by ity of tablet 00:00: mouth at [place] 00 bedtime. Medical Branch levothyroxi 2020-0 Yes [id number] 75ug Take 1 Univers ne 75 mcg 6-21 tablet by ity o f tablet 00:00: mouth [place] 00 every Medical morning. Branch atorvastati 2020-0 Yes [id number] 20mg Take 1 Univers n 20 mg 6-21 tablet by ity of tablet 00:00: mouth at [place] 00 bedtime. Medical Branch levothyroxi 2020-0 Yes [id number] 75ug Take 1 Univers ne 75 mcg 6-21 tablet by ity o f tablet 00:00: mouth [place] 00 every Medical morning. Branch atorvastati 2020-0 Yes [id number] 20mg Take 1 Univers n 20 mg 6-21 tablet by ity of tablet 00:00: mouth at [place] 00 bedtime. Medical Branch levothyroxi 2020-0 Yes [id number] 75ug Take 1 Univers ne 75 mcg 6-21 tablet by ity o f tablet 00:00: mouth [place] 00 every Medical morning. Branch atorvastati 2020-0 Yes [id number] 20mg Take 1 Univers n 20 mg 6-21 tablet by ity of tablet 00:00: mouth at [place] 00 bedtime. Medical Branch levothyroxi 2020-0 Yes [id number] 75ug Take 1 Univers ne 75 mcg 6-21 tablet by ity o f tablet 00:00: mouth [place] 00 every Medical morning. Branch atorvastati 2020-0 Yes [id number] 20mg Take 1 Univers n 20 mg 6-21 tablet by ity of tablet 00:00: mouth at [place] 00 bedtime. Medical Branch levothyroxi 2020-0 Yes [id number] 75ug Take 1 Univers ne 75 mcg 6-21 tablet by ity o f tablet 00:00: mouth [place] 00 every Medical morning. Branch atorvastati 0 Yes [id number] 20mg Take 1 Univers n 20 mg 6-21 tablet by ity of tablet 00:00: mouth at [place] 00 bedtime. Medical Branch amitriptyli 2020-0 Yes 50mg Take 50 mg [facility] (ELAVIL) 6-[address] 50 MG 00:00: [facility]osp[facility] tablet 00 l atorvastati 0 Yes 20mg Take 20 mg [facility] (LIPITOR) 6-[address] 20 mg 00:00: [facility]osp[facility] tablet 00 l furosemide 2020-0 Yes 40mg Take 40 mg M ethodi [...] MG 00:00: mouth. Hospita tablet 00 l amitriptyli 0 Yes 50mg Take 50 mg [facility] (ELAVIL) 6-[address] 50 MG 00:00: Hospita tablet 00 l atorvastati 0 Yes 20mg Take 20 mg [facility] (LIPITOR) 6-[address] 20 mg 00:00: Hospita tablet 00 l furosemide 0 Yes 40mg Take 40 mg M [...] meals. insulin pen subcutaneou s pen ipratropium 2020-0 Yes 2{spray 2 sprays [facility] (ATROVENT) 6-21 [...] 00:00: mouth. Hospita tablet 00 l ipratropium 2020-0 Yes 3mL Inhale 3 Me [facility] -albuteroL 5-[address] (DUO-NEB) 00:00: needed. Hospi ta 0.5-2.5 00 l mg/3 mL nebulizer ipratropium 2020-0 Yes 3mL Inhale 3 Me [facility] -albuteroL 5-[address] (DUO-NEB) 00:00: needed. Hospi ta 0.5-2.5 00 l mg/3 mL nebulizer losartan 2021-0 Yes 50mg Q.5D Take 50 mg [facility] (COZAAR) 50 4-[address] MG tablet 00:00: (two) Hospita 00 times a l day. metoprolol 2021-0 Yes 100mg Q.5D Take 100 [facility] tartrate 4-[address] (LOPRESSOR) 00:00: mouth 2 Hos nita 100 mg 00 (two) l tablet times a day. losartan 2021-0 Yes 50mg Q.5D Take 50 mg [facility] (COZAAR) 50 4-[address] MG tablet 00:00: (two) Hospita 00 times a l day. metoprolol 2021-0 Yes 100mg Q.5D Take 100 Me [facility]odi tartrate 4-[address] (LOPRESSOR) 00:00: mouth 2 Hos nita 100 mg 00 (two) l tablet times a day. doxazosin 2021-0 Yes 1mg Take 1 mg [facility] (CARDURA) 1 3-[address] MG tablet 00:00: Hospita 00 l doxazosin 2021-0 Yes 1mg Take 1 mg [facility] (CARDURA) 1 3-[address] MG tablet 00:00: Hospita 00 l insulin 2020-0 Yes [id number] Check Univ ers aspart 7-07 sugarsAC&o ity of RAPID 00:00: [facility] (NOVOLOG 00 feeling Medical U-100 well.Ifove Branch INSULIN r ASPART) 100 300,&>2hrs unit/mL since injection eating,nawaf e98hcoiu,4 01-450 ioyo54ytvc s,451-500 take 20units&ca ll [facility] orus insulin 2020-0 Yes [id number] Check Univ ers aspart 7-07 sugarsAC&o ity of RAP[facility] [place] [facility]OV[facility] 00 feeling Medical U-100 well.Ifove Branch INSULIN r ASPART) 100 300,&>2hrs unit/mL since injection eating,nawaf p72pqmac,4 01-450 usyq37vqwy s,451-500 take 20units&ca ll HomeHealth orus insulin 2020-0 Yes [id number] Check Univ ers aspart 7-07 sugarsAC&o ity of RAPID 00:00: rifnot [place] (NOVOLOG 00 feeling Medical U-100 well.Ifove Branch INSULIN r ASPART) 100 300,&>2hrs unit/mL since injection eating,nawaf e65mdtpz,4 01-450 ycjz64opzu s,451-500 take 20units&ca ll HomeHealth orus insulin 2020-0 Yes [id number] Check Univ ers aspart 7-07 sugarsAC&o ity of RAPID 00:00: [facility] (NOVOLOG 00 feeling Medical U-100 well.Ifove Branch INSULIN r ASPART) 100 300,&>2hrs unit/mL since injection eating,nawaf q29xixvn,4 01-450 xney09hhsl s,451-500 take 20units&ca ll [facility]Health orus insulin 2020-0 Yes [id number] Check Univ ers aspart 7-07 sugarsAC&o ity of RAPID 00:00: [facility] (NOVOLOG 00 feeling Medical U-100 well.Ifove Branch INSULIN r ASPART) 100 300,&>2hrs unit/mL since injection eating,nawaf s29flwdi,4 01-450 qkub04qdlk s,451-500 take 20units&ca ll HomeHealth orus insulin 2020-0 Yes [id number] Check Univ ers aspart 7-07 sugarsAC&o ity of RAPID 00:00: [facility] (NOVOLOG 00 feeling Medical U-100 well.Ifove Branch INSULIN r ASPART) 100 300,&>2hrs unit/mL since injection eating,nawaf q80wxdaf,4 01-450 mcbr71temo s,451-500 take 20units&ca ll [facility]Health orus insulin 2020-0 Yes [id number] Check Univ ers aspart 7-07 sugarsAC&o ity of RAPID 00:00: [facility] (NOVOLOG 00 feeling Medical U-100 well.Ifove Branch INSULIN r ASPART) 100 300,&>2hrs unit/mL since injection eating,nawaf i29tmkxj,4 01-450 vkvb25vyah s,451-500 take 20units&ca ll HomeHealth orus insulin 2020-0 Yes [id number] Check Univ ers aspart 7-07 sugarsAC&o ity of RAPID 00:00: [facility] (NOVOLOG 00 feeling Medical U-100 well.Ifove Branch INSULIN r ASPART) 100 300,&>2hrs unit/mL since injection eating,nawaf q51vombo,4 01-450 lvue88gcme s,451-500 take 20units&ca ll HomeHealth orus insulin 2020-0 Yes [id number] Check Univ ers aspart 7-07 sugarsAC&o ity of RAPID 00:00: [facility] (NOVOLOG 00 feeling Medical U-100 well.Ifove Branch INSULIN r ASPART) 100 300,&>2hrs unit/mL since injection eating,nawaf x04jnldm,4 01-450 wofc40zvyz s,451-500 take 20units&ca ll [facility]Health orus insulin 2020-0 Yes [id number] Check Univ ers aspart 7-07 sugarsAC&o ity of RAPID 00:00: [facility] (NOVOLOG 00 feeling Medical U-100 well.Ifove Branch INSULIN r ASPART) 100 300,&>2hrs unit/mL since injection eating,nawaf t62exjup,4 01-450 jwwg61lrje s,451-500 take 20units&ca ll HomeHealth orus insulin 2020-0 Yes [id number] Check Univ ers aspart 7-07 sugarsAC&o ity of RAPID 00:00: [facility] (NOVOLOG 00 feeling Medical U-100 well.Ifove Branch INSULIN r ASPART) 100 300,&>2hrs unit/mL since injection eating,nawaf t41fuxoc,4 01-450 vtas63aapz s,451-500 take 20units&ca ll HomeHealth orus insulin 2020-0 Yes [id number] Check Univ ers aspart 7-07 sugarsAC&o ity of RAPID 00:00: [facility] (NOVOLOG 00 feeling Medical U-100 well.Ifove Branch INSULIN r ASPART) 100 300,&>2hrs unit/mL since injection eating,nawaf c05ragts,4 01-450 ayuo12taus s,451-500 take 20units&ca ll HomeHealth orus insulin 2020-0 Yes [id number] Check Univ ers aspart 7-07 sugarsAC&o ity of RAPID 00:00: [facility] (NOVOLOG 00 feeling Medical U-100 well.Ifove Branch INSULIN r ASPART) 100 300,&>2hrs unit/mL since injection eating,nawaf v58lerfk,4 01-450 ckzb39utyf s,451-500 take 20units&ca ll HomeHealth orus insulin 2020-0 Yes Inject [facility] ASPART 7-[address] (NovoLOG) 00:00: skin. Hospita 100 unit/mL 00 Sliding l injection scale insulin 2020-0 Yes Inject [facility] ASPART 7-07 [...] Completed Unive rsity of PFIZER ALANNAH-SUCROSE 00:00:00 [place] [facility] VACCINE (BLAKE TOP) Branch Influenza Virus 2021-08-04 Completed Universit y of Vaccine,quad 00:00:00 [place] Medica l Im,preserve Free 65+ Bran ch SARS-COV-2 COVID-19 2021-08-04 Completed Unive rsity of PFIZER VACCINE 00:00:00 [facility] Influenza Virus 2021-08-04 Completed Universit y of Vaccine,quad 00:00:00 [place] Medica l Im,preserve Free 65+ Bran ch SARS-COV-2 COVID-19 2021-08-04 Completed Unive rsity of PFIZER VACCINE 00:00:00 [facility] Influenza Virus 2021-08-04 Completed Universit y of Vaccine,quad 00:00:00 [place] Medica l Im,preserve Free 65+ Bran ch SARS-COV-2 COVID-19 2021-08-04 Completed Unive rsity of PFIZER VACCINE 00:00:00 [facility] Influenza Virus 2021-08-04 Completed Universit y of Vaccine,quad 00:00:00 [place] Medica l Im,preserve Free 65+ Bran ch SARS-COV-2 COVID-19 2021-08-04 Completed Unive rsity of PFIZER VACCINE 00:00:00 [facility] Influenza Virus 2021-08-04 Completed Universit y of Vaccine,quad 00:00:00 [place] Medica l Im,preserve Free 65+ Bran ch SARS-COV-2 COVID-19 2021-08-04 Completed Unive rsity of PFIZER VACCINE 00:00:00 [facility] Influenza Virus 2021-08-04 Completed Universit y of Vaccine,quad 00:00:00 [place] Medica l Im,preserve Free 65+ Bran ch SARS-COV-2 COVID-19 2021-08-04 Completed Unive rsity of PFIZER VACCINE 00:00:00 [facility] Influenza Virus 2021-08-04 Completed Universit y of Vaccine,quad 00:00:00 [place] Medica l Im,preserve Free 65+ Bran ch SARS-COV-2 COVID-19 2021-08-04 Completed Unive rsity of PFIZER VACCINE 00:00:00 [facility] Influenza Virus 2021-08-04 Completed Universit y of Vaccine,quad 00:00:00 [place] Medica l Im,preserve Free 65+ Bran ch SARS-COV-2 COVID-19 2021-08-04 Completed Unive rsity of PFIZER VACCINE 00:00:00 [facility] Influenza Virus 2021-08-04 Completed Universit y of Vaccine,quad 00:00:00 [place] Medica l Im,preserve Free 65+ Bran ch SARS-COV-2 COVID-19 2021-08-04 Completed Unive rsity of PFIZER VACCINE 00:00:00 [facility] Influenza Virus 2021-08-04 Completed Universit y of Vaccine,quad 00:00:00 [place] Medica l Im,preserve Free 65+ Bran ch SARS-COV-2 COVID-19 2021-08-04 Completed Unive rsity of PFIZER VACCINE 00:00:00 [facility] Influenza Virus 2021-08-04 Completed Universit y of Vaccine,quad 00:00:00 [place] Medica l Im,preserve Free 65+ Bran ch SARS-COV-2 COVID-19 2021-08-04 Completed Unive rsity of PFIZER VACCINE 00:00:00 [facility] Influenza Virus 2021-08-04 Completed Universit y of Vaccine,quad 00:00:00 [place] Medica l Im,preserve Free 65+ Bran ch SARS-COV-2 COVID-19 2021-08-04 Completed Unive rsity of PFIZER VACCINE 00:00:00 [facility] Influenza Virus 2021-08-04 Completed Universit y of Vaccine,quad 00:00:00 [place] Medica l Im,preserve Free 65+ Bran ch SARS-COV-2 COVID-19 2021-08-04 Completed Unive rsity of PFIZER VACCINE 00:00:00 [facility] PFIZER COVID-19 MRNA 2021-08-04 Completed Meth odist VACCINATION 00:00:00 Hospital FLUZONE HIGH-DOSE PF 2021-08-04 Completed [facility] odist 00:00:00 Hospital PFIZER COVID-19 MRNA 2021-08-04 Completed Meth odist VACCINATION 00:00:00 Hospital FLUZONE HIGH-DOSE PF 2021-08-04 Completed Meth odist 00:00:00 Hospital SARS-COV-2 COVID-19 2020-11-22 Completed Unive rsity of PFIZER VACCINE 00:00:00 [facility] SARS-COV-2 COVID-19 2020-11-22 Completed Unive rsity of PFIZER VACCINE 00:00:00 [facility] SARS-COV-2 COVID-19 2020-11-22 Completed Unive rsity of PFIZER VACCINE 00:00:00 [facility] SARS-COV-2 COVID-19 2020-11-22 Completed Unive rsity of PFIZER VACCINE 00:00:00 [facility] Branch SARS-COV-2 COVID-19 2020-11-22 Completed Unive rsity of PFIZER VACCINE 00:00:00 [facility] Branch SARS-COV-2 COVID-19 2020-11-22 Completed Unive rsity of PFIZER VACCINE 00:00:00 [facility] Branch SARS-COV-2 COVID-19 2020-11-22 Completed Unive rsity of PFIZER VACCINE 00:00:00 [facility] Branch SARS-COV-2 COVID-19 2020-11-22 Completed Unive rsity of PFIZER VACCINE 00:00:00 [facility] Branch SARS-COV-2 COVID-19 2020-11-22 Completed Unive rsity of PFIZER VACCINE 00:00:00 [facility] Branch SARS-COV-2 COVID-19 2020-11-22 Completed Unive rsity of PFIZER VACCINE 00:00:00 [facility] Branch SARS-COV-2 COVID-19 2020-11-22 Completed Unive rsity of PFIZER VACCINE 00:00:00 [facility] Branch SARS-COV-2 COVID-19 2020-11-22 Completed Unive rsity of PFIZER VACCINE 00:00:00 [facility] Branch SARS-COV-2 COVID-19 2020-11-22 Completed Unive rsity of PFIZER VACCINE 00:00:00 [facility] Branch SARS-COV-2 COVID-19 2020-11-01 Completed Unive rsity of PFIZER VACCINE 00:00:00 [facility] Branch SARS-COV-2 COVID-19 2020-11-01 Completed Unive rsity of PFIZER VACCINE 00:00:00 [facility] Branch SARS-COV-2 COVID-19 2020-11-01 Completed Unive rsity of PFIZER VACCINE 00:00:00 [facility] Branch SARS-COV-2 COVID-19 2020-11-01 Completed Unive rsity of PFIZER VACCINE 00:00:00 [facility] Branch SARS-COV-2 COVID-19 2020-11-01 Completed Unive rsity of PFIZER VACCINE 00:00:00 [facility] Branch SARS-COV-2 COVID-19 2020-11-01 Completed Unive rsity of PFIZER VACCINE 00:00:00 [facility] SARS-COV-2 COVID-19 2020-11-01 Completed Unive rsity of PFIZER VACCINE 00:00:00 [facility] SARS-COV-2 COVID-19 2020-11-01 Completed Unive rsity of PFIZER VACCINE 00:00:00 [facility] SARS-COV-2 COVID-19 2020-11-01 Completed Unive rsity of PFIZER VACCINE 00:00:00 [facility] SARS-COV-2 COVID-19 2020-11-01 Completed Unive rsity of PFIZER VACCINE 00:00:00 [facility] SARS-COV-2 COVID-19 2020-11-01 Completed Unive rsity of PFIZER VACCINE 00:00:00 [facility] SARS-COV-2 COVID-19 2020-11-01 Completed Unive rsity of PFIZER VACCINE 00:00:00 [facility] SARS-COV-2 COVID-19 2020-11-01 Completed Unive rsity of PFIZER VACCINE 00:00:00 [facility] Influenza High Dose 2020-07-19 Completed Unive rsity of Quad 00:00:00 [facility] Influenza High Dose 2020-07-19 Completed Unive rsity of Quad 00:00:00 [facility] Influenza High Dose 2020-07-19 Completed Unive rsity of Quad 00:00:00 [facility] Influenza High Dose 2020-07-19 Completed Unive rsity of Quad 00:00:00 [facility] Influenza High Dose 2020-07-19 Completed Unive rsity of Quad 00:00:00 [facility] Influenza High Dose 2020-07-19 Completed Unive rsity of Quad 00:00:00 [facility] Influenza High Dose 2020-07-19 Completed Unive rsity of Quad 00:00:00 [facility] Influenza High Dose 2020-07-19 Completed Unive rsity of Quad 00:00:00 [facility] Influenza High Dose 2020-07-19 Completed Unive rsity of Quad 00:00:00 [facility] Influenza High Dose 2020-07-19 Completed Unive rsity of Quad 00:00:00 [facility] Influenza High Dose 2020-07-19 Completed Unive rsity of Quad 00:00:00 [facility] Influenza High Dose 2020-07-19 Completed Unive rsity of Quad 00:00:00 [facility] Influenza High Dose 2020-07-19 Completed Unive rsity of Quad 00:00:00 [facility] FLUZONE HIGH-DOSE PF 2020-07-19 Completed [facility] odist 00:00:00 Hospital FLUZONE HIGH-DOSE PF 2020-07-19 Completed Meth odist 00:00:00 Hospital Influenza High Dose 2019-11-10 Completed Unive rsity of 00:00:00 [facility] Influenza High Dose 2019-11-10 Completed Unive rsity of 00:00:00 [facility] Influenza High Dose 2019-11-10 Completed Unive rsity of 00:00:00 [facility] Influenza High Dose 2019-11-10 Completed Unive rsity of 00:00:00 [facility] Influenza High Dose 2019-11-10 Completed Unive rsity of 00:00:00 [facility] Influenza High Dose 2019-11-10 Completed Unive rsity of 00:00:00 [facility] Influenza High Dose 2019-11-10 Completed Unive rsity of 00:00:00 [facility] Influenza High Dose 2019-11-10 Completed Unive rsity of 00:00:00 [facility] Influenza High Dose 2019-11-10 Completed Unive rsity of 00:00:00 [facility] Influenza High Dose 2019-11-10 Completed Unive rsity of 00:00:00 [facility] Influenza High Dose 2019-11-10 Completed Unive rsity of 00:00:00 [facility] Influenza High Dose 2019-11-10 Completed Unive rsity of 00:00:00 [facility] Influenza High Dose 2019-11-10 Completed Unive rsity of 00:00:00 [facility] FLUZONE HIGH-DOSE PF 2019-11-10 Completed [facility] odist 00:00:00 Hospital FLUZONE HIGH-DOSE PF 2019-11-10 Completed [facility] odist [...] [place] [facility] Multi-dose 6+ MO Branch FLUZONE QUAD 2018-05-15 Completed [facility] 00:[facility]:00 [facility] FLUZONE QUAD 2018-05-15 Completed [facility] 00:[facility]:00 [facility] Pneumococcal 2017-02-03 Completed University o f Polysaccharide, [...] ical PPSV23 (PNEUMOVAX) Branch Pneumococcal 2017-02-03 Completed [facility] Polysaccharide 00:00:00 Hospital Pneumococcal 2017-02-03 Completed [facility] Polysaccharide 00:00:00 Hospital Td 2017-01-30 Completed University of 00:00:00 [facility] DTAP 2017-01-30 Completed University of 00:00:00 [facility] Td 2017-01-30 Completed University of 00:00:00 [facility] DTAP 2017-01-30 Completed University of 00:00:00 [facility] Td 2017-01-30 Completed University of 00:00:00 [facility] DTAP 2017-01-30 Completed University of 00:00:00 [facility] Td 2017-01-30 Completed [facility] [facility] DTAP 2017-01-30 Completed [facility] 00:00:00 [facility] Td 2017-01-30 Completed [facility] 00:00:00 [facility] DTAP 2017-01-30 Completed [facility] 00:00:00 [facility] Td 2017-01-30 Completed [facility] 00:00:00 [facility] DTAP 2017-01-30 Completed [facility] 00:00:00 [facility] Td 2017-01-30 Completed [facility] 00:00:00 [facility] DTAP 2017-01-30 Completed [facility] 00:00:00 [facility] Td 2017-01-30 Completed [facility] 00:00:00 [facility] DTAP 2017-01-30 Completed [facility] 00:00:00 [facility] TD, NOS 2017-01-30 Completed [facility] 00:00:00 [facility] DTAP 2017-01-30 Completed [facility] 00:00:00 [facility] TD, NOS 2017-01-30 Completed [facility] 00:00:00 [facility] DTAP 2017-01-30 Completed [facility] 00:00:00 [facility] TD, NOS 2017-01-30 Completed [facility] 00:00:00 [facility] DTAP 2017-01-30 Completed [facility] 00:00:00 [facility] TD, NOS 2017-01-30 Completed [facility] 00:00:00 [facility] DTAP 2017-01-30 Completed [facility] 00:00:00 [facility] TD, NOS 2017-01-30 Completed [facility] 00:00:00 [facility] DTAP 2017-01-30 Completed [facility] 00:00:00 [facility] Td, Unspecified 2017-01-30 Completed [facility] DTaP 2017-01-30 Completed [facility] Td, Unspecified 2017-01-30 Completed [facility] DTaP 2017-01-30 Completed [facility] 00:[facility]00 [facility] Vital Signs Vital Name Observation Time Observation Value Comments Source Systolic blood 2022-03-01 19:29:00 155 mm[Hg] Univer sity of pressure [facility] Diastolic blood 2022-03-01 19:29:00 78 mm[Hg] Unive rsity of pressure [facility] Heart rate 2022-03-01 19:29:00 74 /min [facility] Body temperature 2022-03-01 18:39:00 35.83 Kiara [facility] Res[facility] rate 2022-03-01 18:39:00 18 /min [facility] Body height 2022-03-01 18:39:00 160 cm [facility] Body weight 2022-03-01 18:39:00 109.181 kg [facility] BMI 2022-03-01 18:39:00 42.64 kg/m2 [facility] Oxygen saturation in 2022-03-01 18:39:00 95 /min [facility] Arterial blood by [facility] Pulse oximetry Branch Procedures Procedure Date / Time Performing Clinician Source Performed PNEUMOCOCCAL 20 2022-03-01 20:10:13 Jaron Alvarenga [facility] CONJUGATE (PREVNAR 20) [facility] VACCINE Plan of Care Planned Activity Planned Date Details Comments Source Future Scheduled 2023-04-05 Screening for [facility] Test 20:02:26 malignant neoplasm of colon (procedure) [code = 230991231] Future Scheduled 2023-04-05 Screening for [facility] Test 20:02:26 malignant neoplasm of colon (procedure) [code = 881414053] Future Scheduled 2023-04-05 Screening for [facility] Test 20:02:26 malignant neoplasm of colon (procedure) [code = 479867387] Future Scheduled 2023-04-05 Hepatitis C screening [facility] Test 20:02:26 (procedure) [code = 919826933] Future Scheduled 2023-04-05 BREAST CANCER [facility] Test 20:02:26 SCREENING [code = BREAST CANCER SCREENING] Future Scheduled 2023-04-05 Screening for [facility] Test 20:02:26 malignant neoplasm of colon (procedure) [code = 558447348] Future Scheduled 2023-04-05 Screening for [facility] Test 20:02:26 malignant neoplasm of colon (procedure) [code = 035309296] Future Scheduled 2023-04-05 SHINGLES VACCINES (1 Met [facility] Test 20:02:26 of 2) [code = SHINGLES VACCINES (1 of 2)] Future Scheduled 2023-04-05 65+ [facility] 20:02:26 VACCINE (2 - PCV) [code = 65+ PNEUMOCOCCAL VACCINE (2 - PCV)] Future Scheduled 2023-04-05 COVID-19 VACCINE (4 - [facility] Test 20:02:26 Pfizer series) [code = COVID-19 VACCINE (4 - Pfizer series)] Future Scheduled 2023-04-[address] [facility] Test 20:02:26 [code = INFLUENZA VACCINE] Future Scheduled 2023-03-15 Screening for [facility] Test 11:16:49 malignant neoplasm of colon (procedure) [code = 070980392] Future Scheduled 2023-03-15 Screening for [facility] Test 11:16:49 malignant neoplasm of colon (procedure) [code = 291688438] Future Scheduled 2023-03-15 Screening for [facility] Test 11:16:49 malignant neoplasm of colon (procedure) [code = 456098553] Future Scheduled 2023-03-15 Hepatitis C screening [facility] Test 11:16:49 (procedure) [code = 535471194] Future Scheduled 2023-03-15 BREAST CANCER [facility] Test 11:16:49 SCREENING [code = BREAST CANCER SCREENING] Future Scheduled 2023-03-15 Screening for [facility] Test 11:16:49 malignant neoplasm of colon (procedure) [code = 700950626] Future Scheduled 2023-03-15 Screening for [facility] Test 11:16:49 malignant neoplasm of colon (procedure) [code = 061997905] Future Scheduled 2023-03-15 SHINGLES VACCINES (1 Met [facility] Test 11:16:49 of 2) [code = SHINGLES VACCINES (1 of 2)] Future Scheduled 2023-03-15 65+ PNEUMOCOCCAL [facility] Test 11:16:49 VACCINE (2 - PCV) [code = 65+ PNEUMOCOCCAL VACCINE (2 - PCV)] Future Scheduled 2023-03-15 COVID-19 VACCINE (4 - [facility] Test 11:16:49 Pfizer series) [code = COVID-19 VACCINE (4 - Pfizer series)] Future Scheduled 2023-03-[address] [facility] Hospital Test 11:16:49 [code = INFLUENZA VACCINE] Encounters Start End Encounter Admission Attending Care Care Encounter Source Date/Time Date/Time Type Type Clinicians Facility Department ID 2021-11-13 Outpatient [facility] [id number] [place] 15:55:43 [id number] [facility] 2021-11-11 Outpatient [facility] [id number] [place] 14:13:30 [id number] [facility] 2021-06-12 Emergency [facility] [id number] Univers 05:16:43 ity of [facility] 2023-02-22 2023-02-[address] [facility] 1.2.840.114 [id number] Univers 00:00:00 00:00:00 Kelli A [place] 350.1.13.10 it[place] [id number] [address] 2023-02-02 2023-02-02 [facility] 1.2.840.114 [id number] Univers 00:00:00 00:00:00 Kelli A [place] 350.1.13.10 [facility] [place] [id number] [address] 2023-01-30 2023-01-30 [facility] 1.2.840.114 [id number] Univers 00:00:00 00:00:00 Kelli A [place] 350.1.13.10 [place] 4.[place] [id number] [address] 2023-01-25 2023-01-25 [facility] 1.2.840.114 [id number] Univers 00:00:00 00:00:00 Kelli A [place] 350.1.13.10 [facility] 4[place] [id number] [address] 2022-12-06 2022-12-06 Refill Estefany, 1.2.840.1 [id number] 823451 2060 Methodi 00:00:00 00:00:[address] [place] [address] 3.430.2.7 Hospit a .3.468198 l .8 2022-12-06 2022-12-06 Refill Estefany, 1.2.840.1 [id number] 994636 8921 Methodi 00:00:00 00:00:00 [address] [place] [address] 3.430.2.7 Hospit a .3.417447 l .8 2022-10-07 2022-10-07 Refill Estefany, 1.2.840.1 [id number] 360306 9886 Methodi 00:00:00 00:00:[address] 3.430.2.7 Hospit a .3.610000 l .8 2022-10-07 2022-10-07 Refill Estefany, 1.2.840.1 [id number] 005148 7373 Methodi 00:00:00 00:00:00 Kv[address] [place] [address] 3.430.2.7 Hospit a .3.872849 l .8 2022-09-14 2022-09-14 Refill Uziel, 1.2.840.1 [id number] 19212 Methodi 00:00:00 00:00:[address] 3.430.2.7 Hospit a .3.716911 l .8 2022-09-14 2022-09-14 Refill Uziel, 1.2.840.1 [id number] 21001 84929 Methodi 00:00:00 00:00:[address] 3.430.2.7 Hospit a .3.287054 l .8 2022-09-11 2022-09-11 Refill Kunapuli, 1.2.840.1 [id number] 2099 406253 Methodi 00:00:00 00:00:[address] 3.430.2.7 Hospit a .3.910353 l .8 2022-09-11 2022-09-11 Refill [place], 1.2.840.1 [id number] 2099 983069 Methodi 00:00:00 00:00:[address] 3.430.2.7 Hospit a .3.047299 l .8 2022-09-06 2022-09-06 Refill [place], 1.2.840.1 [id number] 2099 860227 Methodi 00:00:00 00:00:[address] 3.430.2.7 Hospit a .3.937503 l .8 2022-09-06 2022-09-06 Refill Tiffnay, 1.2.840.1 577781364 2100 756286 Methodi 00:00:00 00:00:[address] 3.430.2.7 Hospit a .3.396582 l .8 2022-08-11 2022-08-11 Refill [facility] 1.2.840.114 [id number] [id number] Univers 00:00:00 00:00:00 Genesis PATT[place] 350.1.13.10 i ty [place] [id number] Pr dical NAL 044 [facility] 2022-08-03 2022-08-03 Refill [facility] 1.2.840.114 [id number] Univers 00:00:00 00:00:00 Kelli [place] 350.1.13.10 [place] [id number] Pr dical NAL 231 [facility] 2022-07-29 2022-07-29 Refill Estefany, 1.2.840.1 [id number] 052960 0176 Methodi 00:00:00 00:00:00 K[address] [place] [address]1.[address] 3.430.2.7 Hospit a .3.592800 l .8 2022-07-29 2022-07-29 Refill Estefany, 1.2.840.1 [id number] 430912 3840 Methodi 00:00:00 00:00:[address] [place] [address]1.[address] 3.430.2.7 Hospit a .3.620934 l .8 2022-06-25 2022-06-25 Refill [facility] 1.2.840.114 [id number] [id number] Univers 00:00:00 00:00:00 Kelli [place] 350.1.13.10 [place] [id number] Pr dical NAL 231 [facility] 2022-06-01 2022-06-01 [facility] 1.2.840.114 [id number] Univers 00:00:00 00:00:00 Kelli A [place] 350.1.13.10 it[place] [id number] [address] 2022-06-01 2022-06-01 [facility] 1.2.840.114 [id number] Univers 00:00:00 00:00:00 Kelli A [place] 350.1.13.10 [place] [id number] [address] 2022-05-26 2022-05-26 [facility] Dumont, [facility] 1.2.840.114 [id number] Univers 00:00:00 00:00:00 Kelli A [place] 350.1.13.10 [place] [id number] [address] 2022-05-24 2022-05-24 [facility] 1.2.840.114 [id number] Univers 00:00:00 00:00:00 Kelli A [place] 350.1.13.10 [place] [id number] [address] 2022-04-23 2022-04-23 Outpatient Prakash WEBB [facility] [id number] Univers 14:00:00 14:00:00 SOREN cabrales [facility] 2022-04-12 2022-04-12 Outpatient Prakash HEARD [facility] [id number] Univers 13:30:00 13:30:00 MARY JANE cabrales [facility] 2022-04-09 2022-04-09 Outpatient Prakash HEARD [facility] [id number] Univers 16:00:00 16:00:00 MARY JANE cabrales [facility] 2022-03-19 2022-03-19 Outpatient R WILLAM [facility] [id number] Univers 16:00:00 16:00:00 MARY JANE gutierrez [facility] 2022-03-09 2022-03-09 Outpatient R TIM [facility] [id number] Univers 15:40:00 15:40:00 KELLI cabrales [facility] 2022-03-08 2022-03-08 Outpatient Prakash TRIPLETT [facility] [id number] Univers 13:00:00 13:00:00 DESEAN keron o estrada [facility] 2022-03-08 2022-03-08 Outpatient R WILLAM [facility] [id number] Univers 10:00:00 10:00:00 MARY JANE keron [facility] 2022-03-05 2022-03-05 Outpatient Prakash TRIPLETT [facility] [id number] Univers 10:30:00 10:30:00 DESEAN dorado [facility] 2022-03-05 2022-03-05 Telephone [facility] 1.2.840.114 [id number] Univers 00:00:00 00:00:00 Kelli [place] 350.1.13.10 [place] sari [place] [id number] Pr clive [facility] 231 [facility] 2022-03-01 2022-03-01 Outpatient R JARON ALVARENGA [facility] [id number] Univers 15:30:00 15:30:00 [facility] 2022-03-01 2022-03-01 Imm/Inj Vaccine, Adc Family Medicine [facility] 1.2.840.114 [id number] Univers 15:30:00 15:30:00 Visit Jaron Alvarenga 350.1.13.1 0 ity sari [place] [id number] Pr clive [facility] 044 [facility] 2022-03-01 2022-03-[address] [facility] 1.2.840.114 [id number] Univers 15:00:00 15:00:00 Visit Jaron [place] 350.1.13.10 [place] [id number] Pr dical NAL 044 [facility] 2022-03-01 2022-03-01 Outpatient R JARON ALVARENGA [facility] [id number] Univers 15:00:00 14:42:12 JARON ALVARENGA itgutierrez [facility] 2022-03-01 2022-03-[address] [facility] 1.2.840.114 [id number] Univers 13:30:00 14:41:35 Visit Jaron [place] 350.1.13.10 [facility] 4.2.[place] [id number] Pr dical NAL [address] [place] [address] 2022-03-01 2022-03-01 Outpatient R JAYA ALVARENGADerrickVira [facility] [id number] Univers 13:30:00 14:41:35 [facility] 2022-02-24 2022-02-24 Outpatient R UZIEL [facility] [id number] Univers 14:00:00 14:00:00 DESEAN dorado [facility] 2022-02-23 2022-02-23 Outpatient R LYLEJAYA ALEXMAURI [facility] [id number] Univers 11:00:00 11:00:00 LYLE JAYAMAURI itgutierrez [facility] 2022-02-23 2022-02-23 Outpatient R LYLEJAYA ALEXMAURI [facility] [id number] Univers 10:30:00 10:30:00 LYLE JAYAMAURI ity [facility] 2022-02-21 2022-02-21 Luis Enrique [facility] 1.2.840.114 [id number] Univers 00:00:00 00:00:00 Management Kelli [place] 350.1.13.10 [facility] [facility] 4.[place] [id number] Pr dical NAL 231 Branch BUILDING 2022-02-19 2022-02-19 Telephone [facility] 1.2.840.114 [id number] Univers 00:00:00 00:00:00 Kelli A [place] 350.1.13.10 [place] [id number] Pr dical NAL 231 [facility] BUILDING 2022-02-16 2022-02-16 Refill [facility] 1.2.840.114 [id number] Univers 00:00:00 00:00:00 Kelli [place] 350.1.13.10 [place] [id number] Pr dical NAL 231 Branch BUILDING 2022-02-12 2022-02-12 Telephone [facility] 1.2.840.114 [id number] Univers 00:00:00 00:00:00 [facility] 350.1.13.10 it y [place] [id number] [facility][note 3] 098 Branch OFFICE BUILDING 2022-02-10 2022-02-[address] [facility] 1.2.840.114 [id number] Univers 00:00:00 00:00:00 Secure Msg Jaron [place] 350.1.13.10 it[place] of [place] [id number] Pr dical NAL 044 Branch BUILDING 2022-02-09 2022-02-09 Sidehand 2, Adc Lab [facility] 1.2.840.114 [id number] Univers 15:15:00 15:30:00 Visit Jaron Alvarenga 350.1.13.1 0 it[place] of [place] [id number] Pr dical NAL 353 Branch BUILDING 2022-02-09 2022-02-09 Outpatient R JARON ALVARENGA [facility] [id number] Univers 15:15:00 15:15:00 JARON ALVARENGA itgutierrez [facility] 2022-02-09 2022-02-[address] [facility] 1.2.840.114 [id number] Univers 14:30:00 15:02:38 Visit Jaron [place] 350.1.13.10 ity of [facility] 4.2.[place].2.[place] [id number] Pr clive STRE[address] 044 [facility] 2022-02-09 2022-02-09 Outpatient R JARON ALVARENGA [facility] [id number] Univers 14:30:00 15:02:38 JARON ALVARENGA [facility] 2022-02-09 2022-02-09 Outpatient R JARON ALVARENGA [facility] [id number] Univers 14:30:00 14:30:00 JARON ALVARENGA [facility] 2022-02-09 2022-02-[address] [facility] 1.2.840.114 [id number] Univers 00:00:00 00:00:00 Secure Msg Jaron [place] 350.1.13.10 ity [facility] 4.[place] [id number] Pr dharamargot YENIFER [address] [place] [address] 2022-02-08 2022-02-08 Outpatient R WILLAM [facility] [id number] Univers 11:00:00 11:49:03 MARY JANE [facility] 2022-02-08 2022-02-08 Office [facility] 1.2.840.114 [id number] Univers 11:00:00 11:49:03 Visit Mary Janeagapito [place] 350.1.13.10 i ty of [place].2.[place] [id number] Pr clive [address]RE[address] 098 [facility] 2022-02-04 2022-02-04 Outpatient R SHELLEY BRANTLEY [facility] 1 [id number] Univers 11:00:00 16:46:52 SHELLEY BRANTLEY [facility] 2022-02-04 2022-02-04 Office [facility] 1.2.840.114 [id number] Univers 11:00:00 16:46:52 Visit [facility] 350.1.13.10 i [place]2.[place] [id number] [facility][note 3] 205 [address] OFFICE BUILDING 2022-02-01 2022-02-01 [facility] [id number] Univers 10:53:32 23:59:00 KELLI cabrales [facility] 2022-02-01 2022-02-01 [facility] 1.2.840.114 [id number] Univers 10:53:32 23:59:00 Encounter Kelli P[place] 350.1.13.10 it[place] [id number] [place] [address] Branch 2022-02-01 2022-02-01 [facility] [id number] Univers 10:53:32 10:53:32 [facility] 2022-02-01 2022-02-01 [facility] [id number] Univers 10:53:32 10:53:32 [facility]LLI [facility] 2022-02-01 2022-02-[address] [facility] [place] 1..840.114 9 [id number] Univers 00:00:00 00:00:00 Kelli P[place] 350.1.13.10 [place] [id number] Pr dical NAL 231 Branch [facility] 2022-01-27 2022-01-[address] [facility] [place] [place] 1.2.840.114 [id number] Univers 00:00:00 00:00:00 Secure Msg Kelli [place] 350.1.13.10 ity of [facility] 4.2.7.2.[place] [phone] Pr dical NAL 225 Branch [facility] 2022-01-27 2022-01-27 [facility]phone [facility] 1.2.840.114 [id number] Univers 00:00:00 00:00:00 Desean [place] 350.1.13.10 ity [place] [id number] Pr dical NAL 231 [facility] 2022-01-27 2022-01-27 Patient Tim, [facility] 1.2.840.114 [id number] Univers 00:00:00 00:00:00 Secure Msg Kelli A [place] 350.1.13.10 ity of [place] [phone] Pr dical NAL 225 [facility] 2022-01-27 2022-01-[address] [facility] 1.2.840.[id number] [place] [address] 00:00:00 00:00:00 Secure Msg Unassigned, [place] 350.1.13.10 ity of [place] [facility] 4.2.7.[place] [id number] Pr dical NAL 044 [facility] 2022-01-27 2022-01-27 Refill [facility] 1.2.840.114 [id number] Univers 00:00:00 00:00:00 Kelli A [place] 350.1.13.10 [place] [phone] Pr dical NAL 231 [facility] 2022-01-22 2022-01-22 Transition JO Brown 1.2.840.114 [id number] Univers 00:00:00 00:00:00 of Care Kristylian LUGOY 350.1.13.10 it y [place] [id number] [address] 2022-01-22 2022-01-[address] [facility] 1.2.840.114 [id number] Univers 00:00:00 00:00:00 Secure Msg Kelli A [place] 350.1.13.10 [place] [id number] [facility] 044 [facility] 2022-01-20 2022-01-21 Outpatient X HANSEL [facility] [id number] Univers 11:03:00 16:28:00 CYNTHIA ity [facility] 2022-01-20 2022-01-21 Emergency Cy Martinez [facility] 1.2.840. 114 [id number] Univers 11:03:00 16:28:00 Diomedesdannielle Cynthia [place] 350.1.13.10 ity [facility] 4.2.7.2.[place] [id number] [facility] [address] [place] [address] 2022-01-20 2022-01-20 Patient [facility] 1.2.840.114 [id number] Univers 00:00:00 00:00:00 Secure Msg Kelli SUÁREZTON 350.1.13.10 [place] [id number] [address] 2022-01-19 2022-01-19 [facility] [id number] Univers 11:00:00 13:42:31 KELLI cabrales [facility] 2022-01-19 2022-01-19 Office [facility] 1.2.840.114 [id number] Univers 11:00:00 13:42:31 Visit Kelli PATTEN 350.1.13.10 [place] [phone] [facility] [address] [facility] 2022-01-19 2022-01-19 Outpatient R [facility] [id number] Univers 11:00:00 11:00:00 KELLI cabrales [facility] 2022-01-14 2022-01-14 Patient [facility] 1.2.840.114 [id number] Univers 00:00:00 00:00:00 Secure Msg Kelli SUÁ[place] 350.1.13.10 [place] [id number] Pr dical [facility] [address] [facility] 2022-01-13 2022-01-13 Patient Tim, [facility] 1.2.840.114 [id number] Univers 00:00:00 00:00:00 Secure Msg Kelli De La Garza [place] 350.1.13.10 it[place] [phone] [address] 2022-01-06 2022-01-06 Telephone [facility] 1.2.840.114 [id number] Univers 00:00:00 00:00:00 Oggloria [place] 350.1.13.10 [place] [phone] [facility] [address] [facility] 2021-12-15 2021-12-15 Refill [facility] 1.2.840.114 [id number] Univers 00:00:00 00:00:00 Deseanelysia [place] 350.1.13.10 [place] [phone] [address] 2021-11-26 2021-11-26 Refill [facility] 1.2.840.114 [id number] Univers 00:00:00 00:00:00 Desean [place] 350.1.13.10 [facility] [place] [phone] Pr dic[address] 2021-10-05 2021-10-05 Outpatient R JARON ALVARENGA [facility] [id number] Univers 11:00:00 11:00:00 JARON ALVARENGA ity [facility] 2021-10-05 2021-10-05 Outpatient R JARON ALVARENGA [facility] [id number] Univers 11:00:00 11:00:00 JARON ALVARENGA ity [facility] 2021-09-28 2021-09-28 Outpatient R BRIDGET [facility] [id number] Univers 11:00:00 11:00:00 BRIAN [facility] 2021-09-14 2021-09-14 Outpatient [facility] [facility] [id number] Novi 00:00:00 00:00:00 KVNG [address] [facility] 2021-08-21 2021-08-21 [facility] 1.2.840.114 [id number] Univers 00:00:00 00:00:00 Kelli PATTEN 350.1.13.10 ity [facility] [place] [phone] [facility] 2021-08-18 2021-08-18 Outpatient R JARON ALVARENGA [facility] [id number] Univers 11:00:00 11:00:00 JARON ALVARENGA [facility] 2021-08-11 2021-08-[address] [facility] .2.840.114 [id number] Univers 00:00:00 00:00:00 Genesis PATTEN 350.1.13.10 i ty sari [place] [phone] [facility] 0[facility] 2021-08-04 2021-08-04 Outpatient Prakash MERCADO [facility] [id number] Univers 11:30:00 11:30:00 SELVIN cabrales [facility] 2021-08-04 2021-08-04 Imm/Inj Nurse, Adc Pob Immunization [facility] 1.2.840.114 [id number] Univers 11:30:00 11:30:00 Visit Selvin Mercado 350.1.13 .10 ity [facility] [place] [phone] [facility] 2021-08-04 2021-08-04 Outpatient R ROGELIO [facility] [id number] Univers 11:30:00 11:25:22 SELVIN cabrales [facility] 2021-08-04 2021-08-04 Outpatient R LYLE, JAYADerrickVira [facility] [id number] Univers 10:00:00 10:00:00 FRANKIE ALVARENGAGMMYLA ity of [facility] 2021-08-04 2021-08-04 Orders Doctor BETTY 1.2.840.114 [id number] Univers 00:00:00 00:00:00 Only Unassigned, APRIL 350.1.13.10 [address] 4.2.7.2.686 [place] as [phone] [address] 2021-08-04 2021-08-[address] [facility] 1.2.840.114 [id number] Univers 00:00:00 00:00:00 Genesis PATTEN 350.1.13.10 i ty [place] [phone] Pr dical NAL [address] [place] [address] 2021-08-03 2021-08-03 Patient [facility] 1.2.840.114 [id number] Univers 00:00:00 00:00:00 Secure Msg Kellichelsie PATTEN 350.1.13.10 [place].7.2.[place] [phone] Pr dical NAL [address] [place] [address] 2021-08-03 2021-08-[address] [facility] 1.2.840.114 [id number] Univers 00:00:00 00:00:00 Secure Msg Kelli PATTEN 350.1.13.10 [place] of [place] 4.2.7.2.[place] [phone] Pr dical NAL [address] [place] [address] 2021-08-03 2021-08-[address] [facility] 1.2.840.114 [id number] Univers 00:00:00 00:00:00 Secure Msg Kelli A JOSE ARMANDOTON 350.1.13.10 [place] 4.2.7.2.[place] [phone] Pr dical NAL [address] [place] [address] 2021-08-03 2021-08-[address] [facility] 1.2.840.114 [id number] Univers 00:00:00 00:00:00 Secure Msg Kelli De La Garza [place] 350.1.13.10 ity [facility] 4.2.7.2.[place] [phone] Pr dical NAL [address] [place] [address] 2021-07-29 2021-07-[address] [facility] 1.2.840.114 [id number] Univers 00:00:00 00:00:00 Kelli De La Garza [place] 350.1.13.10 ity of [facility] 4.2.7.2.[place] [phone] Pr dical NAL 0[address] [facility] 2021-07-28 2021-07-[address] [facility] 1.2.840.114 [id number] Univers 00:00:00 00:00:00 Secure g Kelli SUÁREZTON 350.1.13.10 ity of [facility] 4.2.7.2.[place] [phone] Pr dical NAL [address] [place] [address] 2021-07-27 2021-07-27 Patient [facility] 1.2.840.114 [id number] Univers 00:00:00 00:00:00 Secure Msg Kelli De La Garza [place] 350.1.13.10 ity of [facility] 4.2.7.2.[place] [phone] Pr dical NAL [address] [place] [address] 2021-07-26 2021-07-26 Emergency X [facility] ERT [id number] Univers 07:28:00 10:16:00 GATO ity of [facility] 2021-07-26 2021-07-26 Emergency [facility] 1.2.487.928 [id number] Univers 07:28:00 10:16:00 Gato PATTEN 350.1.13.10 i ty of [facility] 4.2.7.2.[place] [phone] [facility] [address] [place] [address] 2021-07-26 2021-07-26 Emergency X ROXI [facility] ERT [id number] Univers 07:28:00 10:16:00 GATO gutierrez [facility] 2021-07-26 2021-07-26 Emergency X ROXI [facility] ERT [id number] Univers 07:28:00 10:16:00 GATO cabrales [facility] 2021-07-25 2021-07-25 Outpatient R MARJORIE SARABIA [facility] [id number] Univers 19:30:00 19:30:00 MARJORIE SARABIA gutierrez [facility] 2021-07-25 2021-07-25 Outpatient R CAMILO SARABIAWVL [facility] [id number] Univers 19:30:00 19:30:00 MARJORIE SARABIA [facility] 2021-07-25 2021-07-25 Outpatient R CAMILO SARABIAWVL [facility] [id number] Univers 19:30:00 19:30:00 MARJORIE SARABIA [facility] 2021-07-24 2021-07-24 Sidehand 1, [facility] Sleep Lab Bed [facility] 1. 2.840.114 [id number] Univers 12:48:05 15:18:05 Visit Marjorie Sarabia 350.1.13. 10 [facility] 4.2.7.2.686 [facility] [phone] [address] 2021-07-23 2021-07-23 Outpatient R [facility] [id number] Univers 13:15:00 13:15:[facility] 2021-07-21 2021-07-21 Refill [facility] 1.2.840.114 [id number] Univers 00:00:00 00:00:00 Kelli PATTEN 350.1.13.10 [facility] [place] [facility] 4.2.7.2.686 [facility] [phone] [address] 2021-07-14 2021-07-15 Telemedici [facility] 1.2.840.114 [id number] Univers 15:00:00 10:41:17 ne Visit Kelli A [place] 350.1.13.10 ity of [facility] 4.2.7.2.[place] [phone] Pr [address] [facility] 2021-07-14 2021-07-15 Outpatient R [facility] [id number] Univers 15:00:00 10:41:[facility] 2021-07-15 2021-07-[address] [facility] [place] 1.2.840.114 [id number] Univers 00:00:00 00:00:00 Kelli SUÁREZTON 350.1.13.10 it[place] of [place] 4.2.7.2.[place] [phone] [facility] 0[facility] 2021-07-14 2021-07-14 Outpatient R [facility] [id number] Univers 15:00:00 15:00:00 [facility] 2021-07-14 2021-07-14 Outpatient R [facility] [id number] Univers 15:00:00 15:00:00 [facility] 2021-07-14 2021-07-14 Orders Doctor BETTY 1.2.840.114 [id number] Univers 00:00:00 00:00:00 Only Unassigned, APRIL 350.1.13.10 ity of [place] [facility] 4.2.7.2.686 [place] as [phone] [address] 2021-07-06 2021-07-[address] [facility] [place] [place] 1.2.840.114 8 [id number] Univers 00:00:00 00:00:00 Kelli SUÁREZTON 350.1.13.10 ity of [facility] 4.2.7.2.[place] [phone] [facility] 2021-07-06 2021-07-[address] [facility] [place] [place] 1.2.840.114 [id number] Univers 00:00:00 00:00:00 Kelli SUÁREZTON 350.1.13.10 ity of [facility] 4.2.7.2.[place] [phone] [facility] 0[address] [facility] 2021-07-03 2021-07-03 Orders Doctor BETTY 1.2.840.114 [id number] Univers 00:00:00 00:00:00 Only Unassigned, APRIL 350.1.13.10 ity of [place] [facility] 4.2.7.2.686 [place] as [phone] [address] 2021-06-30 2021-06-30 Refill Dumont, [facility] 1.2.840.114 [id number] Univers 00:00:00 00:00:00 Kelli A [place] 350.1.13.10 [place].2.7.2.[place] [phone] [facility] 231 [facility] 2021-06-30 2021-06-[address] [facility]ont, [facility] 1.2.840.114 [id number] Univers 00:00:00 00:00:00 Kelli A [place] 350.1.13.10 it[place] 4.2.7.2.[place] [phone] [facility] 231 [facility] 2021-06-22 2021-06-22 Outpatient R BRIDGET, [facility] [id number] Univers 11:30:00 11:30:00 BRIAN ity of [facility] 2021-06-19 2021-06-19 [facility] 1.2.840.114 [id number] Univers 00:00:00 00:00:00 Kelli A [place] 350.1.13.10 ity of [facility] 4.2.7.2.[place] [phone] [facility] 231 [facility] 2021-06-19 2021-06-19 [facility] 1.2.840.114 [id number] Univers 00:00:00 00:00:00 Kelli A [place] 350.1.13.10 ity of [facility] 4.2.7.2.[place] [phone] Pr dical NAL [address] [place] [address] 2021-06-19 2021-06-19 Refill Dumont, [facility] 1.2.840.114 [id number] [facility] 00:00:00 00:00:00 Kellimitra SUÁREZTON 350.1.13.10 ity of [facility] 4.2.7.2.[place] [phone] Pr dical NAL [address] [place] [address] 2021-06-18 2021-06-18 Telephone [facility] [place] 1.2.840.114 [id number] [facility] 00:00:00 00:00:00 Kelli PATTEN 350.1.13.10 ity of [facility] 4.2.7.2.[place] [phone] Pr dical NAL [address] [place] [address] 2021-06-04 2021-06-04 Outpatient TIFFANY [facility] [id number] Novi 00:00:00 00:00:00 LOBO [address] 2021-06-03 2021-06-[address] [facility] [place] [place] 1.2.840.114 [id number] [facility] 00:00:00 00:00:00 Kelli Patten 350.1.13.10 ity of [place] 4.2.7.2.[place] [phone] [facility] nal [address] [place] [address] 2021-05-29 2021-05-29 Outpatient R [facility] [id number] [facility] 15:00:00 15:00:00 KELLI ity of [facility] 2021-05-29 2021-05-29 Telemedici [facility] 1.2.840.114 [id number] [facility] 08:24:42 09:04:42 ne Visit Kelli Patten 350.1.13.10 ity of [place] 4.2.7.2.686 [place] [phone] Pr dical nal [address] [place] [address] 2021-05-21 2021-05-21 Outpatient TIFFANY [place] [id number] Novi 00:00:00 00:00:00 LOBO 942 Method i 2021-05-19 2021-05-19 Outpatient TIFFANY, [facility] Novi 00:00:00 00:00:00 LOBO 256 Method i 2021-05-14 2021-05-14 Telephone [facility] 1.2.840.114 8 [id number] Univers 00:00:00 00:00:00 Kelli Frederic [place] 350.1.13.10 it[place] of [place] 4.2.7.2.[place] [phone] Pr dical nal 044 [facility] 2021-05-14 2021-05-14 [facility] [place] 1.2.840.114 [id number] [facility] 00:00:00 00:00:00 Kelli Suárezton 350.1.13.10 ity of [place] 4.2.7.2.686 [place] [phone] Pr dical nal 044 [facility] 2021-05-13 2021-05-13 Outpatient R ZEINA [facility] [id number] Univers 15:00:00 15:00:00 WENTONG ity of [facility] 2021-05-11 2021-05-[address] [facility] 1.2.840.114 [id number] Univers 00:00:00 00:00:00 Secure Msg Kelli Suárezton 350.1.13.10 ity of [place] 4.2.7.2.686 [place] [phone] Pr dical nal 044 [facility] 2021-05-07 2021-05-07 Sidehand 2, Adc Lab [facility] 1.2.840.114 [id number] Univers 11:17:00 11:32:00 Visit Kelli Dumont 350.1. 13.10 ity of [place] 4.2.7.2.686 [place] [phone] Pr dical nal 353 [facility] 2021-05-07 2021-05-07 Outpatient R TIM [facility] [id number] Univers 11:15:00 11:15:00 KELLI ity [facility] 2021-04-29 2021-04-29 Tele[facility] [place] 1.2.840.114 8 [id number] Univers 00:00:00 00:00:00 Kelli A [place] 350.1.13.10 it[place] of [place] 4.2.7.2.686 [place] [phone] [address] 2021-04-29 2021-04-[address] [facility] 1.2.840.114 8 [id number] [facility] 00:00:00 00:00:00 Kelli A [place] 350.1.13.10 ity of [place] 4.2.7.2.686 [place] [phone] [address] 2021-04-28 2021-04-28 Outpatient R [facility] [id number] Univers 16:00:00 16:00:00 KELLI ity [facility] 2021-04-28 2021-04-28 [facility] 1.2.840.114 [id number] [facility] 13:22:16 14:02:16 ne Visit Kelli A [place] 350.1.13.10 it[place] of [place] 4.2.7.2.686 [place] [phone] [address] 2021-04-28 2021-04-[address] [facility] [place] [place] 1.2.840.114 [id number] [facility] 13:22:16 14:02:16 ne Visit Kelli A [place] 350.1.13.10 ity of [place] 4.2.7.2.686 [place] [phone] [address] 2021-04-24 2021-04-[address] [facility] [place] 1.2.840.114 [id number] Univers 00:00:00 00:00:00 Secure Msg Kelli A [place] 350.1.13.10 ity of [place] 4.2.7.2.686 [place] [phone] Pr dical [facility] 231 [facility] 2021-04-17 2021-04-17 Outpatient R TIM [facility] [id number] Univers 16:20:00 16:20:00 KELLI ity of [facility] 2021-04-17 2021-04-[address] [facility] 1.2.840.114 [id number] Univers 09:21:16 11:23:20 Visit Kelli Patten 350.1.13.10 ity of [place] 4[place]2.7.2.686 [place] [phone] Pr dic[address] 2021-04-17 2021-04-17 Office [facility] 1.2.840.114 [id number] [facility] 09:21:16 11:23:20 Visit Kelli Patten 350.1.13.10 ity of [place] 4[place]2.7.2.[place] [phone] Pr dical nal 231 [facility] 2021-04-17 2021-04-17 Sidehand 2, [facility] Lab [facility] 1.2.840.114 [id number] [facility] 09:12:11 09:27:11 Visit Kelli Dum[place] 350.1. 13.10 ity of [place] 4[place]2.7.2.[place] [phone] Pr dic[address] 2021-04-17 2021-04-17 Sidehand 2, [facility] Lab [facility] 1.2.840.114 [id number] [facility] 09:12:11 09:27:11 Visit Kelli Duomnt 350.1. 13.10 ity of [place] 4[place]2.7.2.686 [place] [phone] Pr dicil nal [address] [place] [address] 2021-04-17 2021-04-[address] [facility] 1.2.840.114 [id number] Univers 00:00:00 00:00:00 Kelli Patten 350.1.13.10 ity of [place] 4.2.7.2.686 [place] [phone] Pr dical nal 044 [facility] 2021-04-17 2021-04-17 Orders Doctor BETTY 1.2.840.114 [id number] Univers 00:00:00 00:00:00 Only Unassigned, APRIL 350.1.13.10 ity of [place] [facility] 4.2.7.2.686 [place] as [phone] [address] 2021-04-17 2021-04-17 Telephone [facility] 1.2.840.114 8 [id number] [facility] 00:00:00 00:00:00 Kelli Patten 350.1.13.10 ity of [place] 4.2.7.2.686 [place] [phone] Pr dical nal 044 [facility] 2021-04-17 2021-04-17 Orders Doctor BETTY 1.2.840.114 [id number] Univers 00:00:00 00:00:00 Only Unassigned, APRIL 350.1.13.10 ity of [place] [facility] 4.2.7.2.686 [place] as [phone] [address] 2021-04-14 2021-04-14 Outpatient KUNAPULI, [facility] [id number] Novi 00:00:00 00:00:00 LOBO 959 Method i 2021-04-14 2021-04-14 Outpatient KUNAPULI, [facility] [id number] Novi 00:00:00 00:00:00 LOBO 297 Method i 2021-04-14 2021-04-14 Outpatient ESTEFANY, [facility] [id number] Novi 00:00:00 00:00:00 KVNG 743 Method i 2021-04-09 2021-04-09 Outpatient R TIM [facility] [id number] [facility] 14:20:00 14:20:00 KELLI cabrales of [facility] 2021-04-09 2021-04-09 Telemedici [facility] 1.2.840.114 [id number] [facility] 09:33:42 10:13:42 ne Visit Kelli Frederic [place] 350.1.13.10 it[place] of [place]2.7.2.[place] [phone] Pr dic[address] 2021-04-09 2021-04-09 [facility] [place] 1.2.840.114 [id number] [facility] 09:33:42 10:13:42 ne Visit Kelli Frederic [place] 350.1.13.10 it[place] of [place] 4.2.7.2.[place] [phone] [address] 2021-04-08 2021-04-08 [facility] [place] 1.2.840.114 [id number] Univers 00:00:00 00:00:00 Secure Msg Kelli A [place] 350.1.13.10 it[place] of [place] 4.2.7.2.686 [place] [phone] [address] 2021-04-08 2021-04-08 [facility] [place] 1.2.840.114 [id number] [facility] 00:00:00 00:00:00 Secure Msg Kelli A [place] 350.1.13.10 it[place] of [place] 4.2.7.2.[place] [phone] [address] 2021-04-06 2021-04-06 Outpatient R [facility] [id number] [facility] 16:20:00 16:20:00 KELLI ity of [facility] 2021-03-26 2021-03-26 [facility] 1.2.840.114 [id number] [facility] 11:49:43 14:03:21 ne Visit Kelli Frederic [place] 350.1.13.10 it[place] of [place] 4.2.7.2.686 [place] [phone] [address] 2021-03-26 2021-03-26 Outpatient R [facility] [id number] Univers 13:00:00 13:00:00 KELLI cabrales [facility] 2021-03-25 2021-03-25 Outpatient ESTEFANY, [facility] [id number] Novi 00:00:00 00:00:00 KVNG Meza [facility] 2021-03-23 2021-03-[address] [facility] 1.2.840.114 [id number] Univers 00:00:00 00:00:00 Secure Msg Kelli Patten 350.1.13.10 it[place] of [place]2.7.2.[place] [phone] Pr dical nal 092 [facility] 2021-03-17 2021-03-19 Telemedici [facility] 1.2.840.114 [id number] Univers 08:39:46 16:27:07 ne Visit Kelli Patten 350.1.13.10 it[place] of [place] 4.2.7.2.686 [place] [phone] Pr dical nal 231 [facility] 2021-03-19 2021-03-19 Outpatient R TIM [facility] [id number] Univers 11:30:00 11:30:00 KELLI cabrales [facility] 2021-03-19 2021-03-19 Sidehand 2, Adc Lab [facility] 1.2.840.114 [id number] Univers 09:55:07 10:10:07 Visit Kelli Dum[place] 350.1. 13.10 it[place] of [place]2.7.2.[place] [phone] Pr dical nal 353 [facility] 2021-03-19 2021-03-19 Orders Doctor BETTY 1.2.840.114 [id number] Univers 00:00:00 00:00:00 Only Unassigned, APRIL 350.1.13.10 ity of [place] [facility] 4.2.7.2.686 [place] as [phone] [address] 2021-03-17 2021-03-17 Outpatient R TIM [facility] [id number] Univers 11:00:00 11:00:00 KELLI ity [facility] 2021-03-16 2021-03-16 Telephone [facility] [place] 1.2.840.114 [id number] Univers 00:00:00 00:00:00 Kellimitra Suárezton 350.1.13.10 [place].7.2.[place] [phone] [address] 2021-03-05 2021-03-05 [facility] [place] 1.2.840.114 [id number] [facility] 16:04:10 16:44:10 ne Visit Kelli Suárezton 350.1.13.10 it[place] of [place] 4[place]2.7.2.686 [place] [phone] [address] 2021-03-05 2021-03-05 Outpatient R [facility] [id number] Univers 15:00:00 15:00:00 KELLI ity [facility] 2021-03-03 2021-03-[address] [facility] [place] [place] 1.2.840.114 [id number] [facility] 00:00:00 00:00:00 Kelli A [place] 350.1.13.10 it[place] of [place] 4.2.7.2.686 [place] [phone] [address] 2021-03-02 2021-03-02 Outpatient R [facility] [id number] Univers 15:40:00 15:40:00 KELLI ity [facility] 2021-03-02 2021-03-02 [facility] 1.2.840.114 [id number] Univers 10:52:05 11:32:05 ne Visit Kelli Frederic [place] 350.1.13.10 it[place] of [place] 4.2.7.2.686 [place] [phone] [address] 2021-02-11 2021-02-11 Outpatient [facility] [id number] [address] [place] [address] 00:00:00 00:00:00 990 Method i 2021-02-10 2021-02-10 Outpatient ESTEFANY, [facility] [id number] Novi 00:00:00 00:00:00 KVNG Dobbs Method i 2021-02-09 2021-02-[address] [facility] 1.2.840.114 [id number] [facility] 00:00:00 00:00:00 Secure Msg Kelli A [place] 350.1.13.10 [place] of [place]2.7.2.686 [place] [phone] Pr dical [address] 2021-02-09 2021-02-09 [facility] 1.2.840.114 [id number] [facility] 00:00:00 00:00:00 Kelli A [place] 350.1.13.10 [place] [phone] Pr dical [facility] [address] [facility] 2021-02-09 2021-02-09 Patient Dumont, [facility] 1.2.840.114 [id number] 00:00:00 00:00:00 Secure Msg Kelli [place] 350.1.13.10 [place] 4.2.7.2.686 Professio [phone] [address] 2021-02-09 2021-02-[address] [facility] 1.2.840.114 [id number] 00:00:00 00:00:00 Kelli [place] 350.1.13.10 [place] 4.2.7.2.686 Professio [phone] [address] 2021-02-07 2021-02-[address] [facility] 1.2.840.114 [id number] [facility] 00:00:00 00:00:00 Tattva 350.1.13.10 [place] 4[place].2.686 [place] - [phone] [address] 2021-02-07 2021-02-07 Nurse BETTY [place] 1.2.840.114 [id number] [facility] 00:00:00 00:00:00 Triage Tristian CHEN 350.1.13.10 ity of [facility] 4.2.7.2.686 [place] [phone] [address] 2021-02-07 2021-02-07 Telephone Randall, [facility] 1.2.840.114 [id number] 00:00:00 00:00:00 [facility] 350.1.13.10 Specialty 4.2.7.2.686 Care - [phone] [place] 314 2021-02-06 2021-02-06 Outpatient R TIM [facility] [id number] Univers 13:30:00 13:30:00 KELLI cabrales [facility] 2021-02-02 2021-02-02 Sidehand 2, Adc Lab [facility] 1.2.840.114 [id number] Univers 10:10:58 10:25:58 Visit Kelli Dum[place] 350.1. 13.10 [place] [phone] [address] [facility] 2021-02-02 2021-02-02 [facility] 1.2.840.114 [id number] [facility] 08:38:37 10:04:29 Visit Kelli Patten 350.1.13.10 [place]2.[place] [phone] [address] [facility] 2021-02-02 2021-02-02 Outpatient R TIM [facility] [id number] Univers 09:00:00 09:00:00 KELLI cabrales [facility] [place] 2020-12-29 2020-12-29 Telephone [facility] 1.2.840.114 [id number] [facility] 00:00:00 00:00:00 Kelli Patten 350.1.13.10 [place] [phone] Pr dicmargot nal 044 [facility] 2020-12-26 2020-12-26 Telephone [facility] 1.2.840.114 8 [id number] Univers 00:00:00 00:00:00 Kelli Patten 350.1.13.10 [place] [phone] [address] 2020-12-24 2020-12-24 Telephone Dumont, [facility] 1.2.840.114 8 [id number] Univers 00:00:00 00:00:00 Kelli Frederic Patten 350.1.13.10 [place] [phone] [address] 2020-12-03 2020-12-03 Orders Doctor BETTY 1.2.840.114 [id number] Univers 00:00:00 00:00:00 Only Unassigned, APRIL 350.1.13.10 ity of [facility] 4.2.7.2.686 [place] as [phone] [address] 2020-11-27 2020-11-27 Refill [facility] 1.2.840.114 [id number] Univers 00:00:00 00:00:00 Kelli Patten 350.1.13.10 [place] of [place] [phone] [address] 2020-11-24 2020-11-24 Patient [facility] 1.2.840.114 [id number] Univers 00:00:00 00:00:00 Secure Msg Kelli Patten 350.1.13.10 [place] of [place] [phone] [address] 2020-11-22 2020-11-22 Outpatient [facility] [id number] Univers 15:35:00 15:35:00 ity of [facility] 2020-11-22 2020-11-[address] [facility] 1.2.840.114 [id number] [id number] Univers 00:00:00 00:00:00 Kelli Patten 350.1.13.10 [place] of [place] [phone] [address] 2020-11-19 2020-11-19 Refill [facility] 1.2.840.114 [id number] Univers 00:00:00 00:00:00 Kelli Patten 350.1.13.10 [place] of [place] [phone] [address] 2020-11-01 2020-11-01 Outpatient [facility] [id number] Univers 16:35:00 16:35:00 ity of [facility] 2020-10-30 2020-10-30 Refaarti [facility] 1.2.840.114 [id number] Univers 00:00:00 00:00:00 Kelli Patten 350.1.13.10 [place] of [place] [phone] [address] 2020-10-30 2020-10-30 [facility] 1.2.840.114 [id number] Univers 00:00:00 00:00:00 Kelli Patten 350.1.13.10 [place] of [place].2.[place] [phone] [address] 2020-10-13 2020-10-[address] [facility] 1.2.840.114 [id number] Univers 00:00:00 00:00:00 Outreach Selvin JACOBSEN 350.1.13.10 i ty of [facility] 4.2.7.2.[place] [phone] [address] 2020-09-10 2020-09-[address] [facility] 1.2.840.114 8 [id number] Univers 00:00:00 00:00:00 Kelli Patten 350.1.13.10 [place] of [place] [phone] [address] 2020-05-19 2020-05-20 [facility] 1.2.840.114 [id number] Univers 07:54:08 10:59:45 ne Visit Kelli Patten 350.1.13.10 it[place] of [place].2.[place] [phone] [address] 2020-05-19 2020-05-19 [facility] [id number] Univers 15:40:00 15:40:00 KELLI ity of [facility] 2020-04-29 2020-04-29 [facility] 1.2.840.114 [id number] Univers 16:00:00 16:40:00 ne Visit Kelli Patten 350.1.13.10 it[place] of [place].2.[place] [phone] [address] 2020-04-29 2020-04-29 [facility] [id number] Univers 16:00:00 16:00:00 KELLI ity of [facility] 2020-04-29 2020-04-29 Orders Doctor BETTY 1.2.840.114 [id number] Univers 00:00:00 00:00:00 Only Unassigned, APRIL 350.1.13.10 ity of [place] [facility] 4.2.7.2.686 [place] as [phone] [address] 2020-04-24 2020-04-[address] [facility] [place] [place] 1.2.840.114 7 [id number] Univers 00:00:00 00:00:00 Kelli Suárezton 350.1.13.10 it[place] of [place]2.[place].2.[place] [phone] [address] 2020-04-18 2020-04-18 Patient [facility] 1.2.840.114 [id number] Univers 00:00:00 00:00:00 Outreach Larisa Patten 350.1.13.10 [place] of [place]2.7.2.[place] [phone] [facility] 231 [facility] 2020-04-17 2020-04-17 Telemedici [facility] 1.2.840.114 [id number] Univers 07:47:39 17:01:01 ne Visit Kelli Patten 350.1.13.10 it[place] of [place]2.7.2.[place] [phone] [address] 2020-04-17 2020-04-17 Outpatient R [facility] [id number] Univers 08:00:00 08:00:00 KELLI cabrales [facility] 2020-04-14 2020-04-14 Case [facility] 1.2.840.114 [id number] Univers 00:00:00 00:00:00 Management Kelli Patten 350.1.13.10 it[place] [phone] [facility] 231 [facility] 2020-04-07 2020-04-07 Sidehand Maurice, Rufus Lab Main [facility] 1.2.8 40.114 [id number] Univers 10:08:59 10:23:59 Visit Kelli Dumont 350.1. 13.10 it[place]2.7.2.[place] [phone] [facility] 353 [facility] 2020-04-07 2020-04-07 Outpatient R SHASHAKN [facility] [id number] Univers 10:20:00 10:20:00 MAGED cabrales [facility] 2020-04-04 2020-04-04 Orders Doctor HERNÁNDEZ 1.2.840.114 [id number] Univers 00:00:00 00:00:00 Only Unassigned, APRIL 350.1.13.10 ity of [place] [facility] 4.2.7.2.686 [place] as [phone] [address] 2020-04-03 2020-04-03 [facility]ici [facility] [place] 1.2.840.114 [id number] Univers 08:00:27 14:45:42 ne Visit Kelli Patten 350.1.13.10 [place] of [place]2.7.2.[place] [phone] [address] 2020-04-03 2020-04-03 [facility] [id number] Univers 09:00:00 09:00:00 KELLI ity [facility] 2020-03-28 2020-03-[address] [facility] [place] 1.2.840.114 7 [id number] Univers 00:00:00 00:00:00 Kelil Patten 350.1.13.10 it[place] of [place].2.7.2.[place] [phone] [address] 2020-03-25 2020-03-[address] [facility] [place] 1.2.840.114 7 [id number] [facility] 00:00:00 00:00:00 Kelli Patten 350.1.13.10 [place] of [place].2.[place] [phone] [address] 2020-03-24 2020-03-24 [facility] [id number] Univers 16:20:00 16:20:00 KELLI ity [facility] 2020-03-24 2020-03-24 Patient [facility] 1.2.840.114 [id number] Univers 00:00:00 00:00:00 Outreach Kori Patten 350.1.13.10 [place].2.[place] [phone] [address] 2020-03-24 2020-03-24 Patient Dumont, [facility] 1.2.840.114 [id number] Univers 00:00:00 00:00:00 Secure Msg Kelli De La Garza [place] 350.1.13.10 it[place] of [place]2.[place].2.[place] [phone] Pr dicboise [facility] 044 [facility] 2020-03-21 2020-03-21 Telephone [facility] [place] 1.2.840.114 7 [id number] Univers 00:00:00 00:00:00 Kelli De La Garza [place] 350.1.13.10 it[place] of [place] 4.2.7.2.[place] [phone] [facility] 044 [facility] 2020-03-20 2020-03-20 [facility] 1.2.840.114 [id number] Univers 08:06:59 17:12:37 ne Visit Kelli De La Garza Bár[place] 350.1.13.10 it[place] of [place] 4[place]2.7.2.[place] [phone] [facility] 231 [facility] 2020-03-20 2020-03-20 Outpatient R [facility] [id number] Univers 09:00:00 09:00:00 KELLI robertsgutierrez [facility] 2020-03-19 2020-03-19 Outpatient R ROXY [facility] [id number] Univers 10:00:00 10:00:00 ABELINO cabrales [facility] 2020-03-13 2020-03-13 Refill [facility], [facility] 1.2.840.114 [id number] Univers 00:00:00 00:00:00 Kelli A Bárbara 350.1.13.10 it[place] of [place]2.[place].2.[place] [phone] [facility] 231 [facility] 2020-03-12 2020-03-12 Orders Doctor BETTY 1.2.840.114 [id number] Univers 00:00:00 00:00:00 Only Unassigned, APRIL 350.1.13.10 ity of [place] [facility] 4.2.7.2.686 [place] as [phone] [address] 2020-03-06 2020-03-06 [facility] [place] 1.2.840.114 [id number] Univers 08:21:36 15:28:45 ne Visit Kelli Frederic [place] 350.1.13.10 [place] of [place]2.7.2.[place] [phone] [address] 2020-03-06 2020-03-06 Outpatient R JOESPH RODRÍGUEZ [facility] 10 [id number] Univers 10:20:00 10:20:00 JOESPH RODRÍGUEZ i ty [facility] 2020-02-28 2020-02-[address] [facility] [place] 1.2.840.114 [id number] [facility] 08:01:15 17:08:05 ne Visit Kelli Frederic [place] 350.1.13.10 it[place]2.7.2.[place] [phone] [address] 2020-02-28 2020-02-28 Outpatient R [facility] 1027 [id number] Univers 16:00:00 16:00:00 [facility] 2020-02-22 2020-02-[address] [facility] [place] [place] 1.2.840.114 7 [id number] Univers 00:00:00 00:00:00 Kelli A [place] 350.1.13.10 [place] of [place]2.7.2.[place] [phone] [address] 2020-02-22 2020-02-[address] [facility] [place] 1.2.840.114 7 [id number] Univers 00:00:00 00:00:00 Kelli A [place] 350.1.13.10 [place] 4[place]2.7.2.[place] [phone] [address] 2020-02-20 2020-02-20 Outpatient R [facility] [id number] Univers 16:20:00 16:20:00 HUGH ity [facility] 2020-02-20 2020-02-[address] [facility] [place] 1.2.840.114 7 [id number] Univers 00:00:00 00:00:00 Kelli A [place] 350.1.13.10 it[place] of [place] 4[place]2.7.2.[place] [phone] [address] 2020-02-20 2020-02-[address] [facility] 1.2.840.114 7 [id number] Univers 00:00:00 00:00:00 Kelli A [place] 350.1.13.10 it[place] of [place] 4.2.7.2.[place] [phone] [address] 2020-02-20 2020-02-[address] [facility] 1.2.840.114 7 [id number] [facility] 00:00:00 00:00:00 Kelli A [place] 350.1.13.10 [place] of [place]2.7.2.[place] [phone] [address] 2020-02-19 2020-02-19 [facility] 1.2.903.101 [id number] [facility] 13:45:34 23:14:00 Gato Suárezton 350.1.13.10 i ty of [place] 4.2.7.2.686 [place] [phone] [address] 2020-02-19 2020-02-[address] [facility] [place] 1.2.840.114 [id number] Univers 00:00:00 00:00:00 Secure Msg Kelli A [place] 350.1.13.10 it[place] of [place]2.7.2.[place] [phone] [address] 2020-02-19 2020-02-[address] [facility] 1.2.840.114 7 [id number] Univers 00:00:00 00:00:00 Kelli A [place] 350.1.13.10 it[place] of [place]2.7.2.[place] [phone] [address] 2020-02-19 2020-02-19 [facility] 1.2.840.114 7 [id number] Univers 00:00:00 00:00:00 Kelli Patten 350.1.13.10 ity of [place]2.7.2.[place] [phone] [address] 2020-02-19 2020-02-19 Telephone [facility] 1.2.840.114 7 [id number] Univers 00:00:00 00:00:00 Kelli Patten 350.1.13.10 ity of [place].2.7.2.[place] [phone] [address] 2020-02-18 2020-02-18 Telemedici [facility] 1.2.840.114 [id number] Univers 08:27:03 16:56:40 ne Visit Kelli Patten 350.1.13.10 it[place] of [place]2.7.2.[place] [phone] [address] 2020-02-18 2020-02-18 Outpatient R [facility] [id number] Univers 15:00:00 15:00:00 KELLI itgutierrez of [facility] 2020-02-15 2020-02-[address] [facility] 1.2.840.114 [id number] Univers 00:00:00 00:00:00 Outreach Kori Zac Patten 350.1.13.10 it[place] of [place]2.7.2.[place] [phone] [address] 2020-02-14 2020-02-14 Patient [facility] 1.2.840.114 [id number] Univers 00:00:00 00:00:00 Secure Msg Kelli Patten 350.1.13.10 it[place] of [place]2.7.2.[place] [phone] [address] 2020-02-14 2020-02-14 Telephone [facility] 1.2.840.114 7 [id number] Univers 00:00:00 00:00:00 Kelli Patten 350.1.13.10 it[place] of [place]2.7.2.[place] [phone] [address] 2020-02-13 2020-02-13 Outpatient R JONATHON [facility] 1027 [id number] Univers 15:40:00 15:40:00 GENESIS itgutierrez [facility] 2020-02-13 2020-02-13 Office [facility] 1.2.840.114 [id number] Univers 12:38:09 12:58:09 Visit Genesis Patten 350.1.13.10 i ty [place] 4[place]2.7.2.[place] [phone] [address] 2020-02-13 2020-02-13 Telephone [facility] 1.2.840.114 7 [id number] Univers 00:00:00 00:00:00 Genesis Patten 350.1.13.10 i ty [place]2.7.2.[place] [phone] [address] 2020-02-13 2020-02-[address] [facility] 1.2.840.114 [id number] Univers 00:00:00 00:00:00 Outreach Kori Patten 350.1.13.10 it[place] of [place]2.7.2.[place] [phone] [address] 2020-02-12 2020-02-12 Telemedici [facility] 1.2.840.114 [id number] Univers 08:29:18 14:41:03 ne Visit Kelli Patten 350.1.13.10 it[place] of [place] 4[place]2.7.2.[place] [phone] [address] 2020-02-12 2020-02-12 Outpatient R [facility] [id number] Univers 12:40:00 12:40:00 KELLI itgutierrez [facility] 2020-02-12 2020-02-[address] [facility] 1.2.840.114 [id number] Univers 00:00:00 00:00:00 Outreach Kori Patten 350.1.13.10 it[place] of [place].2.[place] [phone] Pr dical nal [address] [place] [address] 2020-02-12 2020-02-[address] [facility] 1.2.840.114 7 [id number] Univers 00:00:00 00:00:00 Kelli Patten 350.1.13.10 it[place] of [place]2.7.2.[place] [phone] Pr dicil nal [address] [place] [address] 2020-02-07 2020-02-07 Telemedici [facility] 1.2.840.114 [id number] Univers 10:13:25 10:33:25 ne Visit Joesph Patten 350.1.13.10 it[place] of [place] 4[place]2.7.2.[place] [phone] Pr dical nal 085 [facility] 2020-02-07 2020-02-07 Outpatient R JOESPH RODRÍGUEZ [facility] 10 [id number] Univers 10:00:00 10:00:00 JOESPH RODRÍGUEZ i ty [facility] 2020-02-07 2020-02-[address] [facility] 1.2.840.114 [id number] Univers 00:00:00 00:00:00 Outreach Kori Patten 350.1.13.10 [place]2.7.2.[place] [phone] Pr dical nal [address] [place] [address] 2020-02-05 2020-02-05 [facility] [id number] Univers 13:14:19 23:59:00 KELLI robertsy [facility] 2020-02-05 2020-02-05 [facility] 1.2.840.114 [id number] Univers 13:14:00 23:59:00 Encounter Kelli Patten 350.1.13.10 it[place]2.7.2.[place] [phone] [facility] [address] 2020-02-05 2020-02-[address] [facility] 1.2.840.114 [id number] Univers 00:00:00 00:00:00 Outreach Kori Patten 350.1.13.10 [place]2.7.2.[place] [phone] [address] 2020-02-05 2020-02-[address] [facility] [place] 1.2.840.114 7 [id number] Univers 00:00:00 00:00:00 Kellimitra Patten 350.1.13.10 it[place] of [place]2.7.2.[place] [phone] [address] 2020-02-05 2020-02-05 Telephone [facility] [place] 1.2.840.114 7 [id number] Univers 00:00:00 00:00:00 Kelli Patten 350.1.13.10 [place] of [place]2.7.2.[place] [phone] [address] 2020-02-04 2020-02-04 Outpatient R [facility] [id number] Univers 14:00:00 14:00:00 KELLI ity of [facility] 2020-02-04 2020-02-04 Telemedici [facility] 1.2.840.114 [id number] Univers 09:07:08 09:47:08 ne Visit Kelli Patten 350.1.13.10 it[place] of [place]2.7.2.[place] [phone] [address] 2020-02-03 2020-02-03 Refill [facility] 1.2.840.114 [id number] Univers 00:00:00 00:00:00 Kelli Suárezton 350.1.13.10 it[place] of [place]2.7.2.[place] [phone] Pr dicboise [facility] 231 [facility] 2020-01-29 2020-01-29 Telephone [facility] 1.2.840.114 7 [id number] Univers 00:00:00 00:00:00 Kelli Suárezton 350.1.13.10 [place].2.[place] [phone] [address] 2020-01-28 2020-01-[address] [facility] 1.2.840.114 [id number] Univers 00:00:00 00:00:00 Secure Msg Kelli A [place] 350.1.13.10 it[place]2.[place].2.[place] [phone] [address] 2020-01-24 2020-01-[address] [facility] 1.2.840.114 [id number] Univers 00:00:00 00:00:00 Secure Msg Kelli A [place] 350.1.13.10 it[place]2.7.2.[place] [phone] [address] 2020-01-22 2020-01-22 Transition Jo Phillips 1.2.840.114 [id number] Univers 00:00:00 00:00:00 of Ally Banda 350.1.13.10 it y of [place]2.7.2.[place] [phone] [address] 2020-01-22 2020-01-22 Telephone Dumont, [facility] 1.2.840.114 7 [id number] Univers 00:00:00 00:00:00 Kelli Suárezton 350.1.13.10 it[place] of [place]2.7.2.[place] [phone] Pr dicil nal 044 [facility] 2020-01-14 2020-01-19 [facility] Nikki Girish [facility] 1.2.840. 114 [id number] Univers 15:10:34 10:25:00 Encounter Cynthia Werner 350.1.13.10 [place].2.[place] [phone] [address] 2020-01-14 2020-01-19 Inpatient X HANSEL [facility] DELANEY [id number] Univers 15:10:34 10:25:00 CYNTHIA itgutierrez [facility] 2020-01-14 2020-01-14 Telemedici [facility] 1.2.840.114 [id number] Univers 14:49:17 16:42:21 ne Visit Kelli Patten 350.1.13.10 it[place] of [place]2.7.2.[place] [phone] [address] 2020-01-14 2020-01-14 Outpatient R [facility] [id number] Univers 14:20:00 14:20:00 KELLI cabrales [facility] 2020-01-12 2020-01-12 Orders Doctor HERNÁNDEZ 1.2.840.114 [id number] Univers 00:00:00 00:00:00 Only Unassigned, APRIL 350.1.13.10 ity of [place] [facility] 4.2.7.2.686 [place] as [phone] [address] 2020-01-03 2020-01-11 [facility] Cy Martinez [facility] 1.2.840.1 14 [id number] Univers 13:58:40 10:00:00 Encounter LitEstefanía vale Bárbara 350.1.13.10 ity of [place] 4.2.7.2.686 [facility] [phone] [address] 2020-01-03 2020-01-11 Inpatient X GAIL [facility] [place] [id number] Univers 13:58:40 10:00:00 ESTEFANÍA cabrales [facility] 2020-01-10 2020-01-[address] [facility] 1.2.840.114 7 [id number] Univers 00:00:00 00:00:00 Kelli Patten 350.1.13.10 [place] [phone] Pr dical nal [address] [place] [address] 2020-01-04 2020-01-04 Telephone [facility] 1.2.840.114 7 [id number] Univers 00:00:00 00:00:00 Kelli A [place] 350.1.13.10 [place].2.[place] [phone] Pr dharail yenifer [address] [place] [address] 2019-12-31 2019-12-31 Telemedici Sriinvas [facility] 1.2.840.114 7 [id number] Univers 06:40:56 14:40:18 ne Visit [facility] 350.1.13.10 it[place] [phone] Pr clive BARAJAS [address] [place] [address] 2019-12-31 2019-12-31 Outpatient R [facility] [id number] Univers 14:00:00 14:00:00 ity of [facility] 2019-12-31 2019-12-31 Telephone Matthew [facility] 1.2.840.114 [id number] Univers 00:00:00 00:00:00 [facility] 350.1.13.10 it[place].2.[place] [phone] Pr clive BARAJAS [address] [place] [address] 2019-12-27 2019-12-27 [facility] 1.2.840.114 [id number] Univers 00:00:00 00:00:00 Secure Ms Kelli De La Garza [facility] 350.1.13.10 ity of [place] 4.2.7.2.686 [place] as Professio [phone] Pr clive [address] [place] [address] One 2019-12-16 2019-12-[address] [facility] 1.2.840.114 [id number] Univers 00:00:00 00:00:00 Kelli A [place] [id number] it[id number] [phone] Pr clive [address] [place] [address] 2019-12-06 2019-12-06 [facility] .2.840.114 [id number] Univers 00:00:00 00:00:00 Kelli Patten [id number] [id number] [phone] [address] 2019-12-03 2019-12-03 [facility] [place] 1.2.840.114 [id number] Univers 07:47:11 08:27:11 ne Visit Kelli Patten [id number] [id number] [phone] [address] 2019-11-15 2019-12-03 [facility] Tim Kelli De La Garza [facility] 1.2.840.114 [id number] [facility] 07:16:14 08:18:44 ne Visit Genesis Holt [id number] [id number] [phone] [address] 2019-12-03 2019-12-03 Outpatient R TIM [facility] [id number] Univers 08:00:00 08:00:00 KELLI itgutierrez [facility] 2019-11-21 2019-11-21 [facility] [place] .2.840.114 [id number] Univers 00:00:00 00:00:00 Kelli Patten [id number] [id number] [phone] [address] 2019-11-15 2019-11-15 Outpatient R JONATHON [facility] [id number] Univers 14:20:00 14:20:00 GENESIS cabrales [facility] 2019-11-15 2019-11-15 Orders Doctor HERNÁNDEZ 1.2.840.114 [id number] Univers 00:00:00 00:00:00 Only Unassigned, APRIL 350.1.13.[address] [facility] 4.2.7.2.686 [place] as [phone] [facility] [address] 2019-11-12 2019-11-12 Transition Jo Grewal 1.2.840.114 [id number] Univers 00:00:00 00:00:00 of Care Gina Lugoy [id number] [place] [phone] [facility] [address] 2019-11-07 2019-11-10 Inpatient X SUNIL JHAVERI [facility] [id number] Univers 11:13:05 12:55:00 ity of [facility] 2019-11-07 2019-11-10 [facility] Samantha Bernstein [facility] 1.2.84 0.114 [id number] Univers 11:13:05 12:55:00 Encounter Sunil Jhaveri 350.1.13.10 [id number] [phone] [facility] [address] 2019-11-07 2019-11-07 Urgent Pob1, Acute Care Clinic [facility] 1. 2.840.114 [id number] Univers 10:08:57 11:09:13 Care Barb [facility] [id number] ity of [place] [id number] [place] as Professio [phone] [facility] [address] 2019-11-07 2019-11-07 Outpatient R BRIANA [facility] [id number] Univers 10:20:00 10:20:00 BRAB ity of [facility] 2019-11-06 2019-11-06 Nurse Miguel HERNÁNDEZ [id number] Univers 00:00:00 00:00:00 Triage Kellie regan [id number] ity of [facility] [id number] [place] as [phone] [facility] [address] Results Test Description Test Time Test Comments Results Result Comments Source SARS-CoV-2 (COVID-19) RNA [Presence] in Respiratory sp ecimen by 2021-05-20 00:19:15 ANDRESSA with probe detection Test Item Value Reference Range Interpretation Comme nts SARS-CoV-2 (COVID-19) RNA [Presence] in Respiratory Not detected No t-Detected specimen by ANDRESSA with probe detection (test code = 26995-6) Whether patient is employed in a healthcare setting (test code = 16770-8) Whether the patient has symptoms related to condition of interest (test code = 77471-1) Patient was hospitalized because of this condition (test code = 72628-2) Whether the patient was admitted to intensive care unit (ICU) for condition of interest (test code = 85080-1) Whether patient resides in a congregate care setting (test code = 32993-0) [id number]
--- NOTE | 2023-04-06 23:12 | EDPHYS ---
Physician Documentation [facility] Name: Diane Byrnes Age: 67 yrs Sex: Female : 1955 Arrival Date: 04/06/2023 Time: 22:45 Bed 13 Private MD: ED Physician Elijah Martinez HPI: 04/06 23:07 This 67 yrs old Female presents to ER via Wheelchair with complaints of needs rn re-admission. 23:07 Pt upset, reports "was dumped" at longterm, was not given informed discussion as to rn where she was going, arrived at longterm and told rehab was closed and had active COVID patients, so she refused to stay. Returned here because hasn't had evening meds, and feels like she is owed a discussion with doctor who discharged her today without knowing the specifics. No acute complaints other than being treated for "resistant UTI". . The patient has not experienced similar symptoms in the past. The patient has been recently been admitted at [facility]. Historical: - Allergies: 23:06 Cymbalta; lg3 23:06 Risperdal; lg3 - PMHx: 23:06 Asthma; Congestive heart failure; diabetes mellitus; Hypertensive disorder; lg3 Hypothyroidism; Sleep Apnea; - PSHx: 23:06 Cholecystectomy; section; Ligation of fallopian tube; Tonsillectomy; lg3 - Immunization history:: Adult Immunizations up to date, Client reports receiving the 2nd dose of the Covid vaccine, Pneumococcal vaccine status is unknown, Flu vaccine is up to date. - Social history:: Smoking status: Patient denies any tobacco usage or history of. Patient/guardian denies using alcohol, street drugs. - Family history:: not pertinent. - Hospitalizations: : The patient was recently seen at [facility]. ROS: 23:07 Constitutional: Negative for fever, chills, and weight loss, Cardiovascular: Negative rn for chest pain, palpitations, and edema, Respiratory: Negative for shortness of breath, cough, wheezing, and pleuritic chest pain, Abdomen/GI: Negative for abdominal pain, nausea, vomiting, diarrhea, and constipation, Back: Negative for injury and pain, MS/Extremity: Negative for injury and deformity, Skin: Negative for injury, rash, and discoloration, Neuro: Negative for headache, numbness, tingling, and seizure. Exam: 23:07 Constitutional: This is a well developed, well nourished patient who is awake, alert, rn and in no acute distress. Cardiovascular: Regular rate and rhythm. No pulse deficits. Respiratory: No increased work of breathing, no retractions or nasal flaring. Neuro: Awake and alert, GCS 15 Vital Signs: 22:57 BP 187 / 80; Pulse 99; Resp 18 S; Temp 98.9(O); Pulse Ox 99% on R/A; Weight 113.4 kg lg3 (R); Height 5 ft. 3 in. (R); 23:19 BP 188 / 61; Pulse 92; Resp 20 S; Pulse Ox 97% on R/A; ha1 04/07 00:10 BP 168 / 82; Pulse 95; Resp 20 S; Pulse Ox 98% on R/A; ha1 04/06 22:57 Body Mass Index 44.29 (113.40 kg, 160.02 cm) lg3 MDM: 04/06 22:55 Patient medically screened. rn 23:09 Differential Diagnosis deconditioning, UTI, diabetes, weakness. Data reviewed: vital rn signs, nurses notes, old medical records, and as a result, I will admit patient. Consideration of Admission/Observation Patient was admitted/placed on observation. Escalation of care including admission/observation considered. Care significantly affected by the following chronic conditions: Diabetes, Hypertension, Congestive Heart Failure. Counseling: I had a detailed discussion with the patient and/or guardian regarding the historical points, exam findings, and any diagnostic results supporting the discharge/admit diagnosis, lab results, the need for further work-up and treatment in the hospital. ED course: Pt refused rehab transfer/admission, back here, unable to go home and family unable to care for her, will admit to hospitalist service for this to be sorted out further. Pt upset about situation. . 04/06 23:06 Order name: CBC with Diff rn 04/06 23:06 Order name: Basic Metabolic Panel rn 04/06 23:42 Order name: Glucose, Ancillary Testing; Complete Time: 23:42 EDMS 04/06 23:58 Order name: Urinalysis w/ reflexes EDMS 04/06 23:58 Order name: Basic Metabolic Panel EDMS 08/23 23:58 Order name: Basic Metabolic Panel EDMS 04/06 23:58 Order name: CBC with Automated Diff EDMS 04/06 23:58 Order name: CBC with Automated Diff EDMS 04/06 23:58 Order name: Magnesium EDMS 04/06 23:58 Order name: Magnesium EDMS 04/06 23:58 Order name: Heart Healthy EDMS 04/06 23:06 Order name: IV Start; Complete Time: 23:34 rn 04/06 23:06 Order name: Glucose Level; Complete Time: 23:34 rn Administered Medications: No medications were administered Disposition Summary: 04/06/23 23:11 Hospitalization Ordered Hospitalization Status: Observation rn Provider: Jose Elias Gomez rn Location: Telemetry/MedSurg (observation) rn Condition: Stable rn Problem: an ongoing problem rn Symptoms: have improved rn Bed/Room Type: Standard rn Room Assignment: 223(04/07/23 01:09) eb1 Diagnosis - Unspecified combined systolic (congestive) and diastolic (congestive) heart failure rn - Weakness rn - UTI/ Urinary tract infection, site not specified rn Forms: - Medication Reconciliation Form rn - SBAR form rn - Leadership Thank You Letter rn Signatures: Dispatcher [employer] EDDE Elijah Martinez MD MD rn Basinger, Emily, RN RN eb1 Mere Gaitan RN RN lg3 Corrections: (The following items were deleted from the chart) 04/07 01:09 04/06 23:11 rn eb1
--- NOTE | 2023-04-06 23:12 | ER ---
Nurse's Notes [facility] Name: Diane Byrnes Age: 67 yrs Sex: Female : 1955 Arrival Date: 04/06/2023 Time: 22:45 Bed 13 Private MD: Diagnosis: Unspecified combined systolic (congestive) and diastolic (congestive) heart failure;Weakness;UTI/ Urinary tract infection, site not specified Presentation: 04/06 22:57 Chief complaint: Patient states: i was discharged from upstairs a few hours ago to a [facility] rehab for therapy but when i got there it was a assisted. i don't need a assisted .they said they don't have therapy there. Coronavirus screen: Client denies travel out of the [place] in the last 14 days. At this time, the client does not indicate any symptoms associated with coronavirus-19. Ebola Screen: No symptoms or risks identified at this time. Initial Sepsis Screen: Does the patient meet any 2 criteria? No. Patient's initial sepsis screen is negative. Does the patient have a suspected source of infection? No. Patient's initial sepsis screen is negative. Risk Assessment: Do you want to hurt yourself or someone else? Patient reports no desire to harm self or others. Onset of symptoms is unknown. 22:57 Method Of Arrival: Wheelchair lg3 22:57 Acuity: RHODA 3 lg3 Triage Assessment: 23:06 General: Appears in no apparent distress. comfortable, Behavior is calm, cooperative. lg3 Pain: Denies pain. EENT: No deficits noted. No signs and/or symptoms were reported regarding the EENT system. Neuro: No deficits noted. [place] Agitation-Sedation Scale (RASS): 0 - Alert and Calm Level of Consciousness is awake, alert, obeys commands, Oriented to person, place, time, situation. Cardiovascular: No deficits noted. Denies chest pain, Capillary refill < 3 seconds Clubbing of nail beds is absent JVD is absent Patient's skin is warm and dry. Respiratory: No deficits noted. Airway is patent Respiratory effort is even, unlabored, Respiratory pattern is regular, symmetrical. GI: No deficits noted. No signs and/or symptoms were reported involving the gastrointestinal system. : Reports curently on IV antibiotics for UTI. Derm: No deficits noted. No signs and/or symptoms reported regarding the dermatologic system. Skin is intact, is healthy with good turgor, Skin is dry, Skin is normal, Skin temperature is warm. Musculoskeletal: No deficits noted. Circulation, motion, and sensation intact. Range of motion: intact in all extremities. Historical: - Allergies: 23:06 Cymbalta; lg3 23:06 Risperdal; lg3 - PMHx: 23:06 Asthma; Congestive heart failure; diabetes mellitus; Hypertensive disorder; lg3 Hypothyroidism; Sleep Apnea; - PSHx: 23:06 Cholecystectomy; section; Ligation of fallopian tube; Tonsillectomy; lg3 - Immunization history:: Adult Immunizations up to date, Client reports receiving the 2nd dose of the Covid vaccine, Pneumococcal vaccine status is unknown, Flu vaccine is up to date. - Social history:: Smoking status: Patient denies any tobacco usage or history of. Patient/guardian denies using alcohol, street drugs. - Family history:: not pertinent. - Hospitalizations: : The patient was recently seen at [facility]. Screenin:12 [facility] ED Fall Risk Assessment (Adult) History of falling in the last 3 months, ha1 including since admission No falls in past 3 months (0 pts) Confusion or Disorientation No (0 pts) Intoxicated or Sedated No (0 pts) Impaired Gait No (0 pts) Mobility Assist Device Used No (0 pt) Altered Elimination No (0 pt) Score/Fall Risk Level 0 - 2 = Low Risk Oriented to surroundings, Maintained a safe environment, Educated pt \T\ family on fall prevention, incl call for assistance when getting out of bed, Hourly rounding (assess needs \T\ fall precautionary measures) done. Abuse screen: Denies threats or abuse. Denies injuries from another. Nutritional screening: No deficits noted. Tuberculosis screening: No symptoms or risk factors identified. Assessment: 23:12 General: Appears comfortable, Behavior is calm, cooperative. Pain: Denies pain. Neuro: ha1 Level of Consciousness is awake, alert, obeys commands, Oriented to person, place, time, situation. Cardiovascular: Patient's skin is warm and dry. Respiratory: Airway is patent Respiratory effort is even, unlabored, Respiratory pattern is regular, symmetrical. GI: No signs and/or symptoms were reported involving the gastrointestinal system. Abdomen is non-distended, obese. : Reports receiving IV treatment for UTI. Musculoskeletal: Circulation, motion, and sensation intact. Range of motion: intact in all extremities. 04/07 00:10 Reassessment: Patient and/or family updated on plan of care and expected duration. Pain ha1 level reassessed. Patient is alert, oriented x 3, equal unlabored respirations, skin warm/dry/pink. 01:05 Reassessment: attempted to give report. ha1 01:20 Reassessment: Report was given to ANABELLE Parra. ha1 Vital Signs: 04/06 22:57 BP 187 / 80; Pulse 99; Resp 18 S; Temp 98.9(O); Pulse Ox 99% on R/A; Weight 113.4 kg lg3 (R); Height 5 ft. 3 in. (R); 23:19 BP 188 / 61; Pulse 92; Resp 20 S; Pulse Ox 97% on R/A; ha1 04/07 00:10 BP 168 / 82; Pulse 95; Resp 20 S; Pulse Ox 98% on R/A; ha1 04/06 22:57 Body Mass Index 44.29 (113.40 kg, 160.02 cm) lg3 ED Course: 04/06 22:51 Patient arrived in ED. jj6 22:55 Elijah Martinez MD is Attending Physician. rn 23:06 Triage completed. lg3 23:06 Arm band placed on right wrist. lg3 23:11 Jose Elias Gomez is Hospitalizing Provider. rn 23:12 Patient has correct armband on for positive identification. Placed in gown. Bed in low ha1 position. Call light in reach. Side rails up X2. Adult w/ patient. 23:20 Accessed PICC line. Blood collected. Clean \T\ dry. Dressing intact. Flushes easily. ha1 23:34 Megan Cheung RN is Primary Nurse. ha1 23:34 Basic Metabolic Panel Sent. ha1 23:34 CBC with Diff Sent. ha1 04/07 01:13 No provider procedures requiring assistance completed. Patient admitted, IV remains in ha1 place. 01:18 Provided Education on: need for admit. ha1 Administered Medications: No medications were administered Medication: 01:16 VIS not applicable for this client. ha1 Outcome: 04/06 23:11 Decision to Hospitalize by Provider. rn 08/24 01:16 Condition: stable ha1 01:18 Admitted to Med/surg accompanied by tech, via stretcher, room 223, with chart. ha1 01:18 Instructed on the need for admit, Demonstrated understanding of instructions. 01:19 Patient left the ED. ha1 Signatures: Elijah Martinez MD MD rn Gibson, Lacie, RN RN lg3 Kely Ibarra6 Megan Cheung RN RN 1
--- NOTE | 2023-04-06 23:53 | P.HP ---
Certification for Inpatient Patient admitted to: Observation Patient will require the following post-hospital care: Rehabilitation Practitioner: I am a practitioner with admitting privileges, knowledge of patient current condition, hospital course, and medical plan of care. Services: Services provided to patient in accordance with Admission requirements found in Title 42 Section 412.3 of the Code of Federal Regulations Patient History Date of Service: 04/07/23 Reason for admission: CHF, anasarca History of Present Illness: 67-year-old female with history of chronic diastolic congestive heart failure, insulin-dependent diabetes, hypertension, hypothyroidism, sleep apnea recently to emergency department with chief complaint of dyspnea, swelling, She reports she was discharged yesterday to Rehab, after arrival to Rehab they stated there were active covid patients in rehab, and there was an issue with admission process. She returned to the ED for placement services. Discharge plan yesterday Dispo: [facility] - [facility] -pending IV access. Will need social sciences department chair consult to assist with discharge planning, will need DC meds/ABX reconcilled on admission Prior hosp course, She reported over the course of 5 days she noticed increased swelling of her lower extremities as well as increasing shortness of breath. She has a history of congestive heart failure she has not seen her doctor in about a year. She had anasarca with Pitting edema of the extremities. She denied any recent changes in her medications although she has been out of doxazosin and was taking Lasix 40 mg twice daily at home.She was evaluated in the emergency department her labs are significant for white blood cell count 12.9 hemoglobin 9.3 hematocrit 35.1 creatinine 1.22 GFR 48 glucose 231 BNP 1641 chest x-ray was negative for acute findings. She was given IV Lasix in the ED and patient admitted for further management. Allergies No Known Allergies Allergy (Verified 03/03/21 01:30) Home Medications: Aspirin [Aspirin EC 81 MG] 81 mg PO DAILY #90 tablet. 03/03/21 Atorvastatin Calcium 20 mg PO BEDTIME 03/03/21 Fluticasone/Vilanterol [Breo Ellipta 200-25 Mcg INH] 1 dose .ROUTE DAILY 03/03/21 Furosemide 80 mg PO BID #120 tablet 03/03/21 Glimepiride 4 mg PO BIDWM 03/03/21 Ipratropium [Atrovent 0.03% (21MCG)/[place] Nasal*] 60 sprays NS TID 03/03/21 Ipratropium/Albuterol Sulfate [Combivent Respimat 20-100 Mcg] 1 puff IH QID 03/03/21 Ipratropium/Albuterol Sulfate [Iprat-Albut 0.5-3(2.5) mg/3 ml] 3 ml IH QID 02/13 Levothyroxine [Synthroid*] 75 mcg PO [id number] 03/03/21 Montelukast [Singulair*] 10 mg PO DAILY 03/03/21 Vitamin B Complex [B Complex] 1 each PO DAILY 03/03/21 Zinc 1 tab PO DAILY 03/03/21 Sildenafil Citrate [Revatio*] 20 mg PO TID 03/16/23 Diphenhydramine [Benadryl*] 25 mg PO Q6HP PRN 03/17/23 Albuterol Neb [Proventil 0.083% Neb Soln] 2.5 mg NEB [id number] PRN amp 04/06/23 Docusate [Colace Cap*] 100 mg PO BID cap 04/06/23 Hydralazine [Apresoline*] 50 mg PO TID tab 04/06/23 Insulin -Regular Human [Novolin -R*] See Protocol SQ ACHS ml 04/06/23 Insulin Glargine,Hum.rec.anlog [Semglee] 85 unit SQ BID ml 04/06/23 Hubert [Hubert*] 1 pkt PO BID 04/06/23 Lidocaine 4% Patch [Lidoderm 5% Patch*] 1 patch TOP DAILY pat 04/06/23 Meropenem-0.9% Sodium Chloride [Meropenem-0.9% NaCl 1 Gram/50] 1 gm IV Q12H #1000 ml 04/06/23 Pantoprazole [Protonix Tab*] 40 mg PO BIDAC tab 04/06/23 Polyethyl Gly 3350 [Glycolax*] 17 gm PO DAILY PRN udbot 04/06/23 carvediloL [Coreg*] 12.5 mg PO BID 6AM 6PM tab 04/06/23 - Past Medical/Surgical History Diabetic: Yes -: Chronic diastolic congestive heart failure -: Diabetes mellitus type 2insulin-dependent -: Hypertension -: Hyperlipidemia -: Hypothyroidism -: Obstructive sleep apnea -: COPD/asthma -: Obesity 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, 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 - Social History Alcohol use: Yes CD- Drugs: No Caffeine use: Yes Review of Systems 10-point ROS is otherwise unremarkable Physical Examination - Physical Exam General: Alert, In no apparent distress, Oriented x3, Other (morbid obese) HEENT: Atraumatic, Normocephalic, PERRLA Neck: Supple, 2+ carotid pulse no bruit Respiratory: Clear to auscultation bilaterally, Normal air movement Cardiovascular: No edema, Normal pulses Capillary refill: <2 Seconds Gastrointestinal: Normal bowel sounds, Soft and benign Musculoskeletal: No clubbing, No swelling Integumentary: No rashes, No breakdown Neurological: Normal speech, Normal strength at 5/5 x4 extr, Cranial nerves 3-12 intact Assessment and Plan - Plan Assessment and plan Anasarca Acute on chronic diastolic CHF UTI, Klebsiella Pneumoniae, MDR Proteus Mirabilis Urinary retention, suspect secondary to UTI NOHEMY, cardiorenal syndrome Hypertensive urgency IDDM2 with hyperglycemia Hypothyroidism Chronic back pain Constipation Anasarca Acute on chronic diastolic CHF Mild Cardiomegaly CXR (03/16): Mild cardiomegaly. No focal areas of acute airspace disease CXR (04/01): mild central congestion, stable Last echo (2020) with normal EF. She takes Lasix 40 mg BID at home Cardiology consulted Echo (03/17): 73% EF, severe diastolic dysfunction, severe pulmonary hypertension, mild MR, mild TR metoprolol to coreg for better BP control Cont PO lasix 80 bid PT/OT consult improving UTI, Klebsiella Pneumoniae, MDR Proteus Mirabilis Urinary retention, suspect secondary to UTI reports Lower left flank pain, +increased urge to urinate on admission; PVR noted to be >200 on (03/18), Urine culture: Klebsiella Pneumoniae, 4+GNR Rocephin (03/17-03/21) transitioned to oral cefdinir (03/21-03/29) x2 weeks total antibiotics Mann DCd 04/02 - Patient reports lower abdominal pain, +burning sensation when urinating ID following. urine cx: MDR Proteus Mirabilis rocephin (04/02-04/04) switched to IV merrem (04/04-) afebrile,+leukocytosis 7 days of IV meropenem recommended by ID. NOHEMY, cardiorenal syndrome renal u/s (03/17): 3.6 cm benign right renal cyst. Nephrology consulted cont josé miguel Renal function peaked at 1.7 and now trending Hypertensive urgency reports being out of her doxazosin for the past ~4 days Continue home medications - restarted sildenfail, pt with severe pulm hypertension BP improving. Patient is normotensive today IDDM2 with hyperglycemia ACHS Accu-Chek, SSI. adjusted semglee Glimepiride restarted on 04/01 Hypothyroidism Continue home synthroid TSH: 4.63 Free T4: 1.14 Constipation PRN stool softener laxative PRN Very large BM overnight enema x1 ordered 04/02 VTE: Lovenox Code: Full Dispo: [facility] -pending IV access. Discharge Plan: Other (rehab) Plan to discharge in: 48 Hours - Advance Directives Does patient have a Durable POA for Healthcare: No - Code Status/Comfort Care Code Status: Full Code Physician Review: Patient Assessed, Agree with Above Assessment and Plan Critical Care: No Time Spent Managing Pts Care (In Minutes): 50
[2023-04-06] MEDS ORDERED: ONDANSETRON 4 MG/2 ML VIAL IV PRN (23:55)
[2023-04-06] MEDS ORDERED: ACETAMINOPHEN 500 MG TAB PO PRN (23:55)
[2023-04-07 00:08] LABS: Absolute Lymphocytes (CBC) 1.8 K/uL (0.7-4.9); Hematocrit 35.8 % (36.0-45.0); Lymphocytes % 14.5 % (15.3-44.8); MCV 91.3 fL (80-100); MPV 8.6 fL (7.6-11.3); Platelets 336 thou/uL (152-406); RBC Red Blood Cell Count 3.92 M/uL (3.86-4.86)
[2023-04-07] MEDS ORDERED: DIPHENHYDRAMINE 25 MG TAB/CAP PO PRN (00:16)
[2023-04-07] MEDS ORDERED: GLUCAGON 1 MG/VIAL IM PRN ×2 (00:21→17:55)
[2023-04-07] MEDS ORDERED: D50W 25 GM/50 ML SYRINGE IV PRN ×2 (00:21→17:55)
[2023-04-07] MEDS: INSULIN GLARGINE 100 UNIT/ML SQ SCH ×3 (01:00→20:44)
[2023-04-07] MEDS: HYDROCODONE/APAP 5/325 MG TAB PO PRN ×3 (01:08→22:27)
[2023-04-07] MEDS ORDERED: HYDROCODONE/APAP 5/325 MG TAB ONE (01:16)
[2023-04-07 01:36] VITALS: BMI 44.4
[2023-04-07] MEDS: ALPRAZOLAM 0.25 MG TABLET PO PRN (02:19)
[2023-04-07] MEDS: carvediloL 12.5 MG TAB PO SCH ×3 (02:19→17:42)
[2023-04-07] MEDS ORDERED: HYDRALAZINE HCL 20 MG/ML VIAL IV PRN (04:58)
[2023-04-07 05:29] LABS: Specific Gravity 1.013 (1.005-1.030); Urine Bacteria None Seen /HPF (<20); Urine Bilirubin NEGATIVE (Negative); Urine Blood Negative (Negative); Urine Clarity Clear (Clear); Urine Color Colorless (Yellow); Urine Glucose NEGATIVE (Negative); Urine Protein NEGATIVE (Negative); Urine RBC <5 /HPF (None Seen); Urine Urobilinogen Normal (Normal)
[2023-04-07] MEDS ORDERED: carvediloL 12.5 MG TAB PO SCH (06:00)
[2023-04-07] MEDS: INSULIN -REGULAR HUMAN 50 UNIT/0.5 ML ML SQ SCH ×4 (07:30→20:44)
[2023-04-07] MEDS ORDERED: INSULIN GLARGINE 100 UNIT/ML SQ SCH (09:00)
[2023-04-07] MEDS: DIPHENHYDRAMINE 25 MG TAB/CAP PO SCH ×3 (10:49→22:28)
[2023-04-07 11:25] LABS: Absolute Lymphocytes (CBC) 1.9 K/uL (0.7-4.9); Hematocrit 34.9 % (36.0-45.0); Lymphocytes % 16.4 % (15.3-44.8); MCV 91.5 fL (80-100); MPV 8.5 fL (7.6-11.3); Platelets 301 thou/uL (152-406); RBC Red Blood Cell Count 3.81 M/uL (3.86-4.86)
[2023-04-07 11:28] LABS: Magnesium 2.5 mg/dL (1.6-2.4)
[2023-04-07] MEDS ORDERED: D10W 125 ML IV PRN (12:50)
[2023-04-07] MEDS: Meropenem 1,000 MG in NA CHLORIDE 0.9% 100 ML IV SCH ×2 (14:13→20:49)
--- NOTE | 2023-04-07 17:51 | P.PN ---
Subjective Date of Service: 04/07/23 Chief Complaint: CHF, anasarca Patient reports low back pain and itching which are chronic. Physical Examination - Vital Signs Temperature: 97 F Blood Pressure: 158/75 Pulse: 91 Respirations: 14 Pulse Ox (%): 97 - Studies Laboratory Data (last 24 hrs) 04/06/23 04/06/23 23:28 23:28 WBC 12.60 H Hgb 11.7 L Hct 35.8 L Plt Count 336 Sodium 136 Potassium 4.0 BUN 70 H Creatinine 1.44 H Glucose 206 H Assessment And Plan - Plan Physical Exam: GEN: Alert, oriented, NAD CV: Regular rate and rhythm, trace to trace BLE edema up to knees Pulm: diminished at bases b/l, no crackles. ABD: Soft, nondistended. Neuro: Normal speech, normal affect, no focal motor deficits. vitals reviewed Problem List: Anasarca Acute on chronic diastolic CHF UTI, Klebsiella Pneumoniae, MDR Proteus Mirabilis Urinary retention, suspect secondary to UTI NOHEMY, cardiorenal syndrome Hypertensive urgency IDDM2 with hyperglycemia Hypothyroidism Chronic back pain Constipation Anasarca Acute on chronic diastolic CHF Mild Cardiomegaly CXR (03/16): Mild cardiomegaly. No focal areas of acute airspace disease CXR (04/01): mild central congestion, stable Last echo (2020) with normal EF. She takes Lasix 40 mg BID at home Cardiology consulted Echo (03/17): 73% EF, severe diastolic dysfunction, severe pulmonary hypertension, mild MR, mild TR metoprolol to coreg for better BP control Cont PO lasix 80 bid PT/OT consult improving UTI, Klebsiella Pneumoniae, MDR Proteus Mirabilis Urinary retention, suspect secondary to UTI reports Lower left flank pain, +increased urge to urinate on admission; PVR noted to be >200 on (03/18), Urine culture: Klebsiella Pneumoniae, 4+GNR Rocephin (03/17-03/21) transitioned to oral cefdinir (03/21-03/29) x2 weeks total antibiotics Mann DCd 04/02 - Patient reports lower abdominal pain, +burning sensation when urinating ID following. urine cx: MDR Proteus Mirabilis rocephin (04/02-04/04) switched to IV merrem (04/04-) afebrile,+leukocytosis 7 days of IV meropenem recommended by ID. NOHEMY, cardiorenal syndrome renal u/s (03/17): 3.6 cm benign right renal cyst. Nephrology consulted cont lasix Renal function peaked at 1.7 and now trending Hypertensive urgency reports being out of her doxazosin for the past ~4 days Continue home medications - restarted sildenfail, pt with severe pulm hypertension BP improving. Patient is normotensive today IDDM2 with hyperglycemia ACHS Accu-Chek, SSI. Continue semglee and glimepiride Hypothyroidism Continue home synthroid TSH: 4.63 Free T4: 1.14 Constipation PRN stool softener laxative PRN Chronic back pain Pain medications as needed. VTE: Lovenox Code: Full Dispo: [facility] [facility] pending insurance authorization.
[2023-04-07] MEDS ORDERED: POLYETHYL GLY 3350 17 GM/DOSE PO PRN (17:55)
[2023-04-07] MEDS ORDERED: ALBUTEROL 2.5 MG/3 ML NEB SOL NEB PRN (17:55)
[2023-04-07] MEDS: FUROSEMIDE 40 MG TABLET PO SCH (18:38)
[2023-04-07] MEDS: SILDENAFIL CITRATE 20 MG TABLET PO SCH (20:43)
[2023-04-07] MEDS: ATORVASTATIN 20 MG TAB PO SCH (20:45)
[2023-04-07] MEDS: DOCUSATE NA 100 MG CAP PO SCH (20:45)
[2023-04-07] MEDS: HYDRALAZINE HCL 25 MG TABLET PO SCH (20:45)
[2023-04-07] MEDS: JUVEN PACKET PO SCH (20:46)
[2023-04-07] MEDS ORDERED: IPRATROPIUM BROM 0.5MG/2.5ML IH PRN (21:00)
[2023-04-07] MEDS: IPRATROPIUM NAS SCH (21:00)
[2023-04-07] MEDS: ALBUTEROL SULFATE IH SCH (21:00)
[2023-04-07] MEDS: IPRATROPIUM IH SCH (21:00)
[2023-04-08] MEDS: carvediloL 12.5 MG TAB PO SCH ×2 (06:28→17:20)
[2023-04-08] MEDS: LEVOTHYROXINE SOD 0.075 MG TAB PO SCH (06:28)
[2023-04-08] MEDS: DIPHENHYDRAMINE 25 MG TAB/CAP PO SCH ×4 (06:28→22:59)
[2023-04-08] MEDS: INSULIN -REGULAR HUMAN 50 UNIT/0.5 ML ML SQ SCH ×4 (07:30→20:28)
[2023-04-08] MEDS: IPRATROPIUM IH SCH ×4 (09:00→20:48)
[2023-04-08] MEDS: Fluticasone/Vilanterol [Breo Ellipta 200-25 Mcg Inh] Blst.W.Dev IH SCH (09:00)
[2023-04-08] MEDS: ALBUTEROL SULFATE IH SCH ×4 (09:00→20:48)
[2023-04-08] MEDS: IPRATROPIUM NAS SCH ×3 (09:00→20:48)
[2023-04-08] MEDS: Meropenem 1,000 MG in NA CHLORIDE 0.9% 100 ML IV SCH ×2 (09:02→20:27)
[2023-04-08] MEDS: LIDOCAINE 4% PATCH TOP SCH (09:02)
[2023-04-08] MEDS: DOCUSATE NA 100 MG CAP PO SCH ×2 (09:03→20:47)
[2023-04-08] MEDS: ASPIRIN EC 81 MG TAB PO SCH (09:03)
[2023-04-08] MEDS: HYDRALAZINE HCL 25 MG TABLET PO SCH ×3 (09:03→20:28)
[2023-04-08] MEDS: MONTELUKAST 10 MG TAB PO SCH (09:03)
[2023-04-08] MEDS: PANTOPRAZOLE 40MG TABLET PO SCH ×2 (09:03→17:19)
[2023-04-08] MEDS: VITAMIN B COMPLEX 1 CAP PO SCH (09:03)
[2023-04-08] MEDS: FUROSEMIDE 40 MG TABLET PO SCH ×2 (09:03→17:19)
[2023-04-08] MEDS: SILDENAFIL CITRATE 20 MG TABLET PO SCH ×3 (09:03→20:28)
[2023-04-08] MEDS: ZINC SULFATE 220 MG CAP PO SCH (09:03)
[2023-04-08] MEDS: INSULIN GLARGINE 100 UNIT/ML SQ SCH ×2 (09:04→20:28)
[2023-04-08] MEDS: GLIMEPIRIDE 2 MG TABLET PO SCH ×2 (09:04→17:19)
[2023-04-08] MEDS: JUVEN PACKET PO SCH ×2 (09:05→23:00)
[2023-04-08] MEDS: HYDROCODONE/APAP 5/325 MG TAB PO PRN ×3 (11:33→22:59)
--- NOTE | 2023-04-08 13:29 | P.CNS ---
Date of Consult: 04/08/23 Reason for Consult: acute cystitis Chief Complaint: CHF, anasarca History of Present Illness: Grady is a 67 yo female with a past medical history of chronic diastolic CHF, diabetes, hypothyroidism and sleep apnea who was recently discharged to a SNF on 04/06. She has returned to the ED reportedly due an issue with the admission process at the SNF and was returned to the ED for placement services. Patient was recently hospitalized for CHF exacerbation and urinary tract infection. She was started on Meropenem x 7 days for Proteus mirabilis ESBL on 04/04. It is unknown whether the patient has been receiving the meropenem since discharge on 04/06. Allergies No Known Allergies Allergy (Verified 03/03/21 01:30) Home medications list reviewed: Yes Home Medications: Aspirin [Aspirin EC 81 MG] 81 mg PO DAILY #90 tablet. 03/03/21 Atorvastatin Calcium 20 mg PO BEDTIME 03/03/21 Fluticasone/Vilanterol [Breo Ellipta 200-25 Mcg INH] 1 dose .ROUTE DAILY 03/03/21 Furosemide 80 mg PO BID #120 tablet 03/03/21 Glimepiride 4 mg PO BIDWM 03/03/21 Ipratropium [Atrovent 0.03% (21MCG)/[place] Nasal*] 60 sprays NS TID 03/03/21 Ipratropium/Albuterol Sulfate [Combivent Respimat 20-100 Mcg] 1 puff IH QID 03/03/21 Ipratropium/Albuterol Sulfate [Iprat-Albut 0.5-3(2.5) mg/3 ml] 3 ml IH QID 03/03/21 Levothyroxine [Synthroid*] 75 mcg PO [id number] 03/03/21 Montelukast [Singulair*] 10 mg PO DAILY 03/03/21 Vitamin B Complex [B Complex] 1 each PO DAILY 03/03/21 Zinc 1 tab PO DAILY 03/03/21 Sildenafil Citrate [Revatio*] 20 mg PO TID 03/16/23 Diphenhydramine [Benadryl*] 25 mg PO Q6HP PRN 03/17/23 Albuterol Neb [Proventil 0.083% Neb Soln] 2.5 mg NEB [id number] PRN amp 04/06/23 Docusate [Colace Cap*] 100 mg PO BID cap 04/06/23 Hydralazine [Apresoline*] 50 mg PO TID tab 04/06/23 Insulin -Regular Human [Novolin -R*] See Protocol SQ ACHS ml 04/06/23 Insulin Glargine,Hum.rec.anlog [Semglee] 85 unit SQ BID ml 04/06/23 Hubert [Hubert*] 1 pkt PO BID 04/06/23 Lidocaine 4% Patch [Lidoderm 5% Patch*] 1 patch TOP DAILY pat 04/06/23 Meropenem-0.9% Sodium Chloride [Meropenem-0.9% NaCl 1 Gram/50] 1 gm IV Q12H #1000 ml 04/06/23 Pantoprazole [Protonix Tab*] 40 mg PO BIDAC tab 04/06/23 Polyethyl Gly 3350 [Glycolax*] 17 gm PO DAILY PRN udbot 04/06/23 carvediloL [Coreg*] 12.5 mg PO BID 6AM 6PM tab 04/06/23 - Past Medical/Surgical History Diabetic: Yes -: Chronic diastolic congestive heart failure -: Diabetes mellitus type 2insulin-dependent -: Hypertension -: Hyperlipidemia -: Hypothyroidism -: Obstructive sleep apnea -: COPD/asthma -: Obesity 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, 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 - Social History Alcohol use: Yes CD- Drugs: No Caffeine use: Yes Place of Residence: [place] Review of Systems 10-point ROS is otherwise unremarkable Physical Examination Temp Pulse Resp BP Pulse Ox 97.1 F 90 18 147/65 H 97 04/08/23 08:00 04/08/23 09:03 04/08/23 12:18 04/08/23 09:03 04/08/23 08:00 General: Alert, In no apparent distress, Oriented x3 HEENT: Atraumatic, Normocephalic Neck: Supple, JVD not distended Respiratory: Normal air movement, Diminished Conclusions/Impression: Problem List Urinary Tract Infection Acute on Chronic Diastolic CHF Diabetes Mellitus type II Hypertension Hypothyroidism UTI On 03/17 urine culture growing Klebsiella pneumoniae for which she was treated with Rocephin from 03/17 to 03/21 then transitioned to oral Cefdinir 03/21-03/29. DUring hospital course patient then began developing dysuria again, urine culture 04/02 growing Proteus mirabilis ESBL for which she was placed on Meropenem x 7 days starting on 04/04 - Continue Meropenem to complete 7 days course (04/04-04/11 - Strict blood glucose control case discussed with Dr. Nahun Marti
[2023-04-08] MEDS: ENOXAPARIN 40 MG/0.4 ML SQ SCH (17:18)
--- NOTE | 2023-04-08 18:49 | P.PN ---
Subjective Date of Service: 04/08/23 Chief Complaint: CHF, anasarca Patient has no new complaint. Physical Examination - Vital Signs Temperature: 97.9 F Blood Pressure: 149/60 Pulse: 100 Respirations: 22 Pulse Ox (%): 95 Assessment And Plan - Plan Physical Exam: GEN: Alert, oriented, NAD CV: Regular rate and rhythm, trace to trace BLE edema up to knees Pulm: diminished at bases b/l, no crackles. ABD: Soft, nondistended. Neuro: Normal speech, normal affect, no focal motor deficits. vitals reviewed Problem List: Anasarca Acute on chronic diastolic CHF UTI, Klebsiella Pneumoniae, MDR Proteus Mirabilis Urinary retention, suspect secondary to UTI NOHEMY, cardiorenal syndrome Hypertensive urgency IDDM2 with hyperglycemia Hypothyroidism Chronic back pain Constipation Anasarca Acute on chronic diastolic CHF Mild Cardiomegaly CXR (03/16): Mild cardiomegaly. No focal areas of acute airspace disease CXR (04/01): mild central congestion, stable Last echo (2020) with normal EF. She takes Lasix 40 mg BID at home Cardiology consulted Echo (03/17): 73% EF, severe diastolic dysfunction, severe pulmonary hypertension, mild MR, mild TR metoprolol to coreg for better BP control Cont PO lasix 80 bid Continue PT UTI, Klebsiella Pneumoniae, MDR Proteus Mirabilis Urinary retention, suspect secondary to UTI reports Lower left flank pain, +increased urge to urinate on admission; PVR noted to be >200 on (03/18), Urine culture: Klebsiella Pneumoniae, 4+GNR Rocephin (03/17-03/21) transitioned to oral cefdinir (03/21-03/29) x2 weeks total antibiotics Mann DCd Patient reports persistent lower abdominal pain, +burning sensation when urinating urine cx: MDR Proteus Mirabilis rocephin (04/02-04/04) switched to IV merrem (04/04-) afebrile,+leukocytosis 7 days of IV meropenem recommended by ID. ID to follow. NOHEMY, cardiorenal syndrome renal u/s (03/17): 3.6 cm benign right renal cyst. Seen by nephrology. cont lasix Renal function peaked at 1.7 and now trending Hypertensive urgency reports being out of her doxazosin for 4 days Continue home medications - restarted sildenfail, pt with severe pulm hypertension BP improving. Continue current BP meds. IDDM2 with hyperglycemia ACHS Accu-Chek, SSI. Continue semglee and glimepiride. Hypothyroidism Continue home synthroid Constipation PRN stool softener laxative PRN Chronic back pain Pain medications as needed. Benadryl for itching. VTE: Lovenox Code: Full Dispo: SNF -[place] [facility] pending insurance authorization.
[2023-04-08] MEDS: ATORVASTATIN 20 MG TAB PO SCH (20:27)
[2023-04-08] MEDS: ALPRAZOLAM 0.25 MG TABLET PO PRN (20:33)
[2023-04-09 03:52] LABS: Absolute Lymphocytes (CBC) 2.4 K/uL (0.7-4.9); Hematocrit 31.2 % (36.0-45.0); Lymphocytes % 22.1 % (15.3-44.8); MCV 91.1 fL (80-100); MPV 8.5 fL (7.6-11.3); Platelets 291 thou/uL (152-406); RBC Red Blood Cell Count 3.42 M/uL (3.86-4.86)
[2023-04-09 04:09] LABS: Potassium 3.6 mEq/L (3.5-5.1)
[2023-04-09] MEDS: carvediloL 12.5 MG TAB PO SCH ×2 (06:04→17:12)
[2023-04-09] MEDS: LEVOTHYROXINE SOD 0.075 MG TAB PO SCH (06:05)
[2023-04-09] MEDS: DIPHENHYDRAMINE 25 MG TAB/CAP PO SCH ×4 (06:05→21:57)
[2023-04-09] MEDS: INSULIN -REGULAR HUMAN 50 UNIT/0.5 ML ML SQ SCH ×4 (07:30→21:27)
[2023-04-09] MEDS: IPRATROPIUM NAS SCH ×3 (09:00→21:00)
[2023-04-09] MEDS: Fluticasone/Vilanterol [Breo Ellipta 200-25 Mcg Inh] Blst.W.Dev IH SCH (09:00)
[2023-04-09] MEDS ORDERED: POTASSIUM CL SA 10 MEQ TAB PO ONE (09:00)
[2023-04-09] MEDS: ZINC SULFATE 220 MG CAP PO SCH (09:00)
[2023-04-09] MEDS: IPRATROPIUM IH SCH ×4 (09:00→21:00)
[2023-04-09] MEDS: ALBUTEROL SULFATE IH SCH ×4 (09:00→21:00)
[2023-04-09] MEDS: JUVEN PACKET PO SCH ×2 (09:00→21:00)
[2023-04-09] MEDS: Meropenem 1,000 MG in NA CHLORIDE 0.9% 100 ML IV SCH ×2 (09:02→21:28)
[2023-04-09] MEDS: LIDOCAINE 4% PATCH TOP SCH (09:02)
[2023-04-09] MEDS: SILDENAFIL CITRATE 20 MG TABLET PO SCH ×3 (09:03→21:27)
[2023-04-09] MEDS: GLIMEPIRIDE 2 MG TABLET PO SCH ×2 (09:03→16:18)
[2023-04-09] MEDS: ASPIRIN EC 81 MG TAB PO SCH (09:03)
[2023-04-09] MEDS: MONTELUKAST 10 MG TAB PO SCH (09:03)
[2023-04-09] MEDS: PANTOPRAZOLE 40MG TABLET PO SCH ×2 (09:03→16:19)
[2023-04-09] MEDS: FUROSEMIDE 40 MG TABLET PO SCH ×2 (09:04→16:19)
[2023-04-09] MEDS: HYDRALAZINE HCL 25 MG TABLET PO SCH ×3 (09:04→21:27)
[2023-04-09] MEDS: DOCUSATE NA 100 MG CAP PO SCH ×2 (09:04→21:27)
[2023-04-09] MEDS: VITAMIN B COMPLEX 1 CAP PO SCH (09:04)
[2023-04-09] MEDS: INSULIN GLARGINE 100 UNIT/ML SQ SCH ×2 (09:12→21:28)
--- NOTE | 2023-04-09 12:31 | P.PN ---
Subjective Date of Service: 04/09/23 Chief Complaint: CHF, anasarca Patient has no new complaint. Vitals have been stable. Physical Examination - Vital Signs Temperature: 97.1 F Blood Pressure: 174/60 Pulse: 89 Respirations: 16 Pulse Ox (%): 97 Assessment And Plan - Plan Physical Exam: GEN: Alert, oriented, NAD CV: Regular rate and rhythm, trace to trace BLE edema up to knees Pulm: diminished at bases b/l, no crackles. ABD: Soft, nondistended. Neuro: Normal speech, normal affect, no focal motor deficits. vitals reviewed Problem List: Anasarca Acute on chronic diastolic CHF UTI, Klebsiella Pneumoniae, MDR Proteus Mirabilis Urinary retention, suspect secondary to UTI NOHEMY, cardiorenal syndrome Hypertensive urgency IDDM2 with hyperglycemia Hypothyroidism Chronic back pain Constipation Anasarca Acute on chronic diastolic CHF Mild Cardiomegaly CXR (03/16): Mild cardiomegaly. No focal areas of acute airspace disease CXR (04/01): mild central congestion, stable Last echo (2020) with normal EF. She takes Lasix 40 mg BID at home Cardiology consulted Echo (03/17): 73% EF, severe diastolic dysfunction, severe pulmonary hypertension, mild MR, mild TR metoprolol to coreg for better BP control Cont PO lasix 80 bid Continue PT UTI, Klebsiella Pneumoniae, MDR Proteus Mirabilis Urinary retention, suspect secondary to UTI reports Lower left flank pain, +increased urge to urinate on admission; PVR noted to be >200 on (03/18), Urine culture: Klebsiella Pneumoniae, 4+GNR Rocephin (03/17-03/21) transitioned to oral cefdinir (03/21-03/29) x2 weeks total antibiotics Mann DCd Patient reports persistent lower abdominal pain, +burning sensation when urinating urine cx: MDR Proteus Mirabilis rocephin (04/02-04/04) switched to IV merrem (04/04-) afebrile,+leukocytosis 7 days of IV meropenem recommended by ID. ID to follow. NOHEMY, cardiorenal syndrome renal u/s (03/17): 3.6 cm benign right renal cyst. Seen by nephrology. cont lasix Renal function peaked at 1.7 and trending down. Hypertension reports being out of her doxazosin for 4 days Continue home medications - restarted sildenfail, pt with severe pulm hypertension BP improved. Continue current BP meds. IDDM2 with hyperglycemia ACHS Accu-Chek, SSI. Continue semglee and glimepiride. Hypothyroidism Continue home synthroid Constipation PRN stool softener laxative PRN Chronic back pain Pain medications as needed. Benadryl for itching. VTE: Lovenox Code: Full Dispo: SNF -[facility] pending insurance authorization.
[2023-04-09] MEDS: HYDROCODONE/APAP 5/325 MG TAB PO PRN (16:17)
[2023-04-09] MEDS: ENOXAPARIN 40 MG/0.4 ML SQ SCH (16:20)
[2023-04-09] MEDS: ATORVASTATIN 20 MG TAB PO SCH (21:27)
[2023-04-09] MEDS: ALPRAZOLAM 0.25 MG TABLET PO PRN (21:57)
[2023-04-10] MEDS: DIPHENHYDRAMINE 25 MG TAB/CAP PO SCH ×4 (05:38→22:12)
[2023-04-10] MEDS: LEVOTHYROXINE SOD 0.075 MG TAB PO SCH (05:38)
[2023-04-10] MEDS: HYDROCODONE/APAP 5/325 MG TAB PO PRN ×2 (05:38→17:13)
[2023-04-10] MEDS: carvediloL 12.5 MG TAB PO SCH ×2 (05:38→17:10)
[2023-04-10] MEDS: INSULIN -REGULAR HUMAN 50 UNIT/0.5 ML ML SQ SCH ×4 (07:30→20:18)
[2023-04-10] MEDS: SILDENAFIL CITRATE 20 MG TABLET PO SCH ×3 (08:45→20:18)
[2023-04-10] MEDS: ASPIRIN EC 81 MG TAB PO SCH (08:47)
[2023-04-10] MEDS: GLIMEPIRIDE 2 MG TABLET PO SCH ×2 (08:47→16:27)
[2023-04-10] MEDS: PANTOPRAZOLE 40MG TABLET PO SCH ×2 (08:47→16:26)
[2023-04-10] MEDS: VITAMIN B COMPLEX 1 CAP PO SCH (08:48)
[2023-04-10] MEDS: DOCUSATE NA 100 MG CAP PO SCH ×2 (08:48→20:18)
[2023-04-10] MEDS: MONTELUKAST 10 MG TAB PO SCH (08:48)
[2023-04-10] MEDS: FUROSEMIDE 40 MG TABLET PO SCH ×2 (08:48→16:20)
[2023-04-10] MEDS: HYDRALAZINE HCL 25 MG TABLET PO SCH ×3 (08:48→20:18)
[2023-04-10] MEDS: ZINC SULFATE 220 MG CAP PO SCH (08:48)
[2023-04-10] MEDS: INSULIN GLARGINE 100 UNIT/ML SQ SCH ×2 (08:49→20:18)
[2023-04-10] MEDS: Meropenem 1,000 MG in NA CHLORIDE 0.9% 100 ML IV SCH ×2 (08:49→20:19)
[2023-04-10] MEDS: LIDOCAINE 4% PATCH TOP SCH (08:54)
[2023-04-10] MEDS: IPRATROPIUM IH SCH ×4 (08:55→20:25)
[2023-04-10] MEDS: IPRATROPIUM NAS SCH ×3 (08:55→20:25)
[2023-04-10] MEDS: ALBUTEROL SULFATE IH SCH ×4 (08:55→20:25)
[2023-04-10] MEDS: Fluticasone/Vilanterol [Breo Ellipta 200-25 Mcg Inh] Blst.W.Dev IH SCH (08:55)
[2023-04-10] MEDS: JUVEN PACKET PO SCH ×2 (08:56→20:18)
--- NOTE | 2023-04-10 13:34 | P.PN ---
Subjective Date of Service: 04/10/23 Chief Complaint: CHF, anasarca Patient reports an episode of chest pain worse with breathing and bilateral shoulder pain yesterday. No issues overnight and since this morning. Physical Examination - Vital Signs Temperature: 98.0 F Blood Pressure: 137/59 Pulse: 87 Respirations: 20 Pulse Ox (%): 96 Assessment And Plan - Plan Physical Exam: GEN: Alert, oriented, NAD CV: Regular rate and rhythm, trace to trace BLE edema up to knees Pulm: diminished at bases b/l, no crackles. ABD: Soft, nondistended. Neuro: Normal speech, normal affect, no focal motor deficits. vitals reviewed Problem List: Anasarca Acute on chronic diastolic CHF UTI, Klebsiella Pneumoniae, MDR Proteus Mirabilis Urinary retention, suspect secondary to UTI NOHEMY, cardiorenal syndrome Hypertensive urgency IDDM2 with hyperglycemia Hypothyroidism Chronic back pain Constipation Anasarca Acute on chronic diastolic CHF Mild Cardiomegaly CXR (03/16): Mild cardiomegaly. No focal areas of acute airspace disease CXR (04/01): mild central congestion, stable Last echo (2020) with normal EF. She takes Lasix 40 mg BID at home Cardiology consulted Echo (03/17): 73% EF, severe diastolic dysfunction, severe pulmonary hypertension, mild MR, mild TR metoprolol to coreg for better BP control Cont PO lasix 80 bid Continue PT UTI, Klebsiella Pneumoniae, MDR Proteus Mirabilis Urinary retention, suspect secondary to UTI reports Lower left flank pain, +increased urge to urinate on admission; PVR noted to be >200 on (03/18), Urine culture: Klebsiella Pneumoniae, 4+GNR Rocephin (03/17-03/21) transitioned to oral cefdinir (03/21-03/29) x2 weeks total antibiotics Mann DCd Patient reports persistent lower abdominal pain, +burning sensation when urinating urine cx: MDR Proteus Mirabilis rocephin (04/02-04/04) switched to IV merrem (04/04-) afebrile,+leukocytosis 7 days of IV meropenem recommended by ID. ID to follow. NOHEMY, cardiorenal syndrome renal u/s (03/17): 3.6 cm benign right renal cyst. Seen by nephrology. Renal function peaked at 1.7. Serum creatinine continue to trend. Continue oral Lasix. Hypertension reports being out of her doxazosin for 4 days Continue home medications - restarted sildenfail, pt with severe pulm hypertension BP improved. Patient is currently normotensive. Continue current BP meds. IDDM2 with hyperglycemia ACHS Accu-Chek, SSI. Continue semglee and glimepiride. Hypothyroidism Continue home synthroid Constipation PRN stool softener laxative PRN Chronic back pain Pain medications as needed. Benadryl for itching. VTE: Lovenox Code: Full Dispo: SNF -[facility] [facility] pending insurance authorization.
[2023-04-10] MEDS: ENOXAPARIN 40 MG/0.4 ML SQ SCH (16:25)
[2023-04-10] MEDS: ATORVASTATIN 20 MG TAB PO SCH (20:18)
[2023-04-10] MEDS ORDERED: DULERA 200/5 (MOMETASONE/FORMOTEROL) INHALER IH SCH (21:00)
[2023-04-10] MEDS: ALPRAZOLAM 0.25 MG TABLET PO PRN (22:12)
[2023-04-11] MEDS: HYDROCODONE/APAP 5/325 MG TAB PO PRN ×3 (03:40→20:34)
[2023-04-11 04:19] LABS: Potassium 4.1 mEq/L (3.5-5.1)
[2023-04-11 04:52] LABS: Absolute Lymphocytes (CBC) 1.8 K/uL (0.7-4.9); Hematocrit 31.8 % (36.0-45.0); Lymphocytes % 15.1 % (15.3-44.8); MPV 8.6 fL (7.6-11.3); Platelets 276 thou/uL (152-406); RBC Red Blood Cell Count 3.45 M/uL (3.86-4.86)
[2023-04-11] MEDS: DIPHENHYDRAMINE 25 MG TAB/CAP PO SCH ×4 (06:19→22:36)
[2023-04-11] MEDS: LEVOTHYROXINE SOD 0.075 MG TAB PO SCH (06:19)
[2023-04-11] MEDS: carvediloL 12.5 MG TAB PO SCH ×2 (06:19→17:18)
[2023-04-11] MEDS: Fluticasone/Vilanterol [Breo Ellipta 200-25 Mcg Inh] Blst.W.Dev IH SCH (09:00)
[2023-04-11] MEDS: ZINC SULFATE 220 MG CAP PO SCH (09:00)
[2023-04-11] MEDS: IPRATROPIUM NAS SCH ×3 (09:00→20:23)
[2023-04-11] MEDS: ALBUTEROL SULFATE IH SCH ×4 (09:00→20:23)
[2023-04-11] MEDS: JUVEN PACKET PO SCH ×2 (09:00→20:38)
[2023-04-11] MEDS: IPRATROPIUM IH SCH ×4 (09:00→20:23)
--- NOTE | 2023-04-11 09:11 | P.PN ---
Date of Service: 04/11/23 Chief Complaint: CHF, anasarca Subjective: Patient seen and examined at [facility]. In no apparent distress. Breathing comfortably on room air at this time. Patient reports continued dysuria and voiding difficulties/hesitancy. Physical Examination Temp Pulse Resp BP Pulse Ox 97.7 F 91 H 16 143/59 H 95 04/11/23 04:00 04/11/23 04:00 04/11/23 04:34 04/11/23 04:00 04/11/23 04:34 General: Alert, In no apparent distress, Oriented x3 HEENT: Atraumatic, Normocephalic Neck: Supple, JVD not distended Respiratory: Normal air movement, Diminished. Breathing comfortably on room air. Cardiovascular: Regular rate. No edema. Abdomen: Normal bowel sounds. Non-tender. Non-distended. Integumentary: No rashes Neurological: no focal deficits Laboratory Data: Reviewed Microbiology Data: Reviewed Imaging Data: Reviewed Medication List: Reviewed Assessment and Plan Problem List Urinary Tract Infection NOHEMY Acute on Chronic Diastolic CHF Diabetes Mellitus type II Hypertension Hypothyroidism Chronic back pain UTI - On 03/17 urine culture growing Klebsiella pneumoniae for which she was treated with Rocephin from 03/17 to 03/21 then transitioned to oral Cefdinir 03/21-03/29. During hospital course patient then began developing dysuria again, a repeat urine culture was obtained on 04/02 which revealed Proteus mirabilis ESBL. She was started on Meropenem 04/04 - Currently on Meropenem (started 04/04) - Leukocytosis (WBC 11.9). Afebrile. Recommendations - UTI: Due to continued dysuria, recommend extending duration of antibiotic therapy to 10 days (04/04 to 04/14) - Continue Meropenem - Obtain repeat urinalysis. - Strict blood glucose control - WBC and fever trends case discussed with Dr. Nahun Marti
[2023-04-11] MEDS: LIDOCAINE 4% PATCH TOP SCH (09:14)
[2023-04-11] MEDS: ASPIRIN EC 81 MG TAB PO SCH (09:15)
[2023-04-11] MEDS: HYDRALAZINE HCL 25 MG TABLET PO SCH ×3 (09:15→20:34)
[2023-04-11] MEDS: GLIMEPIRIDE 2 MG TABLET PO SCH ×2 (09:15→17:17)
[2023-04-11] MEDS: INSULIN GLARGINE 100 UNIT/ML SQ SCH ×2 (09:15→20:37)
[2023-04-11] MEDS: DOCUSATE NA 100 MG CAP PO SCH ×2 (09:15→20:34)
[2023-04-11] MEDS: INSULIN -REGULAR HUMAN 50 UNIT/0.5 ML ML SQ SCH ×4 (09:15→20:37)
[2023-04-11] MEDS: PANTOPRAZOLE 40MG TABLET PO SCH ×2 (09:15→17:18)
[2023-04-11] MEDS: FUROSEMIDE 40 MG TABLET PO SCH ×2 (09:16→17:18)
[2023-04-11] MEDS: SILDENAFIL CITRATE 20 MG TABLET PO SCH ×3 (09:16→20:33)
[2023-04-11] MEDS: Meropenem 1,000 MG in NA CHLORIDE 0.9% 100 ML IV SCH ×2 (09:16→20:38)
[2023-04-11] MEDS: VITAMIN B COMPLEX 1 CAP PO SCH (09:16)
[2023-04-11] MEDS: MONTELUKAST 10 MG TAB PO SCH (09:16)
[2023-04-11 16:59] LABS: Specific Gravity 1.008 (1.005-1.030); Urine Bacteria <20 /HPF (<20); Urine Bilirubin NEGATIVE (Negative); Urine Blood Negative (Negative); Urine Clarity Extremely Turbid (Clear); Urine Color Light-Yellow (Yellow); Urine Crystals Unidentified Few /HPF (None Seen); Urine Glucose NEGATIVE (Negative); Urine Mucus Slight /HPF (None Seen); Urine Protein NEGATIVE (Negative); Urine Urobilinogen Normal (Normal)
[2023-04-11] MEDS: ENOXAPARIN 40 MG/0.4 ML SQ SCH (17:17)
--- NOTE | 2023-04-11 18:45 | P.PN ---
Subjective Date of Service: 04/11/23 Chief Complaint: CHF, anasarca Patient has no new complain. She denies shortness of breath. She reports intermittent suprapubic pain. Physical Examination - Vital Signs Temperature: 98.6 F Blood Pressure: 133/52 Pulse: 84 Respirations: 16 Pulse Ox (%): 93 Assessment And Plan - Plan Physical Exam: GEN: Alert, oriented, NAD CV: Regular rate and rhythm, trace to trace BLE edema up to knees Pulm: diminished at bases b/l, no crackles. ABD: Soft, nondistended. Neuro: Normal speech, normal affect, no focal motor deficits. vitals reviewed Problem List: Anasarca Acute on chronic diastolic CHF UTI, Klebsiella Pneumoniae, MDR Proteus Mirabilis Urinary retention, suspect secondary to UTI NOHEMY, cardiorenal syndrome Hypertensive urgency IDDM2 with hyperglycemia Hypothyroidism Chronic back pain Constipation Anasarca Acute on chronic diastolic CHF Mild Cardiomegaly CXR (03/16): Mild cardiomegaly. No focal areas of acute airspace disease CXR (04/01): mild central congestion, stable Last echo (2020) with normal EF. She takes Lasix 40 mg BID at home Cardiology consulted Echo (03/17): 73% EF, severe diastolic dysfunction, severe pulmonary hypertension, mild MR, mild TR metoprolol to coreg for better BP control Cont PO lasix 80 bid She is receiving PT. UTI, Klebsiella Pneumoniae, MDR Proteus Mirabilis Urinary retention, suspect secondary to UTI reports Lower left flank pain, +increased urge to urinate on admission; PVR noted to be >200 on (03/18), Urine culture: Klebsiella Pneumoniae, 4+GNR Rocephin (03/17-03/21) transitioned to oral cefdinir (03/21-03/29) x2 weeks total antibiotics Mann DCd Patient reports persistent lower abdominal pain, +burning sensation when urinating urine cx: MDR Proteus Mirabilis rocephin (04/02-04/04) switched to IV merrem (04/04-) afebrile,+leukocytosis 7 days of IV meropenem recommended by ID. Patient completed 7 days but ID extended antibiotics for 10 days given recurrent symptoms. ID to follow. NOHEMY, cardiorenal syndrome renal u/s (03/17): 3.6 cm benign right renal cyst. Seen by nephrology. Renal function peaked at 1.7. Serum creatinine continue to trend down. Continue oral Lasix. Systemic hypertension/pulmonary hypertension Continue home medications -sildenfail, for severe pulm hypertension Patient has been normotensive. Continue current BP meds. IDDM2 with hyperglycemia ACHS Accu-Chek, SSI. Continue semglee and glimepiride. Hypothyroidism Continue home dose synthroid Constipation PRN stool softener laxative PRN Chronic back pain Pain medications as needed. Benadryl for itching. VTE: Lovenox Code: Full Dispo: SNF -[place] [facility] pending insurance authorization. Patient is also exploring the option of acute inpatient rehab. Social service to follow.
[2023-04-11] MEDS: ALPRAZOLAM 0.25 MG TABLET PO PRN (20:34)
[2023-04-11] MEDS: ATORVASTATIN 20 MG TAB PO SCH (20:34)
[2023-04-12] MEDS: HYDROCODONE/APAP 5/325 MG TAB PO PRN (05:13)
[2023-04-12] MEDS: carvediloL 12.5 MG TAB PO SCH (05:13)
[2023-04-12] MEDS: DIPHENHYDRAMINE 25 MG TAB/CAP PO SCH ×2 (05:13→12:04)
[2023-04-12] MEDS: LEVOTHYROXINE SOD 0.075 MG TAB PO SCH (05:13)
[2023-04-12 05:40] LABS: Absolute Lymphocytes (CBC) 2.1 K/uL (0.7-4.9); Hematocrit 30.5 % (36.0-45.0); Lymphocytes % 16.2 % (15.3-44.8); MCV 91.1 fL (80-100); Platelets 286 thou/uL (152-406); RBC Red Blood Cell Count 3.34 M/uL (3.86-4.86)
[2023-04-12 06:15] LABS: Albumin 2.9 g/dL (3.4-5.0); Phosphorus 3.8 mg/dL (2.5-4.9); Potassium 3.9 mEq/L (3.5-5.1)
--- NOTE | 2023-04-12 07:11 | P.PN ---
Date of Service: 04/12/23 Subjective: ROS: 10 point ROS as noted above, otherwise negative Physical Exam: GEN: Alert, oriented, NAD HEENT: Normal conjunctiva, sclera anicteric CV: Regular rate and rhythm, no edema Pulm: Nonlabored respirations on room air ABD: Soft, nontender, nondistended MSK: No joint tenderness Integumentary: No rashes Neuro: Normal speech, normal affect vitals reviewed Problem List: VTE: Code: Dispo:
[2023-04-12 08:36] VITALS: O2SAT 98
[2023-04-12] MEDS: INSULIN -REGULAR HUMAN 50 UNIT/0.5 ML ML SQ SCH ×2 (08:44→12:04)
[2023-04-12] MEDS: VITAMIN B COMPLEX 1 CAP PO SCH (08:45)
[2023-04-12] MEDS: ASPIRIN EC 81 MG TAB PO SCH (08:45)
[2023-04-12] MEDS: LIDOCAINE 4% PATCH TOP SCH (08:45)
[2023-04-12] MEDS: GLIMEPIRIDE 2 MG TABLET PO SCH (08:46)
[2023-04-12] MEDS: PANTOPRAZOLE 40MG TABLET PO SCH (08:46)
[2023-04-12] MEDS: DOCUSATE NA 100 MG CAP PO SCH (08:46)
[2023-04-12] MEDS: ZINC SULFATE 220 MG CAP PO SCH (08:46)
[2023-04-12] MEDS: HYDRALAZINE HCL 25 MG TABLET PO SCH ×2 (08:46→14:35)
[2023-04-12] MEDS: MONTELUKAST 10 MG TAB PO SCH (08:46)
[2023-04-12] MEDS: FUROSEMIDE 40 MG TABLET PO SCH (08:46)
[2023-04-12] MEDS: SILDENAFIL CITRATE 20 MG TABLET PO SCH ×2 (08:47→14:35)
[2023-04-12] MEDS: IPRATROPIUM NAS SCH ×2 (08:48→14:00)
[2023-04-12] MEDS: IPRATROPIUM IH SCH ×2 (08:48→12:06)
[2023-04-12] MEDS: Fluticasone/Vilanterol [Breo Ellipta 200-25 Mcg Inh] Blst.W.Dev IH SCH (08:48)
[2023-04-12] MEDS: ALBUTEROL SULFATE IH SCH ×2 (08:48→12:06)
[2023-04-12] MEDS: JUVEN PACKET PO SCH (08:48)
[2023-04-12] MEDS: INSULIN GLARGINE 100 UNIT/ML SQ SCH (08:50)
[2023-04-12] MEDS ORDERED: Meropenem 1,000 MG in NA CHLORIDE 0.9% 100 ML IV SCH (09:00)
--- NOTE | 2023-04-12 09:20 | P.PN ---
Date of Service: 04/12/23 Chief Complaint: CHF, anasarca Subjective: Patient seen and examined at bedside. Reports continued dysuria. Pending transfer to [facility]. Physical Examination Temp Pulse Resp BP Pulse Ox 97.3 F 77 16 137/65 98 04/12/23 08:00 04/12/23 08:46 04/12/23 08:00 04/12/23 08:46 04/12/23 08:00 General: Alert, In no apparent distress, Oriented x3 HEENT: Atraumatic, Normocephalic Neck: Supple, JVD not distended Respiratory: Normal air movement, Diminished. Breathing comfortably on room air. Cardiovascular: Regular rate. BLE edema 1+. Abdomen: Normal bowel sounds. Non-tender. Non-distended. Integumentary: No rashes Neurological: no focal deficits Laboratory Data: Reviewed Microbiology Data: Reviewed Imaging Data: Reviewed Medication List: Reviewed Assessment and Plan Problem List Urinary Tract Infection NOHEMY Acute on Chronic Diastolic CHF Diabetes Mellitus type II Hypertension Hypothyroidism Chronic back pain UTI - On 03/17 urine culture growing Klebsiella pneumoniae for which she was treated with Rocephin from 03/17 to 03/21 then transitioned to oral Cefdinir 03/21-03/29. During hospital course patient then began developing dysuria again, a repeat urine culture was obtained on 04/02 which revealed Proteus mirabilis ESBL. She was started on Meropenem 04/04 - Currently on Meropenem (started 04/04) - Leukocytosis. Afebrile. -Patient still reporting dysuria on 04/11. Repeat urinalysis obtained. Urine extremely turbid, leukocyte esterase 250, RBC 11-20, WBC 10-20 -Repeat urine culture 04/11: Pending Recommendations - UTI: Continue antibiotic therapy for 10 days (04/04 to 04/14) -Currently on meropenem, continue - Follow-up with repeat urine culture results - Strict blood glucose control, goal <180 - WBC and fever trends case discussed with Dr. Nahun Marti
--- NOTE | 2023-04-12 11:43 | RAD REPORT ---
EXAM DESCRIPTION: RAD - Chest Single View - 04/11/2023 1:10 am CLINICAL HISTORY: S/P PICC insertion COMPARISON: 03/16/2023 FINDINGS: Single frontal radiograph view of the chest. Cardiomediastinal silhouette: Normal size and contour. Right arm PICC with tip in the SVC. Lungs: No consolidation, pneumothorax, or pleural effusion. Bones: No acute osseous abnormality. Upper abdomen: No abnormality identified. IMPRESSION: Right arm PICC with tip in the SVC. Electronically signed by: Bradley Naylor 04/11/2023 1:29 AM CDT Due to temporary technical issues with the PACS/Fluency reporting system, reports are being signed by the in house radiologists without review as a courtesy to insure prompt reporting. The interpreting radiologist is fully responsible for the content of the report.
[2023-04-12 12:57] VITALS: BP 148/79; TEMP 97.5
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
--- NOTE | 2023-04-12 16:32 | EKG ---
Test Date: 2023-04-09 Test Time: 15:16:16 Salt Plant Operator: TD MEASUREMENT RESULTS: Intervals: Rate: 96 AL: 162 QRSD: 76 QT: 388 QTc: 490 [place]: P: 81 AL: 162 QRS: 64 T: 42 INTERPRETIVE STATEMENTS: Normal sinus rhythm Cannot rule out Anterior infarct, age undetermined Abnormal ECG Compared to ECG 03/16/2023 01:40:58 No significant changes Electronically Signed On 04-12-23 16:27:50 CDT by Lei Ortiz
--- NOTE | 2023-04-13 13:07 | EKG ---
Test Date: 2023-04-09 Test Time: 15:17:07 Cook Helper Meat: TD MEASUREMENT RESULTS: Intervals: Rate: 96 [place]: QRSD: 82 QT: 384 QTc: 485 [place]: P: [place]: QRS: 63 T: 49 INTERPRETIVE STATEMENTS: Sinus rhythm with fusion complexes Possible Anterior infarct, age undetermined Abnormal ECG Compared to ECG 04/09/2023 15:16:16 Fusion complex(es) now present Myocardial infarct finding still present Electronically Signed On 04-13-23 13:05:24 CDT by Lei Ortiz
== END 2023-04-12 16:00 ==
LOC: ER 22:45 → ERHOLD 23:54 → 2ND 04-07 01:11
PROVIDERS: ADMIT Internal Medicine; ATTEND Hospitalist
DX: I50.32 Chronic diastolic (congestive) heart failure (principal); R60.1 Generalized edema; I16.0 Hypertensive urgency; I51.7 Cardiomegaly; E03.9 Hypothyroidism, unspecified; G47.30 Sleep apnea, unspecified; N39.0 Urinary tract infection, site not specified; B96.1 Klebsiella pneumoniae [K. pneumoniae] as the cause of diseases classified elsewhere; B96.4 Proteus (mirabilis) (morganii) as the cause of diseases classified elsewhere; R33.9 Retention of urine, unspecified; N17.9 Acute kidney failure, unspecified; E11.65 Type 2 diabetes mellitus with hyperglycemia; K59.00 Constipation, unspecified; I13.0 Hypertensive heart and chronic kidney disease with heart failure and stage 1 through stage 4 chronic kidney disease, or unspecified chronic kidney disease; N28.1 Cyst of kidney, acquired; N18.9 Chronic kidney disease, unspecified; M54.50 Low back pain, unspecified; Z79.4 Long term (current) use of insulin
CPT/HCPCS: 36415; 36569; 71045; 80048; 80069; 81001; 82947; 83735; 85025; 87086; 87088; 93005; 97110; 97116; 97161; 97530; 99285; G0378; J0360; J1650; J1815; J2001; J2185